=== PATIENT | female | born 1955 | race Caucasian/White ===

== ENCOUNTER 2022-07-01 21:53 | Emergency (ER) | payer MEDICARE, MEDICAID, SELFPAY ==
[2022-07-01 21:53] VITALS: BP 115/67; PULSE 80; RESP 20; TEMP 37; O2SAT 100
--- NOTE | 2022-07-01 22:23 | ED.WOUNDLAC ---
HPI - Wound/Laceration General Chief Complaint: Wound/Laceration Stated Complaint: wound vac beeping Time Seen by Provider: 07/01/22 22:17 History of Present Illness HPI narrative: 67-year-old female presents to the emergency room from home for evaluation of an alarm going off on her wound VAC to her right groin area. On 830 she had a right groin pseudoaneurysm repair by vascular surgery over the [facility], while plastics did a muscle flap. Patient has had no problems with the wound VAC until she was discharged home from [facility] 2 days ago. Related Data Allergies Allergy/AdvReac Type Severity Reaction Status Date / Time codeine Allergy Nausea and Verified 07/01/22 22:00 Vomiting Review of Systems Review of Systems: CONSTITUTIONAL: Denies fever, chills, or sweats. EYES: Denies visual changes, redness, or discharge. ENT: Denies rhinorrhea, congestion, sore throat, or otalgia. CARDIOVASCULAR: Denies chest pain, palpitations, or edema. RESPIRATORY: Denies cough or dyspnea. GASTROINTESTINAL: Denies abdominal pain, nausea, vomiting, or diarrhea. GENITOURINARY: Denies dysuria or hematuria. SKIN: Denies rash or itching. MUSCULOSKELETAL: Denies back pain, joint pain, or myalgia. NEUROLOGIC: Denies headache, numbness, dizziness, or weakness. PSYCHIATRIC: Denies anxiety or depression. PMFSH Past Medical History Medical History GERD (gastroesophageal reflux disease) PNA (pneumonia) Surgical History Surgical History H/O knee surgery H/O shoulder surgery Previous back surgery Social History Social History Smoking status: Unknown if ever smoked Alcohol intake: unknown Substance use: unknown Gender identity (if verbalized by the patient): Female Sexual Orientation (if Verbalized by the Patient): Straight or Heterosexual Spiritual care concerns: No Exam Narrative: GENERAL: Well-appearing, well-nourished, no physical limitations, and in no acute distress. HEAD: Normocephalic, atraumatic. EYES: Conjunctivae normal, PERRLA and EOMI. CHEST: Clear to auscultation. No respiratory distress. No wheezes rales or rhonchi. No tenderness. HEART: Regular rate and rhythm. No murmur heard. Normal peripheral pulses. EXTREMITIES: Normal range of motion. No edema. No clubbing or cyanosis SKIN: Covered wound to the right inguinal groin, wound VAC is in place NEURO: No focal deficits. Alert and oriented x3. MAEW. CN's II-XI intact bilaterally, normal gait PSYCH: Cooperative. Normal mood and affect. Course Course Emergency Course: 2244: Discussed case with MD Locke at [facility]. She recommends removing the wound vac and dressing, then applying a sterile dressing in its place. 2329: Wound VAC and wound VAC removed. Wound was cleaned with normal saline. Nonstick dressing was applied to the wound and covered. Patient tolerated procedure well Vital Signs Vital signs: Vital Signs Temperature 37.0 C 07/01/22 21:53 Pulse Rate 80 07/01/22 21:53 Respiratory Rate 20 07/01/22 21:53 Blood Pressure 115/67 07/01/22 21:53 Pulse Oximetry 100 07/01/22 21:53 Oxygen Delivery Nasal Cannula 07/01/22 21:53 Oxygen Flow Rate 2 07/01/22 21:53 Temperature 37.0 C 07/01/22 21:53 Pulse Rate 80 07/01/22 21:53 Respiratory Rate 20 07/01/22 21:53 Blood Pressure 115/67 07/01/22 21:53 Pulse Oximetry 100 07/01/22 21:53 Oxygen Delivery Nasal Cannula 07/01/22 21:53 Oxygen Flow Rate 2 07/01/22 21:53 Discharge Plan Discharge Clinical Impression: Encounter for wound care Patient Disposition: Home, Self-Care Condition: Stable Instructions: Antibiotic Form, Chronic Wounds (ED) Prescriptions: No Action acetaminophen [Mapap (acetaminophen)] 325 mg Tablet 650 mg PO Q6H PRN (Reason: Pain) Qty: 60 0RF atorvastatin 20 mg Table
--- NOTE | 2022-07-01 23:15 | PC.NURSE ---
MONSE per ERP to remove wound vac and place a dressing on.
--- NOTE | 2022-07-01 23:42 | PC.NURSE ---
Patients wound vac removed, wounds cleansed and dressed with dry dressings. Patient and her were educated on wound dressing changes and what to look out for. Patient given some extra dressing supplies to take home for dressing changes.
--- NOTE | 2022-07-02 00:01 | PC.NURSE ---
Patient normally wears 2L of o2 via NC. Patient did not bring her own O2 and her states I'm not waiting for an ambulance and I'm not going to go home and come back. Patient and her request to leave, be discharged with no oxygen, I can make it home quick and connect her to her oxygen then. Patient and her informed of risks of leaving without patient being on her O2. Patient and her continue to state I will be fine, I will get to my oxygen when I get home. Patient trialed off O2 for 10 min and her O2 ranged from 84%-92%. Patient still requesting to leave without her O2. Patient reminded of the risks of leaving without it, but still continues to state she wants to leave. ERP and club lounge attendant notified and aware of situation. Patient wheeled out of the ED via w/c upon request. Patient assisted into her car and her to take her home.
[2022-07-02 00:07] VITALS: PULSE 80; RESP 17; O2SAT 92
== END 2022-07-02 00:09 | disposition home or self-care (01) ==
PROVIDERS: Emergency Provider Nurse Practitioner Family; PCP Internal Medicine
DX: Z48.00 Encounter for change or removal of nonsurgical wound dressing (principal); K21.9 Gastro-esophageal reflux disease without esophagitis; Z79.01 Long term (current) use of anticoagulants; Z79.82 Long term (current) use of aspirin; Z79.891 Long term (current) use of opiate analgesic
CPT/HCPCS: 99282

== ENCOUNTER 2022-07-11 13:36 | Emergency (ER) | payer MEDICARE, MEDICAID, SELFPAY ==
[2022-07-11] VITALS (18 sets, daily range): BP systolic 93–155; BP diastolic 54–125; PULSE 73–80; RESP 16–20; TEMP 36.6; O2SAT 95–100
--- NOTE | ~2022-07-11 | CT_ITS ---
EXAMINATION: CT LE RT w con DATE: 07/11/2022 15:32 INDICATION: Bulla to the inner right thigh post recent subtle flap repair. TECHNIQUE: High resolution computed tomography (CT) of the right thigh was performed without intraven ous contrast. Additional sagittal and coronal reconstructions were performed. Automated exposure cont rol and iterative reconstruction technique were employed. The dose-length product was 261.75 mGy-cm. COMPARISON: None FINDINGS: Right total knee arthroplasty without patellar resurfacing which appears well seated in near-anatomic alignment. No periprosthetic lucency to suggest loosening or infection. Mild to moderate right hip o steoarthritis. No right hip or knee joint effusion. Bones are otherwise unremarkable. There is no bon e surgical wound seen along the anterior aspect of the proximal right thigh. There is peripheral enha ncement along a partially loculated fluid collection at the level of the superficial muscular fascia located deep to the surgical wound and measuring 6.4 cm craniocaudally and 7.5 x 2.2 cm in maximal tr ansaxial dimensions. There is a small defect in superficial aspect of the peripherally enhancing wall with extension of a 2.5 x 2.0 x 1.7 cm globular collection of fluid into the subdermal and fat appro ximately 3 cm medial and inferior to the caudal margin of the surgical wound. There is some surroundi ng skin thickening. Likely reactive mild right inguinal lymphadenopathy. The bladder and visualized p ortions of the bowels in the pelvis are unremarkable. The uterus is not identified and has likely bee n surgically resected. IMPRESSION: 1. Peripherally enhancing 6.4 x 7.5 x 2.2 cm loculated fluid collection at the level of the superfic ial muscular fascia, deep to a surgical wound at the anteromedial aspect of the proximal right thigh which could represent evolving hematoma/seroma or abscess in the appropriate clinical setting. There is superficial extension of a small lobular component of the fluid collection into the subdermal tiss ues which likely accounts for the described bulla. Reviewed, dictated and finalized at location A. IMPRESSION: 1. Peripherally enhancing 6.4 x 7.5 x 2.2 cm loculated fluid collection at the level of the superficial muscular fascia, deep to a surgical wound at the ante romedial aspect of the proximal right thigh which could represent evolving cristino booker/seroma or abscess in the appropriate clinical setting. There is superficia l extension of a small lobular component of the fluid collection into the subde rmal tissues which likely accounts for the described bulla.
--- NOTE | 2022-07-11 14:21 | ED.WOUNDLAC ---
HPI - Wound/Laceration General Chief Complaint: Wound/Laceration <Gordo Mullins APRN - Last Filed: 07/11/22 19:02> Stated Complaint: RT thigh wound- cardiac cath at [facility] 1.5 wks ago <Gordo Mullins APRN - Last Filed: 07/11/22 19:02> Time Seen by Provider: 07/11/22 14:09 <Gordo Mullins APRN - Last Filed: 07/11/22 19:02> History of Present Illness HPI narrative: 67-year-old female presents the emergency room for evaluation the large blister that is draining to her right inner thigh. Patient states 4 weeks ago had a cardiac cath at [facility] and was found to have a psuedoaneurysm of the right femoral artery. Vascular surgery repaired the femoral aneurysm, and plastics was involved to repair the sartorius muscle flap. Patient was seen here about 10 days ago because her wound vac alarm was going off. The wound vac was removed at that time. 8 days ago, she followed up with plastics to have the GILMAR drain removed. States she woke up this morning and was found to have a large blister to her right inner thigh that has been draining clear fluid. <Gordo Mullins APRN - Last Filed: 07/11/22 19:02> Related Data Allergies/Adverse Reactions: Allergies Allergy/AdvReac Type Severity Reaction Status Date / Time codeine Allergy Nausea and Verified 07/11/22 14:13 Vomiting <Gordo Mullins APRN - Last Filed: 07/11/22 19:02> Review of Systems Review of Systems: CONSTITUTIONAL: Denies fever, chills, or sweats. EYES: Denies visual changes, redness, or discharge. ENT: Denies rhinorrhea, congestion, sore throat, or otalgia. CARDIOVASCULAR: Denies chest pain, palpitations, or edema. RESPIRATORY: Denies cough or dyspnea. GASTROINTESTINAL: Denies abdominal pain, nausea, vomiting, or diarrhea. GENITOURINARY: Denies dysuria or hematuria. SKIN: Reports right medial thigh blister draining fluid MUSCULOSKELETAL: Denies back pain, joint pain, or myalgia. NEUROLOGIC: Denies headache, numbness, dizziness, or weakness. PSYCHIATRIC: Denies anxiety or depression. <Gordo Mullins APRN - Last Filed: 07/11/22 19:02> [facility] Past Medical History Medical History: Medical History GERD (gastroesophageal reflux disease) PNA (pneumonia) <Gordo Mullins APRN - Last Filed: 07/11/22 19:02> Surgical History Surgical History: Surgical History H/O knee surgery H/O shoulder surgery Previous back surgery <Gordo Mullins APRN - Last Filed: 07/11/22 19:02> Social History Social History: Social History Smoking status: Unknown if ever smoked Alcohol intake: unknown Substance use: unknown Gender identity (if verbalized by the patient): Female Sexual Orientation (if Verbalized by the Patient): Straight or Heterosexual Spiritual care concerns: No <Gordo Mullins APRN - Last Filed: 07/11/22 19:02> Exam Narrative: GENERAL: Ill-appearing, no physical limitations, and in no acute distress. HEAD: Normocephalic, atraumatic. EYES: Conjunctivae normal, PERRLA and EOMI. CHEST: Clear to auscultation. No respiratory distress. No wheezes rales or rhonchi. HEART: Regular rate and rhythm. No murmur heard. Normal peripheral pulses. ABDOMEN: Soft, nontender, nondistended, normal active bowel sounds. EXTREMITIES: Normal range of motion. No edema. No clubbing or cyanosis SKIN: Large bulla noted to the right medial thigh draining serosanguineous fluid. Large well-healing wound extending across the thigh with noted granulated tissue and no discharge. NEURO: No focal deficits. Alert and oriented x3. MAEW. CN's II-XI intact bilaterally, normal gait PSYCH: Cooperative. Normal mood and affect. <Gordo Mullins APRN - Last Filed: 07/11/22 19:02> Course Course Emergency Course: 1644: Discussed case with Dr. Lundberg, plastic surgeon at [facility]. He sta
[2022-07-11] MEDS: SODIUM CHLORIDE 0.9% IV 1,000 ML 150 ML IV CONT (14:31)
[2022-07-11 14:55] LABS: Basophils Absolute Auto 0.1 K/mm3 (0.0-0.1); Basophils Percent Auto 0.6 % (0.2-1.2); Eosinophils Absolute Auto 0.1 K/mm3 (0-0.3); Hematocrit 31.5 % (37.0-47.0); Hemoglobin 9.8 g/dL (12.0-15.0); Immature Granulocyte Absolute 0.22 K/mm3 (0.00-0.031); Immature Granulocyte Percent A 1.5 % (0-0.5); Lymphocytes Absolute Auto 1.57 K/mm3 (0.9-3.2); Lymphocytes Percent Auto 10.9 % (18.3-44.2); Mean Corpuscular HGB Conc 31.1 g/dl (32-36); Mean Corpuscular Hemoglobin 30.8 pg (26-34); Mean Corpuscular Volume 99.1 fl (80-100); Mean Platelet Volume 9.2 fl (7.4-10.4); Monocytes Absolute Auto 1.1 K/mm3 (0.1-0.6); Monocytes Percent Auto 7.5 % (2.6-8.5); Neutrophils Absolute Auto 11.3 K/mm3 (1.3-6.7); Neutrophils Percent Auto 78.5 % (45.5-73.1); Platelet Count Result 345 k/mm3 (150-375); Red Blood Count 3.18 M/mm3 (4.2-5.4); Red Cell Distribution Width 17.8 % (11.5-14.5); White Blood Count 14.4 K/mm3 (4.5-10.0)
[2022-07-11 15:12] LABS: Alanine Aminotransferase 32 U/L (6-35); Albumin Level 3.4 g/dL (3.5-5.1); Alkaline Phosphatase 88 U/L (38-126); Anion Gap 12 mmol/L (8-16); Aspartate Amino Transferase 38 U/L (14-36); Bilirubin,Total 0.3 mg/dL (0.2-1.3); Blood Urea Nitrogen 18 mg/dL (7-17); Calcium 9.1 mg/dL (8.4-10.2); Carbon Dioxide 30 mmol/L (22-30); Chloride 94 mmol/L (98-107); Estimated CRCL calculation 37 ml/min; Estimated Glomerular Filt Rate 56; Glucose 75 mg/dL (65-110); Potassium 4.2 mmol/L (3.4-5.0); Sodium 136 mmol/L (137-145)
[2022-07-11 15:13] LABS: Lactic Acid Reflex 0.6 mmol/L (0.7-2.0)
[2022-07-11] MEDS: ALPRAZolam (*CRX) 0.5 MG TABLET PO (18:57)
[2022-07-11] MEDS: HYDROmorphone HCL INJ (*CRX) 1 MG/ML SYR 0.5 MG IV PUSH ×2 (18:58→22:42)
--- NOTE | 2022-07-11 23:15 | PC.NURSE ---
Bedside report received from DEEPA Ling. Pt resting comfortably in bed. Dressing to right groin and right ant/lat thigh dry and intact at this time. Right pedal pulse strong. Pt told to call if needs anything.
[2022-07-12] VITALS (7 sets, daily range): BP systolic 126–132; BP diastolic 59–72; PULSE 96–98; RESP 18–19; TEMP 36.5; O2SAT 97–100
--- NOTE | 2022-07-12 01:51 | PC.NURSE ---
Dressing changed every time patient had to go to bathroom. This started at 18:00 and was done 3 times Applied wet to dry dressing at 01:30 to wound on panty line as well as 4x4's changed on left leg.
--- NOTE | 2022-07-12 02:50 | PC.NURSE ---
Per Marlene business relationship manager, pt's dressing to right groin needed to be changed after using restroom multiple times due to soilage and falling off.
--- NOTE | 2022-07-12 04:19 | PC.NURSE ---
Report to [facility]. Pt assisted to bathroom via w/c.
== END 2022-07-12 04:23 | disposition short-term general hospital (02) ==
PROVIDERS: Emergency Provider Nurse Practitioner Family; PCP Internal Medicine
DX: T81.718A Complication of other artery following a procedure, not elsewhere classified, initial encounter (principal); I72.4 Aneurysm of artery of lower extremity; K21.9 Gastro-esophageal reflux disease without esophagitis; Z87.01 Personal history of pneumonia (recurrent); Y84.0 Cardiac catheterization as the cause of abnormal reaction of the patient, or of later complication, without mention of misadventure at the time of the procedure
CPT/HCPCS: 36415; 73701; 80053; 83605; 85025; 87040; 96361; 96365; 96375; 96376; 99285; A9270; J0690; J1170; J7030; Q9967

== ENCOUNTER 2022-11-21 19:08 | Inpatient (IN) | payer MEDICARE, MEDICAID, SELFPAY ==
[2022-11-21] VITALS (30 sets, daily range): BP systolic 159–201; BP diastolic 93–137; PULSE 104–166; RESP 19–32; TEMP 38.8; O2SAT 95–100
--- NOTE | ~2022-11-21 | XR_ITS ---
EXAMINATION: XR chest 1V portable DATE: 11/21/2022 20:02 INDICATION: Dyspnea. Generalized weakness. TECHNIQUE: frontal view of the chest was obtained. COMPARISON: None FINDINGS: Nipple shadow projects of the left costophrenic angle. No focal airspace opacities, pulmonary edema, pleural effusion or pneumothorax. The cardiomediastinal silhouette is normal. Bilateral reverse total shoulder arthroplasties. Mild lumbar levocurvature with severe spondylosis. Peripheral IV at the rig ht antecubital fossa. IMPRESSION: 1. No acute cardiopulmonary disease. Reviewed, dictated and finalized at location A. TRIC METER TESTER
--- NOTE | ~2022-11-21 | CT_ITS ---
EXAMINATION: CT brain wo con DATE: 11/21/2022 20:58 INDICATION: Altered mental status TECHNIQUE: Computed tomography (CT) of the head was performed without intravenous contrast. Sagittal and coronal reconstructions were performed. The mA was adjusted according to patient size. Iterative reconstruction technique was employed. The dose-length product was 1210.67 mGy-cm. COMPARISON: None FINDINGS: No acute intracranial hemorrhage, acute infarction or abnormal extra axial fluid collection. There is mild scattered white matter hypoattenuation consistent with chronic small vessel ischemic disease. Ventricles are normal and symmetric. No mass/mass effect. The orbits, paranasal sinuses and mastoid a ir cells are normal. IMPRESSION: 1. No acute intracranial process. 2. Mild scattered white matter hypoattenuation consistent with chronic small vessel ischemic disease. Reviewed, dictated and finalized at location A. ETY SAW OPERATOR IMPRESSION: 1. No acute intracranial process. 2. Mild scattered white matter hypoattenuation consistent with chronic small ve ssel ischemic disease.
--- NOTE | ~2022-11-21 | CT_ITS ---
EXAMINATION: CTA chest PE protocol DATE: 11/21/2022 21:46 INDICATION: Dyspnea. Elevated d-dimer. TECHNIQUE: Computed tomography (CT) pulmonary angiogram of the chest was performed with 100 mL Omnipa que-350 intravenous contrast. Additional 3D reconstructions utilizing coronal maximum intensity proje ction (MIP) were performed. Automated exposure control and iterative reconstruction technique were em ployed. The dose-length product was 153.59 mGy-cm. COMPARISON: None FINDINGS: Excellent contrast opacification of the pulmonary arteries. There is mild streak artifact from dense contrast in the superior vena cava and right atrium. Moderate scattered respiratory motion artifact a t the bilateral lower lung zones where it mildly decreases sensitivity in some of the smaller subsegm ental pulmonary arteries. No pulmonary embolism. Mild emphysema. Mild atelectasis/scarring at the taz gula and left lower lobe. No pneumonia, pulmonary edema or pleural effusion. Heart size is normal. No pericardial effusion. Thoracic aorta is normal in caliber with no dissection. Enlargement of the leisa tral pulmonary arteries consistent with pulmonary arterial hypertension. No pathologically enlarged t horacic lymphadenopathy. Severe left renal atrophy. Mild bilateral hydronephrosis most prominent at t he bilateral extrarenal pelvises sees. Severe lower cervical and moderate thoracic spondylosis. Bilat eral reverse total shoulder arthroplasties. IMPRESSION: 1. No pulmonary embolism. 2. Emphysema with enlargement of the central pulmonary arteries suggesting secondary pulmonary arteri al hypertension. 2. Mild bilateral hydronephrosis with severe left renal atrophy. Reviewed, dictated and finalized at location A. N REDEVELOPMENT SPECIALIST IMPRESSION: 1. No pulmonary embolism. 2. Emphysema with enlargement of the central pulmonary arteries suggesting seco ndary pulmonary arterial hypertension. 2. Mild bilateral hydronephrosis with severe left renal atrophy.
--- NOTE | ~2022-11-21 | MR_ITS ---
EXAMINATION: MR brain/brain stem wo con DATE: 11/23/2022 14:53 INDICATION: Confusion. TECHNIQUE: Magnetic resonance imaging (MRI) of the brain and brainstem was performed without intraven ous contrast. COMPARISON: Head CT 11/21/2022 FINDINGS: There is no intracranial hemorrhage, acute infarction, or abnormal intracranial mass lesion . There are scattered areas of nonspecific increased T2-weighted signal intensity in the cerebral whi te matter and julissa. The ventricles are normal in size. The orbits are normal. The paranasal sinuses a re clear. There is a trace right mastoid effusion. IMPRESSION: 1. Mild nonspecific cerebral white matter disease and pontine disease, which likely represents chroni c small vessel ischemic disease. Reviewed, dictated and finalized at location A. [employer] IMPRESSION: 1. Mild nonspecific cerebral white matter disease and pontine disease, which tammy parry represents chronic small vessel ischemic disease.
[2022-11-21] MEDS: dilTIAZem HCl INJ 25 MG/5 ML VIAL 10 MG IV PUSH (19:16)
--- NOTE | 2022-11-21 19:16 | ECG_ITS ---
Measurements Intervals [place] Rate: 117 P: IN: 0 QRS: 93 QRSD: 117 T: 18 QT: 345 QTc: 483 Interpretive Statements ATRIAL FIBRILLATION WITH RAPID VENTRICULAR RESPONSE RIGHT BUNDLE BRANCH BLOCK ABNORMAL ECG NO PREVIOUS ECG AVAILABLE FOR COMPARISON Electronically Signed On 11-22-2022 15:05:18 FIRE PREVENTION INSPECTOR by Adán Jenkins M.D.
[2022-11-21 19:22] LABS: Glucose Point of Care 84 mg/dl (65-105)
--- NOTE | 2022-11-21 19:25 | ED.GENADULT ---
HPI - General Adult General Chief complaint: Weakness Stated complaint: AFIB/RVR; FEVER, GEN WKNS History of Present Illness HPI narrative: This is a 67-year-old female with history of COPD on home oxygen presenting to ED with generalized weakness, AFib with RVR and possible fever. The patient herself is a poor historian. She knows the year but she does not know why she is here. She does not understand her family called an ambulance to have her brought to the hospital. She is denying any physical complaints at this time outside of feeling generally unwell and an episode of diarrhea today. Per her she has been urinating on herself. No history of falls that he is aware of. He states that she has been losing weight. Per EMS they were called to the family's house because she has been not eating well, and just lying in bed. When they arrived the patient was 80% on room air. She is typically on 2 L nasal cannula. Her saturation quickly return to normal after they placed her on her normal oxygen. Her heart rate was found to be in the 180s with an AFib pattern. They gave her a fluid bolus which decreased her heart rate from 180 to approximately 130ish. She was then brought to the hospital. Related Data Allergies Allergy/AdvReac Type Severity Reaction Status Date / Time codeine Allergy Nausea and Verified 11/21/22 19:16 Vomiting PMFSH Past Medical History Medical History (Updated 11/21/22 @ 23:02 by Rick Bryant MD) COPD (chronic obstructive pulmonary disease) COPD (chronic obstructive pulmonary disease) GERD (gastroesophageal reflux disease) PNA (pneumonia) Surgical History Surgical History H/O knee surgery H/O shoulder surgery Previous back surgery Social History Social History Smoking status: Unknown if ever smoked Alcohol intake: unknown Substance use: unknown Gender identity (if verbalized by the patient): Female Sexual Orientation (if Verbalized by the Patient): Straight or Heterosexual Spiritual care concerns: No Exam Narrative: APPEARANCE: Patient appears far older than her stated age. She is emaciated. She is A&O times 1-2. Head: atraumatic. EYES: EOMI, NOSE: Atraumatic NECK: Trachea midline RESPIRATORY: Increased respiratory rate, decreased lung sounds in all liu, no noted wheezing or crackles. CARDIOVASCULAR: Tachycardic, irregularly irregular ABDOMINAL: Non-distended, nontender no guarding / MUSCULOSKELETAl: No obvious deformities NEURO: Alert. Moving 4/4 extremities SKIN:: Warm, dry. Normal color PSYCHIATRIC: Normal affect Course Vital Signs Vital signs: Vital Signs Pulse Rate 149 H 11/21/22 19:10 Respiratory Rate 20 11/21/22 19:10 Blood Pressure 159/137 H 11/21/22 19:10 Oxygen Delivery Room Air 11/21/22 19:10 Pulse Rate 131 H 11/21/22 20:50 Respiratory Rate 26 H 11/21/22 20:50 Blood Pressure 159/137 H 11/21/22 19:10 Oxygen Delivery Room Air 11/21/22 19:10 Medical Decision Making MDM Narrative Medical decision making narrative: -Presentation: 67-year-old female presenting with generalized weakness. She is a poor historian so history is primarily obtained from EMS. -DDX includes but is not limited to: COPD exacerbation, pneumonia, UTI, sepsis, dehydration, failure to thrive -Co-morbidities complicating care: patient appears chronically unwell, COPD on home oxygen, poor historian -Social determinants of health: patient lives at home with her family -External Chart Review: none -Hx from independent Sources: EMS. - Pankaj -Discussion of Management/Consultants: HospitalistKristel Ardon -Independent interpretation of studies: Independent EKG interpretation: Rhythm afib, Rate [117], [place] -[normal], [place] -[normal], QRS RBBB, QTC [normal], T waves -[negative for concerning inversions], ST Segmen
[2022-11-21] MEDS: ALBUTEROL SULFATE NEB 2.5 MG/3 ML INH 7.5 MG INHALATION (19:41)
[2022-11-21] MEDS: IPRATROPIUM BR 0.02% INH SOLN 0.5 MG/2.5 ML VIAL 1.5 MG INHALATION (19:41)
[2022-11-21 19:50] LABS: Basophils Percent Auto 0.3 % (0.2-1.2); Eosinophils Percent Auto 0.1 % (0-4.4); Hematocrit 42.4 % (37.0-47.0); Hemoglobin 13.9 g/dL (12.0-15.0); Immature Granulocyte Absolute 0.04 K/mm3 (0.00-0.031); Immature Granulocyte Percent A 0.3 % (0-0.5); Lymphocytes Percent Auto 7.6 % (18.3-44.2); Mean Corpuscular HGB Conc 32.8 g/dl (32-36); Mean Corpuscular Volume 88.3 fl (80-100); Mean Platelet Volume 10.7 fl (7.4-10.4); Monocytes Absolute Auto 0.5 K/mm3 (0.1-0.6); Monocytes Percent Auto 4.2 % (2.6-8.5); Neutrophils Absolute Auto 10.3 K/mm3 (1.3-6.7); Neutrophils Percent Auto 87.5 % (45.5-73.1); Platelet Count Result 261 k/mm3 (150-375); Red Cell Distribution Width 14.7 % (11.5-14.5); White Blood Count 11.8 K/mm3 (4.5-10.0)
[2022-11-21] MEDS: MAGNESIUM SULF 2 GM/WATER 50ML 2 GM/50 ML BAG IVPB (20:06)
[2022-11-21] MEDS: SODIUM CHLORIDE 0.9% IV 1,000 ML 999 ML IV CONT (20:06)
[2022-11-21 20:07] LABS: Device NASAL CANNULA; PCO2 VBG 40.4 mmHg (42.0-48.0); PO2 VBG 53.6 mmHg (35.0-45.0)
[2022-11-21] MEDS: methylPREDNISolone SOD SUCC 125 MG VIAL IV PUSH (20:08)
[2022-11-21 20:25] LABS: Influenza A QL RT-PCR Negative (Negative); Influenza B QL RT-PCR Negative (Negative); RSV RNA, RT-PCR Negative (Negative); SARS-CoV-2 RNA PCR Negative
[2022-11-21 20:37] LABS: INR 1.2; Prothrombin Time 15.1 Seconds (11.1-14.7)
[2022-11-21 20:38] LABS: Partial Thromboplastin Time 33.6 SECONDS (22.3-36.8)
[2022-11-21 20:42] LABS: Alanine Aminotransferase 30 U/L (6-35); Albumin Level 4.3 g/dL (3.5-5.1); Alkaline Phosphatase 80 U/L (38-126); Anion Gap 10 mmol/L (8-16); Aspartate Amino Transferase 41 U/L (14-36); Bilirubin,Total 0.8 mg/dL (0.2-1.3); Blood Urea Nitrogen 25 mg/dL (7-17); Carbon Dioxide 29 mmol/L (22-30); Chloride 95 mmol/L (98-107); Estimated Glomerular Filt Rate > 60; Glucose 91 mg/dL (65-110); Lipase 165 U/L (23-300); Magnesium 1.4 mg/dL (1.6-2.3); Potassium 3.4 mmol/L (3.4-5.0); Sodium 134 mmol/L (137-145)
[2022-11-21 20:48] LABS: D Dimer 0.74 ug/mL (<0.48)
[2022-11-21 20:51] LABS: NT Pro B Type Natriuretic Pept 1950 pg/mL (19.9-100)
[2022-11-21] MEDS: SODIUM CHLORIDE 0.9% IV 500 ML 999 ML IV CONT (21:08)
[2022-11-21 21:14] LABS: Thyroid Stimulating Hormone Reflex 0.074 uIU/mL (0.465-4.68)
[2022-11-21 21:17] LABS: Troponin I 0.052 ng/mL (0.000-0.034)
[2022-11-21 21:35] LABS: Appearance Urine Clear (Clear); Bilirubin Urine Negative (Negative); Blood Urine 2+ (Negative); Color Urine Yellow (Yellow); Glucose Urine UA Negative (Negative); Ketones Urine 2+ mg/dL (Negative); Leukocyte Esterase Ur Negative LEU/UL (Negative); Nitrate Urine Negative (Negative); Protein Urine 2+ mg/dL (Negative); Urobilinogen Urine 0.2 mg/dL (<2.0)
[2022-11-21 21:43] LABS: Mucus Urine Rare /lpf; Squamous Epithelial Cell Urine Rare /hpf (Few); WBC Urine 0-3 /hpf
[2022-11-21 21:45] LABS: Add Urine Microscopic? YES
[2022-11-21 21:57] LABS: Free T4 Free Thyroxine Reflex 1.71 ng/dL (0.78-2.19)
--- NOTE | 2022-11-21 22:50 | PM.IMHP ---
H&P: HPI History of Present Illness Date/Time: 11/21/22 22:50 Chief Complaint: Generalized weakness Narrative: This is a 67-year-old female with past medical history significant for atrial fibrillation, rate controlled, anticoagulated, COPD/emphysema, GERD. History has been obtained upon reviewing medical records and discussion with emergency room doctor patient is unable to give any history at the time of my visit she was getting agitated earlier on requiring a sitter. Preliminary workup was significant for patient was found to have a heart rate in the 180 by EMS after family called ambulance services, in emergency room patient had a fever a clear source was not found patient was started on cefepime and vancomycin and cultures have been sent tested negative for influenza type A influenza type B RSV and COVID-19. A CT of the chest was significant for: FINDINGS: Excellent contrast opacification of the pulmonary arteries. There is mild streak artifact from dense contrast in the superior vena cava and right atrium. Moderate scattered respiratory motion artifact at the bilateral lower lung zones where it mildly decreases sensitivity in some of the smaller subsegmental pulmonary arteries. No pulmonary embolism. Mild emphysema. Mild atelectasis/scarring at the lingula and left lower lobe. No pneumonia, pulmonary edema or pleural effusion. Heart size is normal. No pericardial effusion. Thoracic aorta is normal in caliber with no dissection. Enlargement of the central pulmonary arteries consistent with pulmonary arterial hypertension. No pathologically enlarged thoracic lymphadenopathy. Severe left renal atrophy. Mild bilateral hydronephrosis most prominent at the bilateral extrarenal pelvises sees. Severe lower cervical and moderate thoracic spondylosis. Bilateral reverse total shoulder arthroplasties. IMPRESSION: 1. No pulmonary embolism. 2. Emphysema with enlargement of the central pulmonary arteries suggesting secondary pulmonary arterial hypertension. 2. Mild bilateral hydronephrosis with severe left renal atrophy. Review of Systems Review of Systems: ROS unobtainable: Yes unobtainable due to mental status (Obtundation) [facility] Past Medical History Medical History (Updated 11/21/22 @ 23:02 by Rick Bryant MD) COPD (chronic obstructive pulmonary disease) COPD (chronic obstructive pulmonary disease) GERD (gastroesophageal reflux disease) PNA (pneumonia) Surgical History Surgical History H/O knee surgery H/O shoulder surgery Previous back surgery Social History Social History Smoking status: Unknown if ever smoked Alcohol intake: unknown Substance use: unknown Gender identity (if verbalized by the patient): Female Sexual Orientation (if Verbalized by the Patient): Straight or Heterosexual Spiritual care concerns: No Meds Home Medications and Allergies Home Medications Medication Instructions Recorded Confirmed Type acetaminophen 325 mg tablet (Mapap 650 mg PO Q6H PRN Pain #60 tabs 06/29/22 11/22/22 Rx (acetaminophen)) alprazolam 0.25 mg tablet 0.5 mg PO TID PRN Anxiety #30 tabs 06/29/22 11/22/22 Rx apixaban 5 mg tablet (Eliquis) 5 mg PO Q12HR #60 tabs 06/29/22 11/22/22 Rx aspirin 81 mg chewable tablet 81 mg PO DAILY@0800 #30 tabs 06/29/22 11/22/22 Rx (Children's Aspirin) atorvastatin 20 mg tablet 20 mg PO HS #30 tabs 06/29/22 11/22/22 Rx diltiazem HCl 120 mg capsule,24 240 mg PO QAM #30 caps 06/29/22 11/22/22 Rx hr,extended release famotidine 20 mg tablet 20 mg PO Q12HR #30 tabs 06/29/22 11/22/22 Rx oxycodone 5 mg tablet 5 mg PO Q3H PRN Pain Rated 7-10 06/29/22 11/22/22 Rx #30 tabs sertraline 100 mg tablet (Zoloft) 100 mg PO QAM #30 tabs 06/29/22 11/22/22 Rx Allergies Allergy/AdvReac Type Severity Reaction Status Date / Time codeine Allergy Nausea and Verified 11/21/22 19:16 Vomiti
[2022-11-22] VITALS (25 sets, daily range): BP systolic 152–206; BP diastolic 73–100; PULSE 83–117; RESP 16–20; TEMP 36.4–38; O2SAT 95–100; BMI 20.1; BMI 16.1
--- NOTE | 2022-11-22 00:14 | ADMGEN ---
This patient, Sahara Neal, was admitted to IMU Room 206-01. Patient/family oriented to hospital policies and general routines including ID bracelet, bed and alarms, visiting hours, pain management, procedures, bathroom and other care routines, personal items, smoking policy, room service/diet, and visiting hours. Information on how to activate the Rapid Response Team has been discussed. Patient/Family are encouraged to report perceived risks to care and to ask questions if they do not understand what they are told or what they should do.
[2022-11-22] MEDS: hydrALAZINE HCL 20 MG/ML VIAL 10 MG IV PUSH ×2 (02:20→08:15)
[2022-11-22] MEDS: ALBUTEROL SULFATE NEB 2.5 MG/3 ML INH INHALATION ×4 (04:22→20:55)
[2022-11-22] MEDS: IPRATROPIUM BR 0.02% INH SOLN 0.5 MG/2.5 ML VIAL INHALATION ×4 (04:22→20:54)
[2022-11-22 05:38] LABS: Total Triiodothyronine (T3) 0.85 NG/ML (0.97-1.69)
--- NOTE | 2022-11-22 08:06 | PM.IMPN ---
Progress Note: A&P Assessment and Plan (1) Atrial fibrillation: Code(s): I48.91 - Unspecified atrial fibrillation Status: Acute Assessment and Plan: Appreciate cardiology consultation, normal sinus now, continue home meds (2) COPD (chronic obstructive pulmonary disease): Code(s): J44.9 - Chronic obstructive pulmonary disease, unspecified Status: Acute Assessment and Plan: Stable, continue steroid (3) Respiratory failure: Code(s): J96.90 - Respiratory failure, unspecified, unspecified whether with hypoxia or hypercapnia Status: Acute Assessment and Plan: Resolved, on home O2 (4) Adult failure to thrive: Code(s): R62.7 - Adult failure to thrive Status: Acute Assessment and Plan: PT/OT (5) HTN (hypertension): Code(s): I10 - Essential (primary) hypertension Status: Acute Assessment and Plan: Resume home meds as needed (6) CAD (coronary artery disease): Code(s): I25.10 - Atherosclerotic heart disease of [place] coronary artery without angina pectoris Status: Acute Assessment and Plan: Chest pain-free Plan DVT prophylaxis with SCDs GI prophylaxis not indicated Code status full code Subjective Date/time seen: 11/22/22 08:06 Interval history: No overnight events noted. No chest pain No nausea, vomiting or diarrhea. No fevers or chills. Patient very confused, states she has difficulty taking deep breath. Denies any other complaints. Review of Systems Review of Systems: ROS unobtainable: Yes unobtainable due to mental status Exam Narrative: General: Unsure of baseline mentation, stable on 2 L nasal cannula HEENT: Atraumatic, normocephalic, mucous membranes moist CV: Regular rate and rhythm, S1, S2 Lungs: Clear to auscultation bilaterally, no rales or crackles noted, no wheezes, good air entry Abdomen: Soft, nontender, nondistended Extremities: Normal to inspection Skin: No rashes noted, no lesions or wounds seen Psych: Confused, unable to assessed Objective Data Vital Signs Vital Signs: Vital Signs - 24 hr 11/21/22 19:10 11/21/22 19:18 11/21/22 19:39 Temperature Pulse Rate 149 H 106 H 128 H Respiratory Rate 20 30 H Blood Pressure 159/137 H Pulse Oximetry Oxygen Delivery Room Air Oxygen Flow Rate 11/21/22 20:50 11/21/22 20:07 11/21/22 23:37 Temperature 101.9 F H Pulse Rate 131 H Respiratory Rate 26 H Blood Pressure Pulse Oximetry 98 Oxygen Delivery Nasal Cannula Oxygen Flow Rate 2 11/21/22 20:00 11/21/22 19:11 11/21/22 19:13 Temperature 101.9 F H Pulse Rate 166 H Respiratory Rate 23 H 32 H Blood Pressure 159/137 H Pulse Oximetry Oxygen Delivery Oxygen Flow Rate 11/21/22 19:15 11/21/22 19:27 11/21/22 19:30 Temperature Pulse Rate 127 H 112 H Respiratory Rate 27 H 21 H Blood Pressure 191/110 H 183/102 H Pulse Oximetry 100 Oxygen Delivery Oxygen Flow Rate 11/21/22 19:31 11/21/22 20:16 11/21/22 20:38 Temperature Pulse Rate 126 H 106 H 143 H Respiratory Rate 29 H 22 H 28 H Blood Pressure Pulse Oximetry 100 100 100 Oxygen Delivery Oxygen Flow Rate 11/21/22 21:00 11/21/22 21:08 11/21/22 21:15 Temperature Pulse Rate 107 H 104 H Respiratory Rate 27 H 28 H Blood Pressure 182/108 H 198/94 H Pulse Oximetry 95 96 100 Oxygen Delivery Oxygen Flow Rate 11/21/22 21:16 11/21/22 21:30 11/21/22 21:46 Temperature Pulse Rate 109 H 110 H 113 H Respiratory Rate 19 23 H 23 H Blood Pressure 193/93 H Pulse Oximetry 100 96 98 Oxygen Delivery Oxygen Flow Rate 11/21/22 21:47 11/21/22 22:00 11/21/22 22:01 Temperature Pulse Rate 109 H 106 H 106 H Respiratory Rate 29 H 31 H 26 H Blood Pressure 174/99 H 189/96 H Pulse Oximetry 100 100 100 Oxygen Delivery Oxygen Flow Rate 11/21/22 22:15 11/21/22 22:16 11/21/22 22:30 Temperature Pulse R
[2022-11-22] MEDS: APIXABAN 5 MG TABLET PO ×2 (08:19→20:32)
[2022-11-22] MEDS: ASPIRIN 81 MG CHEWABLE TABLET PO (08:19)
[2022-11-22] MEDS: SERTRALINE HCL 50 MG TABLET 100 MG PO (08:19)
[2022-11-22] MEDS: FAMOTIDINE 20 MG TABLET PO ×2 (08:19→20:32)
--- NOTE | 2022-11-22 13:03 | PM.CNCAR ---
Assessment and Plan Assessment and plan (1) Sepsis: Code(s): A41.9 - Sepsis, unspecified organism Status: Acute (2) Adult failure to thrive: Code(s): R62.7 - Adult failure to thrive Status: Acute (3) Hyperthyroidism: Code(s): E05.90 - Thyrotoxicosis, unspecified without thyrotoxic crisis or storm Status: Acute (4) COPD (chronic obstructive pulmonary disease): Code(s): J44.9 - Chronic obstructive pulmonary disease, unspecified Status: Acute (5) CAD (coronary artery disease): Code(s): I25.10 - Atherosclerotic heart disease of [place] coronary artery without angina pectoris Status: Acute (6) Atrial fibrillation: Code(s): I48.91 - Unspecified atrial fibrillation Status: Acute (7) COPD (chronic obstructive pulmonary disease): Code(s): J44.9 - Chronic obstructive pulmonary disease, unspecified Status: Acute Plan Patient is now back in sinus rhythm. Continue home Diltiazem. If patient goes back into atrial fibrillation, can consider increasing dose of Diltiazem if blood pressure allows or add Metoprolol. Troponins were mildly elevated. No chest pain. Not consistent with ACS. Likely due to AFIB with RVR. TSH is low, along with T4. Management as per Hospitalist. History of Present Illness History of Present Illness Consult date/time: 11/22/22 13:03 Requesting physician: Mariajose Ardon MD Consult reason: atrial fibrillation Reason For Visit: Sepsis of unknown origin Narrative: We are consulted for atrial fibrillation with RVR. This is a 67-year-old female with a known history of CAD, atrial fibrillation, COPD on home oxygen, who presented to the ER with generalized weakness. Patient is a poor historian and unable to offer details, states she feels unwell. No chest pain, palpitations, shortness of breath. Per ER note, told team she has been urinating on herself, had an episode of diarrhea, losing weight, not eating well. Patient was noted to be in AFIB with RVR. Given IVFs and IV Dilt with improvement. Patient is on Diltiazem PO at home for her atrial fibrillation, along with Eliquis. Review of Systems Review of Systems: 12-point ROS obtained. Negative, unless stated in HPI. [facility] Past Medical History Medical History COPD (chronic obstructive pulmonary disease) COPD (chronic obstructive pulmonary disease) GERD (gastroesophageal reflux disease) PNA (pneumonia) Surgical History Surgical History H/O knee surgery H/O shoulder surgery Previous back surgery Social History Social History Smoking status: Unknown if ever smoked Alcohol intake: unknown Substance use: unknown Gender identity (if verbalized by the patient): Female Sexual Orientation (if Verbalized by the Patient): Straight or Heterosexual Spiritual care concerns: No Meds Home Medications and Allergies Home Medications Medication Instructions Recorded Confirmed Type acetaminophen 325 mg tablet (Mapap 650 mg PO Q6H PRN Pain #60 tabs 06/29/22 11/22/22 Rx (acetaminophen)) alprazolam 0.25 mg tablet 0.5 mg PO TID PRN Anxiety #30 tabs 06/29/22 11/22/22 Rx apixaban 5 mg tablet (Eliquis) 5 mg PO Q12HR #60 tabs 06/29/22 11/22/22 Rx aspirin 81 mg chewable tablet 81 mg PO DAILY@0800 #30 tabs 06/29/22 11/22/22 Rx (Children's Aspirin) atorvastatin 20 mg tablet 20 mg PO HS #30 tabs 06/29/22 11/22/22 Rx diltiazem HCl 120 mg capsule,24 240 mg PO QAM #30 caps 06/29/22 11/22/22 Rx hr,extended release famotidine 20 mg tablet 20 mg PO Q12HR #30 tabs 06/29/22 11/22/22 Rx oxycodone 5 mg tablet 5 mg PO Q3H PRN Pain Rated 7-10 06/29/22 11/22/22 Rx #30 tabs sertraline 100 mg tablet (Zoloft) 100 mg PO QAM #30 tabs 06/29/22 11/22/22 Rx Allergies Allergy/AdvReac Type Severity Reaction Status Date /
[2022-11-22 18:46] LABS: Basophils Percent Auto 0.2 % (0.2-1.2); Hematocrit 41.2 % (37.0-47.0); Hemoglobin 13.5 g/dL (12.0-15.0); Immature Granulocyte Absolute 0.06 K/mm3 (0.00-0.031); Immature Granulocyte Percent A 0.5 % (0-0.5); Lymphocytes Absolute Auto 1.45 K/mm3 (0.9-3.2); Lymphocytes Percent Auto 11.1 % (18.3-44.2); Mean Corpuscular HGB Conc 32.8 g/dl (32-36); Mean Corpuscular Hemoglobin 29.4 pg (26-34); Mean Corpuscular Volume 89.8 fl (80-100); Mean Platelet Volume 10.7 fl (7.4-10.4); Monocytes Absolute Auto 1.8 K/mm3 (0.1-0.6); Monocytes Percent Auto 13.4 % (2.6-8.5); Neutrophils Absolute Auto 9.8 K/mm3 (1.3-6.7); Neutrophils Percent Auto 74.8 % (45.5-73.1); Platelet Count Result 269 k/mm3 (150-375); Red Blood Count 4.59 M/mm3 (4.2-5.4); White Blood Count 13.1 K/mm3 (4.5-10.0)
[2022-11-22 18:58] LABS: Ammonia < 9 umol/L (9-30)
[2022-11-22 18:59] LABS: Magnesium 2.2 mg/dL (1.6-2.3)
[2022-11-22 19:02] LABS: CRP 0.7 mg/dL (<1.0)
[2022-11-22 19:16] LABS: Lactic Acid Reflex 1.7 mmol/L (0.7-2.0)
[2022-11-22 19:42] LABS: Alanine Aminotransferase 32 U/L (6-35); Alkaline Phosphatase 65 U/L (38-126); Anion Gap 11 mmol/L (8-16); Aspartate Amino Transferase 44 U/L (14-36); Bilirubin,Total 0.7 mg/dL (0.2-1.3); Blood Urea Nitrogen 36 mg/dL (7-17); Calcium 9.2 mg/dL (8.4-10.2); Carbon Dioxide 28 mmol/L (22-30); Chloride 96 mmol/L (98-107); Estimated CRCL calculation 29 ml/min; Estimated Glomerular Filt Rate 50; Glucose 150 mg/dL (65-110); Potassium 3.3 mmol/L (3.4-5.0); Sodium 135 mmol/L (137-145)
[2022-11-22 20:13] LABS: Procalcitonin 0.3 ng/mL
[2022-11-22] MEDS: ALPRAZolam (*CRX) 0.5 MG TABLET PO (20:32)
[2022-11-22] MEDS: ATORVASTATIN 20 MG TABLET PO (20:32)
[2022-11-22] MEDS: oxyCODONE HCL (*CRX) 5 MG TAB IR PO (20:32)
[2022-11-23] VITALS (18 sets, daily range): BP systolic 129–151; BP diastolic 78–104; PULSE 74–97; RESP 16–22; TEMP 36.1–36.6; O2SAT 93–99
[2022-11-23] MEDS: ALBUTEROL SULFATE NEB 2.5 MG/3 ML INH INHALATION ×5 (00:35→20:10)
[2022-11-23] MEDS: IPRATROPIUM BR 0.02% INH SOLN 0.5 MG/2.5 ML VIAL INHALATION ×5 (00:35→20:10)
[2022-11-23 04:47] LABS: Basophils Percent Auto 0.3 % (0.2-1.2); Eosinophils Percent Auto 0.1 % (0-4.4); Hematocrit 37.5 % (37.0-47.0); Hemoglobin 12.2 g/dL (12.0-15.0); Immature Granulocyte Absolute 0.07 K/mm3 (0.00-0.031); Immature Granulocyte Percent A 0.5 % (0-0.5); Lymphocytes Absolute Auto 1.59 K/mm3 (0.9-3.2); Lymphocytes Percent Auto 11.9 % (18.3-44.2); Mean Corpuscular HGB Conc 32.5 g/dl (32-36); Mean Corpuscular Hemoglobin 29.7 pg (26-34); Mean Corpuscular Volume 91.2 fl (80-100); Mean Platelet Volume 10.6 fl (7.4-10.4); Monocytes Absolute Auto 1.3 K/mm3 (0.1-0.6); Monocytes Percent Auto 9.4 % (2.6-8.5); Neutrophils Absolute Auto 10.4 K/mm3 (1.3-6.7); Neutrophils Percent Auto 77.8 % (45.5-73.1); Platelet Count Result 217 k/mm3 (150-375); Red Blood Count 4.11 M/mm3 (4.2-5.4); Red Cell Distribution Width 14.8 % (11.5-14.5); White Blood Count 13.3 K/mm3 (4.5-10.0)
[2022-11-23 05:02] LABS: Alanine Aminotransferase 36 U/L (6-35); Albumin Level 3.9 g/dL (3.5-5.1); Alkaline Phosphatase 65 U/L (38-126); Anion Gap 6 mmol/L (8-16); Aspartate Amino Transferase 60 U/L (14-36); Bilirubin,Total 0.9 mg/dL (0.2-1.3); Blood Urea Nitrogen 36 mg/dL (7-17); Calcium 8.7 mg/dL (8.4-10.2); Carbon Dioxide 29 mmol/L (22-30); Chloride 98 mmol/L (98-107); Estimated CRCL calculation 35 ml/min; Estimated Glomerular Filt Rate > 60; Glucose 88 mg/dL (65-110); Sodium 133 mmol/L (137-145)
[2022-11-23] MEDS: POTASSIUM CHLORIDE INJ 40 MEQ in SODIUM CHLORIDE 0.9% IV 500 ML 125 MEQ IVPB (06:55)
--- NOTE | 2022-11-23 08:29 | PM.IMPN ---
Progress Note: A&P Assessment and Plan (1) Atrial fibrillation: Code(s): I48.91 - Unspecified atrial fibrillation Status: Acute Assessment and Plan: Appreciate cardiology consultation, normal sinus now, continue home meds (2) COPD (chronic obstructive pulmonary disease): Code(s): J44.9 - Chronic obstructive pulmonary disease, unspecified Status: Acute Assessment and Plan: Stable, stop steroids, not in exacerbation (3) Respiratory failure: Code(s): J96.90 - Respiratory failure, unspecified, unspecified whether with hypoxia or hypercapnia Status: Acute Assessment and Plan: Resolved, on home O2 (4) Adult failure to thrive: Code(s): R62.7 - Adult failure to thrive Status: Acute Assessment and Plan: PT/OT, improving (5) HTN (hypertension): Code(s): I10 - Essential (primary) hypertension Status: Acute Assessment and Plan: Resume home meds as needed (6) CAD (coronary artery disease): Code(s): I25.10 - Atherosclerotic heart disease of [place] coronary artery without angina pectoris Status: Acute Assessment and Plan: Chest pain-free (7) Altered mental state: Code(s): R41.82 - Altered mental status, unspecified Status: Acute Assessment and Plan: unsure of etiology, consult neuro, brain MRI, EEG Plan DVT prophylaxis with eliquis GI prophylaxis not indicated Code status full code Subjective Date/time seen: 11/23/22 08:29 Interval history: No overnight events noted. No chest pain No nausea, vomiting or diarrhea. No fevers or chills. She seems about the same as yesterday. She is having significant memory loss concerns. I called the and spoke with him and he states she seems about the same today as yesterday. She states her memory concerns were sudden onset and associated with urinating and random places a random times. He recently found urine in her dresser drawer that looks to be about a few days old. Review of Systems Review of Systems: 12 point review of systems was assessed and was negative except as noted in the HPI Exam Narrative: General: Confused, alert and oriented to self only HEENT: Atraumatic, normocephalic, mucous membranes moist CV: Regular rate and rhythm, S1, S2 Lungs: Clear to auscultation bilaterally, no rales or crackles noted, no wheezes, good air entry Abdomen: Soft, nontender, nondistended Extremities: Normal to inspection Skin: No rashes noted, no lesions or wounds seen Psych: Unable to assessed Objective Data Vital Signs Vital Signs: Vital Signs - 24 hr 11/22/22 08:55 11/22/22 09:00 11/22/22 09:06 Temperature Pulse Rate 100 100 97 Respiratory Rate 20 20 Blood Pressure Pulse Oximetry 96 Oxygen Delivery Nasal Cannula Oxygen Flow Rate 2 11/22/22 08:46 11/22/22 09:22 11/22/22 10:00 Temperature 98.8 F 98.8 F Pulse Rate 96 Respiratory Rate Blood Pressure 180/82 H Pulse Oximetry Oxygen Delivery Oxygen Flow Rate 11/22/22 12:00 11/22/22 12:00 11/22/22 14:35 Temperature 98.7 F Pulse Rate 98 88 Respiratory Rate 20 18 Blood Pressure 167/73 H Pulse Oximetry 97 97 Oxygen Delivery Nasal Cannula Oxygen Flow Rate 2 11/22/22 12:00 11/22/22 14:00 11/22/22 16:00 Temperature Pulse Rate 103 H 90 Respiratory Rate Blood Pressure Pulse Oximetry 97 Oxygen Delivery Nasal Cannula Oxygen Flow Rate 2 11/22/22 16:00 11/22/22 16:00 11/22/22 18:00 Temperature 97.5 F L Pulse Rate 92 93 94 Respiratory Rate 20 Blood Pressure 160/85 H Pulse Oximetry 99 Oxygen Delivery Oxygen Flow Rate 11/22/22 20:00 11/22/22 20:55 11/22/22 20:57 Temperature 97.7 F Pulse Rate 83 92 Respiratory Rate 16 18 Blood Pressure 155/84 H Pulse Oximetry 98 95 Oxygen Delivery Nasal Cannula Oxygen Flow Rate 2 11/22/22 21:08 11/22/22 20:00 11/22/22 20:00 [facility]
[2022-11-23] MEDS: APIXABAN 5 MG TABLET PO ×2 (10:08→20:27)
[2022-11-23] MEDS: SERTRALINE HCL 50 MG TABLET 100 MG PO (10:08)
[2022-11-23] MEDS: FAMOTIDINE 20 MG TABLET PO ×2 (10:08→20:27)
[2022-11-23] MEDS: ASPIRIN 81 MG CHEWABLE TABLET PO (10:08)
[2022-11-23] MEDS: oxyCODONE HCL (*CRX) 5 MG TAB IR PO (10:10)
[2022-11-23 11:47] LABS: Alveolar/Arterial O2 Gradient 59.3 mmHg; Base Excess ABG 4.5 mEq/l (+/-2.0); Fractional Inspired Oxygen 28 %; HCO3 ABG 28.5 mEq/l (22.0-26.0); Oxygen Content ABG 17.4 %vol (16.0-22.0); Oxygen Saturation ABG 97.5 % (95.0-100.0); Oxyhemoglobin 95.9 % THb (90.0-100.0); PCO2 ABG 40.1 mmHg (35.0-45.0); PO2 FiO2 Ratio Arterial Blood 3.32 %; Total Hemoglobin 12.8 g/dL (12.0-18.0); pH ABG 7.469 (7.350-7.450)
[2022-11-23 11:49] LABS: Modified Allen's Test Pass; Site Drawn LEFT RADIAL
--- NOTE | 2022-11-23 12:33 | WPDNEURCNPN ---
Assessment and Plan Assessment and plan (1) COPD (chronic obstructive pulmonary disease): Code(s): J44.9 - Chronic obstructive pulmonary disease, unspecified Status: Acute (2) CAD (coronary artery disease): Code(s): I25.10 - Atherosclerotic heart disease of [place] coronary artery without angina pectoris Status: Acute (3) Atrial fibrillation: Code(s): I48.91 - Unspecified atrial fibrillation Status: Acute Plan multifactorial generalized weakness will re-examine and also obtain the EEG Consult date: 11/23/22 HPI: Sahara Neal is a 67 year old female admitted to the hospital through the emergency room for the complaints of atrial fibrillation with rapid ventricular response, generalized weakness with fever. Patient does have ongoing history of COPD with home oxygen and was reportedly poor historian on initial encounter in the emergency room family call the ambulance and brought her to the hospital he gave history of an episode of diarrhea but reported she has been urinating on herself though there was no history of fall EMS were called to the home as patient was not eating well and just lying in bed patient was on 80% on room air typically she uses oxygen 2L per nasal cannula and oxygenation did return to normal she was in 180s heart rate with the possibility of atrial fibrillation. She is reportedly allergic to codeine in her past history as mentioned before consistent with the COPD, in addition to the history of no alcohol intake history of knee surgery shoulder surgery and back surgery initial vital signs were with pulse rate of 149 blood pressure 159/137 and patient was admitted with the diagnosis of COPD exacerbation pneumonia UTI sepsis also atrial fibrillation with rapid ventricular response in addition to hypo in a tree me a and some agitation while in the ER , CT of the chest with no pulmonary embolism CT of the head without bleed, hydrocephalus, major stroke, negative for COVID RSV influenza a and B Review of Systems Review of Systems: All systems reviewed & are unremarkable except as noted in HPI and below PMFSH Past Medical History Medical History COPD (chronic obstructive pulmonary disease) COPD (chronic obstructive pulmonary disease) GERD (gastroesophageal reflux disease) PNA (pneumonia) Surgical History Surgical History H/O knee surgery H/O shoulder surgery Previous back surgery Social History Social History Smoking status: Unknown if ever smoked Alcohol intake: unknown Substance use: unknown Gender identity (if verbalized by the patient): Female Sexual Orientation (if Verbalized by the Patient): Straight or Heterosexual Spiritual care concerns: No Meds Home Medications and Allergies Home Medications Medication Instructions Recorded Confirmed Type acetaminophen 325 mg tablet (Mapap 650 mg PO Q6H PRN Pain #60 tabs 06/29/22 11/22/22 Rx (acetaminophen)) alprazolam 0.25 mg tablet 0.5 mg PO TID PRN Anxiety #30 tabs 06/29/22 11/22/22 Rx apixaban 5 mg tablet (Eliquis) 5 mg PO Q12HR #60 tabs 06/29/22 11/22/22 Rx aspirin 81 mg chewable tablet 81 mg PO DAILY@0800 #30 tabs 06/29/22 11/22/22 Rx (Children's Aspirin) atorvastatin 20 mg tablet 20 mg PO HS #30 tabs 06/29/22 11/22/22 Rx diltiazem HCl 120 mg capsule,24 240 mg PO QAM #30 caps 06/29/22 11/22/22 Rx hr,extended release famotidine 20 mg tablet 20 mg PO Q12HR #30 tabs 06/29/22 11/22/22 Rx oxycodone 5 mg tablet 5 mg PO Q3H PRN Pain Rated 7-10 06/29/22 11/22/22 Rx #30 tabs sertraline 100 mg tablet (Zoloft) 100 mg PO QAM #30 tabs 06/29/22 11/22/22 Rx Allergies Allergy/AdvReac Type Severity Reaction Status Date / Time codeine Allergy Nausea and Verified 11/21/22 19:16 Vomiting Vital Signs Vital Signs - 24 hr 11/22/22 14:35
[2022-11-23] MEDS: LORazepam INJ (*CRX) 2 MG/ML VIAL 1 MG IV PUSH (14:12)
[2022-11-23 16:41] LABS: Anion Gap 7 mmol/L (8-16); Blood Urea Nitrogen 29 mg/dL (7-17); Calcium 8.6 mg/dL (8.4-10.2); Carbon Dioxide 25 mmol/L (22-30); Chloride 101 mmol/L (98-107); Estimated CRCL calculation 39 ml/min; Estimated Glomerular Filt Rate > 60; Glucose 101 mg/dL (65-110); Potassium 3.8 mmol/L (3.4-5.0); Sodium 133 mmol/L (137-145)
[2022-11-23] MEDS: ACETAMINOPHEN 325 MG TABLET 650 MG PO (17:17)
--- NOTE | 2022-11-23 18:36 | PC.NURSE ---
This patient, Sahara Neal, was transferred to [321-1 ] on 11/23/22 at 1836. Personal belongings sent with patient. Report given to [DEEPA Wren @ [phone] ]. Appropriate documentation sent with patient.
[2022-11-23] MEDS: ATORVASTATIN 20 MG TABLET PO (20:27)
[2022-11-23] MEDS: ALPRAZolam (*CRX) 0.5 MG TABLET PO (20:27)
[2022-11-24] VITALS (14 sets, daily range): BP systolic 142–158; BP diastolic 78–95; PULSE 67–105; RESP 14–22; TEMP 36.4–37.1; O2SAT 94–99
--- NOTE | 2022-11-24 00:20 | PCRCNOTE ---
pt not woken up for 0000 UPD per charge master coordinator request
[2022-11-24] MEDS: ALBUTEROL SULFATE NEB 2.5 MG/3 ML INH INHALATION ×5 (04:18→20:28)
[2022-11-24] MEDS: IPRATROPIUM BR 0.02% INH SOLN 0.5 MG/2.5 ML VIAL INHALATION ×5 (04:19→20:28)
[2022-11-24 06:30] LABS: Basophils Absolute Auto 0.1 K/mm3 (0.0-0.1); Basophils Percent Auto 0.8 % (0.2-1.2); Eosinophils Absolute Auto 0.1 K/mm3 (0-0.3); Eosinophils Percent Auto 0.8 % (0-4.4); Hemoglobin 11.7 g/dL (12.0-15.0); Immature Granulocyte Absolute 0.05 K/mm3 (0.00-0.031); Immature Granulocyte Percent A 0.5 % (0-0.5); Lymphocytes Absolute Auto 1.51 K/mm3 (0.9-3.2); Lymphocytes Percent Auto 14.8 % (18.3-44.2); Mean Corpuscular HGB Conc 31.6 g/dl (32-36); Mean Corpuscular Hemoglobin 29.4 pg (26-34); Mean Platelet Volume 10.7 fl (7.4-10.4); Monocytes Absolute Auto 0.8 K/mm3 (0.1-0.6); Monocytes Percent Auto 8.2 % (2.6-8.5); Neutrophils Absolute Auto 7.6 K/mm3 (1.3-6.7); Neutrophils Percent Auto 74.9 % (45.5-73.1); Platelet Count Result 205 k/mm3 (150-375); Red Blood Count 3.98 M/mm3 (4.2-5.4); Red Cell Distribution Width 14.7 % (11.5-14.5); White Blood Count 10.2 K/mm3 (4.5-10.0)
[2022-11-24 06:43] LABS: Alanine Aminotransferase 51 U/L (6-35); Albumin Level 3.8 g/dL (3.5-5.1); Alkaline Phosphatase 65 U/L (38-126); Anion Gap 3 mmol/L (8-16); Aspartate Amino Transferase 92 U/L (14-36); Bilirubin,Total 0.8 mg/dL (0.2-1.3); Blood Urea Nitrogen 22 mg/dL (7-17); Calcium 8.7 mg/dL (8.4-10.2); Carbon Dioxide 29 mmol/L (22-30); Chloride 101 mmol/L (98-107); Estimated CRCL calculation 39 ml/min; Estimated Glomerular Filt Rate > 60; Glucose 85 mg/dL (65-110); Potassium 3.3 mmol/L (3.4-5.0); Sodium 133 mmol/L (137-145)
[2022-11-24 07:00] LABS: Vancomycin Trough 10.8 ug/mL (10.0-20.0)
[2022-11-24] MEDS: ASPIRIN 81 MG CHEWABLE TABLET PO (08:23)
[2022-11-24] MEDS: SERTRALINE HCL 50 MG TABLET 100 MG PO (08:23)
[2022-11-24] MEDS: FAMOTIDINE 20 MG TABLET PO ×2 (08:24→20:27)
[2022-11-24] MEDS: oxyCODONE HCL (*CRX) 5 MG TAB IR PO ×3 (08:24→20:50)
[2022-11-24] MEDS: APIXABAN 5 MG TABLET PO ×2 (08:24→20:27)
[2022-11-24] MEDS: ALPRAZolam (*CRX) 0.5 MG TABLET PO ×3 (08:24→22:01)
--- NOTE | 2022-11-24 09:44 | PM.IMPN ---
Progress Note: A&P Assessment and Plan (1) Atrial fibrillation: Code(s): I48.91 - Unspecified atrial fibrillation Status: Acute Assessment and Plan: Appreciate cardiology consultation, normal sinus now, continue home meds (2) COPD (chronic obstructive pulmonary disease): Code(s): J44.9 - Chronic obstructive pulmonary disease, unspecified Status: Acute Assessment and Plan: Stable, stop steroids, not in exacerbation (3) Respiratory failure: Code(s): J96.90 - Respiratory failure, unspecified, unspecified whether with hypoxia or hypercapnia Status: Acute Assessment and Plan: Resolved, on home O2 (4) Adult failure to thrive: Code(s): R62.7 - Adult failure to thrive Status: Acute Assessment and Plan: PT/OT, improving (5) HTN (hypertension): Code(s): I10 - Essential (primary) hypertension Status: Acute Assessment and Plan: Resume home meds as needed (6) CAD (coronary artery disease): Code(s): I25.10 - Atherosclerotic heart disease of [place] coronary artery without angina pectoris Status: Acute Assessment and Plan: Chest pain-free (7) Altered mental state: Code(s): R41.82 - Altered mental status, unspecified Status: Acute Assessment and Plan: Appreciate neurology consultation, EEG and MRI essentially within normal limits and nonacute Suspect etiology is more psychological, will d/c zoloft and start prozac Plan DVT prophylaxis with eliquis GI prophylaxis not indicated Code status full code Subjective Date/time seen: 11/24/22 09:44 Interval history: No overnight events noted. No chest pain or shortness of breath. No nausea, vomiting or diarrhea. No fevers or chills. Mentation somewhat improved since yesterday. She states her came today and told her he wasn't having an affair and she suddenly felt much better. She states she has noted that she has been more paranoid lately. She is also admitted to severe depression with a history of suicidal ideation, not active. Review of Systems Review of Systems: 12 point review of systems was assessed and was negative except as noted in the HPI Exam Narrative: General: Improved, appears to be back to baseline mentation HEENT: Atraumatic, normocephalic, mucous membranes moist CV: Regular rate and rhythm, S1, S2 Lungs: Clear to auscultation bilaterally, no rales or crackles noted, no wheezes, good air entry Abdomen: Soft, nontender, nondistended Extremities: Normal to inspection Skin: No rashes noted, no lesions or wounds seen Psych: Depressed mood, labile a fact, concern for paranoia Objective Data Vital Signs Vital Signs: Vital Signs - 24 hr 11/23/22 12:00 11/23/22 12:00 11/23/22 10:00 Temperature 98 F Pulse Rate 76 82 Respiratory Rate 22 H Blood Pressure 147/96 H Pulse Oximetry 99 97 Oxygen Delivery Nasal Cannula Oxygen Flow Rate 2 Fraction of Inspired Oxygen 11/23/22 12:00 11/23/22 16:13 11/23/22 16:23 Temperature Pulse Rate 87 83 85 Respiratory Rate 20 18 Blood Pressure Pulse Oximetry Oxygen Delivery Oxygen Flow Rate Fraction of Inspired Oxygen 11/23/22 16:00 11/23/22 20:10 11/23/22 20:10 Temperature 98 F Pulse Rate 80 91 Respiratory Rate 16 18 Blood Pressure 146/90 H Pulse Oximetry 99 94 Oxygen Delivery Nasal Cannula Oxygen Flow Rate 2 Fraction of Inspired Oxygen 11/23/22 22:54 11/24/22 04:22 11/24/22 04:34 Temperature 97.7 F Pulse Rate 97 105 H 91 Respiratory Rate 18 18 18 Blood Pressure 151/90 H Pulse Oximetry 93 Oxygen Delivery Oxygen Flow Rate Fraction of Inspired Oxygen 11/24/22 06:47 11/24/22 08:11 11/24/22 08:12 Temperature 98.3 F Pulse Rate 92 90 90 Respiratory Rate 18 20 20 Blood Pressure 158/95 H Pulse Oximetry 99 96 Oxygen Delivery Nasal Cannula Oxygen Flow Rate 2 Fraction of Inspired Oxygen
--- NOTE | 2022-11-24 11:16 | PCOTNOTE ---
Addendum entered by Perry Temple, OTR/L, CHT 11/24/22 11:48: Spoke with Dr. Fletcher and obtained D/C orders. Original Note: Went to see patient for OT evaluation. Upon entering room patient was walking back from the bathroom where she was standing to put in her dentures. The patient sitter reports she just got herself completely dressed independently. The patient is standing and transferring independently. No skilled therapy need identified and discharge is recommended. Attempted to call ordering MD, Dr. Fletcher, however she did not answer.
[2022-11-24] MEDS: POTASSIUM CHLORIDE 20 MEQ TABLET 40 MEQ PO (11:20)
[2022-11-24 12:41] LABS: Hepatitis C Virus Antibody Negative (Negative)
--- NOTE | 2022-11-24 14:07 | P.NEURO_ITS ---
Neurology EEG Report General Information Date of Study: 11/23/22 TEST eeg DIAGNOSIS confusion CONDITION OF RECORDING awake EEG NUMBER [id number]=] CLINICAL HISTORY patient was brought in to the hospital for AFib and weakness. His having intermittent episodes of confusion. EEG DESCRIPTION Basic resting occipital frequency consists of low-voltage 8 to 10 hertz per 2nd alpha admixed with low-voltage 15 to 18 hertz per 2nd beta. During drowsi ness low-voltage beta activity seen diffusely admixed with waxing and waning posterior alpha rhythm. Bilateral symmetrical sleep activity seen during sleep in addition to multiple movement artifacts. On paroxysmal. Nonfocal. Nonlateralizing. IMPRESSION No significant abnormalities noted
[2022-11-24 19:04] LABS: HAV RESULT Negative (Negative); Hepatitis B Core IgM Result Negative (Negative); Hepatitis B Surface Antigen Negative (Negative)
[2022-11-24] MEDS: ATORVASTATIN 20 MG TABLET PO (20:27)
[2022-11-25] VITALS (8 sets, daily range): BP systolic 110; BP diastolic 70; PULSE 85–96; RESP 14–22; TEMP 36.3; O2SAT 97
[2022-11-25] MEDS: IPRATROPIUM BR 0.02% INH SOLN 0.5 MG/2.5 ML VIAL INHALATION ×3 (04:55→12:54)
[2022-11-25] MEDS: ALBUTEROL SULFATE NEB 2.5 MG/3 ML INH INHALATION ×3 (04:55→12:54)
[2022-11-25 06:50] LABS: Basophils Percent Auto 0.4 % (0.2-1.2); Eosinophils Absolute Auto 0.2 K/mm3 (0-0.3); Eosinophils Percent Auto 2.8 % (0-4.4); Hematocrit 33.6 % (37.0-47.0); Hemoglobin 10.5 g/dL (12.0-15.0); Immature Granulocyte Absolute 0.02 K/mm3 (0.00-0.031); Immature Granulocyte Percent A 0.3 % (0-0.5); Lymphocytes Absolute Auto 1.09 K/mm3 (0.9-3.2); Mean Corpuscular HGB Conc 31.3 g/dl (32-36); Mean Corpuscular Hemoglobin 29.7 pg (26-34); Mean Corpuscular Volume 95.2 fl (80-100); Mean Platelet Volume 10.7 fl (7.4-10.4); Monocytes Absolute Auto 0.9 K/mm3 (0.1-0.6); Neutrophils Absolute Auto 5.6 K/mm3 (1.3-6.7); Neutrophils Percent Auto 71.5 % (45.5-73.1); Platelet Count Result 176 k/mm3 (150-375); Red Blood Count 3.53 M/mm3 (4.2-5.4); Red Cell Distribution Width 14.7 % (11.5-14.5); White Blood Count 7.8 K/mm3 (4.5-10.0)
[2022-11-25 07:07] LABS: Alanine Aminotransferase 47 U/L (6-35); Albumin Level 3.4 g/dL (3.5-5.1); Alkaline Phosphatase 61 U/L (38-126); Anion Gap 1 mmol/L (8-16); Aspartate Amino Transferase 65 U/L (14-36); Bilirubin,Total 0.6 mg/dL (0.2-1.3); Blood Urea Nitrogen 16 mg/dL (7-17); Calcium 8.4 mg/dL (8.4-10.2); Carbon Dioxide 32 mmol/L (22-30); Chloride 100 mmol/L (98-107); Estimated CRCL calculation 36 ml/min; Estimated Glomerular Filt Rate > 60; Glucose 77 mg/dL (65-110); Potassium 4.1 mmol/L (3.4-5.0); Sodium 133 mmol/L (137-145)
[2022-11-25] MEDS: APIXABAN 5 MG TABLET PO (07:55)
[2022-11-25] MEDS: ASPIRIN 81 MG CHEWABLE TABLET PO (07:55)
[2022-11-25] MEDS: FAMOTIDINE 20 MG TABLET PO (07:55)
[2022-11-25] MEDS: FLUoxetine HCL 20 MG CAPSULE PO (07:57)
[2022-11-25] MEDS: oxyCODONE HCL (*CRX) 5 MG TAB IR PO ×2 (07:59→12:07)
--- NOTE | 2022-11-25 08:27 | PM.DS ---
DS: Admitting Diagnosis Discharge Date 11/25/22 Admitting Diagnosis Altered mental status DS: Discharge Diagnosis Discharge Diagnosis (1) Atrial fibrillation: Code(s): I48.91 - Unspecified atrial fibrillation Status: Acute Assessment and Plan: Appreciate cardiology consultation, normal sinus now, continue home meds (2) COPD (chronic obstructive pulmonary disease): Code(s): J44.9 - Chronic obstructive pulmonary disease, unspecified Status: Acute Assessment and Plan: Stable, stop steroids, not in exacerbation (3) Respiratory failure: Code(s): J96.90 - Respiratory failure, unspecified, unspecified whether with hypoxia or hypercapnia Status: Acute Assessment and Plan: Resolved, on home O2 (4) Adult failure to thrive: Code(s): R62.7 - Adult failure to thrive Status: Acute Assessment and Plan: PT/OT, improving (5) HTN (hypertension): Code(s): I10 - Essential (primary) hypertension Status: Acute Assessment and Plan: Resume home meds as needed (6) CAD (coronary artery disease): Code(s): I25.10 - Atherosclerotic heart disease of [place] coronary artery without angina pectoris Status: Acute Assessment and Plan: Chest pain-free (7) Altered mental state: Code(s): R41.82 - Altered mental status, unspecified Status: Acute Assessment and Plan: Appreciate neurology consultation, EEG and MRI essentially within normal limits and nonacute Suspect etiology is more psychological, will d/c zoloft and start prozac Plan DVT prophylaxis with eliquis GI prophylaxis not indicated Code status full code DS: Summary Hospital Course Hospital Course: 67-year-old female with past medical history significant for atrial fibrillation, COPD, GERD presenting with altered mental status and tachycardia. Patient was noted to have a low TSH with slightly abnormal T4, subclinical hyperthyroidism, no need for intervention. Cardiology was consulted, patient converted to normal sinus rhythm after starting on Cardizem. They recommended restarting her home diltiazem as well as her Eliquis. While here, was noted that patient was quite confused and has some short-term memory changes. Neurology was consulted. Workup was completely benign. Brain MRI was negative for any acute issues. EEG was within normal limits. Extensive lab work was within normal limits. Etiology was thought to be psychological. Would recommend outpatient neuropsych testing to confirm. Patient was switched to Prozac from Zoloft per her request she was on it previously with better results and she did not think the Zoloft is working anymore. She was discharged in stable condition with close outpatient follow-up. Time Spent with Patient Time attestation: Total time spent providing and/or coordinating discharge services: Exam Narrative: General: Improved, appears to be back to baseline mentation HEENT: Atraumatic, normocephalic, mucous membranes moist CV: Regular rate and rhythm, S1, S2 Lungs: Clear to auscultation bilaterally, no rales or crackles noted, no wheezes, good air entry Abdomen: Soft, nontender, nondistended Extremities: Normal to inspection Skin: No rashes noted, no lesions or wounds seen Psych: Depressed mood, labile a fact, concern for paranoia DS: Data Data Completed and Pending Labs on day of discharge: Labs from last 24 hours 11/25/22 11/25/22 11/24/22 06:09 06:09 11:27 WBC 7.8 RBC 3.53 L Hgb 10.5 L Hct 33.6 L MCV 95.2 MCH 29.7 MCHC 31.3 L RDW 14.7 H Plt Count 176 MPV 10.7 H Immature Gran % (Auto) 0.3 Neut % (Auto) 71.5 Lymph % (Auto) 14.0 L Granite % (Auto) 11.0 H Eos % (Auto) 2.8 Baso % (Auto) 0.4 Lymph # (Auto) 1.09 Granite # (Auto) 0.9 H Eos # (Auto) 0.2 Baso # (Auto) 0.0 Abs Immat Gran (auto) 0.02 Absolute Neuts (auto) 5.6 Absolute Nucleated RBC
[2022-11-27 16:44] LABS: Rapid Plasma Reagin Non-Reactive (NonReactive)
== END 2022-11-25 13:45 | disposition home or self-care (01) | DRG 309 ==
LOC: ANHED 23:02 → ANHIMU 23:39 → ANH3MEDSUR 11-23 18:37
PROVIDERS: Admitting Provider Internal Medicine; Emergency Provider Emergency Medicine; PCP Internal Medicine; Visit Provider Student in an Organized Health Care Education/Training Program
DX: I48.20 Chronic atrial fibrillation, unspecified (principal); J96.10 Chronic respiratory failure, unspecified whether with hypoxia or hypercapnia; Z68.1 Body mass index [BMI] 19.9 or less, adult; I25.10 Atherosclerotic heart disease of native coronary artery without angina pectoris; E05.90 Thyrotoxicosis, unspecified without thyrotoxic crisis or storm; J44.9 Chronic obstructive pulmonary disease, unspecified; R62.7 Adult failure to thrive; K21.9 Gastro-esophageal reflux disease without esophagitis; R63.6 Underweight; R41.82 Altered mental status, unspecified; Z20.822 Contact with and (suspected) exposure to COVID-19; Z99.81 Dependence on supplemental oxygen; Z79.01 Long term (current) use of anticoagulants
CPT/HCPCS: 36415; 36600; 51702; 70450; 70551; 71045; 71275; 80048; 80053; 80074; 80202; 81001; 82140; 82803; 82805; 82948; 83605; 83690; 83735; 83880; 84145; 84439; 84443; 84480; 84484; 85025; 85380; 85610; 85730; 86140; 86592; 87040; 87637; 93005; 94640; 94762; 95816; 96365; 96367; 96375; 99291; A9270; J0131; J0360; J0692; J2060; J2930; J3370; J3475; J3480; J7030; J7040; Q9967

== ENCOUNTER 2023-10-31 13:02 | Emergency (ER) | payer MEDICARE, MEDICAID, SELFPAY ==
[2023-10-31] VITALS (20 sets, daily range): BP systolic 106–126; BP diastolic 64–91; PULSE 79–96; RESP 19–31; TEMP 37.8; O2SAT 98–100
--- NOTE | ~2023-10-31 | XR_ITS ---
Portable chest x-ray Comparison: 11/21/2022 Clinical History: Shortness of breath Findings: Lungs are clear, without focal consolidation or pleural effusion. Possible COPD. Cardiome diastinal silhouette is stable. Bilateral shoulder arthroplasties are present. Impression: Clear lungs. Possible COPD. Reviewed, dictated and finalized at location . NT ONBOARDING ANALYST Impression: Clear lungs. Possible COPD.
--- NOTE | 2023-10-31 13:14 | ED.SOB ---
HPI - SOB/Dyspnea General Chief Complaint: Shortness of Breath/Dyspnea Stated Complaint: shortness of breath Time Seen by Provider: 10/31/23 13:13 Source: patient Mode of arrival: ambulatory Limitations: no limitations History of Present Illness HPI Narrative: 68-year-old female, smoker with a history of memory problems, gait instability, dyslipidemia, CAD, COPD on home oxygen, atrial fibrillation on Eliquis, anxiety, status post knee/back/ shoulder surgery tested positive for COVID last week. She presents to the ER with -- worsening shortness of breath -- cough which is productive of yellow sputum her has been retested for COVID and was noted to be negative. MD elicited complaint: shortness of breath and cough Pertinent past history: COPD and pneumonia Onset (ago): day(s) ( 2 days) Context: anxiety Timing: constant Severity: moderate Exacerbating factors: exertion Relieving factors: oxygen, rest and bronchodilators Known history of: COPD Associated symptoms: fever, cough and chest congestion Related Data Home oxygen amount: 2 liters Home Medications Medication Instructions Recorded Confirmed hydrocodone 7.5 mg-acetaminophen 1 tablet PO PRN PRN Pain (Scale 01/22/23 10/31/23 400 mg tablet Score 7-10) megestrol 400 mg/10 mL (40 mg/mL) 400 mg PO DAILY 01/22/23 10/31/23 oral suspension albuterol sulfate 2.5 mg/3 mL 2.5 mg inhalation QID PRN Wheezing 10/31/23 10/31/23 (0.083 %) solution for nebulization albuterol sulfate 90 mcg/actuation 2 puff inhalation PRN PRN Wheezing 10/31/23 10/31/23 aerosol inhaler donepezil 5 mg tablet 5 mg PO DAILY 10/31/23 10/31/23 furosemide 20 mg tablet 20 mg PO DAILY 10/31/23 10/31/23 Allergies Allergy/AdvReac Type Severity Reaction Status Date / Time codeine Allergy Nausea and Verified 10/31/23 13:24 Vomiting Review of Systems Review of Systems: All systems reviewed & are unremarkable except as noted in HPI and below Constitutional: Constitutional: Reports as per HPI, Reports no additional constitutional complaints and Reports fever(s) Eyes: Eyes: Reports as per HPI and Reports no additional eye complaints ENT: Reports system reviewed and no additional complaints, except as documented and Reports as per HPI Cardiovascular: Cardiovascular: Reports as per HPI and Reports no additional cardiovascular complaints Respiratory: Respiratory: Reports as per HPI, Reports no additional respiratory complaints, Reports chest congestion, Reports cough and Reports dyspnea Gastrointestinal: Gastrointestinal: Reports as per HPI and Reports no additional gastrointestinal complaints Genitourinary: Genitourinary: Reports no additional female genitourinary complaints Musculoskeletal: Musculoskeletal: Reports no additional musculoskeletal complaints and Reports as per HPI Integumentary/Breasts: Skin/Breast: Reports system reviewed and no additional complaints, except as docu and Reports as per HPI Neurologic: Reports system reviewed and no additional complaints, except as documented and Reports as per HPI Psychiatric: Psychiatric: Reports no additional psychiatric complaints, Reports as per HPI and Reports anxiety Endocrine: Endocrine: Reports no additional endocrine complaints and Reports as per HPI Hematologic/Lymphatic: Hematologic/Lymphatic: Reports no additional hematologic/lymphatic complaints and Reports as per HPI Allergic/Immunologic: Allergic/Immunologic: Reports no additional allergic/immunologic complaints and Reports as per HPI FOR[facility]LY [facility] Past Medical History Medical History Cardiac catheterization as the cause of abnormal reaction of the patient, or of later complication, without mention of misadventure at the time of the procedure COPD (chronic obstructive pulmonary disease) COPD (chronic obstructive pulmonary disease) GERD (gastroesophageal reflux disease) PNA (pneumonia) Surgical History Surgical History (Reviewed
--- NOTE | 2023-10-31 13:33 | ECG_ITS ---
Measurements Intervals [place] Rate: 75 P: [place]: 0 QRS: 92 QRSD: 78 T: 169 QT: 392 QTc: 439 Interpretive Statements ATRIAL FIBRILLATION RIGHT AXIS DEVIATION DELAYED PRECORDIAL R/S TRANSITION T WAVE ABNORMALITY IN ANTEROLATERAL LEADS- CONSIDER ISCHEMIA BASELINE ARTIFACT- I, II, III, AVR, V2-V4 ABNORMAL ECG COMPARED TO ECG 11/21/2022 19:23:09 HEART RATE HAS DECREASED T WAVE ABNORMALITY NOW PRESENT Electronically Signed On 10-31-2023 14:17:07 DREDGE PIPE OPERATOR by Tavo Jj D.O.
[2023-10-31] MEDS: IPRATROPIUM 0.5 MG/ALBUTEROL SULFATE 2.5 MG AMPUL.NEB 3 ML INHALATION (13:44)
[2023-10-31 14:14] LABS: Basophils Absolute Auto 0.03 K/mm3 (0.00-0.10); Basophils Percent Auto 0.4 % (0.0-1.0); Eosinophils Absolute Auto 0.05 K/mm3 (0.02-0.50); Eosinophils Percent Auto 0.6 % (1.0-6.0); Hematocrit 32.6 % (35.0-42.0); Hemoglobin 9.5 g/dL (11.7-13.8); Immature Granulocyte Absolute 0.04 K/mm3 (0.00-0.00); Immature Granulocyte Percent A 0.5 % (0.0-0.0); Lymphocytes Absolute Auto 1.11 K/mm3 (1.10-4.50); Mean Corpuscular HGB Conc 29.1 g/dL (32.0-36.0); Mean Corpuscular Hemoglobin 27.3 pg (27.0-31.0); Mean Corpuscular Volume 93.7 fL (78.0-102.0); Mean Platelet Volume 10.2 fl (9.2-11.8); Monocytes Absolute Auto 0.75 K/mm3 (0.10-0.90); Monocytes Percent Auto 9.5 % (2.0-11.0); Neutrophils Absolute Auto 5.9 K/mm3 (1.7-7.2); Platelet Count Result 468 K/mm3 (150-420); Red Blood Count 3.48 M/mm3 (4.20-5.40); Red Cell Distribution Width 14.4 % (11.6-14.4); White Blood Count 7.9 K/mm3 (4.8-10.8)
[2023-10-31 14:15] LABS: Base Excess ABG 9.2 mmol/L (0-2); HCO3 ABG 34.3 mmol/L (23-29); Oxygen Content ABG 14.9 %vol (16.0-22.0); Oxygen Saturation ABG 98.7 % (95-97); Oxyhemoglobin 98.1 % (94-100); PCO2 ABG 49.5 mmHg (35-45); PO2 ABG 143.4 mmHg (75-85); Total Hemoglobin 10.6 g/dL (12.0-18.0); pH ABG 7.46 (7.35-7.45)
[2023-10-31 14:16] LABS: Device NASAL CANNULA; Modified Allen's Test Pass; Site Drawn RIGHT RADIAL
[2023-10-31 14:30] LABS: SARS-CoV-2 RNA PCR Positive (Negative)
[2023-10-31 14:31] LABS: INR 1.2; Partial Thromboplastin Time 35.1 SEC (23.90-30.70)
[2023-10-31 14:32] LABS: Influenza A QL RT-PCR Negative (Negative); Influenza B QL RT-PCR Negative (Negative); RSV RNA, RT-PCR Negative (Negative)
[2023-10-31 14:41] LABS: Lactic Acid Reflex 1.4 mmol/L (0.4-2.0)
[2023-10-31 14:41] LABS: Alanine Aminotransferase 74 U/L (14-59); Albumin Level 2.9 g/dL (3.4-5.0); Alkaline Phosphatase 61 U/L (46-116); Anion Gap 5 mmol/L (8-16); Aspartate Amino Transferase 28 U/L (15-37); Bilirubin,Total 0.3 mg/dL (0.00-1.00); Blood Urea Nitrogen 16 mg/dL (7-18); Calcium 8.5 mg/dL (8.5-10.1); Carbon Dioxide 36 mmol/L (21-32); Chloride 98 mmol/L (98-108); Estimated Glomerular Filt Rate 44; Glucose 67 mg/dL (70-99); NT Pro B Type Natriuretic Pept 5446 pg/mL (0-125); Osmolality Calculated 287 mOsm/kg (285-295); Potassium 3.2 mmol/L (3.5-5.1); Sodium 139 mmol/L (136-145); Total Protein 6.1 g/dL (6.4-8.2)
[2023-10-31 14:42] LABS: Lipase 57 U/L (16-77); Troponin I 36.1 ng/L (0.00-60.4)
[2023-10-31 14:48] LABS: Appearance Urine Clear (Clear); Bilirubin Urine 1+ (Negative); Blood Urine Negative (Negative); Glucose Urine UA Negative (Negative); Ketones Urine Trace (Negative); Leukocyte Esterase Ur Negative LEU/UL (Negative); Nitrate Urine Negative (Negative); Protein Urine 1+ (Negative); Specific Grav Ur 1.015 (1.010-1.020); Urobilinogen Urine 0.2 mg/dL (0.2-1.0)
[2023-10-31 14:51] LABS: Add Urine Microscopic? YES; Bacteria Urine Trace /hpf; Color Urine Dark Yellow (Yellow); RBC Urine None seen /hpf (0-2); Squamous Epithelial Cell Urine Rare /hpf (Few); WBC Urine None seen /hpf (0-3)
--- NOTE | 2023-10-31 15:05 | PC.NURSE ---
SANDWICH TRAY AND JUICE PROVIDED. GLUCOSE WAS 67 ON BLOOD DRAW. PT IS A&OX4. NO DEFICITS OR DIAPHORESIS NOTED. AND STEPPED OUT AND WENT TO [place]. PT IS AWAITING ERP DECISION AT THIS TIME. NAD NOTED. VSS PER MONITOR. WILL CONTINUE TO MONITOR.
[2023-10-31] MEDS: POTASSIUM CHLORIDE 20 MEQ ER TABLET PO (15:35)
[2023-10-31] MEDS: AZITHROMYCIN 250 MG TABLET 500 MG PO (15:35)
[2023-10-31 15:41] LABS: Glucose Point of Care 85 mg/dl (65-105)
--- NOTE | 2023-11-06 12:29 | PC.NURSE ---
final blood cultures x2 reviewed. no growth after 5 days. no change in plan of care.
== END 2023-10-31 15:50 | disposition home or self-care (01) ==
PROVIDERS: Emergency Provider Internal Medicine Critical Care Medicine; PCP Internal Medicine
DX: U07.1 COVID-19 (principal); E16.2 Hypoglycemia, unspecified; D64.9 Anemia, unspecified; N28.9 Disorder of kidney and ureter, unspecified; E78.5 Hyperlipidemia, unspecified; I25.10 Atherosclerotic heart disease of native coronary artery without angina pectoris; J44.9 Chronic obstructive pulmonary disease, unspecified; I48.91 Unspecified atrial fibrillation; Z79.01 Long term (current) use of anticoagulants; F17.210 Nicotine dependence, cigarettes, uncomplicated; Z79.891 Long term (current) use of opiate analgesic; Z99.81 Dependence on supplemental oxygen
CPT/HCPCS: 36415; 36600; 71045; 80053; 81001; 82805; 82948; 83605; 83690; 83880; 84484; 85025; 85610; 85730; 87040; 87637; 93005; 94640; 99284; A9270

== ENCOUNTER 2023-11-11 06:37 | Inpatient (IN) | payer MEDICARE, MEDICAID, SELFPAY ==
[2023-11-11] VITALS (40 sets, daily range): BP systolic 142–167; BP diastolic 76–92; PULSE 63–133; RESP 18–36; TEMP 36.2–37.7; O2SAT 89–100; BMI 16.4
--- NOTE | ~2023-11-11 | CT_ITS ---
CT of the Abdomen and Pelvis: Indication: Abdominal pain Technique: 2.5 mm axial scans were obtained through the abdomen and pelvis following intravenous adm inistration of 90 cc of Omnipaque 350. Dose reduction technique was used on this scan by utilizing au tomated exposure control and iterative reconstruction technique. The dose-length product (DLP) was 17 3.25 mGy-cm. COMPARISON: 07/11/2022 Findings: Scans through the lung bases demonstrate small bilateral pleural effusions, with mild biba silar atelectatic change. Small hiatal hernia present. The liver, spleen, pancreas, adrenals and right kidney are within normal limits. Small calcified gall stone is present. Left kidney is markedly atrophic. There are atherosclerotic calcifications of the a ric. No lymphadenopathy. No bowel obstruction or bowel wall thickening. There is no evidence to suggest acute appendicitis. Images through the pelvis were performed. Urinary bladder unremarkable. No pelvic mass seen. No ascit es. Impression: Small bilateral pleural effusions with mild bibasilar atelectasis. Small hiatal hernia. Cholelithiasis. Markedly atrophic left kidney. Reviewed, dictated and finalized at [facility]. PHYSICIAN Impression: Small bilateral pleural effusions with mild bibasilar atelectasis. Small hiatal hernia. Cholelithiasis. Markedly atrophic left kidney.
--- NOTE | ~2023-11-11 | XR_ITS ---
XR chest 1V portable 11/11/2023 07:09 Indication: Shortness of breath. COPD. Procedure: AP portable chest Comparison: 10/31/2023 Findings: Borderline heart size. Extensive bilateral airspace disease. Small left pleural effusion. N o pneumothorax. No acute osseous abnormality. There are bilateral shoulder arthroplasties. Impression: 1: Extensive bilateral airspace disease, left greater than right. Differential diagnosis includes pne umonia and less likely asymmetric edema. 2: Small left pleural effusion. Reviewed, dictated and finalized at location A. LEY CAR OPERATOR Impression: 1: Extensive bilateral airspace disease, left greater than right. Differential diagnosis includes pneumonia and less likely asymmetric edema. 2: Small left pleural effusion.
--- NOTE | ~2023-11-11 | CT_ITS ---
EXAMINATION: CT brain wo con DATE: 11/11/2023 07:18 INDICATION: Head injury. TECHNIQUE: Computed tomography (CT) of the head was performed without intravenous contrast. The dose- length product was 605.33 mGy-cm. Automated exposure control and iterative reconstruction technique w ere employed. COMPARISON: CT dated 11/21/2022 FINDINGS: Study limited by motion and streak artifact. There is left frontal scalp hematoma. There ar e scattered mild periventricular and subcortical white matter changes, most likely related to small v essel ischemic disease (microangiopathy). There is intracranial atherosclerosis. No acute intracrania l hemorrhage, infarction, mass or mass effect. There is near complete opacification of the left maxil lisa sinus with air-fluid level and loculated gas within the fluid, consistent with sinusitis. Mastoi ds are pneumatized. IMPRESSION: 1. No acute intracranial abnormality. 2: Left maxillary sinusitis. Reviewed, dictated and finalized at location A. EWORK BUILDER
--- NOTE | ~2023-11-11 | US_ITS ---
EXAMINATION: US right upper quadrant DATE: 11/14/2023 18:45 INDICATION: Cholelithiasis TECHNIQUE: Multiple grayscale and Doppler ultrasound images of the abdomen were obtained. COMPARISON: CT dated 11/13/2023 FINDINGS: The pancreatic head and body are normal in appearance. The pancreatic tail is not visualized. Liver has normal echogenicity and contour, with a smooth surface. No liver lesion identified. No intrahepat ic biliary duct dilation suspected. Portal venous flow was seen in the hepatopetal, normal direction and has normal Doppler waveform. The visualized proximal inferior vena cava and aorta are normal. Sub centimeter mobile, echogenic and shadowing gallstone in the otherwise normal-appearing gallbladder. T he common bile duct measures 4 mm, which is normal. Sonographic Garcia sign was reported as negative by the tumbling and rolling supervisor. IMPRESSION: 1. Cholelithiasis. Reviewed, dictated and finalized at location A. ULAR KNIFE CUTTER MACHINE IMPRESSION: 1. Cholelithiasis.
--- NOTE | 2023-11-11 06:45 | ECG_ITS ---
Measurements Intervals [place] Rate: 81 P: [place]: 0 QRS: 92 QRSD: 81 T: 12 QT: 383 QTc: 445 Interpretive Statements ATRIAL FIBRILLATION RIGHT AXIS DEVIATION DELAYED PRECORDIAL R/S TRANSITION BORDERLINE T WAVE ABNORMALITY- DIFFUSE LEADS BASELINE ARTIFACT- I, II, III, AVR, AVL, AVF, V1-V6 ABNORMAL ECG COMPARED TO ECG 10/31/2023 13:54:19 NO SIGNIFICANT CHANGES Electronically Signed On 11-11-2023 8:16:20 ERADICATOR by Tavo Jj D.O.
[2023-11-11 07:08] LABS: Basophils Absolute Auto 0.1 K/mm3 (0.0-0.1); Basophils Percent Auto 0.5 % (0.2-1.2); Hematocrit 32.2 % (37.0-47.0); Hemoglobin 8.9 g/dL (12.0-15.0); Immature Granulocyte Absolute 0.05 K/mm3 (0.00-0.031); Immature Granulocyte Percent A 0.5 % (0-0.5); Lymphocytes Absolute Auto 0.49 K/mm3 (0.9-3.2); Lymphocytes Percent Auto 4.4 % (18.3-44.2); Mean Corpuscular HGB Conc 27.6 g/dl (32-36); Mean Corpuscular Hemoglobin 27.5 pg (26-34); Mean Corpuscular Volume 99.4 fl (80-100); Mean Platelet Volume 9.6 fl (7.4-10.4); Monocytes Absolute Auto 0.8 K/mm3 (0.1-0.6); Monocytes Percent Auto 7.1 % (2.6-8.5); Neutrophils Absolute Auto 9.7 K/mm3 (1.3-6.7); Neutrophils Percent Auto 87.5 % (45.5-73.1); Platelet Count Result 447 k/mm3 (150-375); Red Blood Count 3.24 M/mm3 (4.2-5.4); White Blood Count 11.1 K/mm3 (4.5-10.0)
[2023-11-11 07:20] LABS: Alanine Aminotransferase 35 U/L (6-35); Albumin Level 3.6 g/dL (3.5-5.1); Alkaline Phosphatase 70 U/L (38-126); Aspartate Amino Transferase 43 U/L (14-36); Bilirubin,Total 0.4 mg/dL (0.2-1.3); Blood Urea Nitrogen 20 mg/dL (7-17); Carbon Dioxide > 40 mmol/L (22-30); Chloride 96 mmol/L (98-107); Estimated CRCL calculation 49 ml/min; Estimated Glomerular Filt Rate > 60; Glucose 125 mg/dL (65-110); Potassium 4.2 mmol/L (3.4-5.0); Sodium 141 mmol/L (137-145)
--- NOTE | 2023-11-11 07:20 | ED.GENADULT ---
HPI - General Adult General Chief complaint: Weakness Stated complaint: Weakness, multiple falls, low O2 Time Seen by Provider: 11/11/23 06:55 History of Present Illness HPI narrative: 68-year-old female present to the emergency department for evaluation after being found on the floor without her oxygen. Patient does have COPD and was recently diagnosed with bronchitis. Patient presents the ED after being found her lying on the floor without her oxygen. Patient was found to be in the 30s to 40s on room air. Patient is normally on 2 L of oxygen by nasal cannula. Patient states she has body aches everywhere but denies any specific injury from a fall. Related Data Home Medications Medication Instructions Recorded Confirmed hydrocodone 7.5 mg-acetaminophen 1 tablet PO PRN PRN Pain (Scale 01/22/23 10/31/23 400 mg tablet Score 7-10) megestrol 400 mg/10 mL (40 mg/mL) 400 mg PO DAILY 01/22/23 10/31/23 oral suspension albuterol sulfate 2.5 mg/3 mL 2.5 mg inhalation QID PRN Wheezing 10/31/23 10/31/23 (0.083 %) solution for nebulization albuterol sulfate 90 mcg/actuation 2 puff inhalation PRN PRN Wheezing 10/31/23 10/31/23 aerosol inhaler donepezil 5 mg tablet 5 mg PO DAILY 10/31/23 10/31/23 furosemide 20 mg tablet 20 mg PO DAILY 10/31/23 10/31/23 Allergies Allergy/AdvReac Type Severity Reaction Status Date / Time codeine Allergy Nausea and Verified 10/31/23 13:24 Vomiting Review of Systems Review of Systems: All systems reviewed & are unremarkable except as noted in HPI and below PMFSH Past Medical History Medical History Cardiac catheterization as the cause of abnormal reaction of the patient, or of later complication, without mention of misadventure at the time of the procedure COPD (chronic obstructive pulmonary disease) COPD (chronic obstructive pulmonary disease) GERD (gastroesophageal reflux disease) PNA (pneumonia) Surgical History Surgical History H/O knee surgery H/O shoulder surgery Previous back surgery Social History Social History Years smoked: 50 Smoking status: Current every day smoker Tobacco type: cigarettes Alcohol intake: never Substance use: current Substance use type: marijuana Other substance usage details: Gummies Lack of Transportation: No Lack of Food: Never True Current Housing: I Have Housing Concerned About Future Housing: No Difficulty Paying Gas/Electric Bills: No Difficulty Paying for Meds: No Currently Unemployed: No Education: High School Diploma/GED Difficulty w/ Childcare or Family Care: No Gender identity (if verbalized by the patient): Female Sexual Orientation (if Verbalized by the Patient): Straight or Heterosexual Spiritual care concerns: No Exam Narrative: APPEARANCE: Ill-appearing HEAD: normocephalic, atraumatic. EYES: PERRLA/EOMI, conjunctivae clear. NOSE: Normal no drainage EARS:TMS clear with good light reflex. THROAT: Pharynx clear, no exudate. NECK: Supple. No adenopathy, no masses. RESPIRATORY: Airway patent, respirations nonlabored. Clear to auscultation bilaterally, no rales, rhonchi, wheezing. CARDIOVASCULAR: Regular rate and rhythm without murmurs rubs or gallops. ABDOMINAL: Soft, nontender, nondistended, normal bowel sounds MUSCULOSKELETAL: Moves all extremities. Strength/ROM intact, No edema, No calf tenderness. NEURO: Alert. Cranial nerves II through XII intact. Grossly intact SKIN: Warm, dry. Normal Color Course Course Emergency Course: 68-year-old female presented to the emergency department for evaluation increased hypoxia, patient was ordered a breathing treatment for increased wheezing rhonchi, chest x-ray was concerning for pneumonia and patient was started on antibiotics. Patient ABG showed hypercapnia with the PCU to the
[2023-11-11 07:35] LABS: Alveolar/Arterial O2 Gradient 125.5 mmHg; Base Excess ABG 10.3 mEq/l (+/-2.0); Carboxyhemoglobin 1.7 % THb (0-2.0); Fractional Inspired Oxygen 36 %; HCO3 ABG 37.1 mEq/l (22.0-26.0); Oxygen Content ABG 11.7 %vol (16.0-22.0); Oxygen Saturation ABG 88.4 % (95.0-100.0); PO2 ABG 57.3 mmHg (80.0-100.0); PO2 FiO2 Ratio Arterial Blood 1.59 %; Reduced Hemoglobin 10.9 %THb (0-5.0); Total Hemoglobin 9.5 g/dL (12.0-18.0); pH ABG 7.383 (7.350-7.450)
[2023-11-11 07:39] LABS: Device NASAL CANNULA; Modified Allen's Test Pass; Oxyhemoglobin 87.4 % THb (90.0-100.0); PCO2 ABG 63.7 mmHg (35.0-45.0); Site Drawn RIGHT RADIAL
[2023-11-11] MEDS: ALBUTEROL SULFATE NEB 2.5 MG/3 ML INH INHALATION ×2 (07:53→14:07)
[2023-11-11 08:10] LABS: Influenza A QL RT-PCR Negative (Negative); Influenza B QL RT-PCR Negative (Negative); RSV RNA, RT-PCR Negative (Negative); SARS-CoV-2 RNA PCR Negative (Negative)
[2023-11-11] MEDS: AZITHROMYCIN 500 MG/NS 250 ML 500 MG/250 ML BAG 250 MG IVPB (09:06)
[2023-11-11 09:20] LABS: Alveolar/Arterial O2 Gradient 207.8 mmHg; Base Excess ABG 10.6 mEq/l (+/-2.0); Carboxyhemoglobin 1.1 % THb (0-2.0); Fractional Inspired Oxygen 50 %; HCO3 ABG 37.5 mEq/l (22.0-26.0); Methemoglobin ABG 0.1 %THb (0-1.5); Oxygen Content ABG 12.6 %vol (16.0-22.0); Oxygen Saturation ABG 94.6 % (95.0-100.0); Oxyhemoglobin 92.9 % THb (90.0-100.0); PO2 ABG 76.1 mmHg (80.0-100.0); PO2 FiO2 Ratio Arterial Blood 1.52 %; Reduced Hemoglobin 5.9 %THb (0-5.0); Total Hemoglobin 9.6 g/dL (12.0-18.0); pH ABG 7.382 (7.350-7.450)
[2023-11-11 09:21] LABS: Device NON-INVASIVE VENT; Modified Allen's Test Pass; PCO2 ABG 64.5 mmHg (35.0-45.0); Site Drawn RIGHT RADIAL
[2023-11-11 09:22] LABS: Non-Invasive Expiratory Pressure 5 CMH2O; Non-Invasive Inspiratory Pressure 10 CMH2O; Non-Invasive Vent Rate 16 /MIN
[2023-11-11] MEDS: LORazepam INJ (*CRX) 2 MG/ML VIAL 0.5 MG IV PUSH (10:48)
--- NOTE | 2023-11-11 12:22 | PM.IMHP ---
H&P: HPI History of Present Illness Date/Time: 11/11/23 12:22 Chief Complaint: Dyspnea Narrative: This is a 68-year-old female patient brought to the ER via EMS with hypoxia in the 30s to 40s on room air at home when she was found down on the ground. She has a history of COPD which was recently treated through the ER and patient discharged home about 11 days ago. She normally wears 2 L of oxygen by nasal cannula but her oxygen was not on her when she was found. In the emergency department patient was placed on BiPAP because she has significant hypercapnia and hypoxia. Initially BiPAP did not make much difference so her settings were adjusted from 10/5 to 16/7 which improved her hypercapnia and stabilized her hypoxia on 35% FiO2. Patient awakens to voice answers yes and no occasionally but does not lend much history at this time. Chest x-ray shows extensive bilateral airspace disease left greater than right presumed pneumonia. She is a small left pleural effusion but does not appear to be fluid overloaded at this time. EKG shows atrial fibrillation, bedside telemetry monitoring showing atrial flutter varying from 2-1 to 3-1 by my interpretation. Review of Systems Review of Systems: ROS unobtainable: Yes unobtainable due to medical condition and unobtainable due to mental status PMFSH Past Medical History Medical History Cardiac catheterization as the cause of abnormal reaction of the patient, or of later complication, without mention of misadventure at the time of the procedure COPD (chronic obstructive pulmonary disease) COPD (chronic obstructive pulmonary disease) GERD (gastroesophageal reflux disease) PNA (pneumonia) Surgical History Surgical History H/O knee surgery H/O shoulder surgery Previous back surgery Social History Social History Years smoked: 50 Smoking status: Former smoker Tobacco type: cigarettes Alcohol intake: never Substance use: former Substance use type: marijuana Other substance usage details: Gummies Do You Feel Safe in your Home?: Yes Lack of Transportation: No Lack of Food: Never True Current Housing: I Have Housing Concerned About Future Housing: No Difficulty Paying Gas/Electric Bills: No Difficulty Paying for Meds: No Currently Unemployed: No Education: Don't Know Difficulty w/ Childcare or Family Care: No Gender identity (if verbalized by the patient): Female Sexual Orientation (if Verbalized by the Patient): Straight or Heterosexual Spiritual care concerns: No Meds Home Medications and Allergies Home Medications Medication Instructions Recorded Confirmed Type acetaminophen 325 mg tablet (Mapap 650 mg PO Q6H PRN Pain #60 tabs 06/29/22 11/11/23 Rx (acetaminophen)) alprazolam 0.25 mg tablet 0.5 mg PO TID PRN Anxiety #30 tabs 06/29/22 10/31/23 Rx apixaban 5 mg tablet (Eliquis) 5 mg PO Q12HR #60 tabs 06/29/22 11/11/23 Rx aspirin 81 mg chewable tablet 81 mg PO DAILY@0800 #30 tabs 06/29/22 11/11/23 Rx (Children's Aspirin) atorvastatin 20 mg tablet 20 mg PO HS #30 tabs 06/29/22 11/11/23 Rx diltiazem HCl 120 mg capsule,24 240 mg PO QAM #30 caps 06/29/22 11/11/23 Rx hr,extended release famotidine 20 mg tablet 20 mg PO Q12HR #30 tabs 06/29/22 11/11/23 Rx fluoxetine 20 mg tablet 20 mg PO DAILY 1 month #30 tabs 11/25/22 11/11/23 Rx hydrocodone 7.5 mg-acetaminophen 1 tablet PO Q6H PRN Pain (Scale 01/22/23 11/11/23 History 400 mg tablet Score 7-10) megestrol 400 mg/10 mL (40 mg/mL) 400 mg PO DAILY 01/22/23 11/11/23 History oral suspension albuterol sulfate 2.5 mg/3 mL 2.5 mg inhalation QID PRN Wheezing 10/31/23 11/11/23 History (0.083 %) solution for nebulization albuterol sulfate 90 mcg/actuation 2 puff inhalation PRN PRN Wheezing 10/31/23 11/11/23 History aerosol inhal
[2023-11-11 13:10] LABS: Creatine Kinase 33 U/L (30-135)
[2023-11-11 14:02] LABS: Procalcitonin 0.2 ng/mL
[2023-11-11 14:11] LABS: Alveolar/Arterial O2 Gradient 120.1 mmHg; Base Excess ABG 10.5 mEq/l (+/-2.0); Carboxyhemoglobin 0.9 % THb (0-2.0); Fractional Inspired Oxygen 35 %; HCO3 ABG 35.7 mEq/l (22.0-26.0); Methemoglobin ABG 0.3 %THb (0-1.5); Oxygen Saturation ABG 94.6 % (95.0-100.0); Oxyhemoglobin 92.9 % THb (90.0-100.0); PCO2 ABG 51.4 mmHg (35.0-45.0); PO2 ABG 69.7 mmHg (80.0-100.0); PO2 FiO2 Ratio Arterial Blood 1.99 %; Reduced Hemoglobin 5.9 %THb (0-5.0); Total Hemoglobin 9.9 g/dL (12.0-18.0)
[2023-11-11 14:13] LABS: Device NON-INVASIVE VENT; Modified Allen's Test Pass; Non-Invasive Inspiratory Pressure 16 CMH2O; Non-Invasive Vent Rate 20 /MIN; Site Drawn LEFT RADIAL
[2023-11-11 14:14] LABS: Non-Invasive Expiratory Pressure 7 CMH2O
[2023-11-11 14:37] LABS: MRSA (PCR) NOT DETECTED (NOT DETECTE)
[2023-11-11 18:08] LABS: Percent Iron Saturation 10 % (20-50)
--- NOTE | 2023-11-11 18:28 | ADMGEN ---
This patient, Sahara Neal, was admitted to IMU Room 211-01. Patient/family oriented to hospital policies and general routines including ID bracelet, bed and alarms, visiting hours, pain management, procedures, bathroom and other care routines, personal items, smoking policy, room service/diet, and visiting hours. Information on how to activate the Rapid Response Team has been discussed. Patient/Family are encouraged to report perceived risks to care and to ask questions if they do not understand what they are told or what they should do.
[2023-11-11] MEDS: IPRATROPIUM 0.5 MG/ALBUTEROL SULFATE 2.5 MG AMPUL.NEB 3 ML INHALATION (19:51)
[2023-11-11] MEDS: APIXABAN 5 MG TABLET PO (21:57)
[2023-11-11] MEDS: ATORVASTATIN 20 MG TABLET PO (21:57)
[2023-11-11] MEDS: FAMOTIDINE 20 MG TABLET PO (21:57)
[2023-11-12] VITALS (25 sets, daily range): BP systolic 127–156; BP diastolic 68–94; PULSE 83–138; RESP 16–27; TEMP 36.2–36.8; O2SAT 94–100; BMI 16.4
[2023-11-12] MEDS: ALPRAZolam (*CRX) 0.5 MG TABLET 1 MG PO ×3 (00:55→20:57)
[2023-11-12] MEDS: HYDROcodone/acetaminophen (*CRX) 7.5-325 MG TABLET 1 TAB PO ×3 (00:55→20:55)
[2023-11-12] MEDS: dilTIAZem HCL CD 120 MG CAP.24HR 240 MG PO (00:56)
[2023-11-12] MEDS: IPRATROPIUM 0.5 MG/ALBUTEROL SULFATE 2.5 MG AMPUL.NEB 3 ML INHALATION ×4 (02:26→21:27)
[2023-11-12 05:25] LABS: Hematocrit 25.5 % (37.0-47.0); Hemoglobin 7.3 g/dL (12.0-15.0); Immature Granulocyte Absolute 0.04 K/mm3 (0.00-0.031); Immature Granulocyte Percent A 0.7 % (0-0.5); Lymphocytes Absolute Auto 0.43 K/mm3 (0.9-3.2); Lymphocytes Percent Auto 7.4 % (18.3-44.2); Mean Corpuscular HGB Conc 28.6 g/dl (32-36); Mean Corpuscular Hemoglobin 27.4 pg (26-34); Mean Corpuscular Volume 95.9 fl (80-100); Mean Platelet Volume 10.1 fl (7.4-10.4); Monocytes Absolute Auto 0.4 K/mm3 (0.1-0.6); Monocytes Percent Auto 6.7 % (2.6-8.5); Neutrophils Percent Auto 85.2 % (45.5-73.1); Platelet Count Result 408 k/mm3 (150-375); Red Blood Count 2.66 M/mm3 (4.2-5.4); Red Cell Distribution Width 15.5 % (11.5-14.5); White Blood Count 5.8 K/mm3 (4.5-10.0)
[2023-11-12 05:41] LABS: Alanine Aminotransferase 27 U/L (6-35); Albumin Level 3.3 g/dL (3.5-5.1); Alkaline Phosphatase 61 U/L (38-126); Aspartate Amino Transferase 27 U/L (14-36); Bilirubin,Total 0.4 mg/dL (0.2-1.3); Blood Urea Nitrogen 23 mg/dL (7-17); Calcium 8.8 mg/dL (8.4-10.2); Carbon Dioxide > 40 mmol/L (22-30); Chloride 94 mmol/L (98-107); Estimated CRCL calculation 36 ml/min; Estimated Glomerular Filt Rate > 60; Glucose 97 mg/dL (65-110); Potassium 4.2 mmol/L (3.4-5.0); Sodium 134 mmol/L (137-145)
[2023-11-12 06:01] LABS: Platelet Estimate Increased (Adequate)
[2023-11-12 06:03] LABS: Anisocytosis 2+ (NORMAL); Hypochromasia 2+ (NORMAL); Ovalocytes 1+ (NORMAL); Platelet Clumps Present; Schistocytes None Seen (NORMAL)
[2023-11-12] MEDS: FAMOTIDINE 20 MG TABLET PO ×2 (09:29→20:56)
[2023-11-12] MEDS: ASPIRIN 81 MG CHEWABLE TABLET PO (09:29)
[2023-11-12] MEDS: APIXABAN 5 MG TABLET PO ×2 (09:29→20:56)
[2023-11-12] MEDS: FUROSEMIDE 20 MG TABLET PO (09:29)
[2023-11-12] MEDS: FLUoxetine HCL 20 MG CAPSULE PO (09:29)
[2023-11-12] MEDS: MEGESTROL ACETATE (*CHEMO) ORAL SUSP 40 MG/ML SYR 400 MG PO (09:30)
[2023-11-12] MEDS: AZITHROMYCIN 500 MG/NS 250 ML 500 MG/250 ML BAG 250 MG IVPB (09:30)
[2023-11-12 10:43] LABS: Iron 32 ug/dL (37-170)
[2023-11-12 11:56] LABS: Folic Acid > 20.0 ng/mL (2.76->20)
--- NOTE | 2023-11-12 13:01 | PM.IMPN ---
Progress Note: A&P Assessment and Plan (1) Pneumonia: Code(s): J18.9 - Pneumonia, unspecified organism Status: Acute Assessment and Plan: Continue abx Blood cultures and sputum cultures are pending MRSA negative Continue nebs Continue supplemental oxygen Telemetry Urine pending for Legionella and Strep Pneumo. (2) Hypercapnia: Code(s): R06.89 - Other abnormalities of breathing Status: Resolved (3) COPD (chronic obstructive pulmonary disease): Code(s): J44.9 - Chronic obstructive pulmonary disease, unspecified Status: Acute Assessment and Plan: See Plan for #1 Continue to monitor effectiveness of nebs. (4) Adult failure to thrive: Code(s): R62.7 - Adult failure to thrive Status: Acute Assessment and Plan: Care Coordination consulted due to family not being able to care for pt and wanting her to go to a [facility]. Continue megace for appetite stimulation. (5) Atrial fibrillation: Code(s): I48.91 - Unspecified atrial fibrillation Status: Acute Assessment and Plan: Currently rate controlled. Continue Diltiazem Continue Telemetry Continue Eliquis (6) HTN (hypertension): Code(s): I10 - Essential (primary) hypertension Status: Acute Assessment and Plan: Continue home meds and monitor (7) Chronic anemia: Code(s): D64.9 - Anemia, unspecified Status: Acute Assessment and Plan: Total Iron is low at 32 % Saturation is low at 10 Normal ferritin and TIBC. Hgb today is 7.6 Initiate oral Iron therapy for supplementation Continue to monitor labs for trends. No obvious s/s of acute blood loss anemia. Time Spent With Patient Time with patient: 25 - 35 minutes Subjective Date/time seen: 11/12/23 0730 Interval history: This 68 year old female pt is examined at the bedside today in interval assessment after being admitted to the hospital in Respiratory failure with a presumed PNA of L>R, and Acute hypoxic respiratory failure. She has been able to be weaned off of her BiPap and is currently maintaining her sats at 96% on 2L NC, however, she does at times remain tachypneic. She is receiving Rocephin and Azithromycin and tests for Legionella and Strep pneumo are currently pending. Labs are stable, and VS are currently stable, but her overall condition is still guarded. She denies any new complaints at this time. Review of Systems Review of Systems: All systems reviewed & are unremarkable except as noted in HPI and below Exam Narrative: APPEARANCE: Ill-appearing HEAD: normocephalic, atraumatic. EYES: PERRLA/EOMI, conjunctivae clear. NOSE: Normal no drainage THROAT: Pharynx clear, no exudate. NECK: Supple. No adenopathy, no masses. RESPIRATORY: Airway patent, respirations nonlabored. Clear to auscultation bilaterally, no rales, rhonchi, wheezing. BiPAP in place CARDIOVASCULAR: Regular rate and irregular rhythm, atrial flutter rate of 96 on bedside telemetry per my evaluation ABDOMINAL: Soft, nontender, nondistended, normal bowel sounds MUSCULOSKELETAL: Moves all extremities. Strength/ROM intact, No edema, No calf tenderness. NEURO: Awakens to voice moves all extremities well SKIN: Warm, dry. Normal Color Objective Data Vital Signs Vital Signs: Vital Signs - 24 hr 11/11/23 13:09 11/11/23 14:07 11/11/23 14:08 Temperature Pulse Rate 90 92 91 Respiratory Rate 29 H 32 H 27 H Blood Pressure 166/76 H Pulse Oximetry 100 100 Oxygen Delivery BiPAP Oxygen Flow Rate Fraction of Inspired Oxygen 11/11/23 15:58 11/11/23 17:06 11/11/23 17:20 Temperature Pulse Rate 98 108 H 95 Respiratory Rate 28 H 24 H 29 H Blood Pressure 166/76 H 153/92 H Pulse Oximetry 100 91 98 Oxygen Delivery BiPAP Oxygen Flow Rate Fraction of Inspired Oxygen 11/11/23 18:32 11/11/23 18:32 11/11/23 19:51 Temperature 100 F H Pulse Rate 108 H 63 Respirator
[2023-11-12] MEDS: ATORVASTATIN 20 MG TABLET PO (20:56)
[2023-11-13] VITALS (29 sets, daily range): BP systolic 124–154; BP diastolic 71–93; PULSE 86–114; RESP 14–24; TEMP 36.4–37; O2SAT 95–100
[2023-11-13] MEDS: IPRATROPIUM 0.5 MG/ALBUTEROL SULFATE 2.5 MG AMPUL.NEB 3 ML INHALATION ×4 (02:02→19:17)
[2023-11-13] MEDS: QUEtiapine FUMARATE 25 MG TABLET 50 MG PO (02:58)
[2023-11-13] MEDS: HYDROcodone/acetaminophen (*CRX) 7.5-325 MG TABLET 1 TAB PO ×2 (02:59→20:42)
[2023-11-13 05:20] LABS: Basophils Percent Auto 0.3 % (0.2-1.2); Eosinophils Percent Auto 0.3 % (0-4.4); Hematocrit 22.8 % (37.0-47.0); Immature Granulocyte Absolute 0.03 K/mm3 (0.00-0.031); Immature Granulocyte Percent A 0.3 % (0-0.5); Lymphocytes Absolute Auto 1.69 K/mm3 (0.9-3.2); Lymphocytes Percent Auto 16.8 % (18.3-44.2); Mean Corpuscular HGB Conc 29.4 g/dl (32-36); Mean Corpuscular Hemoglobin 27.8 pg (26-34); Mean Corpuscular Volume 94.6 fl (80-100); Mean Platelet Volume 9.9 fl (7.4-10.4); Monocytes Absolute Auto 0.9 K/mm3 (0.1-0.6); Monocytes Percent Auto 8.8 % (2.6-8.5); Neutrophils Absolute Auto 7.4 K/mm3 (1.3-6.7); Neutrophils Percent Auto 73.5 % (45.5-73.1); Platelet Count Result 364 k/mm3 (150-375); Red Blood Count 2.41 M/mm3 (4.2-5.4); Red Cell Distribution Width 15.3 % (11.5-14.5)
[2023-11-13 06:00] LABS: Hemoglobin 6.7 g/dL (12.0-15.0)
[2023-11-13 06:01] LABS: Anisocytosis 1+ (NORMAL); Hypochromasia 2+ (NORMAL); Ovalocytes 1+ (NORMAL); Platelet Estimate Adequate (Adequate); Schistocytes None Seen (NORMAL)
--- NOTE | 2023-11-13 06:08 | PC.NURSE ---
Critical Result and Follow-up at 06 Called MD per phone for Hemaglobin of 6.7. Explained my concerns over the darkened bruising overnight on her face from her fall. MD discussed patient's stability. MD did not want to transfuse or follow up on a head CT/eval at this time.
[2023-11-13] MEDS: dilTIAZem HCL CD 120 MG CAP.24HR 240 MG PO (08:14)
[2023-11-13] MEDS: FAMOTIDINE 20 MG TABLET PO ×2 (08:14→20:42)
[2023-11-13] MEDS: ASPIRIN 81 MG CHEWABLE TABLET PO (08:14)
[2023-11-13] MEDS: FLUoxetine HCL 20 MG CAPSULE PO (08:14)
[2023-11-13] MEDS: FUROSEMIDE 20 MG TABLET PO (08:14)
[2023-11-13] MEDS: POLYSACCHARIDE IRON COMPLEX 150 MG CAPSULE PO ×2 (08:15→16:47)
[2023-11-13] MEDS: MEGESTROL ACETATE (*CHEMO) ORAL SUSP 40 MG/ML SYR 400 MG PO (08:15)
[2023-11-13 08:16] LABS: Alanine Aminotransferase 24 U/L (6-35); Albumin Level 2.6 g/dL (3.5-5.1); Alkaline Phosphatase 52 U/L (38-126); Anion Gap 1 mmol/L (8-16); Aspartate Amino Transferase 27 U/L (14-36); Bilirubin,Total 0.3 mg/dL (0.2-1.3); Blood Urea Nitrogen 21 mg/dL (7-17); Calcium 8.5 mg/dL (8.4-10.2); Carbon Dioxide 39 mmol/L (22-30); Chloride 96 mmol/L (98-107); Estimated CRCL calculation 37 ml/min; Estimated Glomerular Filt Rate > 60; Glucose 77 mg/dL (65-110); Potassium 3.4 mmol/L (3.4-5.0); Sodium 136 mmol/L (137-145)
[2023-11-13] MEDS: AZITHROMYCIN 500 MG/NS 250 ML 500 MG/250 ML BAG 250 MG IVPB (08:18)
[2023-11-13] MEDS: ALPRAZolam (*CRX) 0.5 MG TABLET 1 MG PO ×3 (08:18→20:42)
[2023-11-13 10:35] LABS: Appearance Urine Clear (Clear); Bilirubin Urine Negative (Negative); Blood Urine Negative (Negative); Color Urine Yellow (Yellow); Glucose Urine UA Negative (Negative); Ketones Urine Negative (Negative); Leukocyte Esterase Ur Negative LEU/UL (Negative); Nitrate Urine Negative (Negative); Protein Urine Negative (Negative); Specific Grav Ur 1.009 (1.001-1.035); Urobilinogen Urine 0.2 mg/dL (<2.0)
[2023-11-13 10:36] LABS: Add Urine Microscopic? NO
--- NOTE | 2023-11-13 10:41 | P.CDI_ITS ---
CDI Query Clarification Request Documentation in the medical record indicates that this patient has a : BMI 16.4 The following is also documented in the medical record: Nutritional Diagnostic Statement Underweight as related to COPD as evidenced by BMI : 16.4 Based on your medical judgement, can you further clarify if known, in the progress notes the diagnosis associated with these findings such as: * Underweight * Cachexia * Emaciation * Malnutrition * Undernutrition * Anorexia * Other condition (please specify) * None of the above/ Not applicable <Tonia Blank RN - Last Filed: 11/13/23 10:46> Clarified Diagnosis Clarified Diagnosis: unknown for certain, likely undernutrition <Letty Deal APRN - Last Filed: 11/13/23 15:03>
--- NOTE | 2023-11-13 15:25 | PC.NURSE ---
Spoke with DANISH Saenz regarding change in PRBC order. Clarification received to only administer 1 unit of PRBC now and recheck H&H 2 hrs after infusion is completed.
[2023-11-13] MEDS: TUBING, BLOOD PLUM PUMP TUBING 1 EACH XX (15:49)
[2023-11-13] MEDS: SODIUM CHLORIDE 0.9% IV 250 ML 30 ML IV CONT (15:49)
--- NOTE | 2023-11-13 16:12 | P.PNIM_ITS ---
Progress Note: A&P Assessment and Plan (1) Pneumonia: Code(s): J18.9 - Pneumonia, unspecified organism Status: Acute Assessment and Plan: * Continue Rocephin and azithromycin * BC and sputum cultures pending * MRSA negative * Continue nebs * Continue supplemental oxygen - currently on 2L * Telemetry * Urine pending for Legionella and Strep Pneumo. (2) COPD (chronic obstructive pulmonary disease): Code(s): J44.9 - Chronic obstructive pulmonary disease, unspecified Status: Chronic Assessment and Plan: * see above (3) Adult failure to thrive: Code(s): R62.7 - Adult failure to thrive Status: Acute Assessment and Plan: * Care Coordination consulted due to family not being able to care for pt and wanting her to go to a assisted. * Continue megace for appetite stimulation. * abdominal CT showed Small bilateral pleural effusions with mild bibasilar atelectasis. Small hiatal hernia. Cholelithiasis. Markedly atrophic left kidney. * RUQ US ordered for am * lipase ordered for am (4) Atrial fibrillation: Code(s): I48.91 - Unspecified atrial fibrillation Status: Chronic Assessment and Plan: * Currently rate controlled. * Continue Diltiazem * Continue Telemetry * Continue Eliquis (5) HTN (hypertension): Code(s): I10 - Essential (primary) hypertension Status: Chronic Assessment and Plan: * Continue home meds and monitor (6) Chronic anemia: Code(s): D64.9 - Anemia, unspecified Status: Chronic Assessment and Plan: * Total Iron is low at 32 * % Saturation is low at 10 * Normal ferritin and TIBC. * Hgb today is 6.7, will transfuse 1 unit PRBC and recheck H&H * Increase iron PO dose * Continue to monitor labs for trends. * No obvious s/s of acute blood loss * will order occult stool Subjective Date/time seen: 11/13/23 16:12 Interval history: Patient appears chronically ill but denies acute distress. She reports feeling fatigued. She has been able to be weaned off of her BiPap and is currently maintaining her sats on 2L NC, which is not her baseline. She is receiving Rocephin and Azithromycin and tests for Legionella and Strep pneumo are currently pending. She is iron deficient anemic and H&H dropped to 6.7/22.8 this morning. Plan to transfuse 1 unit of PRBC and timed recheck this evening. Patient reporting diffuse abdominal pain, upper left quadrant and right lower quadrant worse. Denies rebound. US AB/P showed atrophic left kidney, small bilateral pleural effusions with mild bibasilar atelectasis. Small hiatal hernia. Cholelithiasis. Will f/u on results as appropriate. Sputum culture and BC still pending. Review of Systems Review of Systems: All systems reviewed & are unremarkable except as noted in HPI and below Exam Narrative: APPEARANCE: Ill-appearing, no acute distress. HEAD: normocephalic, atraumatic. EYES: PERRLA/EOMI. Moderate bruising over left orbit into buddhist. NECK: Supple. RESPIRATORY: Clear to auscultation bilaterally, no rales, rhonchi, wheezing. CARDIOVASCULAR: RR and irregular rhythm, atrial flutter rate of 96 on bedside telemetry per my evaluation. ABDOMINAL: Soft, mild tenderness over LUQ, RLQ, nondistended, normal bowel sounds MUSCULOSKELETAL: Moves all extremities. No edema, No calf tenderness. NEURO: Alert and oriented. SKIN: Warm, dry. Bruising and edema over left eye from fall. Objective Data Vital Signs Vital Signs:
--- NOTE | 2023-11-13 16:12 | PM.IMPN ---
Progress Note: A&P Assessment and Plan (1) Pneumonia: Code(s): J18.9 - Pneumonia, unspecified organism Status: Acute Assessment and Plan: Continue Rocephin and azithromycin BC and sputum cultures pending MRSA negative Continue nebs Continue supplemental oxygen - currently on 2L Telemetry Urine pending for Legionella and Strep Pneumo. (2) COPD (chronic obstructive pulmonary disease): Code(s): J44.9 - Chronic obstructive pulmonary disease, unspecified Status: Chronic Assessment and Plan: see above (3) Adult failure to thrive: Code(s): R62.7 - Adult failure to thrive Status: Acute Assessment and Plan: Care Coordination consulted due to family not being able to care for pt and wanting her to go to a group home. Continue megace for appetite stimulation. abdominal CT showed Small bilateral pleural effusions with mild bibasilar atelectasis. Small hiatal hernia. Cholelithiasis. Markedly atrophic left kidney. RUQ US ordered for am lipase ordered for am (4) Atrial fibrillation: Code(s): I48.91 - Unspecified atrial fibrillation Status: Chronic Assessment and Plan: Currently rate controlled. Continue Diltiazem Continue Telemetry Continue Eliquis (5) HTN (hypertension): Code(s): I10 - Essential (primary) hypertension Status: Chronic Assessment and Plan: Continue home meds and monitor (6) Chronic anemia: Code(s): D64.9 - Anemia, unspecified Status: Chronic Assessment and Plan: Total Iron is low at 32 % Saturation is low at 10 Normal ferritin and TIBC. Hgb today is 6.7, will transfuse 1 unit PRBC and recheck H&H Increase iron PO dose Continue to monitor labs for trends. No obvious s/s of acute blood loss will order occult stool Subjective Date/time seen: 11/13/23 16:12 Interval history: Patient appears chronically ill but denies acute distress. She reports feeling fatigued. She has been able to be weaned off of her BiPap and is currently maintaining her sats on 2L NC, which is not her baseline. She is receiving Rocephin and Azithromycin and tests for Legionella and Strep pneumo are currently pending. She is iron deficient anemic and H&H dropped to 6.7/22.8 this morning. Plan to transfuse 1 unit of PRBC and timed recheck this evening. Patient reporting diffuse abdominal pain, upper left quadrant and right lower quadrant worse. Denies rebound. US AB/P showed atrophic left kidney, small bilateral pleural effusions with mild bibasilar atelectasis. Small hiatal hernia. Cholelithiasis. Will f/u on results as appropriate. Sputum culture and BC still pending. Review of Systems Review of Systems: All systems reviewed & are unremarkable except as noted in HPI and below Exam Narrative: APPEARANCE: Ill-appearing, no acute distress. HEAD: normocephalic, atraumatic. EYES: PERRLA/EOMI. Moderate bruising over left orbit into scientology. NECK: Supple. RESPIRATORY: Clear to auscultation bilaterally, no rales, rhonchi, wheezing. CARDIOVASCULAR: RR and irregular rhythm, atrial flutter rate of 96 on bedside telemetry per my evaluation. ABDOMINAL: Soft, mild tenderness over LUQ, RLQ, nondistended, normal bowel sounds MUSCULOSKELETAL: Moves all extremities. No edema, No calf tenderness. NEURO: Alert and oriented. SKIN: Warm, dry. Bruising and edema over left eye from fall. Objective Data Vital Signs Vital Signs: Vital Signs - 24 hr 11/12/23 18:00 11/12/23 19:10 11/12/23 21:28 Temperature 98.0 F Pulse Rate 116 H 97 101 H Respiratory Rate 16 22 H Blood Pressure 132/79 Pulse Oximetry 94 Oxygen Delivery Oxygen Flow Rate 11/12/23 21:31 11/12/23 21:37 11/12/23 22:58 Temperature 97.8 F Pulse Rate 101 H 95 116 H Respiratory Rate 22 H 22 H Blood Pressure 127/68 Pulse Oximetry 97 94 Oxygen Delivery Nasal Cannula Oxygen Flow Rate 2 11/13/23 02:03 01
[2023-11-13] MEDS: polyethylene glycoL 3350 17 GM POWD.PACK PO (16:45)
[2023-11-13] MEDS: DOCUSATE SODIUM 100 MG CAPSULE PO (16:45)
[2023-11-13 19:38] LABS: Hematocrit 30.6 % (37.0-47.0); Hemoglobin 8.9 g/dL (12.0-15.0)
[2023-11-13] MEDS: ATORVASTATIN 20 MG TABLET PO (20:42)
[2023-11-14] VITALS (24 sets, daily range): BP systolic 118–146; BP diastolic 54–92; PULSE 84–110; RESP 16–20; TEMP 36.4–37.1; O2SAT 94–99
[2023-11-14] MEDS: IPRATROPIUM 0.5 MG/ALBUTEROL SULFATE 2.5 MG AMPUL.NEB 3 ML INHALATION ×4 (01:14→20:19)
[2023-11-14 04:59] LABS: Basophils Absolute Auto 0.1 K/mm3 (0.0-0.1); Basophils Percent Auto 0.6 % (0.2-1.2); Eosinophils Absolute Auto 0.2 K/mm3 (0-0.3); Eosinophils Percent Auto 2.4 % (0-4.4); Hematocrit 32.1 % (37.0-47.0); Hemoglobin 9.6 g/dL (12.0-15.0); Immature Granulocyte Absolute 0.02 K/mm3 (0.00-0.031); Immature Granulocyte Percent A 0.2 % (0-0.5); Lymphocytes Absolute Auto 1.97 K/mm3 (0.9-3.2); Lymphocytes Percent Auto 23.4 % (18.3-44.2); Mean Corpuscular HGB Conc 29.9 g/dl (32-36); Mean Corpuscular Hemoglobin 27.7 pg (26-34); Mean Corpuscular Volume 92.5 fl (80-100); Mean Platelet Volume 9.7 fl (7.4-10.4); Monocytes Absolute Auto 0.9 K/mm3 (0.1-0.6); Monocytes Percent Auto 10.7 % (2.6-8.5); Neutrophils Absolute Auto 5.3 K/mm3 (1.3-6.7); Neutrophils Percent Auto 62.7 % (45.5-73.1); Platelet Count Result 380 k/mm3 (150-375); Red Blood Count 3.47 M/mm3 (4.2-5.4); Red Cell Distribution Width 15.4 % (11.5-14.5); White Blood Count 8.4 K/mm3 (4.5-10.0)
[2023-11-14 05:46] LABS: Anisocytosis 1+ (NORMAL); Hypochromasia 1+ (NORMAL); Platelet Estimate Adequate (Adequate)
[2023-11-14 05:47] LABS: Ovalocytes 1+ (NORMAL); Schistocytes None Seen (NORMAL)
[2023-11-14 05:48] LABS: Alanine Aminotransferase 26 U/L (6-35); Albumin Level 2.9 g/dL (3.5-5.1); Alkaline Phosphatase 55 U/L (38-126); Anion Gap 4 mmol/L (8-16); Aspartate Amino Transferase 25 U/L (14-36); Bilirubin,Total 0.6 mg/dL (0.2-1.3); Blood Urea Nitrogen 15 mg/dL (7-17); Calcium 8.8 mg/dL (8.4-10.2); Carbon Dioxide 36 mmol/L (22-30); Chloride 95 mmol/L (98-107); Estimated CRCL calculation 37 ml/min; Estimated Glomerular Filt Rate > 60; Glucose 72 mg/dL (65-110); Lipase 59 U/L (23-300); Potassium 3.7 mmol/L (3.4-5.0); Sodium 135 mmol/L (137-145)
[2023-11-14] MEDS: dilTIAZem HCL CD 120 MG CAP.24HR 240 MG PO (08:15)
[2023-11-14] MEDS: POLYSACCHARIDE IRON COMPLEX 150 MG CAPSULE PO ×2 (08:16→16:52)
[2023-11-14] MEDS: FLUoxetine HCL 20 MG CAPSULE PO (08:16)
[2023-11-14] MEDS: ALPRAZolam (*CRX) 0.5 MG TABLET 1 MG PO ×4 (08:16→20:12)
[2023-11-14] MEDS: MEGESTROL ACETATE (*CHEMO) ORAL SUSP 40 MG/ML SYR 400 MG PO (08:16)
[2023-11-14] MEDS: FAMOTIDINE 20 MG TABLET PO ×2 (08:16→20:12)
[2023-11-14] MEDS: FUROSEMIDE 20 MG TABLET PO (08:16)
[2023-11-14] MEDS: ASPIRIN 81 MG CHEWABLE TABLET PO (08:16)
[2023-11-14] MEDS: AZITHROMYCIN 500 MG/NS 250 ML 500 MG/250 ML BAG 250 MG IVPB (08:17)
[2023-11-14] MEDS: HYDROcodone/acetaminophen (*CRX) 7.5-325 MG TABLET 1 TAB PO ×3 (08:24→23:17)
[2023-11-14] MEDS: DOCUSATE SODIUM 100 MG CAPSULE PO (13:13)
--- NOTE | 2023-11-14 15:15 | P.PNIM_ITS ---
Progress Note: A&P Assessment and Plan (1) Pneumonia: Code(s): J18.9 - Pneumonia, unspecified organism Status: Acute Assessment and Plan: * Transitioned to PO Augmentin and Zithromax * BC and sputum cultures pending * MRSA negative * Continue nebs * Continue supplemental oxygen - currently on 2L * Telemetry * Urine pending for Legionella and Strep Pneumo. (2) COPD (chronic obstructive pulmonary disease): Code(s): J44.9 - Chronic obstructive pulmonary disease, unspecified Status: Chronic Assessment and Plan: * see above (3) Adult failure to thrive: Code(s): R62.7 - Adult failure to thrive Status: Acute Assessment and Plan: * Care Coordination consulted due to family not being able to care for pt and wanting her to go to a long-term. * PT/OT ordered for d/c planning * Continue megace for appetite stimulation. * abdominal CT showed Small bilateral pleural effusions with mild bibasilar atelectasis. Small hiatal hernia. Cholelithiasis. Markedly atrophic left kidney. Discussed kidney with nephrology, no f/u needed at this time * RUQ US ordered * lipase WNL (4) Atrial fibrillation: Code(s): I48.91 - Unspecified atrial fibrillation Status: Chronic Assessment and Plan: * Currently rate controlled. * Continue Diltiazem * Continue Telemetry * Continue Eliquis (5) HTN (hypertension): Code(s): I10 - Essential (primary) hypertension Status: Chronic Assessment and Plan: * Continue home meds and monitor (6) Chronic anemia: Code(s): D64.9 - Anemia, unspecified Status: Chronic Assessment and Plan: * Total Iron is low at 32 * % Saturation is low at 10 * Normal ferritin and TIBC. * H&H 9.6/32.1 today post transfusion of 1 unit PRBC * Increase iron PO dose * Continue to monitor labs for trends. * No obvious s/s of acute blood loss * will order occult stool Subjective Date/time seen: 11/14/23 15:15 Interval history: Patient appears chronically ill but denies acute distress. She reports feeling fatigued and weak. She has been able to be weaned off of her BiPap and is currently maintaining her sats on 2L NC, which is not her baseline. She is receiving Rocephin and Azithromycin and tests for Legionella and Strep pneumo are currently pending. S/P 1 unit of PRBC and H&H rebounded well. Will continue to monitor. US AB/P showed atrophic left kidney, small bilateral pleural effusions with mild bibasilar atelectasis. Small hiatal hernia. Cholelithiasis. US RUQ ordered. Sputum culture and BC still pending. Review of Systems Review of Systems: All systems reviewed & are unremarkable except as noted in HPI and below Exam Narrative: APPEARANCE: Ill-appearing, no acute distress. HEAD: normocephalic, atraumatic. EYES: PERRLA/EOMI. Moderate bruising over left orbit into amish. NECK: Supple. RESPIRATORY: Clear to auscultation bilaterally, no rales, rhonchi, wheezing. CARDIOVASCULAR: RR and irregular rhythm, atrial flutter rate of 96 on bedside telemetry per my evaluation. ABDOMINAL: Soft, mild tenderness over LUQ, RLQ, nondistended, normal bowel sounds MUSCULOSKELETAL: Moves all extremities. No edema, No calf tenderness. NEURO: Alert and oriented. SKIN: Warm, dry. Bruising and edema over left eye from fall. Objective Data Vital Signs Vital Signs: Vital Signs - 24 hr 11/13/23 15:41 11/13/23 15:56 11/13/23
--- NOTE | 2023-11-14 15:15 | PM.IMPN ---
Progress Note: A&P Assessment and Plan (1) Pneumonia: Code(s): J18.9 - Pneumonia, unspecified organism Status: Acute Assessment and Plan: Transitioned to PO Augmentin and Zithromax BC and sputum cultures pending MRSA negative Continue nebs Continue supplemental oxygen - currently on 2L Telemetry Urine pending for Legionella and Strep Pneumo. (2) COPD (chronic obstructive pulmonary disease): Code(s): J44.9 - Chronic obstructive pulmonary disease, unspecified Status: Chronic Assessment and Plan: see above (3) Adult failure to thrive: Code(s): R62.7 - Adult failure to thrive Status: Acute Assessment and Plan: Care Coordination consulted due to family not being able to care for pt and wanting her to go to a detention. PT/OT ordered for d/c planning Continue megace for appetite stimulation. abdominal CT showed Small bilateral pleural effusions with mild bibasilar atelectasis. Small hiatal hernia. Cholelithiasis. Markedly atrophic left kidney. Discussed kidney with nephrology, no f/u needed at this time RUQ US ordered lipase WNL (4) Atrial fibrillation: Code(s): I48.91 - Unspecified atrial fibrillation Status: Chronic Assessment and Plan: Currently rate controlled. Continue Diltiazem Continue Telemetry Continue Eliquis (5) HTN (hypertension): Code(s): I10 - Essential (primary) hypertension Status: Chronic Assessment and Plan: Continue home meds and monitor (6) Chronic anemia: Code(s): D64.9 - Anemia, unspecified Status: Chronic Assessment and Plan: Total Iron is low at 32 % Saturation is low at 10 Normal ferritin and TIBC. H&H 9.6/32.1 today post transfusion of 1 unit PRBC Increase iron PO dose Continue to monitor labs for trends. No obvious s/s of acute blood loss will order occult stool Subjective Date/time seen: 11/14/23 15:15 Interval history: Patient appears chronically ill but denies acute distress. She reports feeling fatigued and weak. She has been able to be weaned off of her BiPap and is currently maintaining her sats on 2L NC, which is not her baseline. She is receiving Rocephin and Azithromycin and tests for Legionella and Strep pneumo are currently pending. S/P 1 unit of PRBC and H&H rebounded well. Will continue to monitor. US AB/P showed atrophic left kidney, small bilateral pleural effusions with mild bibasilar atelectasis. Small hiatal hernia. Cholelithiasis. US RUQ ordered. Sputum culture and BC still pending. Review of Systems Review of Systems: All systems reviewed & are unremarkable except as noted in HPI and below Exam Narrative: APPEARANCE: Ill-appearing, no acute distress. HEAD: normocephalic, atraumatic. EYES: PERRLA/EOMI. Moderate bruising over left orbit into sikhism. NECK: Supple. RESPIRATORY: Clear to auscultation bilaterally, no rales, rhonchi, wheezing. CARDIOVASCULAR: RR and irregular rhythm, atrial flutter rate of 96 on bedside telemetry per my evaluation. ABDOMINAL: Soft, mild tenderness over LUQ, RLQ, nondistended, normal bowel sounds MUSCULOSKELETAL: Moves all extremities. No edema, No calf tenderness. NEURO: Alert and oriented. SKIN: Warm, dry. Bruising and edema over left eye from fall. Objective Data Vital Signs Vital Signs: Vital Signs - 24 hr 11/13/23 15:41 11/13/23 15:56 11/13/23 16:00 Temperature 97.8 F 97.7 F 97.7 F Pulse Rate 90 92 100 Respiratory Rate 14 18 18 Blood Pressure 134/79 130/81 130/81 Pulse Oximetry 97 98 97 Oxygen Delivery Oxygen Flow Rate Fraction of Inspired Oxygen 11/13/23 16:56 11/13/23 16:00 11/13/23 16:00 Temperature 98.6 F Pulse Rate 94 98 Respiratory Rate 18 Blood Pressure 149/83 H Pulse Oximetry 100 100 Oxygen Delivery Nasal Cannula Oxygen Flow Rate 2 Fraction of Inspired Oxygen 11/13/23 17:29 11/13/23 18:00 11/13/23 19:18 [place]
[2023-11-14] MEDS: ATORVASTATIN 20 MG TABLET PO (20:12)
[2023-11-14 21:28] LABS: Pneumococcal Antigen Urine Not Detected (Not Detected)
[2023-11-15] VITALS (16 sets, daily range): BP systolic 118–141; BP diastolic 71–87; PULSE 79–108; RESP 16–22; TEMP 37.1–37.6; O2SAT 97–100
[2023-11-15] MEDS: IPRATROPIUM 0.5 MG/ALBUTEROL SULFATE 2.5 MG AMPUL.NEB 3 ML INHALATION ×3 (02:21→13:33)
[2023-11-15 05:37] LABS: Basophils Percent Auto 0.6 % (0.2-1.2); Eosinophils Absolute Auto 0.3 K/mm3 (0-0.3); Eosinophils Percent Auto 4.4 % (0-4.4); Hematocrit 31.5 % (37.0-47.0); Hemoglobin 9.2 g/dL (12.0-15.0); Immature Granulocyte Absolute 0.01 K/mm3 (0.00-0.031); Immature Granulocyte Percent A 0.1 % (0-0.5); Lymphocytes Absolute Auto 1.47 K/mm3 (0.9-3.2); Lymphocytes Percent Auto 21.1 % (18.3-44.2); Mean Corpuscular HGB Conc 29.2 g/dl (32-36); Mean Corpuscular Hemoglobin 27.3 pg (26-34); Mean Corpuscular Volume 93.5 fl (80-100); Mean Platelet Volume 9.7 fl (7.4-10.4); Monocytes Absolute Auto 0.8 K/mm3 (0.1-0.6); Monocytes Percent Auto 11.5 % (2.6-8.5); Neutrophils Absolute Auto 4.4 K/mm3 (1.3-6.7); Neutrophils Percent Auto 62.3 % (45.5-73.1); Platelet Count Result 342 k/mm3 (150-375); Red Blood Count 3.37 M/mm3 (4.2-5.4); Red Cell Distribution Width 15.1 % (11.5-14.5)
[2023-11-15 05:55] LABS: Alanine Aminotransferase 23 U/L (6-35); Albumin Level 2.7 g/dL (3.5-5.1); Alkaline Phosphatase 55 U/L (38-126); Anion Gap 3 mmol/L (8-16); Aspartate Amino Transferase 27 U/L (14-36); Bilirubin,Total 0.4 mg/dL (0.2-1.3); Blood Urea Nitrogen 15 mg/dL (7-17); Calcium 8.7 mg/dL (8.4-10.2); Carbon Dioxide 38 mmol/L (22-30); Chloride 97 mmol/L (98-107); Estimated CRCL calculation 42 ml/min; Estimated Glomerular Filt Rate > 60; Glucose 78 mg/dL (65-110); Potassium 3.9 mmol/L (3.4-5.0); Sodium 138 mmol/L (137-145)
[2023-11-15 05:59] LABS: Anisocytosis 1+ (NORMAL); Hypochromasia 2+ (NORMAL); Ovalocytes 1+ (NORMAL); Platelet Estimate Adequate (Adequate); Schistocytes None Seen (NORMAL)
[2023-11-15] MEDS: dilTIAZem HCL CD 120 MG CAP.24HR 240 MG PO (09:17)
[2023-11-15] MEDS: ASPIRIN 81 MG CHEWABLE TABLET PO (09:17)
[2023-11-15] MEDS: FAMOTIDINE 20 MG TABLET PO (09:18)
[2023-11-15] MEDS: AMOXICILLIN/CLAVULANATE K 875-125 MG TAB 1 TABLET PO (09:18)
[2023-11-15] MEDS: FUROSEMIDE 20 MG TABLET PO (09:19)
[2023-11-15] MEDS: POLYSACCHARIDE IRON COMPLEX 150 MG CAPSULE PO (09:19)
[2023-11-15] MEDS: FLUoxetine HCL 20 MG CAPSULE PO (09:20)
[2023-11-15] MEDS: MEGESTROL ACETATE (*CHEMO) ORAL SUSP 40 MG/ML SYR 400 MG PO (09:20)
[2023-11-15] MEDS: AZITHROMYCIN 250 MG TABLET 500 MG PO (09:26)
[2023-11-15] MEDS: ALPRAZolam (*CRX) 0.5 MG TABLET 1 MG PO ×2 (09:28→14:49)
[2023-11-15] MEDS: HYDROcodone/acetaminophen (*CRX) 7.5-325 MG TABLET 1 TAB PO ×2 (09:28→14:50)
--- NOTE | 2023-11-15 13:09 | PM.DS ---
DS: Admitting Diagnosis Discharge Date 11/15/23 Admitting Diagnosis dyspnea DS: Discharge Diagnosis Discharge Diagnosis (1) Pneumonia: Code(s): J18.9 - Pneumonia, unspecified organism Status: Acute Assessment and Plan: d/c on PO Augmentin; completed full course of Zithromax BC cultures pending, NGTD MRSA negative Continue supplemental oxygen - currently on 2L (2) COPD (chronic obstructive pulmonary disease): Code(s): J44.9 - Chronic obstructive pulmonary disease, unspecified Status: Chronic Assessment and Plan: see above (3) Adult failure to thrive: Code(s): R62.7 - Adult failure to thrive Status: Acute Assessment and Plan: PT/OT ordered for d/c planning - plan to d/c to SNF Continue megace for appetite stimulation. abdominal CT showed Small bilateral pleural effusions with mild bibasilar atelectasis. Small hiatal hernia. Cholelithiasis. Markedly atrophic left kidney. Discussed kidney with nephrology, no f/u needed at this time RUQ US ordered - gallstones noted, no sign of infection or duct blockage. lipase WNL (4) Atrial fibrillation: Code(s): I48.91 - Unspecified atrial fibrillation Status: Chronic Assessment and Plan: Currently rate controlled. Continue Diltiazem Continue Telemetry Continue Eliquis (5) HTN (hypertension): Code(s): I10 - Essential (primary) hypertension Status: Chronic Assessment and Plan: Continue home meds and monitor (6) Chronic anemia: Code(s): D64.9 - Anemia, unspecified Status: Chronic Assessment and Plan: Total Iron is low at 32 % Saturation is low at 10 Normal ferritin and TIBC. H&H stable Increase iron PO dose, continue at d/c No obvious s/s of acute blood loss DS: Summary Hospital Course Hospital Course: Patient is a 68 YO female patient with PMH of COPD admitted with hypoxia. She has a history of which was recently treated through the ER and patient discharged home about 11 days ago. She normally wears 2 L of oxygen by nasal cannula and has remained stable on this while inpatient. Chest x-ray showed extensive bilateral airspace disease left greater than right presumed pneumonia. She is a small left pleural effusion but did not appear to be fluid overloaded. She has been treated and transitioned to PO Augmentin for pneumonia. She is also failure to thrive, and will benefit from SNF for continued PT/OT. Imaging of abdomen showed gallstones, and atrophic left kidney. Discussed this finding with nephrology and no further work up needed at this time. Discussed low fat diet, but still increasing calories with patient as her lipase is normal and she is not clinically worsening. US did not show bile duct blockage or infection. Patient stable for d/c to SNF today. Status at Discharge Functional status at discharge: wheelchair bound Overall status at discharge: patient is not back to baseline Time Spent with Patient Time attestation: Total time spent providing and/or coordinating discharge services: Exam Narrative: APPEARANCE: Ill-appearing, no acute distress. HEAD: normocephalic, atraumatic. EYES: PERRLA/EOMI. Moderate bruising over left orbit into hoahaoism. NECK: Supple. RESPIRATORY: Clear to auscultation bilaterally, no rales, rhonchi, wheezing. CARDIOVASCULAR: RR and irregular rhythm, atrial flutter rate of 96 on bedside telemetry per my evaluation. ABDOMINAL: Soft, mild tenderness over LUQ, RLQ, nondistended, normal bowel sounds MUSCULOSKELETAL: Moves all extremities. No edema, No calf tenderness. NEURO: Alert and oriented. SKIN: Warm, dry. Bruising and edema over left eye from fall. DS: Data Data Completed and Pending Labs on day of discharge: Labs from last 24 hours 11/15/23 11/12/23 05:19 05:51 WBC 7.0 RBC 3.37 L Hgb 9.2 L Hct 31.5 L MCV 93.5 MCH 27.3 MCHC 29.2 L RDW 15.1 H Plt Count 342 MPV 9.
[2023-11-16 01:26] LABS: Legionella pneumophila Ag Ur Not Detected (Not Detected)
--- NOTE | 2023-11-19 11:57 | PC.NURSE ---
Blood cx are negative.
== END 2023-11-15 15:03 | DRG 193 ==
LOC: ANHED 09:28 → ANHIMU 10:15
PROVIDERS: Emergency Medicine; Nurse Practitioner; Admitting Provider Internal Medicine; Emergency Provider Emergency Medicine; PCP Internal Medicine; Visit Provider Nurse Practitioner Adult Health
DX: J18.9 Pneumonia, unspecified organism (principal); J96.01 Acute respiratory failure with hypoxia; E46 Unspecified protein-calorie malnutrition; I48.20 Chronic atrial fibrillation, unspecified; J44.0 Chronic obstructive pulmonary disease with (acute) lower respiratory infection; Z68.1 Body mass index [BMI] 19.9 or less, adult; J90 Pleural effusion, not elsewhere classified; K80.20 Calculus of gallbladder without cholecystitis without obstruction; Z20.822 Contact with and (suspected) exposure to COVID-19; R62.7 Adult failure to thrive; D50.9 Iron deficiency anemia, unspecified; K21.9 Gastro-esophageal reflux disease without esophagitis; I10 Essential (primary) hypertension; R29.6 Repeated falls; Z99.81 Dependence on supplemental oxygen; Z87.891 Personal history of nicotine dependence; Z79.82 Long term (current) use of aspirin
CPT/HCPCS: 36415; 36430; 36600; 70450; 71045; 74177; 76705; 80053; 81003; 82375; 82550; 82607; 82728; 82746; 82805; 83050; 83540; 83550; 83690; 83735; 84145; 85014; 85018; 85025; 86850; 86880; 86900; 86901; 86902; 86922; 87040; 87449; 87637; 87641; 87899; 93005; 94002; 94640; 96365; 96367; 96375; 97161; 97166; 99285; A9270; G0378; J0456; J0696; J2060; J7050; P9016; Q9967

== ENCOUNTER 2023-11-23 08:58 | Emergency (ER) | payer MEDICARE, MEDICAID, SELFPAY ==
[2023-11-23] VITALS (43 sets, daily range): BP systolic 98–170; BP diastolic 61–140; PULSE 78–131; RESP 8–34; TEMP 35.6–36.3; O2SAT 77–100
--- NOTE | ~2023-11-23 | XR_ITS ---
EXAMINATION: XR chest 1V portable DATE: 11/23/2023 09:40 INDICATION: Endotracheal tube placement. Respiratory failure and unresponsive. TECHNIQUE: frontal view of the chest was obtained. COMPARISON: Chest radiograph dated 11/11/2023 FINDINGS: Endotracheal tube tip is in the right mainstem bronchus approximately 3.5 cm below the the crys. Di ffuse increased interstitial pattern. There scattered groundglass opacities in both lungs most promin ent in the right upper lung zone. No pleural effusion or pneumothorax. The cardiomediastinal silhouet te is normal. Bilateral reverse total shoulder arthroplasties. IMPRESSION: 1. Endotracheal tube tip in the right mainstem bronchus. Recommend withdrawal by [address] the di stal tip approximately 2.5 cm above the crys. Dr. Mclean discussed these findings with Dr. Rivera at 9:46 AM. 2. Diffuse bilateral interstitial and mild airspace opacities most prominent in the right upper lung zone. This appears to be due at least in part to mild pulmonary edema although could not exclude supe rimposed pneumonia particularly in the right upper lung zone. Alternatively focally more severe pulmo nary edema in the right upper lung can be seen in the setting of mitral regurgitation. Reviewed, dictated and finalized at location A. TATION OPERATOR APPRENTICE IMPRESSION: 1. Endotracheal tube tip in the right mainstem bronchus. Recommend withdrawal b y [address] the distal tip approximately 2.5 cm above the crys. Dr. Shun pitt discussed these findings with Dr. Rivera at 9:46 AM. 2. Diffuse bilateral interstitial and mild airspace opacities most prominent in the right upper lung zone. This appears to be due at least in part to mild pul monary edema although could not exclude superimposed pneumonia particularly in the right upper lung zone. Alternatively focally more severe pulmonary edema in the right upper lung can be seen in the setting of mitral regurgitation.
--- NOTE | ~2023-11-23 | CT_ITS ---
EXAMINATION: CT brain wo con INDICATION: Altered mental status COMPARISON: 11/11/2023 TECHNIQUE: Standard unenhanced head CT. The dose-length product (DLP) was 681.00 mGy-cm. The mA was a djusted according to patient size. Iterative reconstruction technique was employed. FINDINGS: No acute intraparenchymal hemorrhage. No evidence of mass lesion. No evidence of acute infa rction. There is mild periventricular and subcortical hypodensity probably related to small vessel is chemic disease. There is mild prominence of the sulci and ventricles related to cerebral atrophy. Int racranial calcified cerebral atherosclerosis is noted. No extra-axial collections. No mass effect or midline shift. The orbits and soft tissues are unremarkable. There is mild mucosal thickening of the paranasal sinuses. IMPRESSION: 1. No acute intracranial abnormality. 2. Age related findings. Reviewed, dictated and finalized at location B. RAFT REFUELER
--- NOTE | 2023-11-23 09:05 | ECG_ITS ---
Measurements Intervals [place] Rate: 98 P: CA: 0 QRS: 104 QRSD: 89 T: 9 QT: 358 QTc: 458 Interpretive Statements ATRIAL FIBRILLATION RIGHT AXIS DEVIATION [QRS AXIS > 100] NONSPECIFIC T-WAVE ABNORMALITY ABNORMAL ECG COMPARED TO ECG 11/11/2023 06:52:30 NO SIGNIFICANT DIFFERENCE Electronically Signed On 11-23-2023 15:49:41 GRADER OPERATOR by Jake Liz M.D.
[2023-11-23] MEDS: ETOMIDATE 20 MG/10 ML AMPUL 10 MG IV PUSH (09:19)
[2023-11-23] MEDS: SUCCINYLCHOLINE CHLORIDE 20 MG/ML 10 ML VIAL 100 MG IV PUSH (09:19)
[2023-11-23 09:22] LABS: Base Excess ABG 9.3 mmol/L (0-2); Carboxyhemoglobin 1.1 % (0-1.5); HCO3 ABG 44.2 mmol/L (23-29); Methemoglobin ABG 0.2 % (0-1.5); Oxygen Content ABG 14.2 %vol (16.0-22.0); Oxygen Saturation ABG 84.4 % (95-97); Oxyhemoglobin 83.3 % (94-100); PO2 ABG 61.6 mmHg (75-85); Reduced Hemoglobin 15.4 % (0-1.5); Total Hemoglobin 12.1 g/dL (12.0-18.0); pH ABG 7.07 (7.35-7.45)
[2023-11-23 09:22] LABS: Basophils Percent Auto 0.5 % (0.0-1.0); Eosinophils Absolute Auto 0.01 K/mm3 (0.02-0.50); Eosinophils Percent Auto 0.1 % (1.0-6.0); Hematocrit 38.1 % (35.0-42.0); Hemoglobin 10.6 g/dL (11.7-13.8); Immature Granulocyte Absolute 0.14 K/mm3 (0.00-0.00); Immature Granulocyte Percent A 0.7 % (0.0-0.0); Immature Platelet Fraction Pct 2.6 % (1.0-7.0); Lymphocytes Absolute Auto 0.82 K/mm3 (1.10-4.50); Lymphocytes Percent Auto 4.3 % (18.0-42.0); Mean Corpuscular HGB Conc 27.8 g/dL (32.0-36.0); Mean Corpuscular Hemoglobin 27.8 pg (27.0-31.0); Mean Platelet Volume 9.6 fl (9.2-11.8); Monocytes Absolute Auto 2.42 K/mm3 (0.10-0.90); Monocytes Percent Auto 12.7 % (2.0-11.0); Neutrophils Absolute Auto 15.5 K/mm3 (1.7-7.2); Neutrophils Percent Auto 81.7 % (50.0-70.0); Platelet Count Result 540 K/mm3 (150-420); Red Blood Count 3.81 M/mm3 (4.20-5.40); Red Cell Distribution Width 15.3 % (11.6-14.4)
[2023-11-23 09:25] LABS: Device NON-REBREATHER MASK; Modified Allen's Test Pass; PCO2 ABG 155.2 mmHg (35-45); Site Drawn LEFT RADIAL
[2023-11-23 09:40] LABS: Alanine Aminotransferase 28 U/L (14-59); Albumin Level 2.9 g/dL (3.4-5.0); Alkaline Phosphatase 83 U/L (46-116); Anion Gap 1 mmol/L (8-16); Aspartate Amino Transferase 21 U/L (15-37); Bilirubin,Total 0.3 mg/dL (0.00-1.00); Blood Urea Nitrogen 21 mg/dL (7-18); Calcium 8.8 mg/dL (8.5-10.1); Carbon Dioxide 40 mmol/L (21-32); Chloride 103 mmol/L (98-108); Estimated CRCL calculation 41 ml/min; Estimated Glomerular Filt Rate > 60; Glucose 168 mg/dL (70-99); Osmolality Calculated 305 mOsm/kg (285-295); Potassium 4.7 mmol/L (3.5-5.1); Sodium 144 mmol/L (136-145); Total Protein 6.8 g/dL (6.4-8.2); Troponin I 36.2 ng/L (0.00-60.4)
--- NOTE | 2023-11-23 09:51 | ED.SOB ---
HPI - SOB/Dyspnea General Chief Complaint: Shortness of Breath/Dyspnea Stated Complaint: unresponsive and short of breath Source: EMS Mode of arrival: ambulatory Limitations: other History of Present Illness HPI Narrative: Patient is a 68-year-old female with significant past medical history that presents today with acute respiratory failure. Patient arrived by EMS her oxygen was dropping down into the 40s and then after being backed up to the 60s. When she arrived she was in the 60s well. She was put on a non-rebreather and her oxygen and was still the maximum of upper 70s. She was Not responsive. Apparently 1 week ago she had a fall and hit her head and when she hit her head this was because she had low oxygen of the same thing that hospice had was around in the 40s and she fell and hit her head. She was then put in a custodial for this is the reason why she is in the custodial. She was found today by the nursing staff unresponsive and with the oxygen is low as stated. Oxygen continued to not climb even on a rebreather and I then intubated the patient. The patient O2 went up to 99%. MD elicited complaint: shortness of breath Pertinent past history: COPD Onset (ago): minute(s) Context: recent illness Timing: constant Severity: severe Exacerbating factors: exertion and movement Relieving factors: oxygen, rest and bronchodilators Known history of: COPD Associated symptoms: cough, wheezing and palpitations Treatment prior to arrival: oxygen and bronchodilator Related Data Home oxygen amount: 4 liters Home Medications Medication Instructions Recorded Confirmed megestrol 400 mg/10 mL (40 mg/mL) 400 mg PO DAILY 01/22/23 11/23/23 oral suspension albuterol sulfate 2.5 mg/3 mL 2.5 mg inhalation QID PRN Wheezing 10/31/23 11/23/23 (0.083 %) solution for nebulization albuterol sulfate 90 mcg/actuation 2 puff inhalation PRN PRN Wheezing 10/31/23 11/23/23 aerosol inhaler donepezil 5 mg tablet 5 mg PO DAILY 10/31/23 11/23/23 furosemide 20 mg tablet 20 mg PO DAILY 10/31/23 11/23/23 alprazolam 1 mg tablet 1 mg PO QID PRN Anxiety 11/11/23 11/23/23 Allergies Allergy/AdvReac Type Severity Reaction Status Date / Time codeine AdvReac Nausea and Verified 11/25/23 10:17 Vomiting Review of Systems Review of Systems: All systems reviewed & are unremarkable except as noted in HPI and below Constitutional: Constitutional: Reports no additional constitutional complaints Eyes: Eyes: Reports no additional eye complaints ENT: Reports system reviewed and no additional complaints, except as documented Cardiovascular: Cardiovascular: Reports no additional cardiovascular complaints Respiratory: Respiratory: Reports chest congestion, Reports cough, Reports dyspnea and Reports wheezing Gastrointestinal: Gastrointestinal: Reports no additional gastrointestinal complaints Musculoskeletal: Musculoskeletal: Reports no additional musculoskeletal complaints Integumentary/Breasts: Skin/Breast: Reports system reviewed and no additional complaints, except as docu Neurologic: Reports system reviewed and no additional complaints, except as documented Psychiatric: Psychiatric: Reports no additional psychiatric complaints Endocrine: Endocrine: Reports no additional endocrine complaints Hematologic/Lymphatic: Hematologic/Lymphatic: Reports no additional hematologic/lymphatic complaints Allergic/Immunologic: Allergic/Immunologic: Reports no additional allergic/immunologic complaints [facility] Past Medical History Medical History (Updated 11/26/23 @ 15:29 by Glynn Rivera MD) Arthritis Chronic anticoagulation Chronic obstructive pulmonary disease Gastroesophageal reflux disease Paroxysmal atrial fibrillation Surgical History Surgical History History of back surgery History of cardiac catheterization History of knee surgery History of nasal septoplasty History of shannon
--- NOTE | 2023-11-23 09:52 | PC.NURSE ---
and son at bedside.
[2023-11-23] MEDS: MIDAZOLAM 100MG/NS 100ML(*CRX) 100 MG/100 ML BAG IV CONT (10:05)
[2023-11-23] MEDS: FUROSEMIDE INJ 40 MG/4 ML VIAL IV PUSH (10:05)
--- NOTE | 2023-11-23 10:47 | PC.NURSE ---
OG TUBE TO LOW SUCTION PER WALL
--- NOTE | 2023-11-23 11:18 | PC.NURSE ---
PT TO CT AND RETURNED TO ROOM WITH RN, FLOOR REFINISHER, RESP STAFF X 2.
--- NOTE | 2023-11-23 11:21 | PC.NURSE ---
FAMILY AT BEDSIDE
[2023-11-23 11:32] LABS: Influenza A QL RT-PCR Negative (Negative); Influenza B QL RT-PCR Negative (Negative); RSV RNA, RT-PCR Negative (Negative); SARS-CoV-2 RNA PCR Negative (Negative)
[2023-11-23 11:36] LABS: Appearance Urine Clear (Clear); Bilirubin Urine Negative (Negative); Blood Urine Trace-Intact (Negative); Color Urine Light Yellow (Yellow); Glucose Urine UA Negative (Negative); Ketones Urine Negative (Negative); Leukocyte Esterase Ur Negative (Negative); Nitrate Urine Negative (Negative); Protein Urine 3+ (Negative); Specific Grav Ur >= 1.030 (1.010-1.020); Urobilinogen Urine 0.2 mg/dL (0.2-1.0)
[2023-11-23 11:38] LABS: Add Urine Microscopic? YES; RBC Urine None seen /hpf (0-2); Squamous Epithelial Cell Urine Occasional /hpf (Few); WBC Urine 0-3 /hpf (0-3)
[2023-11-23 11:39] LABS: Bacteria Urine 3+ /hpf
[2023-11-23 11:48] LABS: CRP 2.4 mg/dL (0.0-0.9)
[2023-11-23 11:52] LABS: Partial Thromboplastin Time 31.1 SEC (23.90-30.70); Prothrombin Time 11.4 Seconds (9.50-12.10)
[2023-11-23 11:57] LABS: Lactic Acid Reflex 0.7 mmol/L (0.4-2.0)
[2023-11-23] MEDS: AZITHROMYCIN 500 MG/NS 250 ML 500 MG/250 ML BAG 250 MG IVPB (12:03)
--- NOTE | 2023-11-23 13:41 | PC.NURSE ---
ems and resp tech preparing pt for transfer to ems cot with ventilator
--- NOTE | 2023-11-23 13:59 | PC.NURSE ---
pt loaded to cot per ems and ready for transport to [facility]. don called and notified of pt departing and going to [facility] icu #3. voiced understanding.
--- NOTE | 2023-11-29 20:32 | PC.NURSE ---
FINAL BLOOD CULTURE RESULTS X2: NO GROWTH AFTER 5 DAYS. NO ACTION NEEDED.
== END 2023-11-23 14:02 | disposition short-term general hospital (02) ==
PROVIDERS: Emergency Provider Family Medicine; PCP Family Medicine
DX: J96.01 Acute respiratory failure with hypoxia (principal); Z79.899 Other long term (current) drug therapy; I48.0 Paroxysmal atrial fibrillation; Z87.891 Personal history of nicotine dependence; Z20.822 Contact with and (suspected) exposure to COVID-19
CPT/HCPCS: 31500; 36415; 36600; 70450; 71045; 80053; 81001; 82375; 82805; 83050; 83605; 84484; 85025; 85055; 85610; 85730; 86140; 87040; 87637; 93005; 96365; 96375; 99285; J0330; J0456; J0696; J1940; J2250

== ENCOUNTER 2023-11-23 15:05 | Inpatient (IN) | payer MEDICARE, MEDICAID, SELFPAY ==
[2023-11-23] VITALS (24 sets, daily range): BP systolic 145–170; BP diastolic 77–113; PULSE 92–139; RESP 20–22; TEMP 38.1–38.5; O2SAT 93–100; BMI 19.3
--- NOTE | 2023-11-23 | ECHO_ITS ---
Patient Info Name: Sahara Neal Age: 68 years : 1955 Gender: Female Ht: 60 in Wt: 99 lbs BSA: 1.38 m2 HR: 112 bpm Heart Rhythm: Atrial Fibrillation Technical Quality: Good Exam Date: 11/23/2023 3:42 PM Exam Location: Echo Lab Patient Status: Inpatient Admit Date: 11/23/2023 Staff Ordering Physician: Lazaro Soliman MD Integrity Analyst: Mo Li RDCS Attending Provider: Lawson Sandra MD Referring Physician: Janny LEE; Exam Type: CA echo doppler color flow Study Info Indications - pulmonary edema Complete two-dimensional, color flow and Doppler transthoracic echocardiogram is performed. Summary 1. Complete two-dimensional, color flow and Doppler transthoracic echocardiogram is performed. 2. Left ventricular chamber dimension is normal. 3. Left ventricular systolic function is normal, estimated at 55-60%. 4. There is mild concentric increased left ventricular wall thickness. 5. The left ventricular diastolic function is abnormal. 6. E/e' 15 is elevated. 7. Atrial fibrillation. 8. Left atrial chamber dimension is mildly enlarged. 9. There is mild aortic valve sclerosis. 10. There is trace mitral valve regurgitation. 11. There is trace tricuspid valve regurgitation. 12. No pulmonary hypertension, estimated pulmonary arterial systolic pressure is 19 mmHg. Left Ventricle E/e' 15 is elevated. Left ventricular chamber dimension is normal. Left ventricular systolic function is normal, estimated at 55-60%. There is mild concentric increased left ventricular wall thickness. The left ventricular diastolic function is abnormal. Atrial fibrillation. Right Ventricle Right ventricular chamber dimension is normal. Right ventricular systolic function is normal. Left Atria Left atrial chamber dimension is moderately enlarged. Right Atria Right atrial chamber dimension is normal. Aortic Valve The aortic valve is trileaflet. There is mild aortic valve sclerosis. There is no aortic valve stenosis. There is no aortic valve regurgitation. Pulmonic Valve There is no pulmonic regurgitation. Mitral Valve There is no mitral valve stenosis. There is trace mitral valve regurgitation. Tricuspid Valve There is trace tricuspid valve regurgitation. No pulmonary hypertension, estimated pulmonary arterial systolic pressure is 19 mmHg. Pericardium/Pleural There is no pericardial effusion. Inferior Vena Cava Normal inferior vena cava with >50% collapse upon inspiration consistent with normal right atrial pressure, 5 mmHg. Aorta The aortic root size at the sinus of Valsalva is normal. Left Ventricular Outflow Tract Name Value Normal LVOT 2D LVOT Diameter 2.3 cm LVOT Doppler LVOT Peak Gradient 2 mmHg LVOT Mean Gradient 1 mmHg LVOT VTI 10 cm LVOT VTI/AV VTI Ratio 0.7 LVOT Stroke Volume 42 ml LVOT CO 3.4 l/min LVOT CI 2.5 l/min/m2 Pulmonic Valve Name Value
--- NOTE | ~2023-11-23 | CT_ITS ---
EXAMINATION: CT abdomen pelvis wo con DATE: 11/24/2023 09:12 INDICATION: Abdominal pain TECHNIQUE: Computed tomography (CT) of the abdomen and pelvis was performed without intravenous contr ast. The dose-length product (DLP) was 204.13 mGy-cm. Automated exposure control and iterative recons truction technique were employed. COMPARISON: 11/13/2023 FINDINGS: There are small bilateral pleural effusions. The heart size is normal. A nasogastric tube e nds in the stomach. The liver, spleen, pancreas, and adrenal glands appear normal. There is a stone i n the nondistended gallbladder. There is marked atrophy of the left kidney. There is a 6 mm nonobstru cting stone of the right kidney. No pathologically enlarged abdominal or pelvic lymph nodes are ident ified. No free intraperitoneal gas or evidence of bowel obstruction. The bladder is decompressed by F oley catheter. There is a small volume of pelvic ascites. There is severe lumbar spondylosis. IMPRESSION: 1. No CT correlate for the patient's symptoms. 2. Small pleural effusions. 3. Cholelithiasis without evidence of cholecystitis. Reviewed, dictated and finalized at location F. BORER
--- NOTE | ~2023-11-23 | XR_ITS ---
Portable chest x-ray Comparison: 11/25/2023 Clinical History: Respiratory failure Findings: Endotracheal tube and NG tube are in satisfactory positions. Small bilateral pleural effus ions are present, with bibasilar airspace disease, left worse than right. There is mild haziness in t he right lung. Cardiomediastinal silhouette is stable. Bilateral shoulder arthroplasties are present . Impression: Small bilateral pleural effusions with probable left basilar atelectasis versus possibly pneumonia. Mild haziness right lung suggests asymmetric mild pulmonary edema. Support tubes, as above. Reviewed, dictated and finalized at location . CAL OPERATIONS SUPERVISOR Impression: Small bilateral pleural effusions with probable left basilar atelectasis versus possibly pneumonia. Mild haziness right lung suggests asymmetric mild pulmonary edema. Support tubes, as above.
--- NOTE | ~2023-11-23 | XR_ITS ---
EXAMINATION: XR chest 1V portable INDICATION: Fever TECHNIQUE: Portable AP chest at 1350 hours COMPARISON: 11/29/2023 FINDINGS: There are chronic opacities of the lung bases. There are small pleural effusions. There is no pneumothorax. The cardiomediastinal silhouette is stable. There are bilateral shoulder arthroplast ies. IMPRESSION: 1. Bibasilar airspace opacities, consistent with atelectasis versus pneumonia. Reviewed, dictated and finalized at location B. ICAL ROLL OPERATOR
--- NOTE | ~2023-11-23 | XR_ITS ---
Portable chest x-ray Comparison: 11/28/2023 Clinical History: Respiratory failure Findings: Small bilateral pleural effusions are present. There is extensive chronic appearing inters titial disease. Cardiomediastinal silhouette is stable. Bilateral shoulder arthroplasties are presen t. Impression: Probable chronic interstitial disease. Small bilateral pleural effusions. Reviewed, dictated and finalized at [facility]. BUYER Impression: Probable chronic interstitial disease. Small bilateral pleural effusions.
--- NOTE | ~2023-11-23 | XR_ITS ---
Portable chest x-ray Comparison: 11/24/2023 at 4:45 AM Clinical History: Tube placed Findings: Endotracheal tube and NG tube are in satisfactory positions. Questionable minimal pleural effusions. There is mild hazy bibasilar airspace disease. Cardiomediastinal silhouette is stable. Bi lateral shoulder arthroplasties are present. Impression: Support tubes in place, as above. Minimal pleural effusions and probable mild bibasilar pulmonary edema/atelectasis. Correlate clinical ly for pneumonia. Reviewed, dictated and finalized at [facility]. STANT BOYS TRACK COACH Impression: Support tubes in place, as above. Minimal pleural effusions and probable mild bibasilar pulmonary edema/atelectas is. Correlate clinically for pneumonia.
--- NOTE | ~2023-11-23 | XR_ITS ---
Portable chest x-ray Comparison: 11/26/2023 Clinical History: Respiratory failure Findings: Endotracheal tube and NG tube are in satisfactory distance. There is hazy and interstitial pulmonary disease, predominantly at the lung bases. Cardiomediastinal silhouette is stable. Bones a nd soft tissues are unremarkable. Impression: Hazy and interstitial pulmonary disease, predominantly lung bases. Correlate for pulmonary edema, chr onic interstitial disease, infection, and/or COPD change. Support tubes, as above. Reviewed, dictated and finalized at location . MAKER Impression: Hazy and interstitial pulmonary disease, predominantly lung bases. Correlate fo r pulmonary edema, chronic interstitial disease, infection, and/or COPD change. Support tubes, as above.
--- NOTE | ~2023-11-23 | XR_ITS ---
Portable chest x-ray Comparison: 11/27/2023 Clinical History: Respiratory failure Findings: Endotracheal tube and NG tube are in satisfactory positions. Questionable minimal bibasila r pulmonary edema. Cardiomediastinal silhouette is stable. Bilateral shoulder arthroplasties are pre sent. Impression: Possible minimal bibasilar pulmonary edema. Support tubes, as above. Reviewed, dictated and finalized at location . HOUSE MAN Impression: Possible minimal bibasilar pulmonary edema. Support tubes, as above.
--- NOTE | ~2023-11-23 | XR_ITS ---
EXAMINATION: XR chest 1V portable INDICATION: Pneumonia, respiratory failure TECHNIQUE: Portable AP chest at 0445 hours COMPARISON: 11/23/2023 FINDINGS: The endotracheal tube ends approximately 4.2 cm above the crys. The nasogastric tube is f ollowed as far as the stomach. Its tip is beyond the inferior margin of the radiograph. Diffuse inter stitial and airspace opacities persist throughout all lung zones with slight improvement in the right upper lung zone. No pleural effusion or pneumothorax. The cardiomediastinal silhouette is stable. Th ere are changes of bilateral total shoulder arthroplasty. IMPRESSION: 1. Diffuse lung disease with slight improvement in the right upper lung zone, consistent with pneumon ia/or pulmonary edema. Reviewed, dictated and finalized at location F. CLE I ASSEMBLER IMPRESSION: 1. Diffuse lung disease with slight improvement in the right upper lung zone, c onsistent with pneumonia/or pulmonary edema.
--- NOTE | ~2023-11-23 | XR_ITS ---
EXAMINATION: XR abdomen gastric tube insert DATE: 11/23/2023 15:10 INDICATION: Orogastric tube placement. TECHNIQUE: A supine view of the abdomen was obtained. COMPARISON: CT abdomen and pelvis 11/13/2023 FINDINGS: There are no dilated loops of bowel. The orogastric tube tip is in the stomach. IMPRESSION: 1. Orogastric tube tip in the stomach. 2. Normal bowel gas pattern. Reviewed, dictated and finalized at location E. DRY OPERATOR FINISHING
--- NOTE | ~2023-11-23 | XR_ITS ---
EXAMINATION: XR chest ET placement DATE: 11/23/2023 15:10 INDICATION: Intubation. TECHNIQUE: A single frontal view of the chest was obtained. COMPARISON: Chest single view at 9:16 AM, chest single view 10/31/2023, CT abdomen and pelvis , chest CT 11/21/2022 FINDINGS: There is a diffuse interstitial pattern in the lungs. There are airspace opacities in all l jv zones bilaterally with an upper lobe predominance. No pleural effusion or pneumothorax. The heart size is normal. The endotracheal tube tip is 2.1 cm above the crys. The nasogastric tube tip is in the stomach. There are bilateral shoulder arthroplasties. IMPRESSION: 1. Stable diffuse lung disease, consistent with pulmonary edema versus pneumonia. Reviewed, dictated and finalized at location E. CUTTER OPERATOR IMPRESSION: 1. Stable diffuse lung disease, consistent with pulmonary edema versus pneumoni a.
--- NOTE | ~2023-11-23 | XR_ITS ---
EXAMINATION: XR chest 1V portable DATE: 11/25/2023 05:46 INDICATION: Respiratory failure. Pneumonia. TECHNIQUE: A single frontal view of the chest was obtained. COMPARISON: Chest single view 11/24/2023, CT abdomen and pelvis 11/24/2023 FINDINGS: There are interstitial and airspace opacities in all lung zones bilaterally. There are smal l pleural effusions. No pneumothorax. The heart size is normal. The endotracheal tube tip is 13 mm ab ove the crys. The nasogastric tube tip is in the stomach. There are bilateral shoulder arthroplasti es. IMPRESSION: 1. Worsened diffuse lung disease, consistent with pulmonary edema versus pneumonia. 2. Small pleural effusions with worsening on the left. Reviewed, dictated and finalized at location A. IAMENTARY LIBRARIAN IMPRESSION: 1. Worsened diffuse lung disease, consistent with pulmonary edema versus pneumo valery. 2. Small pleural effusions with worsening on the left.
--- NOTE | 2023-11-23 14:40 | ADMGEN ---
This patient, Sahara Neal, was admitted to Intensive Care Unit-3. Patient/family oriented to hospital policies and general routines including ID bracelet, bed and alarms, visiting hours, pain management, procedures, bathroom and other care routines, personal items, smoking policy, room service/diet, and visiting hours. Information on how to activate the Rapid Response Team has been discussed. Patient/Family are encouraged to report perceived risks to care and to ask questions if they do not understand what they are told or what they should do.
[2023-11-23] MEDS: PROPOFOL IV EMULSION 100 ML 1.35 MG IV CONT (15:00)
--- NOTE | 2023-11-23 15:13 | WPDCNINT ---
Assessment and Plan Assessment and plan (1) Respiratory failure: Qualifiers: Chronicity: acute on chronic Respiratory failure complication: hypoxia and hypercapnia Qualified Code(s): J96.21 - Acute and chronic respiratory failure with hypoxia; J96.22 - Acute and chronic respiratory failure with hypercapnia Code(s): J96.90 - Respiratory failure, unspecified, unspecified whether with hypoxia or hypercapnia Status: Acute Assessment and Plan: acute on chronic hypoxic and hypercapnic respiratory failure 11/23: patient presented [place] [facility] from the intermediate with hypoxia with O2 sats in the 40s, was placed on non-rebreather where sats came up to 70%, she was intubated at the outside hospital ER by the ER physician on 11/23/2023. - Initial ABGs at the outside hospital were 7.07/155/61/44/84% sats on 100% non-rebreather - post intubation patient not get any ABGs - I repeated the chest x-ray upon arrival to [facility] ICU, ETT was in the right mainstem bronchus, ETT was withdrawn 2 cm, a chest x-ray showed ET tube in appropriate position, stable diffuse lung disease consistent with pulmonary edema versus pneumonia - patient currently on CMV mode of ventilation, peep of 5 and 70% FiO2 - likely related to pneumonia, COPD exacerbation, noncompliance with wearing oxygen at intermediate - will obtain ABGs after making changes to the ventilator - started patient on cefepime and vancomycin as she was recently in the hospital with pneumonia and was treated with Rocephin and azithromycin - add bronchodilators - add pulmicort - propofol for sedation, maintain RASS of 0 to -2, daily spontaneous awakening trials and spontaneous breathing trials (2) Pneumonia: Code(s): J18.9 - Pneumonia, unspecified organism Status: Acute Assessment and Plan: blood cultures were obtained at the outside hospital - obtain sputum cultures - continue antibiotics as above (3) COPD (chronic obstructive pulmonary disease): Code(s): J44.9 - Chronic obstructive pulmonary disease, unspecified Status: Acute Assessment and Plan: patient with hypercapnic respiratory failure along with hypoxic respiratory failure. Could be related to COPD exacerbation and noncompliance with wearing of oxygen at the intermediate - continue mechanical ventilation, no wheezing noted, will hold Solu-Medrol for now (4) Atrial fibrillation: Qualifiers: Atrial fibrillation type: unspecified Qualified Code(s): I48.91 - Unspecified atrial fibrillation Code(s): I48.91 - Unspecified atrial fibrillation Status: Chronic Assessment and Plan: patient has a recent history of atrial fibrillation - will continue home Eliquis Plan DVT prophylaxis: Eliquis Stress ulcer prophylaxis: Protonix Nutrition: will start tube feeds in a.m. Code Status: full code Critical Care Time Spent: 47 minutes Due to a high probability of clinically significant, life threatening deterioration, the patient required my highest level of preparedness to intervene emergently and I personally spent this critical care time directly and personally managing the patient. This critical care time included obtaining a history; examining the patient; pulse oximetry; ordering and review of studies; arranging urgent treatment with development of a management plan; evaluation of patient's response to treatment; frequent reassessment; and discussions with other providers. It was exclusive of separately billable procedures and treating other patients and teaching time. Please see Assessment and Plan section and the rest of the note for further information on patient assessment and treatment This dictation may have been done utilizing a voice recognition system. Attempts have been made to correct errors. However, there may be uncorrected grammatical, spelling, and recognitions errors present. Asphalt Dauber
[2023-11-23 16:11] LABS: Alveolar/Arterial O2 Gradient 250.6 mmHg; Base Excess ABG 9.7 mEq/l (+/-2.0); Carboxyhemoglobin 0.4 % THb (0-2.0); Fractional Inspired Oxygen 60 %; HCO3 ABG 37.3 mEq/l (22.0-26.0); Methemoglobin ABG 0.3 %THb (0-1.5); Oxygen Content ABG 14.6 %vol (16.0-22.0); Oxygen Saturation ABG 97.1 % (95.0-100.0); Oxyhemoglobin 96.8 % THb (90.0-100.0); PO2 ABG 101.1 mmHg (80.0-100.0); PO2 FiO2 Ratio Arterial Blood 1.68 %; Reduced Hemoglobin 2.5 %THb (0-5.0); Total Hemoglobin 10.6 g/dL (12.0-18.0)
[2023-11-23 16:13] LABS: Arterial Blood Gas PEEP 5 cmH2O; Arterial Blood Gas Tidal Volume 320 ml; Arterial Blood Gas Vent Mode CMV; Arterial Blood Gas Ventilator rate 20 /MIN; Device VENTILATOR; Modified Allen's Test Pass; PCO2 ABG 69.2 mmHg (35.0-45.0); Site Drawn RIGHT RADIAL
[2023-11-23] MEDS: IPRATROPIUM BR 0.02% INH SOLN 0.5 MG/2.5 ML VIAL INHALATION ×2 (16:18→20:40)
[2023-11-23] MEDS: LEVALBUTEROL NEB 1.25 MG/3 ML 0.63 MG INHALATION ×2 (16:18→20:40)
[2023-11-23] MEDS: VANCOMYCIN 1,250 MG/NS 250 ML 1,250 MG/250 ML BAG 166.67 MG IVPB (16:22)
[2023-11-23] MEDS: LACTATED RINGERS 1,000 ML 75 ML IV CONT (16:24)
--- NOTE | 2023-11-23 16:29 | PM.IMHP ---
H&P: HPI History of Present Illness Date/Time: 11/23/23 17:00 Chief Complaint: Acute on chronic respiratory failure. Narrative: This is a 68-year-old female with chronic obstructive pulmonary disease, paroxysmal atrial fibrillation on anticoagulation, coronary artery disease, hypertension, and anxiety who is being directly admitted to the ICU, sedated and on mechanical ventilation, from the emergency department at [facility] with acute on chronic respiratory failure after presenting to their facility obtunded and hypoxic. The following is obtained from her EMR as she cannot provide history given her current clinical condition. She was recently admitted to the hospital at the end of October with pneumonia after presenting following a fall and she was discharged to an assisted living facility. It is my understanding that she has been doing okay and this morning she seemed to be in her usual state of health however approximately 1 hour after she was last seen normal, she was found minimally responsive and hypoxic. She arrived to the outside ED with an SpO2 in the 60s; she was intubated not long thereafter as her oxygenation did not rebounded she remained obtunded. Initial ABG showed a pH of 7.07, pCO2 155.2, and an HC03 of 44.2. Her chest x-ray showed stable diffuse lung disease consistent with pulmonary edema versus pneumonia. She tested negative for influenza, RSV, and COVID. She was started on antibiotics and has been transferred to the ICU for further management. At the time my evaluation she is sedated but wakes to stimuli. She attempts to follow simple commands. Review of Systems Review of Systems: Unable to obtain given clinical condition. [facility] Past Medical History Medical History (Updated 11/23/23 @ 22:32 by Dasia Lundy PA-C) Arthritis Chronic anticoagulation Chronic obstructive pulmonary disease Gastroesophageal reflux disease Paroxysmal atrial fibrillation Surgical History Surgical History History of back surgery History of cardiac catheterization History of knee surgery History of nasal septoplasty History of shoulder surgery Family History Family History Other Unknown family medical history Social History Social History (Updated 11/23/23 @ 22:28 by Dasia Lundy PA-C) Social History: Surrogate medical decision maker: Pankaj Neal, spouse. Code status: Full code. Years smoked: 50 Smoking status: Former smoker Tobacco type: cigarettes Alcohol intake: never Substance use: never Substance use type: marijuana Other substance usage details: Gummies Do You Feel Safe in your Home?: Yes Lack of Transportation: No Lack of Food: Never True Current Housing: I Have Housing Concerned About Future Housing: No Difficulty Paying Gas/Electric Bills: No Difficulty Paying for Meds: No Currently Unemployed: No Education: Don't Know Difficulty w/ Childcare or Family Care: No Spiritual care concerns: No Meds Home Medications and Allergies Home Medications Medication Instructions Recorded Confirmed Type acetaminophen 325 mg tablet (Mapap 650 mg PO Q6H PRN Pain #60 tabs 06/29/22 11/23/23 Rx (acetaminophen)) apixaban 5 mg tablet (Eliquis) 5 mg PO Q12HR #60 tabs 06/29/22 11/23/23 Rx aspirin 81 mg chewable tablet 81 mg PO DAILY@0800 #30 tabs 06/29/22 11/23/23 Rx (Children's Aspirin) atorvastatin 20 mg tablet 20 mg PO HS #30 tabs 06/29/22 11/23/23 Rx diltiazem HCl 120 mg capsule,24 240 mg PO QAM #30 caps 06/29/22 11/23/23 Rx hr,extended release famotidine 20 mg tablet 20 mg PO Q12HR #30 tabs 06/29/22 11/23/23 Rx fluoxetine 20 mg tablet 20 mg PO DAILY 1 month #30 tabs 11/25/22 11/23/23 Rx megestrol 400 mg/10 mL (40 mg/mL) 400 mg PO DAILY 01/22/23 11/23/23 History oral suspension albuterol sulfate 2.5 mg/3 mL 2.5 mg inhalatio
[2023-11-23 17:10] LABS: Triglycerides 62 mg/dL (<150)
[2023-11-23 17:12] LABS: Appearance Urine Clear (Clear); Bilirubin Urine Negative (Negative); Blood Urine 3+ (Negative); Color Urine Yellow (Yellow); Glucose Urine UA Negative (Negative); Ketones Urine Negative (Negative); Leukocyte Esterase Ur Negative LEU/UL (Negative); Nitrate Urine Negative (Negative); Protein Urine 1+ mg/dL (Negative); Specific Grav Ur 1.011 (1.001-1.035); Urobilinogen Urine 0.2 mg/dL (<2.0)
[2023-11-23] MEDS: CEFEPIME 2 GM/NS 50 ML 2 GM/50 ML BAG IVPB (17:24)
[2023-11-23 17:29] LABS: RBC Urine >100 /hpf (0-2)
[2023-11-23 17:31] LABS: WBC Urine 0-3 /hpf (0-3)
[2023-11-23 17:32] LABS: Bacteria Urine None seen /hpf
[2023-11-23 17:33] LABS: Add Urine Microscopic? YES; Squamous Epithelial Cell Urine Moderate /hpf (Few)
[2023-11-23 17:37] LABS: Glucose Point of Care 78 mg/dl (65-105)
[2023-11-23 18:12] LABS: MRSA (PCR) NOT DETECTED (NOT DETECTE)
[2023-11-23] MEDS: ACETAMINOPHEN 325 MG TABLET 650 MG PO (18:25)
[2023-11-23] MEDS: METOPROLOL TARTRATE INJ 5 MG/5 ML VIAL IV PUSH (20:16)
[2023-11-23] MEDS: APIXABAN 5 MG TABLET PO (20:17)
[2023-11-23] MEDS: MINERAL OIL/WHITE PETROLATUM OINTMENT 1 APPLIC EACH EYE (20:17)
[2023-11-23] MEDS: BUDESONIDE RESPULE NEB 0.5 MG/2 ML AMP INHALATION (20:40)
[2023-11-23 23:32] LABS: Amphetamine Screen Urine Negative (Negative); Barbiturate Screen Urine Negative (Negative); Benzodiazepines Screen Urine Positive (Negative); Cannabinoid Screen Urine Negative (Negative); Cocaine Screen Urine Negative (Negative); Methadone Screen Urine Negative (Negative); Opiate Screen Urine Positive (Negative); Phencyclidine Screen Urine Negative (Negative)
[2023-11-24] VITALS (38 sets, daily range): BP systolic 129–175; BP diastolic 79–123; PULSE 71–131; RESP 18–31; TEMP 37.4–38.1; O2SAT 94–99
[2023-11-24 00:31] LABS: Glucose Point of Care 84 mg/dl (65-105)
[2023-11-24] MEDS: PROPOFOL IV EMULSION 100 ML 10.8 MG IV CONT ×3 (01:30→17:45)
[2023-11-24] MEDS: LEVALBUTEROL NEB 1.25 MG/3 ML 0.63 MG INHALATION ×4 (02:32→21:01)
[2023-11-24] MEDS: IPRATROPIUM BR 0.02% INH SOLN 0.5 MG/2.5 ML VIAL INHALATION ×4 (02:33→21:01)
[2023-11-24 03:57] LABS: Basophils Absolute Auto 0.1 K/mm3 (0.0-0.1); Basophils Percent Auto 0.7 % (0.2-1.2); Eosinophils Percent Auto 0.3 % (0-4.4); Hematocrit 31.7 % (37.0-47.0); Hemoglobin 9.1 g/dL (12.0-15.0); Immature Granulocyte Absolute 0.05 K/mm3 (0.00-0.031); Immature Granulocyte Percent A 0.4 % (0-0.5); Lymphocytes Absolute Auto 0.98 K/mm3 (0.9-3.2); Mean Corpuscular HGB Conc 28.7 g/dl (32-36); Mean Corpuscular Hemoglobin 27.8 pg (26-34); Mean Corpuscular Volume 96.9 fl (80-100); Mean Platelet Volume 9.7 fl (7.4-10.4); Monocytes Absolute Auto 0.9 K/mm3 (0.1-0.6); Monocytes Percent Auto 6.2 % (2.6-8.5); Neutrophils Absolute Auto 11.9 K/mm3 (1.3-6.7); Neutrophils Percent Auto 85.4 % (45.5-73.1); Platelet Count Result 363 k/mm3 (150-375); Red Blood Count 3.27 M/mm3 (4.2-5.4); Red Cell Distribution Width 15.9 % (11.5-14.5)
[2023-11-24 04:19] LABS: Alanine Aminotransferase 20 U/L (6-35); Albumin Level 3.2 g/dL (3.5-5.1); Alkaline Phosphatase 63 U/L (38-126); Aspartate Amino Transferase 28 U/L (14-36); Bilirubin,Total 0.7 mg/dL (0.2-1.3); Blood Urea Nitrogen 24 mg/dL (7-17); Calcium 9.1 mg/dL (8.4-10.2); Carbon Dioxide > 40 mmol/L (22-30); Chloride 99 mmol/L (98-107); Estimated CRCL calculation 43 ml/min; Estimated Glomerular Filt Rate > 60; Glucose 83 mg/dL (65-110); Lactic Acid Reflex 1.6 mmol/L (0.7-2.0); Magnesium 1.9 mg/dL (1.6-2.3); Phosphorus 3.2 mg/dL (2.5-4.5); Potassium 3.7 mmol/L (3.4-5.0); Sodium 140 mmol/L (137-145)
[2023-11-24 04:48] LABS: Thyroid Stimulating Hormone 0.225 uIU/mL (0.465-4.680)
[2023-11-24 04:57] LABS: INR 1.5
[2023-11-24 04:58] LABS: Partial Thromboplastin Time 47.7 SECONDS (22.3-36.8)
[2023-11-24 05:07] LABS: Alveolar/Arterial O2 Gradient 179.7 mmHg; Base Excess ABG 9.2 mEq/l (+/-2.0); Fractional Inspired Oxygen 45 %; Methemoglobin ABG 0.1 %THb (0-1.5); Oxygen Content ABG 13.6 %vol (16.0-22.0); Oxygen Saturation ABG 96.9 % (95.0-100.0); PCO2 ABG 48.4 mmHg (35.0-45.0); PO2 ABG 86.1 mmHg (80.0-100.0); PO2 FiO2 Ratio Arterial Blood 1.91 %; Reduced Hemoglobin 3.9 %THb (0-5.0); pH ABG 7.465 (7.350-7.450)
[2023-11-24 05:08] LABS: Device VENTILATOR; Modified Allen's Test Pass; Site Drawn RIGHT RADIAL
[2023-11-24 05:09] LABS: Arterial Blood Gas PEEP 5 cmH2O; Arterial Blood Gas Tidal Volume 320 ml; Arterial Blood Gas Vent Mode CMV; Arterial Blood Gas Ventilator rate 20 /MIN
[2023-11-24] MEDS: LACTATED RINGERS 1,000 ML 75 ML IV CONT ×2 (06:17→21:18)
[2023-11-24] MEDS: CEFEPIME 2 GM/NS 50 ML 2 GM/50 ML BAG IVPB ×2 (06:18→18:56)
[2023-11-24] MEDS: BUDESONIDE RESPULE NEB 0.5 MG/2 ML AMP INHALATION ×2 (07:44→21:00)
[2023-11-24] MEDS: ASPIRIN 81 MG CHEWABLE TABLET PO (08:09)
[2023-11-24] MEDS: APIXABAN 5 MG TABLET PO ×2 (08:09→21:10)
[2023-11-24] MEDS: PANTOPRAZOLE SODIUM IV 40 MG VIAL IV PUSH (08:09)
[2023-11-24] MEDS: METOPROLOL TARTRATE 50 MG TAB PO ×2 (08:09→21:10)
[2023-11-24] MEDS: MINERAL OIL/WHITE PETROLATUM OINTMENT 1 APPLIC EACH EYE ×2 (08:15→21:10)
--- NOTE | 2023-11-24 10:50 | WPDINTPN ---
Progress Note: A&P Assessment and Plan (1) Respiratory failure: Qualifiers: Chronicity: acute on chronic Respiratory failure complication: hypoxia and hypercapnia Qualified Code(s): J96.21 - Acute and chronic respiratory failure with hypoxia; J96.22 - Acute and chronic respiratory failure with hypercapnia Code(s): J96.90 - Respiratory failure, unspecified, unspecified whether with hypoxia or hypercapnia Status: Acute Assessment and Plan: acute on chronic hypoxic and hypercapnic respiratory failure 11/23: patient presented the [facility] in [facility] from the senior living with hypoxia with O2 sats in the 40s, was placed on non-rebreather where sats came up to 70%, she was intubated at the outside hospital ER by the ER physician on 11/23/2023. Initial ABGs on admission at the outside hospital were 7.07/155/61/44/84% sats on 100% non-rebreather - chest x-ray this morning: Diffuse lung disease with slight improvement in the right upper lung zone, consistent with pneumonia/or pulmonary edema. - patient currently on CMV mode of ventilation, peep of 5 and 45% FiO2 continue to wean FiO2, to maintain O2 sats > 92% - likely related to pneumonia, COPD exacerbation, noncompliance with wearing oxygen at senior living - chest x-ray and ABGs reviewed, ventilator adjusted, decrease rate to 18 - 11/23: continue cefepime and vancomycin - continue bronchodilators - continue pulmicort - propofol for sedation, maintain RASS of 0 to -2, daily spontaneous awakening trials and spontaneous breathing trials (2) Pneumonia: Code(s): J18.9 - Pneumonia, unspecified organism Status: Acute Assessment and Plan: 11/23: blood cultures were obtained at the outside hospital : Pending - 11/23 sputum cultures:pending - continue antibiotics as above (3) COPD (chronic obstructive pulmonary disease): Code(s): J44.9 - Chronic obstructive pulmonary disease, unspecified Status: Acute Assessment and Plan: patient with hypercapnic respiratory failure along with hypoxic respiratory failure. Could be related to COPD exacerbation and noncompliance with wearing of oxygen at the senior living - continue mechanical ventilation, no wheezing noted, will hold Solu-Medrol for now - pCO2 much improved on mechanical ventilation (4) Atrial fibrillation: Qualifiers: Atrial fibrillation type: unspecified Qualified Code(s): I48.91 - Unspecified atrial fibrillation Code(s): I48.91 - Unspecified atrial fibrillation Status: Chronic Assessment and Plan: patient has a recent history of atrial fibrillation - will continue home Eliquis (5) Abdominal pain: Code(s): R10.9 - Unspecified abdominal pain Status: Acute Assessment and Plan: patient had moderate and abdominal pain palpation on exam - 11/24 CT scan of the abdomen and pelvis: 1. No CT correlate for the patient's symptoms. 2. Small pleural effusions. 3. Cholelithiasis without evidence of cholecystitis. - according to the patient has been having intermittent chronic abdominal pain around the umbilicus - will start tube feeds Plan DVT prophylaxis: Eliquis Stress ulcer prophylaxis: Protonix Nutrition: will start tube feeds Code Status: full code Critical Care Time Spent: 33 minutes Discussed with and son during rounds, updated them with patient's condition and plan of care. I explained to reason the patient was admitted, the aware that patient is on bronchodilators, mechanical ventilation and antibiotics. I answered all questions Due to a high probability of clinically significant, life threatening deterioration, the patient required my highest level of preparedness to intervene emergently and I personally spent this critical care time directly and personally managing the patient. This critical care time included obtaining a history; examining the patient; puls
[2023-11-24 11:38] LABS: Glucose Point of Care 75 mg/dl (65-105)
[2023-11-24 12:56] LABS: Glucose Point of Care 78 mg/dl (65-105)
[2023-11-24] MEDS: dilTIAZem HCL 60 MG TABLET PO ×3 (13:25→23:57)
[2023-11-24] MEDS: hydrALAZINE HCL 20 MG/ML VIAL 10 MG IV PUSH (14:06)
[2023-11-24] MEDS: ACETAMINOPHEN 325 MG TABLET 650 MG PO (14:09)
--- NOTE | 2023-11-24 17:34 | PM.IMPN ---
Progress Note: A&P Assessment and Plan (1) Abdominal pain: Code(s): R10.9 - Unspecified abdominal pain Status: Acute (2) Acute and chronic respiratory failure: Code(s): J96.20 - Acute and chronic respiratory failure, unspecified whether with hypoxia or hypercapnia Status: Acute (3) Chronic anticoagulation: Code(s): Z79.01 - terminal carman (current) use of anticoagulants Status: Acute (4) Paroxysmal atrial fibrillation: Code(s): I48.0 - Paroxysmal atrial fibrillation Status: Acute (5) Chronic obstructive pulmonary disease: Code(s): J44.9 - Chronic obstructive pulmonary disease, unspecified Status: Acute (6) Pneumonia: Code(s): J18.9 - Pneumonia, unspecified organism Status: Acute Plan Patient appears comfortable and calm. Continue vent settings per managed care liaison. Repeat ABG and chest x-ray in the morning. Continue antibiotics and schedule nebs and Pulmicort for COPD/pneumonia. Follow-up sputum cultures. Pending Legionella and pneumococcal antigen. Continue to monitor abdominal pain although she denies any at the moment. CT scan abdomen pelvis unrevealing. Continue home dose Eliquis for DVT prophylaxis. Continue tube feeds. Subjective Date/time seen: 11/24/23 17:34 Interval history: Patient denies illicit complaints. When asked if she has pain in abdomen she denies. She is able to respond to commands. Review of Systems Review of Systems: All systems reviewed & are unremarkable except as noted in HPI and below (Subjective) ROS unobtainable: Yes unobtainable due to endotracheal tube Exam Const: General: comfortable and no acute distress Other: Responds to commands Eyes: Pupils: Equal, round and reactive pupils present Resp: Other: Mechanical breath sounds Cardio: Rate: tachycardic Rhythm: abnormal rhythm GI: GI Palp: Yes Soft to palpation and No Tenderness to palpation present (GI) Auscultation: normal bowel sounds Objective Data Vital Signs Vital Signs: Vital Signs - 24 hr 11/23/23 18:00 11/23/23 18:25 11/23/23 17:45 Temperature 100.6 F H Pulse Rate 115 H 113 H Respiratory Rate 20 Blood Pressure Pulse Oximetry Oxygen Delivery Fraction of Inspired Oxygen 11/23/23 19:25 11/23/23 20:16 11/23/23 20:25 Temperature 101.3 F H Pulse Rate 129 H 139 H Respiratory Rate 22 H Blood Pressure Pulse Oximetry Oxygen Delivery Fraction of Inspired Oxygen 11/23/23 20:30 11/23/23 20:35 11/23/23 20:41 Temperature Pulse Rate 105 H 112 H 117 H Respiratory Rate 22 H 22 H 20 Blood Pressure Pulse Oximetry Oxygen Delivery Fraction of Inspired Oxygen 11/23/23 20:42 11/23/23 20:00 11/23/23 20:00 Temperature 101.3 F H Pulse Rate 105 H 134 H 134 H Respiratory Rate 20 Blood Pressure 170/113 H Pulse Oximetry 96 96 Oxygen Delivery Mechanical Ventilation Fraction of Inspired Oxygen 45 11/23/23 20:00 11/23/23 20:00 11/23/23 21:30 Temperature Pulse Rate Respiratory Rate Blood Pressure 147/77 H Pulse Oximetry 96 Oxygen Delivery Mechanical Ventilation Fraction of Inspired Oxygen 45 45 11/23/23 21:00 11/23/23 22:00 11/23/23 22:00 Temperature 100.6 F H Pulse Rate 99 118 H 118 H Respiratory Rate 20 20 Blood Pressure 145/90 H Pulse Oximetry 93 Oxygen Delivery Fraction of Inspired Oxygen 11/23/23 22:00 11/23/23 23:27 11/24/23 00:25 Temperature Pulse Rate 118 H 117 H 112 H Respiratory Rate 20 20 Blood Pressure Pulse Oximetry 97 Oxygen Delivery Mechanical Ventilation Fraction of Inspired Oxygen 45 11/24/23 00:00 11/24/23 00:00 11/24/23 00:00 Temperature Pulse Rate 117 H Respiratory Rate Blood Pressure Pulse Oximetry 97 Oxygen Delivery Mechanical Ventilation Fraction of Inspired Oxygen 45 45 11/24/23 00:00 11/24/23 01:30 11/24/23 02:00 Temperature 100.3 F H Pulse
[2023-11-24] MEDS: VANCOMYCIN 1,000 MG/NS 250 ML 1,000 MG/250 ML BAG 250 MG IVPB (17:58)
[2023-11-24 18:19] LABS: Glucose Point of Care 88 mg/dl (65-105)
[2023-11-24] MEDS: FENTANYL 2,500MCG/NS250ML(*CRX 2,500 MCG/250 ML BAG IV CONT (21:09)
[2023-11-24] MEDS: ATORVASTATIN 20 MG TABLET PO (21:09)
[2023-11-24] MEDS: PROPOFOL IV EMULSION 100 ML 13.5 MG IV CONT (23:57)
[2023-11-25] VITALS (42 sets, daily range): BP systolic 85–130; BP diastolic 56–81; PULSE 64–102; RESP 18–22; TEMP 36.4–37.8; O2SAT 92–99
[2023-11-25 00:04] LABS: Glucose Point of Care 78 mg/dl (65-105)
[2023-11-25] MEDS: LEVALBUTEROL NEB 1.25 MG/3 ML 0.63 MG INHALATION ×4 (02:41→20:28)
[2023-11-25] MEDS: IPRATROPIUM BR 0.02% INH SOLN 0.5 MG/2.5 ML VIAL INHALATION ×4 (02:41→20:29)
[2023-11-25 04:31] LABS: Basophils Absolute Auto 0.1 K/mm3 (0.0-0.1); Basophils Percent Auto 1.2 % (0.2-1.2); Eosinophils Absolute Auto 0.2 K/mm3 (0-0.3); Eosinophils Percent Auto 1.6 % (0-4.4); Hematocrit 29.3 % (37.0-47.0); Hemoglobin 8.6 g/dL (12.0-15.0); Immature Granulocyte Absolute 0.04 K/mm3 (0.00-0.031); Immature Granulocyte Percent A 0.4 % (0-0.5); Lymphocytes Absolute Auto 1.22 K/mm3 (0.9-3.2); Lymphocytes Percent Auto 11.8 % (18.3-44.2); Mean Corpuscular HGB Conc 29.4 g/dl (32-36); Mean Corpuscular Hemoglobin 28.1 pg (26-34); Mean Corpuscular Volume 95.8 fl (80-100); Mean Platelet Volume 10.2 fl (7.4-10.4); Monocytes Absolute Auto 0.9 K/mm3 (0.1-0.6); Monocytes Percent Auto 8.4 % (2.6-8.5); Neutrophils Absolute Auto 7.9 K/mm3 (1.3-6.7); Neutrophils Percent Auto 76.6 % (45.5-73.1); Platelet Count Result 350 k/mm3 (150-375); Red Blood Count 3.06 M/mm3 (4.2-5.4); Red Cell Distribution Width 16.4 % (11.5-14.5); White Blood Count 10.4 K/mm3 (4.5-10.0)
[2023-11-25 04:45] LABS: Lactic Acid Reflex 1.2 mmol/L (0.7-2.0)
[2023-11-25 04:49] LABS: Alanine Aminotransferase 16 U/L (6-35); Albumin Level 2.9 g/dL (3.5-5.1); Alkaline Phosphatase 51 U/L (38-126); Anion Gap 3 mmol/L (8-16); Aspartate Amino Transferase 23 U/L (14-36); Bilirubin,Total 0.5 mg/dL (0.2-1.3); Blood Urea Nitrogen 18 mg/dL (7-17); Calcium 8.8 mg/dL (8.4-10.2); Carbon Dioxide 37 mmol/L (22-30); Chloride 99 mmol/L (98-107); Estimated CRCL calculation 49 ml/min; Estimated Glomerular Filt Rate > 60; Glucose 86 mg/dL (65-110); Magnesium 1.9 mg/dL (1.6-2.3); Phosphorus 3.7 mg/dL (2.5-4.5); Potassium 3.2 mmol/L (3.4-5.0); Sodium 139 mmol/L (137-145)
[2023-11-25 04:54] LABS: Platelet Estimate Adequate (Adequate)
[2023-11-25 04:55] LABS: Anisocytosis 1+ (NORMAL); Hypochromasia 1+ (NORMAL)
[2023-11-25 04:56] LABS: Ovalocytes 1+ (NORMAL); Schistocytes None Seen (NORMAL)
[2023-11-25 05:22] LABS: Alveolar/Arterial O2 Gradient 175.6 mmHg; Base Excess ABG 9.2 mEq/l (+/-2.0); Carboxyhemoglobin 0.3 % THb (0-2.0); Fractional Inspired Oxygen 45 %; Methemoglobin ABG 0.5 %THb (0-1.5); Oxygen Content ABG 11.7 %vol (16.0-22.0); Oxygen Saturation ABG 93.6 % (95.0-100.0); Oxyhemoglobin 91.7 % THb (90.0-100.0); PO2 ABG 72.3 mmHg (80.0-100.0); PO2 FiO2 Ratio Arterial Blood 1.61 %; Reduced Hemoglobin 7.5 %THb (0-5.0); pH ABG 7.367 (7.350-7.450)
[2023-11-25 05:34] LABS: Device VENTILATOR; Modified Allen's Test Pass; PCO2 ABG 64.1 mmHg (35.0-45.0); Site Drawn LEFT RADIAL
[2023-11-25 05:35] LABS: Arterial Blood Gas PEEP 5 cmH2O; Arterial Blood Gas Tidal Volume 320 ml; Arterial Blood Gas Vent Mode CMV; Arterial Blood Gas Ventilator rate 18 /MIN
[2023-11-25] MEDS: CEFEPIME 2 GM/NS 50 ML 2 GM/50 ML BAG IVPB ×2 (05:35→17:28)
[2023-11-25 05:42] LABS: Glucose Point of Care 81 mg/dl (65-105)
[2023-11-25] MEDS: MINERAL OIL/WHITE PETROLATUM OINTMENT 1 APPLIC EACH EYE ×2 (08:02→20:30)
[2023-11-25] MEDS: PANTOPRAZOLE SODIUM IV 40 MG VIAL IV PUSH (08:08)
[2023-11-25] MEDS: APIXABAN 5 MG TABLET PO ×2 (08:08→20:30)
[2023-11-25] MEDS: ASPIRIN 81 MG CHEWABLE TABLET PO (08:09)
[2023-11-25] MEDS: POTASSIUM CHLORIDE 20 MEQ PACKET (FOR LIQUID) 40 MEQ FEED TUBE (08:09)
[2023-11-25] MEDS: BUDESONIDE RESPULE NEB 0.5 MG/2 ML AMP INHALATION ×2 (08:29→20:29)
[2023-11-25] MEDS: MIDAZOLAM 100MG/NS 100ML(*CRX) 100 MG/100 ML BAG IV CONT (08:38)
--- NOTE | 2023-11-25 09:20 | WPDINTPN ---
Progress Note: A&P Assessment and Plan (1) Respiratory failure: Qualifiers: Chronicity: acute on chronic Respiratory failure complication: hypoxia and hypercapnia Qualified Code(s): J96.21 - Acute and chronic respiratory failure with hypoxia; J96.22 - Acute and chronic respiratory failure with hypercapnia Code(s): J96.90 - Respiratory failure, unspecified, unspecified whether with hypoxia or hypercapnia Status: Acute Assessment and Plan: acute on chronic hypoxic and hypercapnic respiratory failure 11/23: patient presented the [facility] with O2 sats in the 40s, was placed on non-rebreather where sats came up to 70%, she was intubated at the outside hospital ER by the ER physician on 11/23/2023. Initial ABGs on admission at the outside hospital were 7.07/155/61/44/84% sats on 100% non-rebreather - chest x-ray this mornin. Worsened diffuse lung disease, consistent with pulmonary edema versus pneumonia.2. Small pleural effusions with worsening on the left. - patient currently on CMV mode of ventilation, peep of 5 and 45% FiO2 continue to wean FiO2, to maintain O2 sats > 92% - likely related to pneumonia, COPD exacerbation, [facility]compliance [facility] - chest x-ray and ABGs reviewed, will withdraw ETT 2 cm - 11/23: continue cefepime and vancomycin - continue bronchodilators - continue pulmicort - will diurese today, discontinue IV fluids - propofol and fentanyl for sedation, maintain RASS of 0 to -2, daily spontaneous awakening trials and spontaneous breathing trials, - patient has been hypotensive after fentanyl was started, will switch to Versed and discontinue fentanyl (2) Pneumonia: Code(s): J18.9 - Pneumonia, unspecified organism Status: Acute Assessment and Plan: 11/23: blood cultures were obtained at the outside hospital : no growth x2 so far - 11/23 sputum cultures: growing yeast - continue antibiotics as above (3) COPD (chronic obstructive pulmonary disease): Code(s): J44.9 - Chronic obstructive pulmonary disease, unspecified Status: Acute Assessment and Plan: patient with hypercapnic respiratory failure along with hypoxic respiratory failure. Could be related to COPD exacerbation and noncompliance with [facility] - continue mechanical ventilation, no wheezing noted, will hold Solu-Medrol for now - pCO2 much improved on mechanical ventilation (4) Atrial fibrillation: Qualifiers: Atrial fibrillation type: unspecified Qualified Code(s): I48.91 - Unspecified atrial fibrillation Code(s): I48.91 - Unspecified atrial fibrillation Status: Chronic Assessment and Plan: patient has a recent history of atrial fibrillation, -currently in AFib, rate controlled - will continue home Eliquis (5) Abdominal pain: Code(s): R10.9 - Unspecified abdominal pain Status: Acute Assessment and Plan: patient had moderate and abdominal pain palpation on exam - 11/24 CT scan of the abdomen and pelvis: 1. No CT correlate for the patient's symptoms. 2. Small pleural effusions. 3. Cholelithiasis without evidence of cholecystitis. - according to the patient has been having intermittent chronic abdominal pain around the umbilicus - tolerating tube feeds - no abdominal tenderness to palpation this morning Plan DVT prophylaxis: Eliquis Stress ulcer prophylaxis: Protonix Nutrition: increase tube feeds to goal Code Status: full code Critical Care Time Spent: 32 minutes Discussed with and son during rounds, updated them with patient's condition and plan of care. I explained to reason the patient was admitted, the aware that patient is on bronchodilators, mechanical ventilation and antibiotics. I answered all questions Due to a high probability of clinically significant, l
[2023-11-25] MEDS: PROPOFOL IV EMULSION 100 ML 10.8 MG IV CONT ×2 (09:24→17:26)
[2023-11-25 13:28] LABS: Glucose Point of Care 91 mg/dl (65-105)
[2023-11-25 14:53] LABS: Triglycerides 75 mg/dL (<150)
--- NOTE | 2023-11-25 16:05 | PM.IMPN ---
Progress Note: A&P Assessment and Plan (1) Acute and chronic respiratory failure: Code(s): J96.20 - Acute and chronic respiratory failure, unspecified whether with hypoxia or hypercapnia Status: Acute (2) Paroxysmal atrial fibrillation: Code(s): I48.0 - Paroxysmal atrial fibrillation Status: Acute Plan This is a 68-year-old female with a past medical history COPD on 4 L oxygen via nasal cannula at assisted however reportedly noncompliant, atrial fibrillation on Eliquis, essential hypertension, chronic anemia, GERD, recent pneumonia. She presented again on 11/23/2023 with hypoxia from the assisted. Subsequently intubated. 11/25/2023 patient remains intubated. Vent management per credit union teller. Leukocytosis is resolving. Currently on cefepime and vancomycin along with scheduled nebs and Pulmicort. Due to possible pulmonary edema on imaging she has been changed from fluid resuscitation to diuresis. Hopefully this will allow her room for extubation. Fentanyl has been switched to Versed due to hypotension. Albumin is mild low at 2.9 so replacing that is a consideration. FEN: Saline lock IV. Tube feeds. GI prophylaxis: Protonix 40 mg IV q.a.m. DVT prophylaxis: Continue home dose Eliquis Lines: Peripheral IV, PTT Code Status: Full code Dispo: Stable. Subjective Date/time seen: 11/25/23 16:05 Interval history: No acute overnight events. ETT pulled back today. She does not elicit complaints. Review of Systems Review of Systems: ROS unobtainable: Yes unobtainable due to endotracheal tube Exam Const: General: comfortable and no acute distress Eyes: Pupils: Equal, round and reactive pupils present Resp: Other: Mechanical breath sounds no adventitious sounds identified Cardio: Rhythm: abnormal rhythm GI: GI Palp: Yes Soft to palpation and No Tenderness to palpation present (GI) Extrem: General: no edema Objective Data Vital Signs Vital Signs: Vital Signs - 24 hr 11/24/23 17:10 11/24/23 17:27 11/24/23 18:00 Temperature 100 F H Pulse Rate 115 H 108 H Respiratory Rate 18 Blood Pressure 157/103 H Pulse Oximetry 96 Oxygen Delivery Mechanical Ventilation Fraction of Inspired Oxygen 45 45 11/24/23 18:00 11/24/23 21:06 11/24/23 21:07 Temperature Pulse Rate 118 H 98 98 Respiratory Rate 31 H Blood Pressure Pulse Oximetry 96 Oxygen Delivery Mechanical Ventilation Fraction of Inspired Oxygen 45 11/24/23 21:09 11/24/23 21:10 11/24/23 21:26 Temperature Pulse Rate 100 95 96 Respiratory Rate 20 18 Blood Pressure Pulse Oximetry Oxygen Delivery Fraction of Inspired Oxygen 11/24/23 20:00 11/24/23 20:00 11/24/23 20:00 Temperature Pulse Rate 88 88 Respiratory Rate 23 H Blood Pressure Pulse Oximetry 96 Oxygen Delivery Mechanical Ventilation Fraction of Inspired Oxygen 45 11/24/23 21:41 11/24/23 20:00 11/24/23 20:00 Temperature 100.2 F H Pulse Rate 90 88 Respiratory Rate 18 23 H Blood Pressure 138/79 Pulse Oximetry 96 Oxygen Delivery Fraction of Inspired Oxygen 45 11/24/23 22:00 11/24/23 22:00 11/24/23 23:57 Temperature 100.4 F H Pulse Rate 93 93 81 Respiratory Rate 18 18 Blood Pressure 138/83 Pulse Oximetry 96 Oxygen Delivery Fraction of Inspired Oxygen 11/25/23 00:00 11/25/23 00:00 11/25/23 00:00 Temperature 99.9 F H Pulse Rate 81 81 Respiratory Rate 18 Blood Pressure 120/67 Pulse Oximetry 96 96 Oxygen Delivery Mechanical Ventilation Fraction of Inspired Oxygen 45 11/25/23 00:00 11/25/23 01:04 11/25/23 02:08 Temperature Pulse Rate 76 64 Respiratory Rate 18 18 Blood Pressure Pulse Oximetry Oxygen Delivery Fraction of Inspired Oxygen 45 11/25/23 02:10 11/25/23 02:43 11/24/23 23:40 Temperature Pulse Rate 67 67 71 Respiratory Rate 18 18 Blood Pressure Pulse Oximetry 95 Oxygen Delivery M
[2023-11-25] MEDS: dilTIAZem HCL 60 MG TABLET PO (17:28)
[2023-11-25] MEDS: VANCOMYCIN 1,000 MG/NS 250 ML 1,000 MG/250 ML BAG 250 MG IVPB (17:28)
[2023-11-25 17:51] LABS: Glucose Point of Care 89 mg/dl (65-105)
[2023-11-25] MEDS: ATORVASTATIN 20 MG TABLET PO (20:31)
[2023-11-26] VITALS (41 sets, daily range): BP systolic 112–154; BP diastolic 67–99; PULSE 75–142; RESP 18–31; TEMP 37.7–38; O2SAT 92–100
[2023-11-26] MEDS: dilTIAZem HCL 60 MG TABLET PO ×5 (00:33→23:30)
[2023-11-26 01:22] LABS: Glucose Point of Care 86 mg/dl (65-105)
[2023-11-26] MEDS: LEVALBUTEROL NEB 1.25 MG/3 ML 0.63 MG INHALATION ×4 (02:10→20:27)
[2023-11-26] MEDS: IPRATROPIUM BR 0.02% INH SOLN 0.5 MG/2.5 ML VIAL INHALATION ×4 (02:10→20:26)
[2023-11-26] MEDS: PROPOFOL IV EMULSION 100 ML 9.45 MG IV CONT ×2 (04:18→13:25)
[2023-11-26] MEDS: VANCOMYCIN 1,000 MG/NS 250 ML 1,000 MG/250 ML BAG 250 MG IVPB ×2 (04:18→19:53)
[2023-11-26 04:44] LABS: Alveolar/Arterial O2 Gradient 148.2 mmHg; Base Excess ABG 9.7 mEq/l (+/-2.0); Carboxyhemoglobin 0.3 % THb (0-2.0); Fractional Inspired Oxygen 40 %; HCO3 ABG 34.2 mEq/l (22.0-26.0); Methemoglobin ABG 0.3 %THb (0-1.5); Oxygen Saturation ABG 96.8 % (95.0-100.0); Oxyhemoglobin 95.2 % THb (90.0-100.0); PCO2 ABG 46.7 mmHg (35.0-45.0); PO2 ABG 83.3 mmHg (80.0-100.0); PO2 FiO2 Ratio Arterial Blood 2.08 %; Reduced Hemoglobin 4.2 %THb (0-5.0); Total Hemoglobin 8.9 g/dL (12.0-18.0); pH ABG 7.483 (7.350-7.450)
[2023-11-26 04:45] LABS: Device VENTILATOR; Modified Allen's Test Pass; Site Drawn RIGHT RADIAL
[2023-11-26 04:46] LABS: Basophils Absolute Auto 0.1 K/mm3 (0.0-0.1); Basophils Percent Auto 0.5 % (0.2-1.2); Eosinophils Absolute Auto 0.3 K/mm3 (0-0.3); Eosinophils Percent Auto 2.7 % (0-4.4); Hematocrit 28.1 % (37.0-47.0); Hemoglobin 8.2 g/dL (12.0-15.0); Immature Granulocyte Absolute 0.03 K/mm3 (0.00-0.031); Immature Granulocyte Percent A 0.3 % (0-0.5); Lymphocytes Percent Auto 13.6 % (18.3-44.2); Mean Corpuscular HGB Conc 29.2 g/dl (32-36); Mean Corpuscular Hemoglobin 28.1 pg (26-34); Mean Corpuscular Volume 96.2 fl (80-100); Mean Platelet Volume 10.5 fl (7.4-10.4); Monocytes Absolute Auto 1.1 K/mm3 (0.1-0.6); Monocytes Percent Auto 11.3 % (2.6-8.5); Neutrophils Absolute Auto 6.9 K/mm3 (1.3-6.7); Neutrophils Percent Auto 71.6 % (45.5-73.1); Platelet Count Result 331 k/mm3 (150-375); Red Blood Count 2.92 M/mm3 (4.2-5.4); Red Cell Distribution Width 16.7 % (11.5-14.5); White Blood Count 9.6 K/mm3 (4.5-10.0)
[2023-11-26 04:46] LABS: Arterial Blood Gas PEEP 5 cmH2O; Arterial Blood Gas Tidal Volume 320 ml; Arterial Blood Gas Vent Mode CMV; Arterial Blood Gas Ventilator rate 18 /MIN
[2023-11-26 05:03] LABS: Alanine Aminotransferase 15 U/L (6-35); Albumin Level 2.9 g/dL (3.5-5.1); Alkaline Phosphatase 54 U/L (38-126); Anion Gap 1 mmol/L (8-16); Aspartate Amino Transferase 21 U/L (14-36); Bilirubin,Total 0.5 mg/dL (0.2-1.3); Blood Urea Nitrogen 19 mg/dL (7-17); CRP 5.3 mg/dL (<1.0); Calcium 8.9 mg/dL (8.4-10.2); Carbon Dioxide 35 mmol/L (22-30); Chloride 101 mmol/L (98-107); Estimated CRCL calculation 49 ml/min; Estimated Glomerular Filt Rate > 60; Glucose 96 mg/dL (65-110); Phosphorus 3.5 mg/dL (2.5-4.5); Potassium 3.5 mmol/L (3.4-5.0); Sodium 137 mmol/L (137-145)
[2023-11-26] MEDS: CEFEPIME 2 GM/NS 50 ML 2 GM/50 ML BAG IVPB ×2 (05:10→18:02)
[2023-11-26 05:13] LABS: Platelet Estimate Adequate (Adequate)
[2023-11-26 05:14] LABS: Anisocytosis 1+ (NORMAL); Hypochromasia 1+ (NORMAL); Ovalocytes 1+ (NORMAL); Platelet Clumps Present; Schistocytes None Seen (NORMAL)
[2023-11-26 07:53] LABS: Iron 24 ug/dL (37-170)
[2023-11-26 08:02] LABS: Percent Iron Saturation 8 % (20-50)
[2023-11-26] MEDS: BUDESONIDE RESPULE NEB 0.5 MG/2 ML AMP INHALATION ×2 (08:14→20:26)
[2023-11-26] MEDS: PANTOPRAZOLE SODIUM IV 40 MG VIAL IV PUSH (08:21)
[2023-11-26] MEDS: MINERAL OIL/WHITE PETROLATUM OINTMENT 1 APPLIC EACH EYE ×2 (08:21→19:53)
[2023-11-26] MEDS: APIXABAN 5 MG TABLET PO ×2 (08:21→19:53)
[2023-11-26] MEDS: FUROSEMIDE INJ 40 MG/4 ML VIAL IV PUSH (08:21)
[2023-11-26] MEDS: ASPIRIN 81 MG CHEWABLE TABLET PO (08:21)
[2023-11-26 08:59] LABS: Folic Acid 10.6 ng/mL (2.76->20)
--- NOTE | 2023-11-26 09:12 | WPDINTPN ---
Progress Note: A&P Assessment and Plan (1) Respiratory failure: Qualifiers: Chronicity: acute on chronic Respiratory failure complication: hypoxia and hypercapnia Qualified Code(s): J96.21 - Acute and chronic respiratory failure with hypoxia; J96.22 - Acute and chronic respiratory failure with hypercapnia Code(s): J96.90 - Respiratory failure, unspecified, unspecified whether with hypoxia or hypercapnia Status: Acute Assessment and Plan: acute on chronic hypoxic and hypercapnic respiratory failure 11/23: patient presented the [facility] the [facility] with hypoxia with O2 sats in the 40s, was placed on non-rebreather where sats came up to 70%, she was intubated at the outside hospital ER by the ER physician on 11/23/2023. Initial ABGs on admission at the outside hospital were 7.07/155/61/44/84% sats on 100% non-rebreather - chest x-ray this morning: Small bilateral pleural effusions with probable left basilar atelectasis versus possibly pneumonia. Mild haziness right lung suggests asymmetric mild pulmonary edema. - patient currently on CMV mode of ventilation, peep of 5 and 40% FiO2 continue to wean FiO2, to maintain O2 sats > 92% - likely related to pneumonia, COPD exacerbation, noncompliance with wearing oxygen at [facility] - chest x-ray and ABGs reviewed, - 11/23: continue cefepime and vancomycin - continue bronchodilators - continue pulmicort - will diurese again today - propofol and versus for sedation, maintain RASS of 0 to -1, daily spontaneous awakening trials and spontaneous breathing trials, - patient has been hypotensive after starting fentanyl so I discontinued fentanyl in started Versed, blood pressure is much improved (2) Pneumonia: Code(s): J18.9 - Pneumonia, unspecified organism Status: Acute Assessment and Plan: 11/23: blood cultures were obtained at the outside hospital : no growth x2 so far - 11/23 sputum cultures: growing yeast - continue antibiotics as above (3) COPD (chronic obstructive pulmonary disease): Code(s): J44.9 - Chronic obstructive pulmonary disease, unspecified Status: Acute Assessment and Plan: patient with hypercapnic respiratory failure along with hypoxic respiratory failure. Could be related to COPD exacerbation and noncompliance with wearing of oxygen at the [facility] - continue mechanical ventilation, no wheezing noted, will hold Solu-Medrol for now - pCO2 much improved on mechanical ventilation (4) Atrial fibrillation: Qualifiers: Atrial fibrillation type: unspecified Qualified Code(s): I48.91 - Unspecified atrial fibrillation Code(s): I48.91 - Unspecified atrial fibrillation Status: Chronic Assessment and Plan: patient has a recent history of atrial fibrillation, -currently in AFib, rate controlled - will continue home Eliquis and Cardizem (5) Abdominal pain: Code(s): R10.9 - Unspecified abdominal pain Status: Acute Assessment and Plan: patient had moderate and abdominal pain palpation on exam - 11/24 CT scan of the abdomen and pelvis: 1. No CT correlate for the patient's symptoms. 2. Small pleural effusions. 3. Cholelithiasis without evidence of cholecystitis. - according to the patient has been having intermittent chronic abdominal pain around the umbilicus - tolerating tube feeds - no abdominal tenderness to palpation this morning (6) Chronic anemia: Code(s): D64.9 - Anemia, unspecified Status: Chronic Assessment and Plan: Patient dropped hemoglobin, could be related to hemodilution, iatrogenic from blood draws, history of chronic anemia -patient is on Eliquis -have ordered stool for Hemoccult -check iron panel, folic acid and vitamin B12 Plan DVT prophylaxis: Eliquis Stress ulcer prophylaxis: Protonix Nutrition: Tolerating tube feeds Code Status: full code Cri
--- NOTE | 2023-11-26 11:09 | PCFNICU ---
ICU Rounding Note: Pt current nutrition is Vital 1.2 @ 40 ml/h goal rate. Nutrition recommendation: Continue current tube feeding orders and nutrition care plan. Agree with orders: Vital 1.2 @ 40 ml/h with water flushes 30 ml q 4 h Last recorded weight is 48 kg. Bowel Motility: No bowel movement yet Labs Reviewed: Hgb 8.2, Hct 28.1, Alb 2.9, BUN 19 Meds Noted: Eliquis, Cefepime, protonix, propofol @9.45 ml/h, versed Skin: Maceration Additional Notes: Propofol @ 9.45 ml/h for 249 kcal. Tolerating current tube feeding orders: Vital 1.2 @ 40 ml/h provides 1056 kcal (100% EER @ 70% of 30 kcal.kg); 66 g protein (92% estimated needs @ 1.6 g/kg); 713 ml free water. Flush 30 ml q 4 h. Agree with current orders. Following daily in ICU rounds. Monitor tube feeding tolerance, labs, medications, stool patterns, plan of care Following in ICU rounds, reassess Tuesdays and Fridays.
[2023-11-26 12:03] LABS: Glucose Point of Care 94 mg/dl (65-105)
--- NOTE | 2023-11-26 16:45 | PM.IMPN ---
Progress Note: A&P Assessment and Plan (1) Acute and chronic respiratory failure: Code(s): J96.20 - Acute and chronic respiratory failure, unspecified whether with hypoxia or hypercapnia Status: Acute (2) Paroxysmal atrial fibrillation: Code(s): I48.0 - Paroxysmal atrial fibrillation Status: Acute (3) Anemia: Code(s): D64.9 - Anemia, unspecified Status: Acute Plan This is a 68-year-old female with a past medical history COPD on 4 L oxygen via nasal cannula at [facility] however reportedly noncompliant, atrial fibrillation on Eliquis, essential hypertension, chronic anemia, GERD, recent pneumonia. She presented again on 11/23/2023 with hypoxia from the [facility]. Subsequently intubated. 11/25/2023 patient remains intubated. Vent management per coupon and bond collection clerk. Leukocytosis is resolving. Currently on cefepime and vancomycin along with scheduled nebs and Pulmicort. Due to possible pulmonary edema on imaging she has been changed from fluid resuscitation to diuresis. Hopefully this will allow her room for extubation. Fentanyl has been switched to Versed due to hypotension. Albumin is mild low at 2.9 so replacing that is a consideration. 11/26/2023 patient remains intubated. Breathing trials and weaning protocol per coupon and bond collection clerk team. She has approximately 2 L urine output after a 1 time dose of Lasix. Lungs now sound clear. She still has low-grade fevers -agree with continuing broad-spectrum antibiotics. Hemoglobin slowly trending down. Stool occult pending. Iron panel checked will also add a ferritin level to help delineate iron deficiency versus anemia of chronic disease. If need be could perform blood draws with pediatric tubes. She is on Eliquis FEN: Saline lock IV. Tube feeds. GI prophylaxis: Protonix 40 mg IV q.a.m. DVT prophylaxis: Continue home dose Eliquis Lines: Peripheral IV, PTT Code Status: Full code Dispo: Stable. Subjective Date/time seen: 11/26/23 16:45 Interval history: Intubated and sedated. Review of Systems Review of Systems: ROS unobtainable: Yes unobtainable due to endotracheal tube and unobtainable due to mental status Exam Const: General: comfortable and no acute distress Other: Cam positive Eyes: Pupils: Equal, round and reactive pupils present Neck: Neck: supple Resp: Effort & Inspection: normal respiratory effort Auscultation: no wheezes Other: Mechanical breath sounds Cardio: Rate: regular rate Rhythm: regular rhythm GI: GI Palp: Yes Soft to palpation and No Tenderness to palpation present (GI) Extrem: General: no edema Objective Data Vital Signs Vital Signs: Vital Signs - 24 hr 11/25/23 17:42 11/25/23 17:33 11/25/23 18:00 Temperature 99.6 F Pulse Rate 98 94 90 Respiratory Rate 22 H Blood Pressure 119/56 L Pulse Oximetry 98 97 Oxygen Delivery Mechanical Ventilation Fraction of Inspired Oxygen 40 11/25/23 20:21 11/25/23 20:27 11/25/23 20:32 Temperature Pulse Rate 80 90 101 H Respiratory Rate 21 H 21 H 22 H Blood Pressure Pulse Oximetry Oxygen Delivery Fraction of Inspired Oxygen 11/25/23 20:38 11/25/23 20:00 11/25/23 20:57 Temperature 99.9 F H Pulse Rate 98 76 102 H Respiratory Rate 21 H 21 H Blood Pressure 125/65 Pulse Oximetry 99 95 Oxygen Delivery Mechanical Ventilation Fraction of Inspired Oxygen 40 11/25/23 20:00 11/25/23 20:00 11/25/23 20:00 Temperature Pulse Rate 77 Respiratory Rate Blood Pressure Pulse Oximetry Oxygen Delivery Mechanical Ventilation Fraction of Inspired Oxygen 40 40 11/25/23 22:00 11/25/23 23:40 11/25/23 22:31 Temperature 100.1 F H Pulse Rate 96 98 87 Respiratory Rate 19 Blood Pressure 122/81 Pulse Oximetry 99 96 Oxygen Delivery Mechanical Ventilation Fraction of Inspired Oxygen 40 11/26/23 00:00 11/26/23 00:00 11/26/23 00:01 Temperature 100.0 F H Pulse Rate 97
[2023-11-26 17:24] LABS: Vancomycin Trough 17.6 ug/mL (10.0-20.0)
[2023-11-26 18:27] LABS: Glucose Point of Care 87 mg/dl (65-105)
[2023-11-26] MEDS: ATORVASTATIN 20 MG TABLET PO (19:53)
[2023-11-26] MEDS: MIDAZOLAM 100MG/NS 100ML(*CRX) 100 MG/100 ML BAG IV CONT (20:53)
[2023-11-26 23:27] LABS: Glucose Point of Care 90 mg/dl (65-105)
[2023-11-26] MEDS: PROPOFOL IV EMULSION 100 ML 10.8 MG IV CONT (23:30)
[2023-11-26] MEDS: METOPROLOL TARTRATE INJ 5 MG/5 ML VIAL IV PUSH (23:40)
--- NOTE | 2023-11-26 23:48 | PC.NURSE ---
Patient continues make attempts to pull her ET tube out and is high risk for self extubation. Restraints checked and sedation titrated appropriately.
[2023-11-27] VITALS (50 sets, daily range): BP systolic 109–142; BP diastolic 68–97; PULSE 87–141; RESP 12–30; TEMP 37.8–38.1; O2SAT 94–100
[2023-11-27 00:03] LABS: Pneumococcal Antigen Urine Not Detected (Not Detected)
[2023-11-27] MEDS: LEVALBUTEROL NEB 1.25 MG/3 ML 0.63 MG INHALATION ×4 (02:02→20:22)
[2023-11-27] MEDS: IPRATROPIUM BR 0.02% INH SOLN 0.5 MG/2.5 ML VIAL INHALATION ×4 (02:02→20:22)
[2023-11-27 05:10] LABS: Basophils Absolute Auto 0.1 K/mm3 (0.0-0.1); Basophils Percent Auto 0.6 % (0.2-1.2); Eosinophils Absolute Auto 0.3 K/mm3 (0-0.3); Eosinophils Percent Auto 2.8 % (0-4.4); Hematocrit 27.6 % (37.0-47.0); Hemoglobin 8.4 g/dL (12.0-15.0); Immature Granulocyte Absolute 0.05 K/mm3 (0.00-0.031); Immature Granulocyte Percent A 0.4 % (0-0.5); Lymphocytes Absolute Auto 0.93 K/mm3 (0.9-3.2); Mean Corpuscular HGB Conc 30.4 g/dl (32-36); Mean Corpuscular Hemoglobin 28.8 pg (26-34); Mean Corpuscular Volume 94.5 fl (80-100); Mean Platelet Volume 10.8 fl (7.4-10.4); Monocytes Absolute Auto 1.1 K/mm3 (0.1-0.6); Monocytes Percent Auto 9.6 % (2.6-8.5); Neutrophils Absolute Auto 9.1 K/mm3 (1.3-6.7); Neutrophils Percent Auto 78.6 % (45.5-73.1); Platelet Count Result 334 k/mm3 (150-375); Red Blood Count 2.92 M/mm3 (4.2-5.4); Red Cell Distribution Width 16.6 % (11.5-14.5); White Blood Count 11.6 K/mm3 (4.5-10.0)
[2023-11-27] MEDS: CEFEPIME 2 GM/NS 50 ML 2 GM/50 ML BAG IVPB ×2 (05:15→17:23)
[2023-11-27] MEDS: dilTIAZem HCL 60 MG TABLET PO (05:16)
[2023-11-27 05:19] LABS: Alveolar/Arterial O2 Gradient 92.9 mmHg; Base Excess ABG 10.3 mEq/l (+/-2.0); Carboxyhemoglobin 0.3 % THb (0-2.0); Device VENTILATOR; Fractional Inspired Oxygen 30 %; HCO3 ABG 34.5 mEq/l (22.0-26.0); Methemoglobin ABG 0.4 %THb (0-1.5); Oxygen Content ABG 12.1 %vol (16.0-22.0); Oxygen Saturation ABG 94.9 % (95.0-100.0); Oxyhemoglobin 91.9 % THb (90.0-100.0); PCO2 ABG 45.1 mmHg (35.0-45.0); PO2 FiO2 Ratio Arterial Blood 2.27 %; Reduced Hemoglobin 7.4 %THb (0-5.0); Site Drawn RIGHT BRACHIAL; Total Hemoglobin 9.3 g/dL (12.0-18.0); pH ABG 7.502 (7.350-7.450)
[2023-11-27 05:20] LABS: Arterial Blood Gas PEEP 5 cmH2O; Arterial Blood Gas Tidal Volume 320 ml; Arterial Blood Gas Vent Mode CMV; Arterial Blood Gas Ventilator rate 18 /MIN
[2023-11-27 05:20] LABS: Alanine Aminotransferase 13 U/L (6-35); Albumin Level 3.1 g/dL (3.5-5.1); Alkaline Phosphatase 58 U/L (38-126); Anion Gap 2 mmol/L (8-16); Aspartate Amino Transferase 21 U/L (14-36); Bilirubin,Total 0.5 mg/dL (0.2-1.3); Blood Urea Nitrogen 21 mg/dL (7-17); Calcium 9.1 mg/dL (8.4-10.2); Carbon Dioxide 38 mmol/L (22-30); Chloride 98 mmol/L (98-107); Estimated CRCL calculation 49 ml/min; Estimated Glomerular Filt Rate > 60; Glucose 85 mg/dL (65-110); Magnesium 1.9 mg/dL (1.6-2.3); Phosphorus 3.8 mg/dL (2.5-4.5); Potassium 3.4 mmol/L (3.4-5.0); Sodium 138 mmol/L (137-145)
[2023-11-27] MEDS: APIXABAN 5 MG TABLET PO ×2 (08:43→20:36)
[2023-11-27] MEDS: ASPIRIN 81 MG CHEWABLE TABLET PO (08:43)
[2023-11-27] MEDS: DOXYCYCLINE HYCLATE 100 MG TABLET FEED TUBE ×2 (08:43→20:36)
[2023-11-27] MEDS: PANTOPRAZOLE SODIUM IV 40 MG VIAL IV PUSH (08:44)
[2023-11-27] MEDS: MINERAL OIL/WHITE PETROLATUM OINTMENT 1 APPLIC EACH EYE (08:44)
[2023-11-27] MEDS: BUDESONIDE RESPULE NEB 0.5 MG/2 ML AMP INHALATION ×2 (09:14→20:22)
--- NOTE | 2023-11-27 10:39 | WPDINTPN ---
Progress Note: A&P Assessment and Plan (1) Respiratory failure: Qualifiers: Chronicity: acute on chronic Respiratory failure complication: hypoxia and hypercapnia Qualified Code(s): J96.21 - Acute and chronic respiratory failure with hypoxia; J96.22 - Acute and chronic respiratory failure with hypercapnia Code(s): J96.90 - Respiratory failure, unspecified, unspecified whether with hypoxia or hypercapnia Status: Acute Assessment and Plan: acute on chronic hypoxic and hypercapnic respiratory failure 11/23: patient presented the [facility] from the group home with hypoxia with O2 sats in the 40s, was placed on non-rebreather where sats came up to 70%, she was intubated at the outside hospital ER by the ER physician on 11/23/2023. Initial ABGs on admission at the outside hospital were 7.07/155/61/44/84% sats on 100% non-rebreather Chest x-ray and ABG reviewed Patient currently on CMV mode of ventilation, peep of 5 and 30% FiO2 continue to wean FiO2, to maintain O2 sats > 92% - likely related to pneumonia, COPD exacerbation, noncompliance with wearing oxygen at group home Attempted PSV trial but patient quickly failed due to tachypnea and high RSBI Continue cefepime. Add doxycycline for atypical coverage. Discontinue vancomycin Continue bronchodilators and pulmicort Will transition Versed to Precedex infusion. Continue propofol (2) Pneumonia: Code(s): J18.9 - Pneumonia, unspecified organism Status: Acute Assessment and Plan: 11/23: blood cultures were obtained at the outside hospital : no growth x2 so far - 11/23 sputum cultures: growing yeast. Likely colonization - continue antibiotics as above (3) COPD (chronic obstructive pulmonary disease): Code(s): J44.9 - Chronic obstructive pulmonary disease, unspecified Status: Acute Assessment and Plan: patient with hypercapnic respiratory failure along with hypoxic respiratory failure. Could be related to COPD exacerbation and noncompliance with wearing of oxygen at the group home - continue mechanical ventilation, no wheezing noted, hence patient was not started on steroids - pCO2 much improved on mechanical ventilation (4) Atrial fibrillation: Qualifiers: Atrial fibrillation type: unspecified Qualified Code(s): I48.91 - Unspecified atrial fibrillation Code(s): I48.91 - Unspecified atrial fibrillation Status: Chronic Assessment and Plan: patient has a recent history of atrial fibrillation, -currently in AFib, rate controlled - will continue home Eliquis and continue Cardizem as needed (5) Abdominal pain: Code(s): R10.9 - Unspecified abdominal pain Status: Acute Assessment and Plan: patient had moderate and abdominal pain palpation on exam - 11/24 CT scan of the abdomen and pelvis: 1. No CT correlate for the patient's symptoms. 2. Small pleural effusions. 3. Cholelithiasis without evidence of cholecystitis. - according to the patient has been having intermittent chronic abdominal pain around the umbilicus - tolerating tube feeds - no abdominal tenderness to palpation this morning (6) Chronic anemia: Code(s): D64.9 - Anemia, unspecified Status: Chronic Assessment and Plan: Patient dropped hemoglobin, could be related to hemodilution, iatrogenic from blood draws, history of chronic anemia -patient is on Eliquis -have ordered stool for Hemoccult -check iron panel, folic acid and vitamin B12 Plan DVT prophylaxis: Eliquis Stress ulcer prophylaxis: Protonix Nutrition: Tolerating tube feeds Code Status: full code Critical Care Time Spent: 30 minutes Discussed with and son during rounds, updated them with patient's condition and plan of care. I answered all questions Due to a high probability of clinically significant, life threatening deterioration, the patient required my highest
[2023-11-27] MEDS: dexmedeTOMIDine 400 MCG/100 ML 400 MCG/100 ML BAG IV CONT (10:50)
--- NOTE | 2023-11-27 11:02 | PCNFU ---
Nutrition Follow-Up Complete: Inadequate energy intake related to acute respiratory failure, mechanical ventilation as evidenced by need for full tube feeding. goal: Tolerate tube feeds at goal rate Patient is meeting current gaol at this time. Pt current nutrition is Vital AF 1.2 at 40 ml/hr. Last recorded weight is 45.8 kg, stable Bowel Motility:No BM reported-Miralax added per Sr Technical Sales Consultant today. Labs Reviewed:BUN 21, Alb 3.1 Meds Noted:Propofol 40 iser=022 kcals,Protonix, Precedex, Cefepime Skin: WNL Additional Notes: Patient remains on mechanical vent and tube feedings of Vital AF 1.2 at 40 ml/hr and tolerating per nursing. Total Nutrition including Propofol: 1341 kcals/66 gms protein/714 ml water. Tube feeding meeting 100% of kcal needs at 30 kcal/kg and 92% protein needs at 1.6-1.8 kcal/kg. Flush 30 ml q 4 hours. Agree with diet orders at this time. Monitor tube feeding tolerance, labs, medications, stool patterns, plan of care Following in ICU rounds, reassess Tuesdays and Fridays
[2023-11-27 12:09] LABS: Glucose Point of Care 106 mg/dl (65-105)
[2023-11-27 13:54] LABS: Mycoplasma IgM Antibody Titer 155 U/mL (<770)
[2023-11-27] MEDS: PROPOFOL IV EMULSION 100 ML 8.1 MG IV CONT (16:05)
--- NOTE | 2023-11-27 17:07 | PM.IMPN ---
Progress Note: A&P Assessment and Plan (1) Acute and chronic respiratory failure: Code(s): J96.20 - Acute and chronic respiratory failure, unspecified whether with hypoxia or hypercapnia Status: Acute (2) Paroxysmal atrial fibrillation: Code(s): I48.0 - Paroxysmal atrial fibrillation Status: Acute (3) Anemia: Code(s): D64.9 - Anemia, unspecified Status: Acute (4) Pneumonia: Code(s): J18.9 - Pneumonia, unspecified organism Status: Acute (5) Chronic obstructive pulmonary disease: Code(s): J44.9 - Chronic obstructive pulmonary disease, unspecified Status: Acute (6) Abdominal pain: Code(s): R10.9 - Unspecified abdominal pain Status: Acute (7) HTN (hypertension): Code(s): I10 - Essential (primary) hypertension Status: Chronic (8) Gastroesophageal reflux disease: Code(s): K21.9 - Gastro-esophageal reflux disease without esophagitis Status: Acute Plan This is a 68-year-old female with a past medical history COPD on 4 L oxygen via nasal cannula at assisted however reportedly noncompliant, atrial fibrillation on Eliquis, essential hypertension, chronic anemia, GERD, recent pneumonia. She presented again on 11/23/2023 with hypoxia from the assisted. Subsequently intubated. 11/25/2023 patient remains intubated. Vent management per postmaster relief. Leukocytosis is resolving. Currently on cefepime and vancomycin along with scheduled nebs and Pulmicort. Due to possible pulmonary edema on imaging she has been changed from fluid resuscitation to diuresis. Hopefully this will allow her room for extubation. Fentanyl has been switched to Versed due to hypotension. Albumin is mild low at 2.9 so replacing that is a consideration. 11/26/2023 patient remains intubated. Breathing trials and weaning protocol per postmaster relief team. She has approximately 2 L urine output after a 1 time dose of Lasix. Lungs now sound clear. She still has low-grade fevers -agree with continuing broad-spectrum antibiotics. Hemoglobin slowly trending down. Stool occult pending. Iron panel checked will also add a ferritin level to help delineate iron deficiency versus anemia of chronic disease. If need be could perform blood draws with pediatric tubes. She is on Eliquis On 11/27/2023 the patient failed spontaneous breathing trial due to tachypnea/high RSBI score. She also has AFib with RVR due to her agitation and a RASS of +3. Nurse to increased sedation per postmaster relief orders. Vent settings per postmaster relief. Concurrently on cefepime and doxycycline. Vancomycin discontinued. Bronchodilators and Pulmicort are continued. No steroids at the moment. Diuretics given on 11/25 and and she had good diuresis and her lungs no longer have crackles. Follow-up cultures. Continue to monitor anemia. Stool occult pending. FEN: Saline lock IV. Tube feeds. GI prophylaxis: Protonix 40 mg IV q.a.m. DVT prophylaxis: Continue home dose Eliquis Lines: Peripheral IV, ETT, urinary Craig catheter. Code Status: Full code Dispo: Stable. Subjective Date/time seen: 11/27/23 17:07 Interval history: Patient failed spontaneous breathing trial this morning because of tachypnea. While entering the room the patient became agitated trying to sit up in bed against the vent. Review of Systems Review of Systems: ROS unobtainable: Yes unobtainable due to endotracheal tube Exam Const: Other: Agitated on vent. Cam positive Eyes: Pupils: Equal, round and reactive pupils present Resp: Other: Mechanical and coarse breath sounds. Cardio: Rate: tachycardic Rhythm: abnormal rhythm GI: GI Palp: Yes Soft to palpation and No Tenderness to palpation present (GI) Extrem: General: no edema Objective Data Vital Signs Vital Signs: Vital Signs - 24 hr 11/26/23 18:00 11/26/23 18:00 11/26/23 20:04 Temperature 100.4 F H Pulse Rate 106 H 106 H 109 H
[2023-11-27 17:31] LABS: Glucose Point of Care 118 mg/dl (65-105)
[2023-11-27 19:47] LABS: Triglycerides 59 mg/dL (<150)
[2023-11-27] MEDS: ATORVASTATIN 20 MG TABLET PO (20:36)
[2023-11-27] MEDS: dexmedeTOMIDine 400 MCG/100 ML 400 MCG/100 ML BAG 8.02 MCG IV CONT (20:53)
[2023-11-27] MEDS: METOPROLOL TARTRATE INJ 5 MG/5 ML VIAL IV PUSH (22:36)
[2023-11-27] MEDS: PROPOFOL IV EMULSION 100 ML 12.15 MG IV CONT (22:36)
[2023-11-27 23:55] LABS: Glucose Point of Care 109 mg/dl (65-105)
[2023-11-28] VITALS (27 sets, daily range): BP systolic 119–148; BP diastolic 78–93; PULSE 88–130; RESP 14–29; TEMP 37.2–38.1; O2SAT 91–98
--- NOTE | 2023-11-28 00:28 | PC.NURSE ---
0021: RN to patients' room for vent alarm. Patient found sitting straight up and reaching towards her ET tube. Patients' tube was in place but was disconnected. Restraints checked and sedation titrated appropriately. Care continues.
[2023-11-28] MEDS: LEVALBUTEROL NEB 1.25 MG/3 ML 0.63 MG INHALATION ×2 (01:25→08:36)
[2023-11-28] MEDS: IPRATROPIUM BR 0.02% INH SOLN 0.5 MG/2.5 ML VIAL INHALATION ×2 (01:25→08:36)
[2023-11-28 02:24] LABS: Legionella pneumophila Ag Ur Not Detected (Not Detected)
[2023-11-28] MEDS: METOPROLOL TARTRATE INJ 5 MG/5 ML VIAL IV PUSH (03:36)
[2023-11-28 04:05] LABS: Basophils Absolute Auto 0.1 K/mm3 (0.0-0.1); Basophils Percent Auto 0.7 % (0.2-1.2); Eosinophils Absolute Auto 0.4 K/mm3 (0-0.3); Eosinophils Percent Auto 3.8 % (0-4.4); Hematocrit 28.2 % (37.0-47.0); Hemoglobin 8.8 g/dL (12.0-15.0); Immature Granulocyte Absolute 0.03 K/mm3 (0.00-0.031); Immature Granulocyte Percent A 0.3 % (0-0.5); Lymphocytes Absolute Auto 0.92 K/mm3 (0.9-3.2); Lymphocytes Percent Auto 9.4 % (18.3-44.2); Mean Corpuscular HGB Conc 31.2 g/dl (32-36); Mean Corpuscular Hemoglobin 29.3 pg (26-34); Mean Platelet Volume 11.4 fl (7.4-10.4); Monocytes Absolute Auto 1.1 K/mm3 (0.1-0.6); Neutrophils Absolute Auto 7.3 K/mm3 (1.3-6.7); Neutrophils Percent Auto 74.8 % (45.5-73.1); Platelet Count Result 324 k/mm3 (150-375); Red Cell Distribution Width 16.6 % (11.5-14.5); White Blood Count 9.8 K/mm3 (4.5-10.0)
[2023-11-28 04:26] LABS: Alanine Aminotransferase 13 U/L (6-35); Alkaline Phosphatase 55 U/L (38-126); Anion Gap 1 mmol/L (8-16); Aspartate Amino Transferase 29 U/L (14-36); Bilirubin,Total 0.5 mg/dL (0.2-1.3); Blood Urea Nitrogen 23 mg/dL (7-17); Calcium 9.1 mg/dL (8.4-10.2); Carbon Dioxide 33 mmol/L (22-30); Chloride 101 mmol/L (98-107); Estimated CRCL calculation 56 ml/min; Estimated Glomerular Filt Rate > 60; Glucose 101 mg/dL (65-110); Magnesium 1.9 mg/dL (1.6-2.3); Phosphorus 3.7 mg/dL (2.5-4.5); Potassium 3.8 mmol/L (3.4-5.0); Sodium 135 mmol/L (137-145)
[2023-11-28 04:32] LABS: Alveolar/Arterial O2 Gradient 75.9 mmHg; Base Excess ABG 7.7 mEq/l (+/-2.0); Carboxyhemoglobin 0.3 % THb (0-2.0); Fractional Inspired Oxygen 30 %; HCO3 ABG 31.9 mEq/l (22.0-26.0); Methemoglobin ABG 0.2 %THb (0-1.5); Oxygen Content ABG 12.4 %vol (16.0-22.0); Oxygen Saturation ABG 97.2 % (95.0-100.0); Oxyhemoglobin 94.9 % THb (90.0-100.0); PCO2 ABG 43.3 mmHg (35.0-45.0); PO2 ABG 87.1 mmHg (80.0-100.0); Reduced Hemoglobin 4.6 %THb (0-5.0); Total Hemoglobin 9.2 g/dL (12.0-18.0); pH ABG 7.485 (7.350-7.450)
[2023-11-28 04:33] LABS: Arterial Blood Gas Vent Mode CMV; Arterial Blood Gas Ventilator rate 18 /MIN; Device VENTILATOR; Modified Allen's Test Pass; Site Drawn RIGHT RADIAL
[2023-11-28 04:34] LABS: Arterial Blood Gas PEEP 5 cmH2O; Arterial Blood Gas Tidal Volume 300 ml
[2023-11-28] MEDS: PROPOFOL IV EMULSION 100 ML 13.5 MG IV CONT (05:24)
[2023-11-28] MEDS: CEFEPIME 2 GM/NS 50 ML 2 GM/50 ML BAG IVPB ×2 (05:25→17:58)
--- NOTE | 2023-11-28 08:15 | PCRCNOTE ---
pt placed on 5/5 SBT at 0745
[2023-11-28 08:28] LABS: Alveolar/Arterial O2 Gradient 75.4 mmHg; Base Excess ABG 3.5 mEq/l (+/-2.0); Carboxyhemoglobin 0.3 % THb (0-2.0); Fractional Inspired Oxygen 30 %; HCO3 ABG 27.6 mEq/l (22.0-26.0); Methemoglobin ABG 0.2 %THb (0-1.5); Oxygen Saturation ABG 97.4 % (95.0-100.0); Oxyhemoglobin 95.5 % THb (90.0-100.0); PCO2 ABG 39.9 mmHg (35.0-45.0); PO2 ABG 91.6 mmHg (80.0-100.0); PO2 FiO2 Ratio Arterial Blood 3.05 %; Total Hemoglobin 9.6 g/dL (12.0-18.0); pH ABG 7.458 (7.350-7.450)
[2023-11-28 08:30] LABS: Modified Allen's Test Pass; Site Drawn RIGHT RADIAL
[2023-11-28 08:31] LABS: Arterial Blood Gas PEEP 5 cmH2O; Arterial Blood Gas Vent Mode SPONTANEOUS; Device VENTILATOR
[2023-11-28 08:32] LABS: Arterial Blood Gas Pressure Support 5 cmH2O
[2023-11-28] MEDS: BUDESONIDE RESPULE NEB 0.5 MG/2 ML AMP INHALATION ×2 (08:36→20:19)
[2023-11-28] MEDS: DOXYCYCLINE HYCLATE 100 MG TABLET FEED TUBE ×2 (08:47→20:40)
[2023-11-28] MEDS: PANTOPRAZOLE SODIUM IV 40 MG VIAL IV PUSH ×2 (08:47→08:48)
[2023-11-28] MEDS: APIXABAN 5 MG TABLET PO ×2 (08:47→20:39)
[2023-11-28] MEDS: ASPIRIN 81 MG CHEWABLE TABLET PO (08:47)
[2023-11-28] MEDS: polyethylene glycoL 3350 17 GM POWD.PACK PO (08:48)
[2023-11-28] MEDS: MINERAL OIL/WHITE PETROLATUM OINTMENT 1 APPLIC EACH EYE (08:48)
--- NOTE | 2023-11-28 08:56 | PCRCNOTE ---
pt extubated at 08:50
--- NOTE | 2023-11-28 08:57 | WPDINTPN ---
Progress Note: A&P Assessment and Plan (1) Respiratory failure: Qualifiers: Chronicity: acute on chronic Respiratory failure complication: hypoxia and hypercapnia Qualified Code(s): J96.21 - Acute and chronic respiratory failure with hypoxia; J96.22 - Acute and chronic respiratory failure with hypercapnia Code(s): J96.90 - Respiratory failure, unspecified, unspecified whether with hypoxia or hypercapnia Status: Acute Assessment and Plan: acute on chronic hypoxic and hypercapnic respiratory failure likely related to pneumonia, COPD exacerbation, noncompliance with wearing oxygen at custodial 11/23: patient presented the [facility] in [facility] from the custodial with hypoxia with O2 sats in the 40s, was placed on non-rebreather where sats came up to 70%, she was intubated at the outside hospital ER by the ER physician on 11/23/2023. Initial ABGs on admission at the outside hospital were 7.07/155/61/44/84% sats on 100% non-rebreather Chest x-ray and ABG reviewed Patient currently on CMV mode of ventilation 5/5 PSV SBT done for more than 30 minutes. RSBI, ABGI and Vitals acceptable. Pt awake and following commands. Will extubate and monitor. NPO for now. Bipap PRN Continue cefepime and doxycycline for atypical coverage. Discontinue vancomycin Continue bronchodilators and pulmicort (2) Pneumonia: Code(s): J18.9 - Pneumonia, unspecified organism Status: Acute Assessment and Plan: 11/23: blood cultures were obtained at the outside hospital : no growth x2 so far - 11/23 sputum cultures: growing yeast. Likely colonization Urine Legionella urine pneumococcal antigen are negative mycoplasma IgM is negative PCR for influenza COVID and RSV were negative - continue antibiotics as above (3) COPD (chronic obstructive pulmonary disease): Code(s): J44.9 - Chronic obstructive pulmonary disease, unspecified Status: Acute Assessment and Plan: patient with hypercapnic respiratory failure along with hypoxic respiratory failure. Could be related to COPD exacerbation and noncompliance with wearing of oxygen at the custodial - continue mechanical ventilation, no wheezing noted, hence patient was not started on steroids - pCO2 much improved on mechanical ventilation (4) Atrial fibrillation: Qualifiers: Atrial fibrillation type: unspecified Qualified Code(s): I48.91 - Unspecified atrial fibrillation Code(s): I48.91 - Unspecified atrial fibrillation Status: Chronic Assessment and Plan: patient has a recent history of atrial fibrillation, -currently in AFib, rate controlled - will continue home Eliquis and continue Cardizem as needed (5) Abdominal pain: Code(s): R10.9 - Unspecified abdominal pain Status: Acute Assessment and Plan: patient had moderate and abdominal pain palpation on exam - 11/24 CT scan of the abdomen and pelvis: 1. No CT correlate for the patient's symptoms. 2. Small pleural effusions. 3. Cholelithiasis without evidence of cholecystitis. - according to the patient has been having intermittent chronic abdominal pain around the umbilicus - tolerating tube feeds - no abdominal tenderness to palpation this morning (6) Chronic anemia: Code(s): D64.9 - Anemia, unspecified Status: Chronic Assessment and Plan: Patient dropped hemoglobin, could be related to hemodilution, iatrogenic from blood draws, history of chronic anemia -patient is on Eliquis -have ordered stool for Hemoccult Plan DVT prophylaxis: Eliquis Stress ulcer prophylaxis: Protonix Nutrition: Tolerating tube feeds Code Status: full code Critical Care Time Spent: 30 minutes Discussed with and son during rounds, updated them with patient's condition and plan of care. I answered all questions Due to a high probability of clinically significant, life threatening deterioration, the p
--- NOTE | 2023-11-28 11:02 | PCFNICU ---
ICU Rounding Note: Pt current nutrition is NPO, clear liquid diet for lunch. Last recorded weight is 45.8 kg, up from 45 kg on admit. Bowel Motility: +BM reported 11/28 Labs Reviewed:BUN 23, Cr 0.6,Na 135, Alb 3.0 Meds Noted: Cefepime. Skin: WNL Additional Notes: Patient has been extubated. Tube feedings stopped and clear liquid diet ordered for lunch. Recommend advancing as tolerated to a regular diet. Following daily in ICU rounds. Monitor tube feeding tolerance, labs, medications, stool patterns, plan of care every 3 days.
[2023-11-28] MEDS: dilTIAZem HCL 60 MG TABLET PO ×3 (11:53→23:54)
[2023-11-28 11:54] LABS: Glucose Point of Care 80 mg/dl (65-105)
--- NOTE | 2023-11-28 13:30 | PM.IMPN ---
Progress Note: A&P Assessment and Plan (1) Respiratory failure: Qualifiers: Chronicity: acute on chronic Respiratory failure complication: hypoxia and hypercapnia Qualified Code(s): J96.21 - Acute and chronic respiratory failure with hypoxia; J96.22 - Acute and chronic respiratory failure with hypercapnia Code(s): J96.90 - Respiratory failure, unspecified, unspecified whether with hypoxia or hypercapnia Status: Acute Assessment and Plan: Patient presents with SOB and hypoxia from the [place]. She presented to [facility] from the [facility] with hypoxia with O2 sats in the 40s. She was placed on non-rebreather where sats came up to 70%, she was intubated at the outside hospital ER by the ER physician on 11/23/2023. ABG 7.07/155/61/ 84% sats on 100% non-rebreather Ord likely related to pneumonia, COPD exacerbation, and/or noncompliance with wearing oxygen at longterm Improved. PCO2 at 43mmHg Continue cefepime and doxycycline for atypical coverage. Discontinued vancomycin Continue bronchodilators and pulmicort Wean MV as toelrated. (2) Pneumonia: Code(s): J18.9 - Pneumonia, unspecified organism Status: Acute Assessment and Plan: CXR showig diffuse bilateral interstitial and mild airspace disease with pulmonary edema and/or PNA BCx 11/23: NGTD Sputum Cx 11/26 and 11/27 growing yeast felt to be colonization Urine Legionella, urine pneumococcal antigen and mycoplasma IgM is negative PCR for influenza COVID and RSV were negative Contine IV abx (3) COPD (chronic obstructive pulmonary disease): Code(s): J44.9 - Chronic obstructive pulmonary disease, unspecified Status: Acute Assessment and Plan: Patient with hypercapnic and hypoxic respiratory failure. Could be related to COPD exacerbation and noncompliance with wearing of oxygen at [facility] Improving. No wheezing. Wean mechanical ventilation (4) Atrial fibrillation: Qualifiers: Atrial fibrillation type: unspecified Qualified Code(s): I48.91 - Unspecified atrial fibrillation Code(s): I48.91 - Unspecified atrial fibrillation Status: Chronic Assessment and Plan: Patient has a recent history of atrial fibrillation. HR controlled with diltaizem. Lopressor on hold She remians on Eliquis (5) Abdominal pain: Code(s): R10.9 - Unspecified abdominal pain Status: Acute Assessment and Plan: Patient had moderate and abdominal pain 11/24 CT scan of the abdomen and pelvis: 1. No CT correlate for the patient's symptoms. 2. Small pleural effusions. 3. Cholelithiasis without evidence of cholecystitis. According to the , patient has been having intermittent chronic abdominal pain around the umbilicus Tolerating tube feeds Resolving. (6) Chronic anemia: Code(s): D64.9 - Anemia, unspecified Status: Chronic Assessment and Plan: Patient's Hgb10.6 on admission but dropped to 8-9 range since. She has a hx of chronic anemia Could be related to hemodilution, iatrogenic from blood draws -patient is on Eliquis Stool for Hemoccult ordered Plan DVT prophylaxis: Eliquis Stress ulcer prophylaxis: Protonix Nutrition: Tolerating tube feeds Code Status: full code Subjective Date/time seen: 11/28/23 13:30 Interval history: 68yo female with COPD, pAFib on AC, CAD, HTN and anxiety here for shortness of breath. Assuming care. Chart reviewed. She is intubated but awake and alert. SHe denies chest pain or abd pain. Off propofol now. Peep 5 and 30% Fio2. In 2 point restraint. Review of Systems Review of Systems: ROS unobtainable: Yes unobtainable due to endotracheal tube Exam Narrative: Tm 100.6 100.6 124/84 115 24 92% MV Gen - intuabted, awake HEENT - left omaira-orbbital ecchymosis. OGT and ETT secured Chest - lungs clear anteriorly and in the flank. CV - irregularly irregular and tachycardic. Tele showing AFib with controled rate Abd - Soft,
[2023-11-28] MEDS: LORazepam (*CRX) 0.5 MG TABLET PO ×2 (14:09→20:39)
--- NOTE | 2023-11-28 17:45 | PC.NURSE ---
pt had approximately a 30 beat run of Svt, rate 200, notified Dr. Davis and stat lab orders recieved
[2023-11-28 19:04] LABS: Glucose Point of Care 101 mg/dl (65-105)
[2023-11-28 20:28] LABS: Glucose Point of Care 85 mg/dl (65-105)
[2023-11-28] MEDS: ATORVASTATIN 20 MG TABLET PO (20:39)
[2023-11-28] MEDS: ACETAMINOPHEN 325 MG TABLET 650 MG PO (20:39)
[2023-11-29] VITALS (20 sets, daily range): BP systolic 120–163; BP diastolic 80–94; PULSE 80–110; RESP 16–26; TEMP 37.1–38.2; O2SAT 90–100
[2023-11-29 04:08] LABS: Basophils Absolute Auto 0.1 K/mm3 (0.0-0.1); Basophils Percent Auto 0.9 % (0.2-1.2); Eosinophils Absolute Auto 0.3 K/mm3 (0-0.3); Eosinophils Percent Auto 2.9 % (0-4.4); Hematocrit 28.3 % (37.0-47.0); Hemoglobin 8.6 g/dL (12.0-15.0); Immature Granulocyte Absolute 0.04 K/mm3 (0.00-0.031); Immature Granulocyte Percent A 0.4 % (0-0.5); Lymphocytes Absolute Auto 1.08 K/mm3 (0.9-3.2); Lymphocytes Percent Auto 10.8 % (18.3-44.2); Mean Corpuscular HGB Conc 30.4 g/dl (32-36); Mean Corpuscular Hemoglobin 28.7 pg (26-34); Mean Corpuscular Volume 94.3 fl (80-100); Mean Platelet Volume 10.7 fl (7.4-10.4); Monocytes Absolute Auto 1.1 K/mm3 (0.1-0.6); Monocytes Percent Auto 10.5 % (2.6-8.5); Neutrophils Absolute Auto 7.4 K/mm3 (1.3-6.7); Neutrophils Percent Auto 74.5 % (45.5-73.1); Platelet Count Result 339 k/mm3 (150-375); Red Cell Distribution Width 16.5 % (11.5-14.5)
[2023-11-29 04:18] LABS: Alanine Aminotransferase 18 U/L (6-35); Albumin Level 3.4 g/dL (3.5-5.1); Alkaline Phosphatase 60 U/L (38-126); Anion Gap 4 mmol/L (8-16); Aspartate Amino Transferase 25 U/L (14-36); Bilirubin,Total 0.6 mg/dL (0.2-1.3); Blood Urea Nitrogen 22 mg/dL (7-17); Calcium 9.3 mg/dL (8.4-10.2); Carbon Dioxide 32 mmol/L (22-30); Chloride 103 mmol/L (98-107); Estimated CRCL calculation 49 ml/min; Estimated Glomerular Filt Rate > 60; Glucose 81 mg/dL (65-110); Magnesium 2.1 mg/dL (1.6-2.3); Potassium 3.7 mmol/L (3.4-5.0); Sodium 139 mmol/L (137-145)
[2023-11-29 05:31] LABS: Alveolar/Arterial O2 Gradient 96.6 mmHg; Base Excess ABG 2.2 mEq/l (+/-2.0); Carboxyhemoglobin 0.3 % THb (0-2.0); Fractional Inspired Oxygen 32 %; HCO3 ABG 26.4 mEq/l (22.0-26.0); Methemoglobin ABG 0.3 %THb (0-1.5); Oxygen Content ABG 12.9 %vol (16.0-22.0); Oxygen Saturation ABG 96.8 % (95.0-100.0); Oxyhemoglobin 94.3 % THb (90.0-100.0); PCO2 ABG 39.7 mmHg (35.0-45.0); PO2 ABG 85.1 mmHg (80.0-100.0); PO2 FiO2 Ratio Arterial Blood 2.66 %; Reduced Hemoglobin 5.1 %THb (0-5.0); Total Hemoglobin 9.6 g/dL (12.0-18.0); pH ABG 7.441 (7.350-7.450)
[2023-11-29 05:33] LABS: Device NASAL CANNULA; Modified Allen's Test Pass; Site Drawn LEFT RADIAL
[2023-11-29] MEDS: dilTIAZem HCL 60 MG TABLET PO ×3 (05:48→18:13)
[2023-11-29] MEDS: CEFEPIME 2 GM/NS 50 ML 2 GM/50 ML BAG IVPB ×2 (05:48→18:12)
[2023-11-29] MEDS: LORazepam (*CRX) 0.5 MG TABLET PO (05:54)
[2023-11-29] MEDS: BUDESONIDE RESPULE NEB 0.5 MG/2 ML AMP INHALATION ×2 (07:56→21:14)
[2023-11-29 08:01] LABS: Glucose Point of Care 87 mg/dl (65-105)
[2023-11-29] MEDS: APIXABAN 5 MG TABLET PO ×2 (08:15→20:09)
[2023-11-29] MEDS: DOXYCYCLINE HYCLATE 100 MG TABLET FEED TUBE ×2 (08:15→20:10)
[2023-11-29] MEDS: PANTOPRAZOLE SODIUM IV 40 MG VIAL IV PUSH (08:15)
[2023-11-29] MEDS: METOPROLOL TARTRATE 25 MG TABLET PO ×2 (08:15→20:10)
[2023-11-29] MEDS: FUROSEMIDE INJ 40 MG/4 ML VIAL 20 MG IV PUSH (08:15)
[2023-11-29] MEDS: ASPIRIN 81 MG CHEWABLE TABLET PO (08:16)
[2023-11-29] MEDS: ALPRAZolam (*CRX) 0.5 MG TABLET PO (08:16)
--- NOTE | 2023-11-29 08:39 | WPDINTPN ---
Progress Note: A&P Assessment and Plan (1) Respiratory failure: Qualifiers: Chronicity: acute on chronic Respiratory failure complication: hypoxia and hypercapnia Qualified Code(s): J96.21 - Acute and chronic respiratory failure with hypoxia; J96.22 - Acute and chronic respiratory failure with hypercapnia Code(s): J96.90 - Respiratory failure, unspecified, unspecified whether with hypoxia or hypercapnia Status: Acute Assessment and Plan: acute on chronic hypoxic and hypercapnic respiratory failure likely related to pneumonia, COPD exacerbation, noncompliance with wearing oxygen at care home 11/23: patient presented the [facility] in [facility] from the care home with hypoxia with O2 sats in the 40s, was placed on non-rebreather where sats came up to 70%, she was intubated at the outside hospital ER by the ER physician on 11/23/2023. Initial ABGs on admission at the outside hospital were 7.07/155/61/44/84% sats on 100% non-rebreather Chest x-ray and ABG reviewed 11/28 patient extubated after a successful weaning trial 11/29 continue maintain a nasal cannula. Bipap PRN is ordered but patient has not required Continue cefepime and doxycycline for course. Discontinue vancomycin Continue bronchodilators and pulmicort (2) Pneumonia: Code(s): J18.9 - Pneumonia, unspecified organism Status: Acute Assessment and Plan: 11/23: blood cultures were obtained at the outside hospital : no growth x2 so far - 11/23 sputum cultures: growing yeast. Likely colonization Urine Legionella urine pneumococcal antigen are negative mycoplasma IgM is negative PCR for influenza COVID and RSV were negative - continue antibiotics as above (3) COPD (chronic obstructive pulmonary disease): Code(s): J44.9 - Chronic obstructive pulmonary disease, unspecified Status: Acute Assessment and Plan: See above (4) Atrial fibrillation: Qualifiers: Atrial fibrillation type: unspecified Qualified Code(s): I48.91 - Unspecified atrial fibrillation Code(s): I48.91 - Unspecified atrial fibrillation Status: Chronic Assessment and Plan: patient has a recent history of atrial fibrillation, -currently in AFib, rate controlled - will continue home Eliquis and continue Cardizem -resume metoprolol (5) Abdominal pain: Code(s): R10.9 - Unspecified abdominal pain Status: Acute Assessment and Plan: patient had moderate and abdominal pain palpation on exam - 11/24 CT scan of the abdomen and pelvis: 1. No CT correlate for the patient's symptoms. 2. Small pleural effusions. 3. Cholelithiasis without evidence of cholecystitis. Tolerating p.o. diet (6) Chronic anemia: Code(s): D64.9 - Anemia, unspecified Status: Chronic Assessment and Plan: Patient dropped hemoglobin, could be related to hemodilution, iatrogenic from blood draws, history of chronic anemia -patient is on Eliquis Plan DVT prophylaxis: Eliquis Stress ulcer prophylaxis: Protonix Nutrition: Tolerating oral diet Code Status: full code Incentive spirometry, PT OT consult Up in chair Transfer out of ICU today Subjective Date/time seen: 11/29/23 Overnight events reviewed. Low-grade fever On nasal cannula Tolerating p.o. diet She states that she feels sore in her chest and in her throat. She also complains of dyspnea on exertion and dry cough. Denies any other complaints. At loose bowel movements yesterday. All other systems were reviewed and were negative AFib with controlled ventricular rate on the monitor Other vitals acceptable Interval history: 68yo female with COPD, pAFib on AC, CAD, HTN and anxiety here for shortness of breath. Review of Systems Review of Systems: All systems reviewed & are unremarkable except as noted in HPI and below (HPI) Exam Narrative: General: Frail female, i alert awake and in no acute distress
--- NOTE | 2023-11-29 10:55 | PCFNICU ---
ICU Rounding Note: Pt current nutrition is DBCC with Glucerna shakes BID. Last recorded weight is 47.3 kg, up from 45 kg on admit. Bowel Motility: +BM reported 11/28 Labs Reviewed:BUN 22,Alb 3.4 Meds Noted: Cefepime, Lopressor. Skin: WNL Additional Notes: Patient is tolerating DBCC diet. Intake 25-50% of meals. Glucerna shakes have been ordered BID for additional 220 kcals and 10 gms protein. Agree with diet orders. Following daily in ICU rounds. Monitor tube feeding tolerance, labs, medications, stool patterns, plan of care every 5 days.
[2023-11-29 11:35] LABS: Glucose Point of Care 88 mg/dl (65-105)
--- NOTE | 2023-11-29 15:11 | PM.IMPN ---
Progress Note: A&P Assessment and Plan (1) Respiratory failure: Qualifiers: Chronicity: acute on chronic Respiratory failure complication: hypoxia and hypercapnia Qualified Code(s): J96.21 - Acute and chronic respiratory failure with hypoxia; J96.22 - Acute and chronic respiratory failure with hypercapnia Code(s): J96.90 - Respiratory failure, unspecified, unspecified whether with hypoxia or hypercapnia Status: Acute Assessment and Plan: Patient presents with SOB and hypoxia from the [place]. She presented to [place] from the [place] with hypoxia with O2 sats in the 40s. She was placed on non-rebreather where sats came up to 70%, she was intubated at the outside hospital ER by the ER physician on 11/23/2023. ABG 7.07/155/61/ 84% sats on 100% non-rebreather [place] likely related to pneumonia, COPD exacerbation, and/or noncompliance with wearing oxygen at senior living Improved. PCO2 at 43mmHg Continue cefepime and doxycycline for atypical coverage. Discontinued vancomycin Continue bronchodilators and pulmicort Extubated 11/28. Wean O2 to baseline O2 at 2L. (2) Pneumonia: Code(s): J18.9 - Pneumonia, unspecified organism Status: Acute Assessment and Plan: CXR showig diffuse bilateral interstitial and mild airspace disease with pulmonary edema and/or PNA BCx 11/23: NGTD Sputum Cx 11/26 and 11/27 growing yeast felt to be colonization Urine Legionella, urine pneumococcal antigen and mycoplasma IgM is negative PCR for influenza COVID and RSV were negative Still having low grade fevers. WBC near normal. Continue IV abx (3) COPD (chronic obstructive pulmonary disease): Code(s): J44.9 - Chronic obstructive pulmonary disease, unspecified Status: Acute Assessment and Plan: Patient with hypercapnic and hypoxic respiratory failure. Could be related to COPD exacerbation and noncompliance with wearing of oxygen at [place] Improving. No wheezing. As above (4) Atrial fibrillation: Qualifiers: Atrial fibrillation type: unspecified Qualified Code(s): I48.91 - Unspecified atrial fibrillation Code(s): I48.91 - Unspecified atrial fibrillation Status: Chronic Assessment and Plan: Patient has a recent history of atrial fibrillation. Currently on diltaizem. Lopressor added with improvement in rate control She remains on Eliquis (5) Abdominal pain: Code(s): R10.9 - Unspecified abdominal pain Status: Acute Assessment and Plan: Patient had moderate abdominal pain 11/24 CT scan of the abdomen and pelvis: 1. No CT correlate for the patient's symptoms. 2. Small pleural effusions. 3. Cholelithiasis without evidence of cholecystitis. According to the , patient has been having intermittent chronic abdominal pain around the umbilicus Tolerated tube feeds and now on diabetic diet Follow (6) Chronic anemia: Code(s): D64.9 - Anemia, unspecified Status: Chronic Assessment and Plan: Patient's Hgb10.6 on admission but dropped to 8-9 range since. She has a hx of chronic anemia Could be related to hemodilution, iatrogenic from blood draws -patient is on Eliquis Stool for Hemoccult ordered Plan Disp: PT/OT. SNF placement DVT prophylaxis: Eliquis Stress ulcer prophylaxis: Protonix Nutrition: Tolerating tube feeds Code Status: full code Subjective Date/time seen: 11/29/23 15:11 Interval history: 68yo female with COPD, pAFib on AC, CAD, HTN and anxiety here for shortness of breath. Extubated yesterday. Feels well. Cough productive of clear sputum. No out of bed yet. Tolerating some oral intake without n/v. Has chest pain associated with the cough at times. Wears 2L at home. Exam Narrative: Tm 100.7 99.8 154/82 95 20 96% 4L Gen - NARD HEENT - left omaira-orbital ecchymosis Chest - coarse BS bilaterally. CV - irregularly irregular. Tele showing AFib and Aflutter with controlled rate Abd - Soft
--- NOTE | 2023-11-29 15:20 | PC.NURSE ---
This patient, Sahara Neal, was admitted to [facility] Surg Room 328-01 at 1520. Patient/family oriented to hospital policies and general routines including ID bracelet, bed and alarms, visiting hours, pain management, procedures, bathroom and other care routines, personal items, smoking policy, room service/diet, and visiting hours. Information on how to activate the Rapid Response Team has been discussed. Patient/Family are encouraged to report perceived risks to care and to ask questions if they do not understand what they are told or what they should do.
--- NOTE | 2023-11-29 15:27 | PC.NURSE ---
This patient, Sahara Neal, was transferred to [facility] on 11/29/23 at 1515. Personal belongings sent with patient. Report given to Fadumo. Appropriate documentation sent with patient.
[2023-11-29 16:43] LABS: Glucose Point of Care 78 mg/dl (65-105)
[2023-11-29 17:08] LABS: Glucose Point of Care 103 mg/dl (65-105)
[2023-11-29] MEDS: ATORVASTATIN 20 MG TABLET PO (20:09)
[2023-11-29 20:54] LABS: Glucose Point of Care 84 mg/dl (65-105)
[2023-11-30] VITALS (19 sets, daily range): BP systolic 150–192; BP diastolic 86–112; PULSE 77–124; RESP 18–37; TEMP 36.6–37.3; O2SAT 91–100
[2023-11-30] MEDS: dilTIAZem HCL 60 MG TABLET PO ×4 (00:42→18:59)
--- NOTE | 2023-11-30 01:55 | ECG_ITS ---
Measurements Intervals [place] Rate: 116 P: [place]: 0 QRS: 98 QRSD: 84 T: 267 QT: 341 QTc: 474 Interpretive Statements ATRIAL FLUTTER/TACHYCARDIA WITH RAPID VENTRICULAR RESPONSE WITH ABERRANT CONDUCTION OR VENTRICULAR PREMATURE COMPLEXES BORDERLINE RIGHT AXIS DEVIATION [QRS AXIS > 90] ST DEVIATION AND MODERATE T-WAVE ABNORMALITY, CONSIDER ANTEROLATERAL ISCHEMIA [-0.1+ mV T WAVE IN V3-V6] ABNORMAL ECG COMPARED TO ECG 11/23/2023 09:04:00 ATRIAL FLUTTER NOW PRESENT ABERRANT CONDUCTION OF SUPRAVENTRICULAR BEAT(S) NOW PRESENT Electronically Signed On 11-30-2023 15:07:45 SEASONAL DRIVER by Gordo Lujan M.D.
[2023-11-30] MEDS: METOPROLOL TARTRATE INJ 5 MG/5 ML VIAL IV PUSH (02:28)
[2023-11-30] MEDS: CEFEPIME 2 GM/NS 50 ML 2 GM/50 ML BAG IVPB (05:51)
[2023-11-30] MEDS: BUDESONIDE RESPULE NEB 0.5 MG/2 ML AMP INHALATION ×2 (07:20→20:41)
[2023-11-30 07:25] LABS: Hematocrit 33.2 % (37.0-47.0); Hemoglobin 9.6 g/dL (12.0-15.0); Mean Corpuscular HGB Conc 28.9 g/dl (32-36); Mean Corpuscular Hemoglobin 28.6 pg (26-34); Mean Corpuscular Volume 98.8 fl (80-100); Mean Platelet Volume 10.4 fl (7.4-10.4); Platelet Count Result 427 k/mm3 (150-375); Red Blood Count 3.36 M/mm3 (4.2-5.4); White Blood Count 10.5 K/mm3 (4.5-10.0)
[2023-11-30 07:36] LABS: Alanine Aminotransferase 59 U/L (6-35); Albumin Level 3.9 g/dL (3.5-5.1); Alkaline Phosphatase 72 U/L (38-126); Anion Gap 7 mmol/L (8-16); Aspartate Amino Transferase 61 U/L (14-36); Bilirubin,Total 0.8 mg/dL (0.2-1.3); Blood Urea Nitrogen 27 mg/dL (7-17); Calcium 9.9 mg/dL (8.4-10.2); Carbon Dioxide 31 mmol/L (22-30); Chloride 103 mmol/L (98-107); Estimated CRCL calculation 49 ml/min; Estimated Glomerular Filt Rate > 60; Glucose 88 mg/dL (65-110); Potassium 3.9 mmol/L (3.4-5.0); Sodium 141 mmol/L (137-145)
[2023-11-30 07:47] LABS: Glucose Point of Care 74 mg/dl (65-105)
[2023-11-30] MEDS: ASPIRIN 81 MG CHEWABLE TABLET PO (08:49)
[2023-11-30] MEDS: APIXABAN 5 MG TABLET PO ×2 (08:50→20:30)
[2023-11-30] MEDS: METOPROLOL TARTRATE 25 MG TABLET PO (08:50)
[2023-11-30] MEDS: DOXYCYCLINE HYCLATE 100 MG TABLET FEED TUBE ×2 (08:50→20:30)
[2023-11-30 11:42] LABS: Glucose Point of Care 86 mg/dl (65-105)
--- NOTE | 2023-11-30 15:38 | PM.IMPN ---
Progress Note: A&P Assessment and Plan (1) Respiratory failure: Qualifiers: Chronicity: acute on chronic Respiratory failure complication: hypoxia and hypercapnia Qualified Code(s): J96.21 - Acute and chronic respiratory failure with hypoxia; J96.22 - Acute and chronic respiratory failure with hypercapnia Code(s): J96.90 - Respiratory failure, unspecified, unspecified whether with hypoxia or hypercapnia Status: Acute Assessment and Plan: Patient presents with SOB and hypoxia from the [place]. She presented to [place] from the [place] with hypoxia with O2 sats in the 40s. She was placed on non-rebreather where sats came up to 70%, she was intubated at the outside hospital ER by the ER physician on 11/23/2023. ABG 7.07/155/61/ 84% sats on 100% non-rebreather [place] likely related to pneumonia, COPD exacerbation, and/or noncompliance with wearing oxygen at [facility] Improved. PCO2 at 43mmHg. Extubated 11/28. Continue cefepime and doxycycline for atypical coverage through tomorrow. Discontinued vancomycin Continue bronchodilators and pulmicort Wean O2 to baseline O2 at 2L. (2) Pneumonia: Code(s): J18.9 - Pneumonia, unspecified organism Status: Acute Assessment and Plan: CXR showig diffuse bilateral interstitial and mild airspace disease with pulmonary edema and/or PNA BCx 11/23: Negative Sputum Cx 11/26 and 11/27 growing yeast felt to be colonization Urine Legionella, urine pneumococcal antigen and mycoplasma IgM is negative PCR for influenza COVID and RSV were negative Fevers resolving. WBC near normal. Continue IV abx through tomorrow. (3) COPD (chronic obstructive pulmonary disease): Code(s): J44.9 - Chronic obstructive pulmonary disease, unspecified Status: Acute Assessment and Plan: Patient with hypercapnic and hypoxic respiratory failure. Could be related to COPD exacerbation and noncompliance with wearing of oxygen at [place] Improving. No wheezing. As above (4) Atrial fibrillation: Qualifiers: Atrial fibrillation type: unspecified Qualified Code(s): I48.91 - Unspecified atrial fibrillation Code(s): I48.91 - Unspecified atrial fibrillation Status: Chronic Assessment and Plan: Patient has a history of atrial fibrillation. Currently on diltaizem. Lopressor added with improvement in rate control She remains on Eliquis Will advance Lopressor (5) Abdominal pain: Code(s): R10.9 - Unspecified abdominal pain Status: Acute Assessment and Plan: Patient had moderate abdominal pain 11/24 CT scan of the abdomen and pelvis: 1. No CT correlate for the patient's symptoms. 2. Small pleural effusions. 3. Cholelithiasis without evidence of cholecystitis. According to the , patient has been having intermittent chronic abdominal pain around the umbilicus Tolerated tube feeds and now on diabetic diet (not diabetic so will change to heart healthy) Follow (6) Chronic anemia: Code(s): D64.9 - Anemia, unspecified Status: Chronic Assessment and Plan: Patient's Hgb10.6 on admission but dropped to 8-9 range since. She has a hx of chronic anemia Could be related to hemodilution, iatrogenic from blood draws Patient is on Eliquis Stool for Hemoccult ordered Plan Disp: PT/OT. SNF placement DVT prophylaxis: Eliquis Stress ulcer prophylaxis: Protonix Nutrition: diabetic diet but not diabetic so change to heart healthy; stop accuchecks Code Status: full code Subjective Date/time seen: 11/30/23 15:38 Interval history: 68yo female with COPD, pAFib on AC, CAD, HTN and anxiety here for shortness of breath. Slept well. Did wear the bipap last night for a few hours. Has a dry cough. No CP. eating okay. Tachycardic last night requiring metoprolol IV once. Exam Narrative: AF 98.5 152/93 87 18 92% 3L Gen - NARD lying semi-recumbent in bed HEENT - left omaira-orbital ecchymosis Chest
[2023-11-30 17:06] LABS: Glucose Point of Care 99 mg/dl (65-105)
[2023-11-30] MEDS: ATORVASTATIN 20 MG TABLET PO (20:30)
[2023-11-30] MEDS: METOPROLOL TARTRATE 50 MG TAB PO (20:31)
[2023-11-30] MEDS: ALPRAZolam (*CRX) 0.5 MG TABLET PO (20:36)
[2023-11-30] MEDS: LEVALBUTEROL NEB 1.25 MG/3 ML 0.63 MG INHALATION (20:40)
[2023-11-30 21:00] LABS: Glucose Point of Care 133 mg/dl (65-105)
[2023-12-01] VITALS (18 sets, daily range): BP systolic 120–154; BP diastolic 69–73; PULSE 76–94; RESP 18–20; TEMP 36.9–37.3; O2SAT 94–100
[2023-12-01] MEDS: dilTIAZem HCL 60 MG TABLET PO (05:56)
[2023-12-01] MEDS: LEVALBUTEROL NEB 1.25 MG/3 ML 0.63 MG INHALATION ×2 (06:19→18:30)
[2023-12-01 06:33] LABS: Hematocrit 30.1 % (37.0-47.0); Hemoglobin 8.8 g/dL (12.0-15.0); Mean Corpuscular HGB Conc 29.2 g/dl (32-36); Mean Corpuscular Hemoglobin 28.5 pg (26-34); Mean Corpuscular Volume 97.4 fl (80-100); Mean Platelet Volume 10.4 fl (7.4-10.4); Platelet Count Result 425 k/mm3 (150-375); Red Blood Count 3.09 M/mm3 (4.2-5.4); Red Cell Distribution Width 15.6 % (11.5-14.5); White Blood Count 10.4 K/mm3 (4.5-10.0)
[2023-12-01 06:43] LABS: Alanine Aminotransferase 42 U/L (6-35); Albumin Level 3.4 g/dL (3.5-5.1); Alkaline Phosphatase 63 U/L (38-126); Anion Gap 6 mmol/L (8-16); Aspartate Amino Transferase 34 U/L (14-36); Bilirubin,Total 0.5 mg/dL (0.2-1.3); Blood Urea Nitrogen 30 mg/dL (7-17); Calcium 9.5 mg/dL (8.4-10.2); Carbon Dioxide 31 mmol/L (22-30); Chloride 101 mmol/L (98-107); Estimated CRCL calculation 42 ml/min; Estimated Glomerular Filt Rate > 60; Glucose 114 mg/dL (65-110); Magnesium 1.9 mg/dL (1.6-2.3); Potassium 3.4 mmol/L (3.4-5.0); Sodium 138 mmol/L (137-145)
[2023-12-01 07:35] LABS: Glucose Point of Care 84 mg/dl (65-105)
[2023-12-01] MEDS: IPRATROPIUM BR 0.02% INH SOLN 0.5 MG/2.5 ML VIAL INHALATION ×2 (08:24→21:00)
[2023-12-01] MEDS: BUDESONIDE RESPULE NEB 0.5 MG/2 ML AMP INHALATION ×2 (08:24→21:00)
[2023-12-01] MEDS: ASPIRIN 81 MG CHEWABLE TABLET PO (09:01)
[2023-12-01] MEDS: dilTIAZem HCL CD 240 MG CAP.24HR PO (09:01)
[2023-12-01] MEDS: PANTOPRAZOLE SODIUM IV 40 MG VIAL IV PUSH (09:01)
[2023-12-01] MEDS: APIXABAN 5 MG TABLET PO ×2 (09:01→20:16)
[2023-12-01] MEDS: DOXYCYCLINE HYCLATE 100 MG TABLET FEED TUBE ×2 (09:02→20:17)
[2023-12-01] MEDS: METOPROLOL TARTRATE 50 MG TAB PO ×2 (09:02→20:17)
[2023-12-01] MEDS: ALPRAZolam (*CRX) 0.5 MG TABLET PO ×3 (09:06→20:17)
[2023-12-01] MEDS: ACETAMINOPHEN 325 MG TABLET 650 MG PO ×3 (09:06→20:17)
[2023-12-01] MEDS: POTASSIUM CHLORIDE 20 MEQ ER TABLET 40 MEQ PO (09:13)
[2023-12-01 11:30] LABS: Glucose Point of Care 83 mg/dl (65-105)
--- NOTE | 2023-12-01 14:11 | PM.IMPN ---
Progress Note: A&P Assessment and Plan (1) Respiratory failure: Qualifiers: Chronicity: acute on chronic Respiratory failure complication: hypoxia and hypercapnia Qualified Code(s): J96.21 - Acute and chronic respiratory failure with hypoxia; J96.22 - Acute and chronic respiratory failure with hypercapnia Code(s): J96.90 - Respiratory failure, unspecified, unspecified whether with hypoxia or hypercapnia Status: Acute Assessment and Plan: Patient presents with SOB and hypoxia from the [place]. She presented to [place] the [place] with hypoxia with O2 sats in the 40s. She was placed on non-rebreather where sats came up to 70%, she was intubated at the outside hospital ER by the ER physician on 11/23/2023. ABG 7.07/155/61/ 84% sats on 100% non-rebreather [place] likely related to pneumonia, COPD exacerbation, and/or noncompliance with wearing oxygen at [facility] Improved. PCO2 at 43mmHg. Extubated 11/28. Continue cefepime and doxycycline for atypical coverage through tomorrow. Discontinued vancomycin Continue pulmicort. Bronchodilators available prn Wean O2 to baseline O2 at 2L. (2) Pneumonia: Code(s): J18.9 - Pneumonia, unspecified organism Status: Acute Assessment and Plan: CXR showig diffuse bilateral interstitial and mild airspace disease with pulmonary edema and/or PNA BCx 11/23: Negative Sputum Cx 11/26 and 11/27 growing yeast felt to be colonization Urine Legionella, urine pneumococcal antigen and mycoplasma IgM is negative PCR for influenza COVID and RSV were negative Fevers resolving. WBC near normal. Continue IV abx through today (3) COPD (chronic obstructive pulmonary disease): Code(s): J44.9 - Chronic obstructive pulmonary disease, unspecified Status: Acute Assessment and Plan: Patient with hypercapnic and hypoxic respiratory failure. Could be related to COPD exacerbation and noncompliance with wearing of oxygen at [place] Improving. No wheezing. As above (4) Atrial fibrillation: Qualifiers: Atrial fibrillation type: unspecified Qualified Code(s): I48.91 - Unspecified atrial fibrillation Code(s): I48.91 - Unspecified atrial fibrillation Status: Chronic Assessment and Plan: Patient has a history of atrial fibrillation. Currently on diltaizem. Lopressor added with improvement in rate control She remains on Eliquis Continue Lopressor and Diltiazem (5) Abdominal pain: Code(s): R10.9 - Unspecified abdominal pain Status: Acute Assessment and Plan: Patient had moderate abdominal pain 11/24 CT scan of the abdomen and pelvis: 1. No CT correlate for the patient's symptoms. 2. Small pleural effusions. 3. Cholelithiasis without evidence of cholecystitis. According to the , patient has been having intermittent chronic abdominal pain around the umbilicus Tolerating oral intake Follow (6) Chronic anemia: Code(s): D64.9 - Anemia, unspecified Status: Chronic Assessment and Plan: Patient's Hgb10.6 on admission but dropped to 8-9 range since. She has a hx of chronic anemia Could be related to hemodilution, iatrogenic from blood draws Patient is on Eliquis Stool for Hemoccult ordered Plan Disp: PT/OT. SNF placement DVT prophylaxis: Eliquis Stress ulcer prophylaxis: Protonix Nutrition: heart healthy Code Status: full code Subjective Date/time seen: 12/01/23 14:11 Interval history: 68yo female with COPD, pAFib on AC, CAD, HTN and anxiety here for shortness of breath. Feels anxious. Complains of back being sore. No Cp or SOB. No n/v. Eating okay. Exam Narrative: AF 99.2 154/73 76 20 94% 3L Gen - NARD sitting up in chair HEENT - resolving left omaira-orbital ecchymosis Chest - bibasilar inspiratory crackles, distant BS CV - irregularly irregular. Tele showing AFib and Aflutter with controlled rate Abd - Soft, NT/ND Ext - No pedal edema Neuro - alert
[2023-12-01] MEDS: FAMOTIDINE 20 MG TABLET PO (20:16)
[2023-12-01] MEDS: ATORVASTATIN 20 MG TABLET PO (20:17)
[2023-12-02] VITALS (13 sets, daily range): BP systolic 118–133; BP diastolic 77–85; PULSE 63–90; RESP 16–20; TEMP 36.4; O2SAT 89–98
[2023-12-02] MEDS: ACETAMINOPHEN 325 MG TABLET 650 MG PO (03:42)
[2023-12-02] MEDS: ALPRAZolam (*CRX) 0.5 MG TABLET PO ×3 (03:42→20:51)
[2023-12-02 06:19] LABS: Hematocrit 27.7 % (37.0-47.0); Hemoglobin 8.1 g/dL (12.0-15.0); Mean Corpuscular HGB Conc 29.2 g/dl (32-36); Mean Corpuscular Hemoglobin 28.2 pg (26-34); Mean Corpuscular Volume 96.5 fl (80-100); Mean Platelet Volume 10.5 fl (7.4-10.4); Platelet Count Result 424 k/mm3 (150-375); Red Blood Count 2.87 M/mm3 (4.2-5.4); Red Cell Distribution Width 15.8 % (11.5-14.5); White Blood Count 9.3 K/mm3 (4.5-10.0)
[2023-12-02 06:33] LABS: Alanine Aminotransferase 45 U/L (6-35); Albumin Level 3.3 g/dL (3.5-5.1); Alkaline Phosphatase 59 U/L (38-126); Anion Gap 3 mmol/L (8-16); Aspartate Amino Transferase 37 U/L (14-36); Bilirubin,Total 0.4 mg/dL (0.2-1.3); Blood Urea Nitrogen 25 mg/dL (7-17); Calcium 9.2 mg/dL (8.4-10.2); Carbon Dioxide 30 mmol/L (22-30); Chloride 104 mmol/L (98-107); Estimated CRCL calculation 49 ml/min; Estimated Glomerular Filt Rate > 60; Glucose 102 mg/dL (65-110); Magnesium 1.8 mg/dL (1.6-2.3); Potassium 3.7 mmol/L (3.4-5.0); Sodium 137 mmol/L (137-145)
[2023-12-02] MEDS: BUDESONIDE RESPULE NEB 0.5 MG/2 ML AMP INHALATION (08:10)
[2023-12-02] MEDS: FAMOTIDINE 20 MG TABLET PO (09:46)
[2023-12-02] MEDS: ASPIRIN 81 MG CHEWABLE TABLET PO (09:47)
[2023-12-02] MEDS: MEGESTROL ACETATE (*CHEMO) ORAL SUSP 40 MG/ML SYR 400 MG PO (09:47)
[2023-12-02] MEDS: APIXABAN 5 MG TABLET PO ×2 (09:47→20:51)
[2023-12-02] MEDS: FLUoxetine HCL 20 MG CAPSULE PO (09:47)
[2023-12-02] MEDS: METOPROLOL TARTRATE 50 MG TAB PO ×2 (09:47→20:51)
[2023-12-02] MEDS: DONEPEZIL HCL 5 MG TABLET PO (09:47)
[2023-12-02] MEDS: dilTIAZem HCL CD 240 MG CAP.24HR PO (09:52)
[2023-12-02] MEDS: POLYSACCHARIDE IRON COMPLEX 150 MG CAPSULE PO ×2 (09:58→16:32)
--- NOTE | 2023-12-02 12:15 | PM.IMPN ---
Progress Note: A&P Assessment and Plan (1) Respiratory failure: Qualifiers: Chronicity: acute on chronic Respiratory failure complication: hypoxia and hypercapnia Qualified Code(s): J96.21 - Acute and chronic respiratory failure with hypoxia; J96.22 - Acute and chronic respiratory failure with hypercapnia Code(s): J96.90 - Respiratory failure, unspecified, unspecified whether with hypoxia or hypercapnia Status: Acute Assessment and Plan: Patient presents with SOB and hypoxia from the [place]. She presented [place] with hypoxia with O2 sats in the 40s. She was placed on non-rebreather where sats came up to 70%, she was intubated at the outside hospital ER by the ER physician on 11/23/2023. ABG 7.07/155/61/ 84% sats on 100% non-rebreather [place] likely related to pneumonia, COPD exacerbation, and/or noncompliance with wearing oxygen at intermediate Improved. PCO2 at 43mmHg. Extubated 11/28. Completed a course of abx On pulmicort. Bronchodilators available prn. Change to Advair Wean O2 to baseline O2 at 2L. (89% on 1L so will inform staff to keep on at least 2L) Concern for narcotics given that she is already on benzodiazepines. (2) Pneumonia: Code(s): J18.9 - Pneumonia, unspecified organism Status: Acute Assessment and Plan: CXR showig diffuse bilateral interstitial and mild airspace disease with pulmonary edema and/or PNA BCx 11/23: Negative Sputum Cx 11/26 and 11/27 growing yeast felt to be colonization Urine Legionella, urine pneumococcal antigen and mycoplasma IgM is negative PCR for influenza COVID and RSV were negative Fevers resolving. WBC near normal. Completed abx (3) COPD (chronic obstructive pulmonary disease): Code(s): J44.9 - Chronic obstructive pulmonary disease, unspecified Status: Acute Assessment and Plan: Patient with hypercapnic and hypoxic respiratory failure. Could be related to COPD exacerbation and noncompliance with wearing of oxygen Improving. No wheezing. As above (4) Atrial fibrillation: Qualifiers: Atrial fibrillation type: unspecified Qualified Code(s): I48.91 - Unspecified atrial fibrillation Code(s): I48.91 - Unspecified atrial fibrillation Status: Chronic Assessment and Plan: Patient has a history of atrial fibrillation. Currently on diltaizem. Lopressor added with improvement in rate control She remains on Eliquis Continue Lopressor and Diltiazem Okay to stop tele (5) Abdominal pain: Code(s): R10.9 - Unspecified abdominal pain Status: Acute Assessment and Plan: Patient had moderate abdominal pain 11/24 CT scan of the abdomen and pelvis: 1. No CT correlate for the patient's symptoms. 2. Small pleural effusions. 3. Cholelithiasis without evidence of cholecystitis. According to the , patient has been having intermittent chronic abdominal pain around the umbilicus Tolerating oral intake. Mild abd pain today. Changed to her home pepcid dose yesterday. Will change back to PPI Follow off narcotics (6) Chronic anemia: Code(s): D64.9 - Anemia, unspecified Status: Chronic Assessment and Plan: Patient's Hgb 10.6 on admission but dropped to 8-9 range since. She has a hx of chronic anemia Could be related to hemodilution, iatrogenic from blood draws Patient is on Eliquis hgb 8.1 now Plan Disp: PT/OT. SNF placement DVT prophylaxis: Eliquis Stress ulcer prophylaxis: Protonix Nutrition: heart healthy Code Status: full code Subjective Date/time seen: 12/02/23 12:15 Interval history: 68yo female with COPD, pAFib on AC, CAD, HTN and anxiety here for shortness of breath. Having stomach pain today. Eating okay. No CP or SOB. Requesting discharge. She is requesting her narcotics be resumed Exam Narrative: AF 97.6 133/77 84 20 89% 1L Gen - NARD HEENT - resolving left omaira-orbital ecchymosis Chest - distant BS
[2023-12-02] MEDS: PROMETHAZINE HCL 25 MG TABLET PO (12:29)
[2023-12-02] MEDS: PANTOPRAZOLE 40 MG TABLET PO (12:34)
[2023-12-02] MEDS: LEVALBUTEROL NEB 1.25 MG/3 ML 0.63 MG INHALATION (14:42)
[2023-12-02] MEDS: IPRATROPIUM BR 0.02% INH SOLN 0.5 MG/2.5 ML VIAL INHALATION (14:42)
[2023-12-02] MEDS: FLUTICASONE/SALMETEROL 115-21 MCG INHALER 1 PUFF 2 PUFF INHALATION (20:23)
[2023-12-02] MEDS: ATORVASTATIN 20 MG TABLET PO (20:51)
[2023-12-03] VITALS (7 sets, daily range): BP systolic 105–150; BP diastolic 70–86; PULSE 68–84; RESP 20–26; TEMP 36.7–37.8; O2SAT 98–99
[2023-12-03] MEDS: IPRATROPIUM BR 0.02% INH SOLN 0.5 MG/2.5 ML VIAL INHALATION (03:30)
[2023-12-03] MEDS: LEVALBUTEROL NEB 1.25 MG/3 ML 0.63 MG INHALATION (03:30)
[2023-12-03] MEDS: MEGESTROL ACETATE (*CHEMO) ORAL SUSP 40 MG/ML SYR 400 MG PO (08:42)
[2023-12-03] MEDS: FLUoxetine HCL 20 MG CAPSULE PO (08:43)
[2023-12-03] MEDS: APIXABAN 5 MG TABLET PO (08:43)
[2023-12-03] MEDS: ALPRAZolam (*CRX) 0.5 MG TABLET PO ×2 (08:43→15:23)
[2023-12-03] MEDS: DONEPEZIL HCL 5 MG TABLET PO (08:43)
[2023-12-03] MEDS: METOPROLOL TARTRATE 50 MG TAB PO (08:43)
[2023-12-03] MEDS: ASPIRIN 81 MG CHEWABLE TABLET PO (08:43)
[2023-12-03] MEDS: dilTIAZem HCL CD 240 MG CAP.24HR PO (08:43)
[2023-12-03] MEDS: PROMETHAZINE HCL 25 MG TABLET PO (08:43)
[2023-12-03] MEDS: PANTOPRAZOLE 40 MG TABLET PO (08:43)
[2023-12-03] MEDS: POLYSACCHARIDE IRON COMPLEX 150 MG CAPSULE PO (08:44)
[2023-12-03] MEDS: FLUTICASONE/SALMETEROL 115-21 MCG INHALER 1 PUFF 2 PUFF INHALATION (08:53)
--- NOTE | 2023-12-03 14:45 | PM.DS ---
DS: Admitting Diagnosis Discharge Date 12/03/23 Admitting Diagnosis Shortness of breath DS: Discharge Diagnosis Discharge Diagnosis (1) Respiratory failure: Qualifiers: Chronicity: acute on chronic Respiratory failure complication: hypoxia and hypercapnia Qualified Code(s): J96.21 - Acute and chronic respiratory failure with hypoxia; J96.22 - Acute and chronic respiratory failure with hypercapnia Code(s): J96.90 - Respiratory failure, unspecified, unspecified whether with hypoxia or hypercapnia Status: Acute (2) Pneumonia: Code(s): J18.9 - Pneumonia, unspecified organism Status: Acute (3) COPD (chronic obstructive pulmonary disease): Code(s): J44.9 - Chronic obstructive pulmonary disease, unspecified Status: Acute (4) Atrial fibrillation: Qualifiers: Atrial fibrillation type: unspecified Qualified Code(s): I48.91 - Unspecified atrial fibrillation Code(s): I48.91 - Unspecified atrial fibrillation Status: Chronic (5) Abdominal pain: Code(s): R10.9 - Unspecified abdominal pain Status: Acute (6) Chronic anemia: Code(s): D64.9 - Anemia, unspecified Status: Chronic DS: Summary Hospital Course Reason for hospitalization: 68yo female with COPD, pAFib on AC, CAD, HTN and anxiety here for shortness of breath. Please see H&P for details Hospital Course: Patient presents with SOB and hypoxia from the [place]. She presented to [place] ED with hypoxia with O2 sats in the 40s. She was placed on non-rebreather where sats came up to 70%. She was intubated at the outside hospital on 11/23/23. ABG 7.07/155/61/ 84% sats on 100% non-rebreather. [place] likely related to pneumonia, COPD exacerbation, and/or noncompliance with wearing oxygen at [facility]. CXR showing diffuse bilateral interstitial and mild airspace disease with pulmonary edema and/or PNA. BCx 11/23 were negative. Sputum Cx 11/26 and 11/27 growing yeast felt to be colonization. Urine Legionella, urine pneumococcal antigen and mycoplasma IgM is negative. UA was not consistent with UTI. PCR for influenza COVID and RSV were negative. She had clinical improvement and was able to be extubated 11/28. She completed a course of abx. Weaned O2 to baseline O2 at 2L. Concern for narcotics given that she is already on benzodiazepines. Patient has a history of atrial fibrillation. Currently on diltiazem and Lopressor added with improvement in rate control. She remained on Eliquis. Patient with moderate abdominal pain. CT abdomen and pelvis 11/[address] correlate for the patient's symptoms. 2. Small pleural effusions. 3. Cholelithiasis without evidence of cholecystitis. According to the , patient has been having intermittent chronic abdominal pain around the umbilicus. She was tolerating oral intake. We continued her on Protonix. Patient's Hgb 10.6 on admission but dropped to 8-9 range since. She has a hx of chronic anemia. Could be related to hemodilution, iatrogenic from blood draws. She worked with therapy. She did have low grade temperature the night prior to admission but no recurrence. CXR showing bibasilar airspace disease but improved overall from my review. Probably related either to environment and/or atelectasis. She overall did well and was able to be discharged to a rehab facility on 12/03. Status at Discharge Cognitive/behavioral status at discharge: stable Time Spent with Patient Time attestation: Total time spent providing and/or coordinating discharge services: 38 minutes Time spent: Greater than 30 minutes Exam Narrative: 98.0 105/70 68 26 98% 2L Gen - NARD HEENT - resolving left omaira-orbital ecchymosis Chest - distant BS CV - irregularly irregular Abd - Soft, ND, +BS Ext - No pedal edema Neuro - alert and appropriate Skin - Warm and dry DS: Data Data Completed and Pending Labs on day of discharge: Labs from last 24 hours 12/03/23 13:
[2023-12-03 14:49] LABS: SARS-CoV-2 RNA PCR Negative (Negative)
[2023-12-03] MEDS: ACETAMINOPHEN 325 MG TABLET 650 MG PO (15:23)
== END 2023-12-03 15:40 | DRG 207 ==
LOC: ANHICU 11-27 06:29 → ANH3MEDSUR 12-03 14:57 → ANHICU 12-04 08:51
PROVIDERS: General Practice; Internal Medicine; Physician Assistant; Admitting Provider Internal Medicine; PCP Family Medicine; Visit Provider Internal Medicine
DX: J96.21 Acute and chronic respiratory failure with hypoxia (principal); J18.9 Pneumonia, unspecified organism; J81.0 Acute pulmonary edema; J44.0 Chronic obstructive pulmonary disease with (acute) lower respiratory infection; J96.22 Acute and chronic respiratory failure with hypercapnia; I10 Essential (primary) hypertension; I48.0 Paroxysmal atrial fibrillation; I25.10 Atherosclerotic heart disease of native coronary artery without angina pectoris; K21.9 Gastro-esophageal reflux disease without esophagitis; D64.9 Anemia, unspecified; I95.2 Hypotension due to drugs; T40.415A Adverse effect of fentanyl or fentanyl analogs, initial encounter; R10.9 Unspecified abdominal pain; Z11.52 Encounter for screening for COVID-19; Z79.82 Long term (current) use of aspirin; Z79.01 Long term (current) use of anticoagulants; Z99.81 Dependence on supplemental oxygen; Z91.199 Patient's noncompliance with other medical treatment and regimen due to unspecified reason
CPT/HCPCS: 36415; 36600; 71045; 74176; 80053; 80202; 80307; 81001; 82375; 82607; 82728; 82746; 82805; 82948; 83050; 83540; 83550; 83605; 83735; 84100; 84443; 84478; 85025; 85027; 85610; 85730; 86140; 86738; 87070; 87205; 87449; 87635; 87641; 87899; 93005; 93306; 94002; 94003; 94640; 97110; 97161; 97166; 97530; 97535; A9270; C9113; J0360; J0692; J1940; J2250; J2704; J3010; J3370; J7120

== ENCOUNTER 2023-12-08 07:33 | Emergency (ER) | payer MEDICARE, MEDICAID, SELFPAY ==
[2023-12-08] VITALS (58 sets, daily range): BP systolic 92–130; BP diastolic 50–86; PULSE 64–81; RESP 15–30; TEMP 36.7–36.9; O2SAT 85–100
--- NOTE | ~2023-12-08 | XR_ITS ---
XR chest 1V portable 12/08/2023 07:51 Indication: Shortness of breath Procedure: AP portable chest Comparison: Comparison to multiple prior studies sequentially, with oldest reviewed study dated 11/27. Findings: There is mild interstitial edema. Small pleural effusions. There are bilateral shoulder art hroplasties. Stable cardiomegaly. Impression: 1: Mild interstitial edema with small pleural effusions. Reviewed, dictated and finalized at location A. E ATTENDANT Impression: 1: Mild interstitial edema with small pleural effusions.
--- NOTE | 2023-12-08 07:43 | ED.URI ---
HPI - URI/Sore Throat General Chief Complaint: Shortness of Breath/Dyspnea Stated Complaint: respiratory distress Time Seen by Provider: 12/08/23 07:38 Source: patient Mode of arrival: ambulatory Limitations: no limitations History of Present Illness HPI Narrative: Patient is a 68 year old female with a significant PMH that presents today with a COPD exacerbation. She was found SOB at her facility and less repsonsive. She has coarse breathing and is satting at 96 on 2L O2 [place] which is her home setting. She has also had a wet cough lately. Denies any sick contacts but does live at a correction. MD elicited complaint: cough Pertinent past history: COPD Onset (ago): hour(s) Severity: mild Description of mucous: watery Able to tolerate fluids by mouth: No Exacerbating factors: exertion, speaking and deep breaths Associated symptoms: rhinorrhea, nasal congestion, cough and shortness of breath Related Data Home Medications Medication Instructions Recorded Confirmed megestrol 400 mg/10 mL (40 mg/mL) 400 mg PO DAILY 01/22/23 11/23/23 oral suspension albuterol sulfate 2.5 mg/3 mL 2.5 mg inhalation QID PRN Wheezing 10/31/23 11/23/23 (0.083 %) solution for nebulization albuterol sulfate 90 mcg/actuation 2 puff inhalation PRN PRN Wheezing 10/31/23 11/23/23 aerosol inhaler donepezil 5 mg tablet 5 mg PO DAILY 10/31/23 11/23/23 furosemide 20 mg tablet 20 mg PO DAILY 10/31/23 11/23/23 Allergies Allergy/AdvReac Type Severity Reaction Status Date / Time codeine AdvReac Nausea and Verified 11/25/23 10:17 Vomiting Review of Systems Review of Systems: All systems reviewed & are unremarkable except as noted in HPI and below ROS unobtainable: Yes unobtainable due to endotracheal tube Constitutional: Constitutional: Reports as per HPI Eyes: Eyes: Reports as per HPI ENT: Reports system reviewed and no additional complaints, except as documented Cardiovascular: Cardiovascular: Reports no additional cardiovascular complaints Respiratory: Respiratory: Reports as per HPI Gastrointestinal: Gastrointestinal: Reports no additional gastrointestinal complaints Genitourinary: Genitourinary: Reports no additional female genitourinary complaints Musculoskeletal: Musculoskeletal: Reports no additional musculoskeletal complaints Neurologic: Reports system reviewed and no additional complaints, except as documented Psychiatric: Psychiatric: Reports no additional psychiatric complaints Endocrine: Endocrine: Reports no additional endocrine complaints Hematologic/Lymphatic: Hematologic/Lymphatic: Reports no additional hematologic/lymphatic complaints Allergic/Immunologic: Allergic/Immunologic: Reports no additional allergic/immunologic complaints [facility] Past Medical History Medical History Anxiety Arthritis Chronic anticoagulation Chronic obstructive pulmonary disease Gastroesophageal reflux disease Paroxysmal atrial fibrillation Surgical History Surgical History History of back surgery History of cardiac catheterization History of knee surgery History of nasal septoplasty History of shoulder surgery Family History Family History Other Unknown family medical history Social History Social History Social History: Surrogate medical decision maker: Pankaj Neal, spouse. Code status: Full code. Years smoked: 50 Smoking status: Former smoker Tobacco type: cigarettes Alcohol intake: never Substance use: never Substance use type: marijuana Other substance usage details: Gummies Do You Feel Safe in your Home?: Yes Lack of Transportation: No Lack of Food: Never True Current Housing: I Have Housing Concerned About Future Housing: No Difficulty Paying Gas/Electric Bills: No Difficu
[2023-12-08 07:51] LABS: Basophils Absolute Auto 0.06 K/mm3 (0.00-0.10); Basophils Percent Auto 0.5 % (0.0-1.0); Eosinophils Absolute Auto 0.21 K/mm3 (0.02-0.50); Eosinophils Percent Auto 1.7 % (1.0-6.0); Hematocrit 31.8 % (35.0-42.0); Immature Granulocyte Absolute 0.15 K/mm3 (0.00-0.00); Immature Granulocyte Percent A 1.2 % (0.0-0.0); Lymphocytes Absolute Auto 1.28 K/mm3 (1.10-4.50); Lymphocytes Percent Auto 10.5 % (18.0-42.0); Mean Corpuscular HGB Conc 28.3 g/dL (32.0-36.0); Mean Corpuscular Hemoglobin 28.4 pg (27.0-31.0); Mean Corpuscular Volume 100.3 fL (78.0-102.0); Mean Platelet Volume 9.4 fl (9.2-11.8); Monocytes Absolute Auto 0.88 K/mm3 (0.10-0.90); Monocytes Percent Auto 7.2 % (2.0-11.0); Neutrophils Absolute Auto 9.7 K/mm3 (1.7-7.2); Neutrophils Percent Auto 78.9 % (50.0-70.0); Platelet Count Result 445 K/mm3 (150-420); Red Blood Count 3.17 M/mm3 (4.20-5.40); Red Cell Distribution Width 15.9 % (11.6-14.4); White Blood Count 12.2 K/mm3 (4.8-10.8)
[2023-12-08] MEDS: FUROSEMIDE INJ 20 MG/2 ML VIAL IV PUSH (07:59)
[2023-12-08] MEDS: IPRATROPIUM 0.5 MG/ALBUTEROL SULFATE 2.5 MG AMPUL.NEB 3 ML INHALATION (08:01)
[2023-12-08 08:03] LABS: HCO3 VBG 33.4 mEq/l (24.0-30.0); PO2 VBG 37.3 mmHg (35.0-45.0)
[2023-12-08 08:08] LABS: Alanine Aminotransferase 41 U/L (14-59); Albumin Level 2.8 g/dL (3.4-5.0); Alkaline Phosphatase 61 U/L (46-116); Anion Gap 1 mmol/L (8-16); Aspartate Amino Transferase 21 U/L (15-37); Bilirubin,Total 0.2 mg/dL (0.00-1.00); Blood Urea Nitrogen 27 mg/dL (7-18); Calcium 9.2 mg/dL (8.5-10.1); Carbon Dioxide 36 mmol/L (21-32); Chloride 104 mmol/L (98-108); Estimated CRCL calculation 28 ml/min; Estimated Glomerular Filt Rate 48; Glucose 116 mg/dL (70-99); Osmolality Calculated 298 mOsm/kg (285-295); Sodium 141 mmol/L (136-145); Total Protein 6.2 g/dL (6.4-8.2)
[2023-12-08 08:08] LABS: Device NASAL CANNULA; PCO2 VBG 88.1 mmHg (42.0-48.0)
[2023-12-08] MEDS: AZITHROMYCIN 500 MG/NS 250 ML 500 MG/250 ML BAG 250 MG IVPB (08:15)
[2023-12-08] MEDS: cefTRIAXone 2 GM/NS 100 ML 2 GM/100 ML BAG IVPB (08:16)
[2023-12-08 09:40] LABS: Appearance Urine Clear (Clear); Bilirubin Urine Negative (Negative); Blood Urine Negative (Negative); Color Urine Light Yellow (Yellow); Glucose Urine UA Negative (Negative); Ketones Urine Negative (Negative); Leukocyte Esterase Ur Negative LEU/UL (Negative); Nitrate Urine Negative (Negative); Protein Urine Trace (Negative); Urobilinogen Urine 0.2 mg/dL (0.2-1.0)
[2023-12-08 09:41] LABS: Add Urine Microscopic? NO
[2023-12-08 10:02] LABS: HCO3 VBG 32.4 mEq/l (24.0-30.0); PO2 VBG 40.7 mmHg (35.0-45.0); pH VBG 7.25 (7.33-7.43)
[2023-12-08 10:04] LABS: PCO2 VBG 75.7 mmHg (42.0-48.0)
[2023-12-08 10:05] LABS: Device SIMPLE MASK
--- NOTE | 2023-12-08 10:23 | PC.NURSE ---
1020 SPOKE WITH ORLIN, , REQUESTED PT TO BE TRANSFERRED TO [facility] IF AVAILABLE.
--- NOTE | 2023-12-08 10:44 | PC.NURSE ---
PT UP TO COMMODE. COMPLAINT BUTTOCKS HURTING BUT DECLINED TO LAY ON SIDE TO RELIEVE PRESSURE TO BUTTOCKS. CALL [facility] IN REACH
[2023-12-08 11:56] LABS: Base Excess ABG 2.8 mmol/L (0-2); HCO3 ABG 30.9 mmol/L (23-29); Oxygen Content ABG 13.6 %vol (16.0-22.0); Oxygen Saturation ABG 96.3 % (95-97); Oxyhemoglobin 95.7 % (94-100); PCO2 ABG 69.1 mmHg (35-45); PO2 ABG 92.6 mmHg (75-85); pH ABG 7.27 (7.35-7.45)
[2023-12-08 11:58] LABS: Device SIMPLE MASK; Modified Allen's Test Pass; Site Drawn LEFT RADIAL
--- NOTE | 2023-12-08 14:02 | PC.NURSE ---
PT REQUESTED MEAL , MEAL TRAY PROVIDED. CONTINUES WITH FAMILY IN ROOM VISITING. AWAITING PLACEMENT FROM JUAN JOSE
--- NOTE | 2023-12-08 15:05 | PC.NURSE ---
CALL TO ORLIN, , NOTIFIED OF TRANSFER TO [facility] AND ROOM ASSIGNED.
--- NOTE | 2023-12-14 14:23 | PC.NURSE ---
blood culture reviewed no growth noted
== END 2023-12-08 15:30 | disposition short-term general hospital (02) ==
PROVIDERS: Emergency Provider Family Medicine; PCP Family Medicine
DX: J18.9 Pneumonia, unspecified organism (principal); J44.9 Chronic obstructive pulmonary disease, unspecified; I48.0 Paroxysmal atrial fibrillation; Z99.81 Dependence on supplemental oxygen; Z87.891 Personal history of nicotine dependence
CPT/HCPCS: 36415; 36600; 71045; 80053; 81003; 82803; 82805; 85025; 87040; 94640; 96365; 96367; 96375; 99285; J0456; J0696; J1940

== ENCOUNTER 2023-12-08 16:13 | Observation (INO) | payer MEDICARE, MEDICAID, SELFPAY ==
[2023-12-08] VITALS (12 sets, daily range): BP systolic 134–156; BP diastolic 61–80; PULSE 79–106; RESP 18–28; TEMP 36.4–36.9; O2SAT 91–98; BMI 16.4
--- NOTE | 2023-12-08 16:23 | PM.IMHP ---
H&P: HPI History of Present Illness Date/Time: 12/08/23 16:50 Chief Complaint: Shortness of breath. Narrative: This is a 68-year-old female with chronic obstructive pulmonary disease, paroxysmal atrial fibrillation on anticoagulation, coronary artery disease, hypertension, and anxiety who is being directly admitted to the IMU from the emergency department at [facility] with acute on chronic respiratory failure after presenting to their facility in respiratory distress. The patient is known to myself and the hospitalist service from several recent admissions. She was most recently hospitalized from November 23 through the with acute on chronic respiratory failure requiring intubation, felt to be related to pneumonia, COPD exacerbation, and/or noncompliance with oxygen at her rehab facility. Today she was found less responsive and more short of breath than usual by staff at her nursing facility and she was sent in for evaluation. On arrival to the outside ED she complained of a wet cough which has been productive of clear phlegm, runny nose, and sinus congestion in addition to shortness of breath. Her SpO2 was 96% on her usual 2 L nasal cannula. VBG showed a pH of 7.20, pCO2 88.1, PO2 37.3, HC03 33.4. Chest x-ray showed mild interstitial edema with small pleural effusions. She was given a nebulizer treatment with some improvement in her pCO2 and transfer was initiated to [place]. ABG on arrival to [place] showed a pH of 7.318, pCO2 66.2, HC03 33.2. She was placed on BiPAP and repeat ABG showed improvement. I spoke with the patient about the importance of being compliant with her PAP therapy, even if it is only for half the night that is better than nothing. We discussed that while she is in the hospital I have ordered BiPAP to be worn with naps and at nighttime. At this time she has no current complaints and denies fever, chest pain, pleuritic pain, palpitations, nausea, vomiting, diarrhea, and dysuria. Review of Systems Review of Systems: Twelve systems were reviewed and are negative except for as per HPI. [facility] Past Medical History Medical History Anxiety Arthritis Chronic anticoagulation Chronic obstructive pulmonary disease Gastroesophageal reflux disease Paroxysmal atrial fibrillation Surgical History Surgical History History of back surgery History of cardiac catheterization History of knee surgery History of nasal septoplasty History of shoulder surgery Family History Family History Grandparent Cancer Father Diabetes mellitus Heart disease Social History Social History Social History: Surrogate medical decision maker: Pankaj Neal, spouse. Code status: Full code. Smoking packs per day: 1.5 Smoking cigarettes per day: 30.0 Years smoked: 55 Smoking pack-years: 82.50 Smoking status: Former smoker Tobacco type: cigarettes Alcohol intake: never Substance use: never Substance use type: marijuana Other substance usage details: Gummies Do You Feel Safe in your Home?: Yes Lack of Transportation: No Lack of Food: Never True Current Housing: I Have Housing Concerned About Future Housing: No Difficulty Paying Gas/Electric Bills: No Difficulty Paying for Meds: No Currently Unemployed: No Education: Don't Know Difficulty w/ Childcare or Family Care: No Spiritual care concerns: No Meds Home Medications and Allergies Home Medications Medication Instructions Recorded Confirmed Type acetaminophen 325 mg tablet (Mapap 650 mg PO Q6H PRN Pain #60 tabs 06/29/22 12/08/23 Rx (acetaminophen)) apixaban 5 mg tablet (Eliquis) 5 mg PO Q12HR #60 tabs 06/29/22 12/08/23 Rx aspirin 81 mg chewable tablet 81 mg PO DAILY@0800 #30 tabs 09
[2023-12-08 16:34] LABS: Alveolar/Arterial O2 Gradient 59.9 mmHg; Base Excess ABG 5.8 mEq/l (+/-2.0); Carboxyhemoglobin 0.3 % THb (0-2.0); Fractional Inspired Oxygen 28 %; HCO3 ABG 33.2 mEq/l (22.0-26.0); Methemoglobin ABG 0.5 %THb (0-1.5); Oxygen Saturation ABG 88.8 % (95.0-100.0); Oxyhemoglobin 89.2 % THb (90.0-100.0); PO2 ABG 61.6 mmHg (80.0-100.0); Total Hemoglobin 9.5 g/dL (12.0-18.0); pH ABG 7.318 (7.350-7.450)
[2023-12-08 16:36] LABS: PCO2 ABG 66.2 mmHg (35.0-45.0); Site Drawn RIGHT BRACHIAL
[2023-12-08 16:37] LABS: Device NASAL CANNULA
[2023-12-08] MEDS: ALPRAZolam (*CRX) 0.5 MG TABLET PO ×2 (17:10→22:33)
--- NOTE | 2023-12-08 17:30 | ADMGEN ---
This patient, Sahara Neal, was admitted to IMU Room 210-01 on 12/08/23 at 1600. Patient/family oriented to hospital policies and general routines including ID bracelet, bed and alarms, visiting hours, pain management, procedures, bathroom and other care routines, personal items, smoking policy, room service/diet, and visiting hours. Information on how to activate the Rapid Response Team has been discussed. Patient/Family are encouraged to report perceived risks to care and to ask questions if they do not understand what they are told or what they should do.
[2023-12-08] MEDS: FLUTICASONE/SALMETEROL 115-21 MCG INHALER 1 PUFF 2 PUFF INHALATION (19:19)
[2023-12-08] MEDS: IPRATROPIUM 0.5 MG/ALBUTEROL SULFATE 2.5 MG AMPUL.NEB 3 ML INHALATION (19:21)
[2023-12-08 19:35] LABS: PCO2 ABG 61.1 mmHg (35.0-45.0); pH ABG 7.375 (7.350-7.450)
[2023-12-08 19:36] LABS: Alveolar/Arterial O2 Gradient 61.4 mmHg; Base Excess ABG 8.4 mEq/l (+/-2.0); HCO3 ABG 34.9 mEq/l (22.0-26.0); Oxygen Saturation ABG 92.1 % (95.0-100.0); PO2 ABG 66.1 mmHg (80.0-100.0); Total Hemoglobin 9.2 g/dL (12.0-18.0)
[2023-12-08 19:37] LABS: Carboxyhemoglobin 0.3 % THb (0-2.0); Device BIPAP; Fractional Inspired Oxygen 28 %; Methemoglobin ABG 0.3 %THb (0-1.5); Modified Allen's Test Pass; Oxyhemoglobin 92.3 % THb (90.0-100.0); PO2 FiO2 Ratio Arterial Blood 2.36 %; Reduced Hemoglobin 7.1 %THb (0-5.0); Site Drawn RIGHT RADIAL
[2023-12-08 19:39] LABS: Expiratory Pressure 6 cmH2O; Inspiratory Pressure 12 cmH2O
[2023-12-08] MEDS: ATORVASTATIN 20 MG TABLET PO (20:16)
[2023-12-08] MEDS: METOPROLOL TARTRATE 50 MG TAB PO (20:16)
[2023-12-08] MEDS: APIXABAN 5 MG TABLET PO (20:16)
[2023-12-08] MEDS: DONEPEZIL HCL 5 MG TABLET PO (20:17)
[2023-12-08] MEDS: guaiFENesin 12 HR 600 MG TABCR PO (22:05)
[2023-12-08] MEDS: HYDROcodone/acetaminophen (*CRX) 7.5-325 MG TABLET 1 TAB PO (22:33)
[2023-12-09] VITALS (26 sets, daily range): BP systolic 116–197; BP diastolic 71–123; PULSE 67–106; RESP 16–38; TEMP 36.3–36.7; O2SAT 93–100
[2023-12-09] MEDS: IPRATROPIUM 0.5 MG/ALBUTEROL SULFATE 2.5 MG AMPUL.NEB 3 ML INHALATION ×4 (01:09→20:11)
[2023-12-09] MEDS: FLUTICASONE/SALMETEROL 115-21 MCG INHALER 1 PUFF 2 PUFF INHALATION ×2 (07:56→20:14)
[2023-12-09] MEDS: DORNASE ALFA INH SOLN 1 MG/ML 2.5 ML AMP 2.5 MG INHALATION ×2 (07:56→20:18)
[2023-12-09] MEDS: PANTOPRAZOLE 40 MG TABLET PO (08:29)
[2023-12-09] MEDS: FUROSEMIDE 20 MG TABLET PO (08:29)
[2023-12-09] MEDS: POLYSACCHARIDE IRON COMPLEX 150 MG CAPSULE PO ×2 (08:29→17:25)
[2023-12-09] MEDS: APIXABAN 5 MG TABLET PO ×2 (08:29→21:59)
[2023-12-09] MEDS: METOPROLOL TARTRATE 50 MG TAB PO ×2 (08:29→22:00)
[2023-12-09] MEDS: ASPIRIN 81 MG CHEWABLE TABLET PO (08:29)
[2023-12-09] MEDS: FLUoxetine HCL 20 MG CAPSULE PO (08:30)
[2023-12-09] MEDS: dilTIAZem HCL CD 240 MG CAP.24HR PO (08:30)
[2023-12-09] MEDS: ALPRAZolam (*CRX) 0.5 MG TABLET PO ×3 (08:32→22:00)
[2023-12-09] MEDS: HYDROcodone/acetaminophen (*CRX) 7.5-325 MG TABLET 1 TAB PO ×3 (08:32→22:00)
[2023-12-09] MEDS: guaiFENesin 12 HR 600 MG TABCR PO ×2 (09:30→21:59)
[2023-12-09] MEDS: methylPREDNISolone SOD SUCC 125 MG VIAL 60 MG IV PUSH ×2 (11:55→17:25)
--- NOTE | 2023-12-09 11:57 | PC.NURSE ---
This patient, Sahara Neal, was transferred to [[id number] ] on 12/09/23 at 1157. Personal belongings sent with patient. Report given to [DEEPA Rodriguez @ 1150]. Appropriate documentation sent with patient.
--- NOTE | 2023-12-09 19:12 | PM.IMPN ---
Progress Note: A&P Assessment and Plan (1) Anxiety: Code(s): F41.9 - Anxiety disorder, unspecified Status: Acute (2) Anemia: Code(s): D64.9 - Anemia, unspecified Status: Acute (3) Chronic anticoagulation: Code(s): Z79.01 - USP (current) use of anticoagulants Status: Acute (4) Paroxysmal atrial fibrillation: Code(s): I48.0 - Paroxysmal atrial fibrillation Status: Acute (5) Chronic obstructive pulmonary disease: Code(s): J44.9 - Chronic obstructive pulmonary disease, unspecified Status: Acute (6) Gastroesophageal reflux disease: Code(s): K21.9 - Gastro-esophageal reflux disease without esophagitis Status: Acute (7) Acute exacerbation of chronic obstructive pulmonary disease (COPD): Plan Place patient under observation status Oxygen via nasal cannula ordered to keep O2 sats more than 92% Solu-Medrol 125 mg IV x 1 dose given in the ER Patient required BiPAP on admission, now down to oxygen via nasal cannula at 2 liters/minute Solu-Medrol 60 Mg IV q12 hrs started on the floor to be tapered as per clinical response Patient has completed her course of antibiotic for pneumonia at her recent discharge last week DuoNeb breathing treatments ordered as needed Ambulate on the floor with assistance PT/OT/care coordination consults ordered DC planning back to group home facility in a.m. if she remains stable ? Patient seen and examined at bedside during my morning rounds ? Collaborated with patient's nurse at the bedside in detail and addressed all concerns ? Labs, electrolytes, radiology, investigations and test results reviewed ? Consult/Nursing/Ancilliary notes on the chart reviewed and appreciated ? Spoke with patient/family at the bedside and answered all the questions that they had Repeat labs in a.m. Electrolyte replacement as per protocol. Patient will be monitored very closely on the floor. Further recommendations as per the hospital course. Time Spent With Patient Time with patient: 15 - 25 minutes Subjective Date/time seen: 12/09/23 19:12 Interval history: Patient seen and evaluated at bedside. Not requiring BiPAP at this time. Down to oxygen via nasal cannula. Feels weak and tired Review of Systems Review of Systems: 14 systems were reviewed with pertinent positives and negatives per HPI. Except as documented in the HPI/progress notes, all other systems were reviewed and are negative. All systems reviewed & are unremarkable except as noted in HPI and below Exam Narrative: PHYSICAL EXAMINATION: Vital signs: Please see the chart General physical exam: Patient lying in bed, pleasant and cooperative with exam, feels weak and tired Head/eyes: Atraumatic, EOMI, PERRLA ENT: Moist mucous membranes, nasal passages clear Neck: Supple, full range of motion, trachea midline CVS: S1 + S2, regular rate and rhythm, no murmurs Respiratory: Bilaterally decreased air entry in both lung liu, mild B/L crackles, symmetric chest expansion Abdomen: Soft, non-tender, bowel sounds +ve, no organomegaly Extremities: No clubbing, no cyanosis, no edema, no calf tenderness Musculoskeletal: Moves all, decreased range of motion, no muscle spasms Skin: Warm, dry, no jaundice, no cyanosis Neurological: Awake, alert, oriented x 3, cranial nerves II-XII intact, no focal neurological deficits Psychiatric: Normal mood, non suicidal Objective Data Vital Signs Vital Signs: Vital Signs - 24 hr 12/08/23 19:42 12/08/23 19:42 12/08/23 19:55 Temperature Pulse Rate 99 99 86 Respiratory Rate 26 H 26 H 24 H Blood Pressure Pulse Oximetry 98 Oxygen Delivery BiPAP Oxygen Flow Rate Fraction of Inspired Oxygen 12/08/23 20:10 12/08/23 20:16 12/08/23 20:00 Temperature 36.4 C Pulse Rate 106 H 86 Respiratory Rate 28 H Blood Pressure 156/80 H Pulse Oximetry 92 92 Oxygen Delivery Nasal Cannula Oxygen Flow Rate 2 Fraction of In
[2023-12-09] MEDS: MELATONIN 5 MG TABLET PO (21:58)
[2023-12-09] MEDS: DONEPEZIL HCL 5 MG TABLET PO (21:59)
[2023-12-09] MEDS: ATORVASTATIN 20 MG TABLET PO (22:00)
[2023-12-09] MEDS: SODIUM CHLORIDE 0.9% IV 1,000 ML 75 ML IV CONT (22:07)
[2023-12-10] VITALS (12 sets, daily range): BP systolic 124–149; BP diastolic 70–92; PULSE 78–100; RESP 20–21; TEMP 36.4–37.1; O2SAT 95–100; BMI 19.3
[2023-12-10] MEDS: IPRATROPIUM 0.5 MG/ALBUTEROL SULFATE 2.5 MG AMPUL.NEB 3 ML INHALATION ×3 (02:13→14:06)
[2023-12-10] MEDS: ACETAMINOPHEN 325 MG TABLET 650 MG PO (02:32)
[2023-12-10] MEDS: FLUTICASONE/SALMETEROL 115-21 MCG INHALER 1 PUFF 2 PUFF INHALATION (07:49)
[2023-12-10 08:55] LABS: Hematocrit 30.2 % (37.0-47.0); Hemoglobin 8.9 g/dL (12.0-15.0); Immature Granulocyte Absolute 0.03 K/mm3 (0.00-0.031); Immature Granulocyte Percent A 0.4 % (0-0.5); Lymphocytes Absolute Auto 0.51 K/mm3 (0.9-3.2); Lymphocytes Percent Auto 6.6 % (18.3-44.2); Mean Corpuscular HGB Conc 29.5 g/dl (32-36); Mean Corpuscular Hemoglobin 27.6 pg (26-34); Mean Corpuscular Volume 93.8 fl (80-100); Mean Platelet Volume 9.6 fl (7.4-10.4); Monocytes Absolute Auto 0.3 K/mm3 (0.1-0.6); Monocytes Percent Auto 3.2 % (2.6-8.5); Neutrophils Percent Auto 89.8 % (45.5-73.1); Platelet Count Result 463 k/mm3 (150-375); Red Blood Count 3.22 M/mm3 (4.2-5.4); Red Cell Distribution Width 16.6 % (11.5-14.5); White Blood Count 7.8 K/mm3 (4.5-10.0)
[2023-12-10 09:08] LABS: Anion Gap 6 mmol/L (8-16); Blood Urea Nitrogen 22 mg/dL (7-17); Calcium 9.2 mg/dL (8.4-10.2); Carbon Dioxide 33 mmol/L (22-30); Chloride 96 mmol/L (98-107); Estimated CRCL calculation 45 ml/min; Estimated Glomerular Filt Rate > 60; Glucose 120 mg/dL (65-110); Sodium 135 mmol/L (137-145)
[2023-12-10] MEDS: HYDROcodone/acetaminophen (*CRX) 7.5-325 MG TABLET 1 TAB PO ×2 (09:09→14:55)
[2023-12-10] MEDS: POLYSACCHARIDE IRON COMPLEX 150 MG CAPSULE PO (09:10)
[2023-12-10] MEDS: PANTOPRAZOLE 40 MG TABLET PO (09:10)
[2023-12-10] MEDS: FUROSEMIDE 20 MG TABLET PO (09:10)
[2023-12-10] MEDS: ASPIRIN 81 MG CHEWABLE TABLET PO (09:10)
[2023-12-10] MEDS: APIXABAN 5 MG TABLET PO (09:10)
[2023-12-10] MEDS: FLUoxetine HCL 20 MG CAPSULE PO (09:11)
[2023-12-10] MEDS: METOPROLOL TARTRATE 50 MG TAB PO (09:11)
[2023-12-10] MEDS: guaiFENesin 12 HR 600 MG TABCR PO (09:11)
[2023-12-10] MEDS: methylPREDNISolone SOD SUCC 125 MG VIAL 60 MG IV PUSH (09:11)
[2023-12-10] MEDS: dilTIAZem HCL CD 240 MG CAP.24HR PO (09:11)
[2023-12-10] MEDS: ALPRAZolam (*CRX) 0.5 MG TABLET PO ×2 (09:11→13:55)
[2023-12-10] MEDS: MEGESTROL ACETATE (*CHEMO) ORAL SUSP 40 MG/ML SYR 400 MG PO (09:13)
[2023-12-10 09:32] LABS: Hypochromasia 2+ (NORMAL); Ovalocytes 2+ (NORMAL); Platelet Estimate Increased (Adequate); Schistocytes None Seen (NORMAL); Target Cells 2+ (NORMAL)
--- NOTE | 2023-12-10 14:15 | PM.DS ---
DS: Admitting Diagnosis Discharge Date 12/10/2023: Admitting Diagnosis Assessment and plan (1) Acute and chronic respiratory failure: ?Code(s): J96.20 - Acute and chronic respiratory failure, unspecified whether with hypoxia or hypercapnia ?Status:?Acute (2) Chronic obstructive pulmonary disease: ?Code(s): J44.9 - Chronic obstructive pulmonary disease, unspecified ?Status:?Acute (3) Paroxysmal atrial fibrillation: ?Code(s): I48.0 - Paroxysmal atrial fibrillation ?Status:?Acute (4) Chronic anticoagulation: ?Code(s): Z79.01 - lobsterman (current) use of anticoagulants ?Status:?Acute (5) Chronic anemia: ?Code(s): D64.9 - Anemia, unspecified ?Status:?Chronic DS: Discharge Diagnosis Discharge Diagnosis (1) Anxiety: Code(s): F41.9 - Anxiety disorder, unspecified Status: Acute (2) Anemia: Code(s): D64.9 - Anemia, unspecified Status: Acute (3) Acute and chronic respiratory failure: Code(s): J96.20 - Acute and chronic respiratory failure, unspecified whether with hypoxia or hypercapnia Status: Acute (4) Chronic anticoagulation: Code(s): Z79.01 - care home (current) use of anticoagulants Status: Acute (5) Paroxysmal atrial fibrillation: Code(s): I48.0 - Paroxysmal atrial fibrillation Status: Acute (6) Chronic obstructive pulmonary disease: Code(s): J44.9 - Chronic obstructive pulmonary disease, unspecified Status: Acute (7) Gastroesophageal reflux disease: Code(s): K21.9 - Gastro-esophageal reflux disease without esophagitis Status: Acute (8) Chronic anemia: Code(s): D64.9 - Anemia, unspecified Status: Chronic (9) Memory dysfunction: Code(s): R41.3 - Other amnesia Status: Acute (10) CAD (coronary artery disease): Code(s): I25.10 - Atherosclerotic heart disease of [place] coronary artery without angina pectoris Status: Acute DS: Summary Hospital Course Reason for hospitalization: Patient transferred from [facility] ER with worsening shortness of breaths requiring BiPAP Hospital Course: H&P: HPI History of Present Illness Date/Time: 12/08/23? 16:50 Chief Complaint: Shortness of breath. Narrative: This is a 68-year-old female with chronic obstructive pulmonary disease, paroxysmal atrial fibrillation on anticoagulation, coronary artery disease, hypertension, and anxiety who is being directly admitted to the IMU from the emergency department at [facility] with acute on chronic respiratory failure after presenting to their facility in respiratory distress. The patient is known to myself and the hospitalist service from several recent admissions. She was most recently hospitalized from November 23 through the with acute on chronic respiratory failure requiring intubation, felt to be related to pneumonia, COPD exacerbation, and/or noncompliance with oxygen at her rehab facility. Today she was found less responsive and more short of breath than usual by staff at her nursing facility and she was sent in for evaluation. On arrival to the outside ED she complained of a wet cough which has been productive of clear phlegm, runny nose, and sinus congestion in addition to shortness of breath. Her SpO2 was 96% on her usual 2 L nasal cannula. VBG showed a pH of 7.20, pCO2 88.1, PO2 37.3, HC03 33.4. Chest x-ray showed mild interstitial edema with small pleural effusions. She was given a nebulizer treatment with some improvement in her pCO2 and transfer was initiated to [place]. ABG on arrival to [place] showed a pH of 7.318, pCO2 66.2, HC03 33.2. She was placed on BiPAP and repeat ABG showed improvement. I spoke with the patient about the importance of being compliant with her PAP therapy, even if it is only for half the night that is better than nothing. We discussed that while she is in the hospital I have ordered BiPAP to be worn with naps and
== END 2023-12-10 15:05 | disposition home or self-care (01) ==
LOC: ANHIMU 12-09 08:08 → ANH3MEDSUR 12-10 14:28 → ANHIMU 12-12 10:28
PROVIDERS: Physician Assistant; Admitting Provider Internal Medicine; PCP Family Medicine; Visit Provider Family Medicine
DX: J96.20 Acute and chronic respiratory failure, unspecified whether with hypoxia or hypercapnia (principal); J44.1 Chronic obstructive pulmonary disease with (acute) exacerbation; I25.10 Atherosclerotic heart disease of native coronary artery without angina pectoris; I48.0 Paroxysmal atrial fibrillation; D64.9 Anemia, unspecified; I10 Essential (primary) hypertension; F41.9 Anxiety disorder, unspecified; R41.3 Other amnesia; K21.9 Gastro-esophageal reflux disease without esophagitis; F12.90 Cannabis use, unspecified, uncomplicated; Z79.01 Long term (current) use of anticoagulants; Z87.891 Personal history of nicotine dependence; Z79.82 Long term (current) use of aspirin; Z79.51 Long term (current) use of inhaled steroids
CPT/HCPCS: 36415; 36600; 80048; 82375; 82805; 83050; 85025; 94002; 94003; 94640; 96374; 96376; 97161; 97165; 97530; 97535; A9270; G0378; G0379; J2930; J7030

== ENCOUNTER 2023-12-14 10:07 | Emergency (ER) | payer MEDICARE, MEDICAID, SELFPAY ==
--- NOTE | ~2023-12-14 | XR_ITS ---
EXAMINATION: XR ankle RT min 3V DATE: 12/14/2023 10:33 INDICATION: Medial right ankle pain post fall TECHNIQUE: Anteroposterior, mortise, and lateral views of the right ankle were obtained. COMPARISON: None. FINDINGS: Diffuse osteopenia. Bone alignment is normal. No fracture. Minimal to mild polyarticular osteoarthrit is with mild nonuniform joint space narrowing at the right ankle and a few of the joints in the mid a nd hindfoot. No ankle joint effusion. Mild soft tissue swelling about the lateral malleolus. IMPRESSION: 1. Minimal to mild polyarticular osteoarthritis at the right ankle and hindfoot. No acute osseous abn ormality. Reviewed, dictated and finalized at location B. F SCIENTIST IMPRESSION: 1. Minimal to mild polyarticular osteoarthritis at the right ankle and hindfoot . No acute osseous abnormality.
--- NOTE | ~2023-12-14 | XR_ITS ---
EXAMINATION: XR knee RT min 4V DATE: 12/14/2023 10:33 INDICATION: Medial right knee pain post fall TECHNIQUE: Anteroposterior, 2 oblique and crosstable lateral views of the right knee were obtained COMPARISON: None. FINDINGS: Right total knee arthroplasty without patellar resurfacing appears well seated in near-anatomic align ment. No fracture. No periprosthetic lucency to suggest loosening or infection. No right knee joint e ffusion. Soft tissues are unremarkable. IMPRESSION: 1. Right total knee arthroplasty. No joint effusion or acute osseous abnormality. Reviewed, dictated and finalized at location B. N RESOURCE INTERN IMPRESSION: 1. Right total knee arthroplasty. No joint effusion or acute osseous abnormalit y.
[2023-12-14 10:07] VITALS: BP 165/97; PULSE 106; RESP 24; TEMP 37.1; O2SAT 99
--- NOTE | 2023-12-14 10:15 | ED.FALL ---
HPI - Fall General Chief Complaint: Fall Stated Complaint: Rt leg pain Source: patient and family Mode of arrival: ambulatory Limitations: no limitations History of Present Illness HPI Narrative: patient is a 68-year-old female on chronic oxygen and COPD with a fall and injury 2 nights ago to her right knee and right ankle. No head or neck injuries. MD complaint: fall Onset (ago): day(s) (2) Fall from: standing Fall witnessed: yes, by family Place fall occurred: home Loss of consciousness: none Prolonged down time: no Symptoms prior to fall: none Context: tripped/slipped Location of injury: other ( Right knee and right ankle) Location of injury - extremities: Right: knee and ankle Severity: moderate Severity scale (1-10): 5 Quality: sharp Associated symptoms (after fall): denies Related Data Home Medications Medication Instructions Recorded Confirmed megestrol 400 mg/10 mL (40 mg/mL) 400 mg PO DAILY 01/22/23 12/08/23 oral suspension albuterol sulfate 2.5 mg/3 mL 2.5 mg inhalation QID PRN Wheezing 10/31/23 12/08/23 (0.083 %) solution for nebulization albuterol sulfate 90 mcg/actuation 2 puff inhalation PRN PRN Wheezing 10/31/23 12/08/23 aerosol inhaler donepezil 5 mg tablet 5 mg PO DAILY 10/31/23 12/08/23 furosemide 20 mg tablet 20 mg PO DAILY 10/31/23 12/08/23 hydrocodone 7.5 mg-acetaminophen 1 tablet PO Q6H PRN Pain 12/08/23 12/08/23 325 mg tablet Allergies Allergy/AdvReac Type Severity Reaction Status Date / Time codeine AdvReac Nausea and Verified 11/25/23 10:17 Vomiting Review of Systems Review of Systems: All systems reviewed & are unremarkable except as noted in HPI and below Constitutional: Constitutional: Reports no additional constitutional complaints Eyes: Eyes: Reports no additional eye complaints ENT: Reports system reviewed and no additional complaints, except as documented Cardiovascular: Cardiovascular: Reports no additional cardiovascular complaints Respiratory: Respiratory: Reports no additional respiratory complaints Gastrointestinal: Gastrointestinal: Reports no additional gastrointestinal complaints Genitourinary: Genitourinary: Reports no additional female genitourinary complaints Musculoskeletal: Musculoskeletal: Reports no additional musculoskeletal complaints Integumentary/Breasts: Skin/Breast: Reports system reviewed and no additional complaints, except as docu Neurologic: Reports system reviewed and no additional complaints, except as documented Psychiatric: Psychiatric: Reports no additional psychiatric complaints Endocrine: Endocrine: Reports no additional endocrine complaints Hematologic/Lymphatic: Hematologic/Lymphatic: Reports no additional hematologic/lymphatic complaints Allergic/Immunologic: Allergic/Immunologic: Reports no additional allergic/immunologic complaints PMFSH Past Medical History Medical History Anxiety Arthritis Chronic anticoagulation Chronic obstructive pulmonary disease Gastroesophageal reflux disease Paroxysmal atrial fibrillation Surgical History Surgical History History of back surgery History of cardiac catheterization History of knee surgery History of nasal septoplasty History of shoulder surgery Family History Family History Grandparent Cancer Father Diabetes mellitus Heart disease Social History Social History Social History: Surrogate medical decision maker: Pankaj Neal, spouse. Code status: Full code. Smoking packs per day: 1.5 Smoking cigarettes per day: 30.0 Years smoked: 55 Smoking pack-years: 82.50 Smoking status: Former smoker Tobacco type: cigarettes Alcohol intake: never Substance use: never Substance use type: marijuana Other substance usage details:
[2023-12-14 11:02] VITALS: BP 164/99; PULSE 78; RESP 20; O2SAT 94
== END 2023-12-14 11:02 | disposition home or self-care (01) ==
LOC: CHSED 10:59
PROVIDERS: Emergency Provider Emergency Medicine; PCP Family Medicine
DX: S80.01XA Contusion of right knee, initial encounter (principal); S90.01XA Contusion of right ankle, initial encounter; I48.0 Paroxysmal atrial fibrillation; J44.9 Chronic obstructive pulmonary disease, unspecified; Z87.891 Personal history of nicotine dependence; W01.0XXA Fall on same level from slipping, tripping and stumbling without subsequent striking against object, initial encounter; Y92.009 Unspecified place in unspecified non-institutional (private) residence as the place of occurrence of the external cause
CPT/HCPCS: 73564; 73610; 99284

== ENCOUNTER 2023-12-22 16:30 | Emergency (ER) | payer MEDICARE, MEDICAID, SELFPAY ==
--- NOTE | ~2023-12-22 | XR_ITS ---
EXAMINATION: XR chest 1V portable DATE: 12/22/2023 16:50 INDICATION: Dyspnea. Chest pain. TECHNIQUE: A single frontal view of the chest was obtained. COMPARISON: Chest view 12/08/2023, CT abdomen and pelvis 11/24/2023 FINDINGS: There is a diffuse interstitial pattern, consistent with mild pulmonary edema. There is a s mall right pleural effusion. No pneumothorax. The heart size is normal. There are bilateral shoulder arthroplasties. IMPRESSION: 1. Mild pulmonary edema. 2. Small right pleural effusion. Reviewed, dictated and finalized at location E. ACT CENTER ANALYST
[2023-12-22 16:30] VITALS: BP 114/73; PULSE 61; RESP 18; TEMP 37.2; O2SAT 100; O2SAT 95
[2023-12-22] MEDS: methylPREDNISolone ACETATE 40 MG/ML VIAL 80 MG IM (16:48)
[2023-12-22] MEDS: IPRATROPIUM 0.5 MG/ALBUTEROL SULFATE 2.5 MG AMPUL.NEB 3 ML INHALATION (16:49)
[2023-12-22 16:50] VITALS: PULSE 62; RESP 18; O2SAT 94
[2023-12-22 16:54] VITALS: BP 121/67; PULSE 66; RESP 18; O2SAT 95
--- NOTE | 2023-12-22 16:56 | ED.SOB ---
HPI - SOB/Dyspnea General Chief Complaint: Shortness of Breath/Dyspnea Stated Complaint: low O2 Time Seen by Provider: 12/22/23 16:38 Source: patient and EMS Mode of arrival: EMS Limitations: no limitations History of Present Illness HPI Narrative: this is 68-year-old female presents from nursing after she was recently discharged from [facility] with COPD exacerbation. Patient was snf for rehab and history of COPD and had an episode were patient desatted patient is currently on 2L of oxygen at the snf, snf staff gave patient a nebulizer treatment and increased her oxygen to3L. Upon arrival via EMS and in the patient is doing well no shortness of breath O2 sats 100% no cough congestion no shortness of breath currently no chest pain no abdominal pain no nausea or vomiting. MD elicited complaint: shortness of breath Pertinent past history: COPD Onset (ago): hour(s) Timing: improved Severity: mild Exacerbating factors: exertion Relieving factors: oxygen and bronchodilators Known history of: COPD Related Data Home Medications Medication Instructions Recorded Confirmed megestrol 400 mg/10 mL (40 mg/mL) 400 mg PO DAILY 01/22/23 12/08/23 oral suspension albuterol sulfate 2.5 mg/3 mL 2.5 mg inhalation QID PRN Wheezing 10/31/23 12/08/23 (0.083 %) solution for nebulization albuterol sulfate 90 mcg/actuation 2 puff inhalation PRN PRN Wheezing 10/31/23 12/08/23 aerosol inhaler donepezil 5 mg tablet 5 mg PO DAILY 10/31/23 12/08/23 furosemide 20 mg tablet 20 mg PO DAILY 10/31/23 12/08/23 hydrocodone 7.5 mg-acetaminophen 1 tablet PO Q6H PRN Pain 12/08/23 12/08/23 325 mg tablet Allergies Allergy/AdvReac Type Severity Reaction Status Date / Time codeine AdvReac Nausea and Verified 11/25/23 10:17 Vomiting Review of Systems Review of Systems: All systems reviewed & are unremarkable except as noted in HPI and below PMFSH Past Medical History Medical History Anxiety Arthritis Chronic anticoagulation Chronic obstructive pulmonary disease Gastroesophageal reflux disease Paroxysmal atrial fibrillation Surgical History Surgical History History of back surgery History of cardiac catheterization History of knee surgery History of nasal septoplasty History of shoulder surgery Family History Family History Grandparent Cancer Father Diabetes mellitus Heart disease Social History Social History Social History: Surrogate medical decision maker: Pankaj Neal, spouse. Code status: Full code. Smoking packs per day: 1.5 Smoking cigarettes per day: 30.0 Years smoked: 55 Smoking pack-years: 82.50 Smoking status: Former smoker Tobacco type: cigarettes Alcohol intake: never Substance use: never Substance use type: marijuana Other substance usage details: Gummies Do You Feel Safe in your Home?: Yes Lack of Transportation: No Lack of Food: Never True Current Housing: I Have Housing Concerned About Future Housing: No Difficulty Paying Gas/Electric Bills: No Difficulty Paying for Meds: No Currently Unemployed: No Education: Don't Know Difficulty w/ Childcare or Family Care: No Spiritual care concerns: No Exam Const: General: no acute distress Nutritional Appearance: thin Orientation/consciousness: patient oriented x3 Limitations: no limitations HENMT: Head: normal to inspection Neck: Neck: normal visual inspection, no lymphadenopathy and no meningeal signs Chest: Chest palpation & inspection: normal inspection of the chest Resp: Effort & Inspection: normal respiratory effort Auscultation: diminished lung sounds ( Currently at her baseline) Cardio: Rate: regular rate Rhythm: regular rhythm GI: GI Palp:
[2023-12-22 17:02] VITALS: PULSE 101; RESP 22; O2SAT 98
[2023-12-22] MEDS: AZITHROMYCIN 250 MG TABLET 500 MG PO (17:05)
== END 2023-12-22 18:25 ==
LOC: CHSED 17:13
PROVIDERS: Emergency Provider Emergency Medicine; PCP Family Medicine
DX: J44.9 Chronic obstructive pulmonary disease, unspecified (principal); I48.0 Paroxysmal atrial fibrillation; Z87.891 Personal history of nicotine dependence
CPT/HCPCS: 71045; 94640; 96372; 99283; A9270; J1030

== ENCOUNTER 2024-01-06 20:56 | Emergency (ER) | payer MEDICARE, MEDICAID, SELFPAY ==
[2024-01-06] VITALS (14 sets, daily range): BP systolic 125–137; BP diastolic 66–88; PULSE 85–100; RESP 24–32; TEMP 36.9; O2SAT 92–100
--- NOTE | ~2024-01-06 | XR_ITS ---
EXAMINATION: XR chest 1V portable Exam Date/Time: 01/06/2024 21:00 CDT HISTORY: SHORTNESS OF BREATH Comparison: 12/22/2023. RESULT: Lines, tubes, and devices: Bilateral shoulder arthroplasties. Lungs and pleura: Mild diffuse reticular opacities. Subsegmental right basilar opacity with right co stophrenic angle blunting. Cardiomediastinal silhouette: Stable. Other: No acute osseous or upper abdominal finding. IMPRESSION: Mild interstitial edema. Subsegmental right lower lung atelectasis/consolidation. Small right pleural effusion versus chronic blunting. Reviewed, dictated and finalized at location K. IMPRESSION: Mild interstitial edema. Subsegmental right lower lung atelectasis/consolidatio n. Small right pleural effusion versus chronic blunting.
--- NOTE | 2024-01-06 20:58 | ECG_ITS ---
Measurements Intervals [place] Rate: 91 P: ME: 0 QRS: 83 QRSD: 81 T: -60 QT: 368 QTc: 454 Interpretive Statements ATRIAL FIBRILLATION BORDERLINE ST-T WAVE ABNORMALITY- DIFFUSE LEADS BASELINE WANDER- I, II, AVR, AVL, AVF, V1, V4-V6 ABNORMAL ECG COMPARED TO ECG 11/30/2023 02:09:27 ATRIAL FIBRILLATION NOW PRESENT Electronically Signed On 01-07-2024 6:35:36 CDT by Tavo Jj D.O.
--- NOTE | 2024-01-06 21:00 | ED.SOB ---
HPI - SOB/Dyspnea General Chief Complaint: Shortness of Breath/Dyspnea Stated Complaint: SOB, lethargic Time Seen by Provider: 01/06/24 20:57 Source: patient and EMS Mode of arrival: EMS Limitations: no limitations History of Present Illness HPI Narrative: Patient is 68-year-old female with shortness of breath and chronic COPD. She also has chronic AFib and is on Eliquis. She has chronic anemia. She was just in the hospital for respiratory failure. She was in [facility]. She is lethargic today and short of breath as well as hypotensive and tachycardic today. MD elicited complaint: shortness of breath Pertinent past history: COPD and congestive heart failure Onset (ago): day(s) (1) Context: recent illness Timing: constant Severity: severe Exacerbating factors: nothing Relieving factors: nothing Known history of: COPD, congestive heart failure and recurrent pneumonia Treatment prior to arrival: oxygen, bronchodilator and diuretics Related Data Home oxygen amount: 2 liters Home Medications Medication Instructions Recorded Confirmed megestrol 400 mg/10 mL (40 mg/mL) 400 mg PO DAILY 01/22/23 01/06/24 oral suspension albuterol sulfate 2.5 mg/3 mL 2.5 mg inhalation QID PRN Wheezing 10/31/23 01/06/24 (0.083 %) solution for nebulization albuterol sulfate 90 mcg/actuation 2 puff inhalation PRN PRN Wheezing 10/31/23 01/06/24 aerosol inhaler donepezil 5 mg tablet 5 mg PO DAILY 10/31/23 01/06/24 furosemide 20 mg tablet 20 mg PO DAILY 10/31/23 01/06/24 hydrocodone 7.5 mg-acetaminophen 1 tablet PO Q6H PRN Pain 12/08/23 01/06/24 325 mg tablet Allergies Allergy/AdvReac Type Severity Reaction Status Date / Time codeine AdvReac Nausea and Verified 11/25/23 10:17 Vomiting Review of Systems Review of Systems: All systems reviewed & are unremarkable except as noted in HPI and below Constitutional: Constitutional: Reports no additional constitutional complaints Eyes: Eyes: Reports no additional eye complaints ENT: Reports system reviewed and no additional complaints, except as documented Cardiovascular: Cardiovascular: Reports no additional cardiovascular complaints Respiratory: Respiratory: Reports no additional respiratory complaints Gastrointestinal: Gastrointestinal: Reports no additional gastrointestinal complaints Genitourinary: Genitourinary: Reports no additional female genitourinary complaints Musculoskeletal: Musculoskeletal: Reports no additional musculoskeletal complaints Integumentary/Breasts: Skin/Breast: Reports system reviewed and no additional complaints, except as docu Neurologic: Reports system reviewed and no additional complaints, except as documented Psychiatric: Psychiatric: Reports no additional psychiatric complaints Endocrine: Endocrine: Reports no additional endocrine complaints Hematologic/Lymphatic: Hematologic/Lymphatic: Reports no additional hematologic/lymphatic complaints Allergic/Immunologic: Allergic/Immunologic: Reports no additional allergic/immunologic complaints PMFSH Past Medical History Medical History Anxiety Arthritis Chronic anticoagulation Chronic obstructive pulmonary disease Gastroesophageal reflux disease Paroxysmal atrial fibrillation Surgical History Surgical History History of back surgery History of cardiac catheterization History of knee surgery History of nasal septoplasty History of shoulder surgery Family History Family History Grandparent Cancer Father Diabetes mellitus Heart disease Social History Social History Social History: Surrogate medical decision maker: Pankaj Neal, spouse. Code status: Full code. Smoking packs per day: 1.5 Smoking cigarettes per day: 30.0 Years smoked: 55 Smoking pac
[2024-01-06] MEDS: methylPREDNISolone SOD SUCC 125 MG VIAL IV PUSH (21:50)
[2024-01-06 22:01] LABS: Basophils Absolute Auto 0.01 K/mm3 (0.00-0.10); Basophils Percent Auto 0.1 % (0.0-1.0); Eosinophils Absolute Auto 0.02 K/mm3 (0.02-0.50); Eosinophils Percent Auto 0.1 % (1.0-6.0); Immature Granulocyte Absolute 0.16 K/mm3 (0.00-0.00); Immature Platelet Fraction Pct 2.3 % (1.0-7.0); Lymphocytes Absolute Auto 0.63 K/mm3 (1.10-4.50); Lymphocytes Percent Auto 3.9 % (18.0-42.0); Mean Corpuscular Hemoglobin 26.1 pg (27.0-31.0); Mean Corpuscular Volume 100.5 fL (78.0-102.0); Mean Platelet Volume 9.8 fl (9.2-11.8); Monocytes Absolute Auto 1.23 K/mm3 (0.10-0.90); Monocytes Percent Auto 7.5 % (2.0-11.0); Neutrophils Absolute Auto 14.29 K/mm3 (1.70-7.20); Neutrophils Percent Auto 87.4 % (50.0-70.0); Nucleated Red Blood Cells Absolute Auto 0.16 K/mm3 (0.00-0.00); Platelet Count Result 552 K/mm3 (150-420); Red Blood Count 1.99 M/mm3 (4.20-5.40); Red Cell Distribution Width 16.9 % (11.6-14.4); White Blood Count 16.3 K/mm3 (4.8-10.8)
[2024-01-06] MEDS: SODIUM CHLORIDE 0.9% IV 1,000 ML 999 ML IV CONT (22:01)
[2024-01-06] MEDS: PIPERACILLN/TAZ 3.375GM/NS50ML 3.375 GM/50 ML BAG IVPB (22:02)
[2024-01-06] MEDS: IPRATROPIUM 0.5 MG/ALBUTEROL SULFATE 2.5 MG AMPUL.NEB 3 ML INHALATION (22:03)
[2024-01-06 22:07] LABS: Hemoglobin 5.2 g/dL (11.7-13.8)
[2024-01-06 22:12] LABS: INR 1.2; Partial Thromboplastin Time 23.2 Sec (23.9-30.70)
[2024-01-06 22:18] LABS: Lactic Acid Reflex 1.4 mmol/L (0.4-2.0)
--- NOTE | 2024-01-06 22:22 | PC.NURSE ---
Pt gave verbal consent for blood transfusion but unable to sign due to weakness and inability to hold a pen. She is A&O x3 at present and will answer questions appropriately. VSS c O2 via NC inplace at 3L and SPo2 at 92%. Nail beds cyanotic and pale.
[2024-01-06 22:23] LABS: Alanine Aminotransferase 120 U/L (14-59); Albumin Level 2.8 g/dL (3.4-5.0); Alkaline Phosphatase 118 U/L (46-116); Aspartate Amino Transferase 41 U/L (15-37); Bilirubin,Total 0.4 mg/dL (0.00-1.00); Blood Urea Nitrogen 26 mg/dL (7-18); Calcium 8.6 mg/dL (8.5-10.1); Chloride 100 mmol/L (98-108); Estimated CRCL calculation 45 ml/min; Estimated Glomerular Filt Rate > 60; Glucose 78 mg/dL (70-99); Magnesium 1.9 mg/dL (1.8-2.4); NT Pro B Type Natriuretic Pept 10639 pg/mL (0-125); Osmolality Calculated 307 mOsm/kg (285-295); Potassium 4.4 mmol/L (3.5-5.1); Sodium 147 mmol/L (136-145); Total Protein 5.6 g/dL (6.4-8.2)
[2024-01-06 22:29] LABS: Carbon Dioxide > 45 mmol/L (21-32)
[2024-01-06 22:35] LABS: Influenza A QL RT-PCR Negative (Negative); Influenza B QL RT-PCR Negative (Negative); RSV RNA, RT-PCR Negative (Negative); SARS-CoV-2 RNA PCR Negative (Negative)
--- NOTE | 2024-01-06 22:55 | PC.NURSE ---
Call back from lab, unable to transfuse due to pt having antibodies and antigens. ERP Dr Garcia informed, will transfer to [place].
[2024-01-06 23:01] LABS: Bilirubin Urine Negative (Negative); Blood Urine 2+ (Negative); Color Urine Light Yellow (Yellow); Glucose Urine UA Negative (Negative); Ketones Urine Trace (Negative); Leukocyte Esterase Ur Trace LEU/UL (Negative); Nitrate Urine Negative (Negative); Protein Urine 1+ (Negative); Specific Grav Ur 1.025 (1.010-1.020); Urobilinogen Urine 0.2 mg/dL (0.2-1.0)
[2024-01-06 23:15] LABS: Add Urine Microscopic? YES; Amorphous Sediment Urine Few; Appearance Urine Sl Cloudy (Clear); Bacteria Urine 2+ /hpf; Squamous Epithelial Cell Urine Few /hpf (Few); WBC Clumps Urine Present /hpf; WBC Urine 16-20 /hpf (0-3)
[2024-01-06 23:16] LABS: Mucus Urine Few /lpf
[2024-01-06 23:38] LABS: HCO3 VBG 47.2 mEq/l (24.0-30.0); pH VBG 7.37 (7.33-7.43)
--- NOTE | 2024-01-06 23:39 | PC.NURSE ---
Call back from Rosaura at [facility] and RN to call report. Pt to go to Rm [id number].
--- NOTE | 2024-01-06 23:39 | PC.NURSE ---
Pt wanting something to eat, given couple bites of peaches and small amt of water. VSS, call placed to Kai to give report.
[2024-01-06 23:41] LABS: Device NASAL CANNULA; PCO2 VBG 83.6 mmHg (42.0-48.0)
[2024-01-06 23:43] LABS: Occult Blood Positive (Negative)
[2024-01-07 00:27] VITALS: BP 128/68; PULSE 85; RESP 24; TEMP 36.9; O2SAT 100
--- NOTE | 2024-01-09 12:40 | PC.NURSE ---
FINAL URINE CULTURE RESULTS: MIXED GENITAL SENTHIL ISOLATED. NO ACTION NEEDED PER DR FORREST.
--- NOTE | 2024-01-13 12:41 | PC.NURSE ---
FINAL BLOOD CULTURE REPORT: No growth after 5 days, no further action or treatment needed
--- NOTE | 2024-01-14 13:15 | PC.NURSE ---
FINAL BLOOD CULTURE RESULTS X2: NO GROWTH AFTER 5 DAYS. NO ACTION NEEDED.
== END 2024-01-07 00:27 | disposition short-term general hospital (02) ==
PROVIDERS: Emergency Provider Emergency Medicine; PCP Family Medicine
DX: J44.1 Chronic obstructive pulmonary disease with (acute) exacerbation (principal); J18.9 Pneumonia, unspecified organism; A41.9 Sepsis, unspecified organism; I50.9 Heart failure, unspecified; I48.20 Chronic atrial fibrillation, unspecified; Z79.01 Long term (current) use of anticoagulants; D64.9 Anemia, unspecified; Z87.891 Personal history of nicotine dependence; Z20.822 Contact with and (suspected) exposure to COVID-19
CPT/HCPCS: 36415; 71045; 80053; 81001; 82272; 82803; 83605; 83735; 83880; 84484; 85025; 85055; 85610; 85730; 87040; 87086; 87088; 87637; 93005; 94640; 96361; 96365; 96375; 99285; J2543; J2930; J7030

== ENCOUNTER 2024-01-07 01:37 | Inpatient (IN) | payer MEDICARE, MEDICAID, SELFPAY ==
[2024-01-07] VITALS (21 sets, daily range): BP systolic 121–1458; BP diastolic 57–91; PULSE 56–119; RESP 16–20; TEMP 36.1–37.6; O2SAT 94–100; BMI 19.2
--- NOTE | ~2024-01-07 | CT_ITS ---
EXAMINATION: CTA brain carotid DATE: 01/12/2024 12:06 INDICATION: Cerebral vascular accident. TECHNIQUE: Computed tomographic angiography (CTA) of the head was performed with 100 mL Omnipaque-350 intravenous contrast. CTA of the neck was performed with intravenous contrast. Automated exposure co ntrol and iterative reconstruction technique were employed. The dose-length product was 861.11 mGy-cm . Maximum intensity projection and volume rendered 3D-reconstructions were created by the [employer] t on a separate workstation. COMPARISON: Head CT 01/12/2024, brain MRI 01/12/2024 FINDINGS: HEAD CTA: There is a large infarct involving left frontal, parietal, temporal, and axial bold lobes, left insula, and the left basal ganglia in the expected distribution of left middle cerebral artery. There is no intracranial hemorrhage or abnormal mass lesion. The orbits are normal. The mastoid air c ells are normal. There is mild mucosal thickening in sphenoid sinus. The vertebral arteries are codom inant. There is no significant stenosis of basilar artery or the posterior cerebral arteries. There i s no significant stenosis of the intracranial internal carotid arteries or anterior cerebral arteries . There is thrombus in proximal left middle cerebral artery with moderate stenosis. Posterior communi cating arteries are not identified. There is no aneurysm. NECK CTA: There are small pleural effusions. There is smooth septal thickening in the lungs, consiste nt mild pulmonary edema. There are no pathologically enlarged lymph nodes. There are nodules in the t hyroid measuring up to 9 mm, likely not clinically significant. There is associated stenosis of the v ertebral arteries. There is plaque in the proximal internal carotid arteries. There is 0% stenosis of the proximal right internal carotid artery relative to normal distal artery lumen diameter (NASCET c riteria). There is 39% stenosis of the proximal left internal carotid artery relative to normal dista l artery lumen diameter. There is severe cervical spondylosis. IMPRESSION: 1. Large acute infarct in the expected distribution of left middle cerebral artery. 2. Acute embolus in proximal left middle cerebral artery. 3. 0% stenosis of the proximal right internal carotid artery relative to normal distal artery lumen d iameter (NASCET criteria). 4. 39% stenosis of the proximal left internal carotid artery relative to normal distal artery lumen d iameter. 5. Mild pulmonary edema and small pleural effusions. Reviewed, dictated and finalized at location A. IMPRESSION: 1. Large acute infarct in the expected distribution of left middle cerebral art aj. 2. Acute embolus in proximal left middle cerebral artery. 3. 0% stenosis of the proximal right internal carotid artery relative to normal distal artery lumen diameter (NASCET criteria). 4. 39% stenosis of the proximal left internal carotid artery relative to normal distal artery lumen diameter. 5. Mild pulmonary edema and small pleural effusions.
--- NOTE | ~2024-01-07 | CT_ITS ---
EXAMINATION: CT brain wo con DATE: 01/11/2024 13:14 INDICATION: Rapid response. Altered mental status. TECHNIQUE: Computed tomography (CT) of the head was performed without intravenous contrast. The dose- length product was 605.33 mGy-cm. Automated exposure control and iterative reconstruction technique w ere employed. COMPARISON: CT dated 11/23/2023 FINDINGS: Mild generalized atrophy. Study limited by motion artifact. No acute infarction, hemorrhage , mass or mass effect. No ventriculomegaly or midline shift. Basilar cisterns are patent. Paranasal s inuses and mastoids are pneumatized. No depressed skull fractures. There are scattered mild periventr icular and subcortical white matter changes, most likely related to small vessel ischemic disease (mi croangiopathy). IMPRESSION: 1. No acute intracranial abnormality. Reviewed, dictated and finalized at location B.
--- NOTE | ~2024-01-07 | XR_ITS ---
XR chest 1V 01/11/2024 13:15 Indication: Dyspnea Procedure: AP portable chest Comparison: Comparison to multiple prior studies sequentially, with oldest reviewed study dated 12/03. Findings: Cardiomegaly. Small right pleural effusion. Bibasilar airspace disease, right greater than left. There are bilateral shoulder arthroplasties. No edema or pneumothorax. No acute osseous abnorma lity. Impression: 1: Bibasilar airspace disease, right greater than left. Differential diagnosis includes edema, pneumo valery and/or atelectasis. 2: Small right pleural effusion. Reviewed, dictated and finalized at location B. Impression: 1: Bibasilar airspace disease, right greater than left. Differential diagnosis includes edema, pneumonia and/or atelectasis. 2: Small right pleural effusion.
--- NOTE | ~2024-01-07 | MR_ITS ---
EXAMINATION: MR brain/brain stem wo/w con DATE: 01/12/2024 12:47 INDICATION: Cerebrovascular accident. TECHNIQUE: Magnetic resonance imaging (MRI) of the brain and brainstem was performed without and with 9 mL MultiHance intravenous contrast. COMPARISON: Brain MRI 11/23/2022, head CT 01/12/2024 FINDINGS: There is acute infarct involving the left frontal, parietal, temporal, and occipital lobes, left insula, left basal ganglia, and left internal capsule in the expected distribution of left midd le cerebral artery. There is soft tissue swelling in this distribution. There is cortical decreased s usceptibility-weighted signal intensity in this distribution, consistent with calcifications and/or m icrohemorrhage. There is mass effect on left lateral ventricle. There are scattered areas of nonspeci fic increased T2-weighted signal intensity in the cerebral white matter and julissa. There is no abnorma l mass lesion. The orbits are normal. There is mild mucosal thickening in the paranasal sinuses. Ther e is a trace right mastoid effusion. IMPRESSION: 1. Large acute infarct with cortical calcifications and/or microhemorrhage in the expected distributi on of left middle cerebral artery. 2. Mild nonspecific cerebral white matter disease and pontine disease, which likely represents chroni c small vessel ischemic disease. Reviewed, dictated and finalized at location A. IMPRESSION: 1. Large acute infarct with cortical calcifications and/or microhemorrhage in t he expected distribution of left middle cerebral artery. 2. Mild nonspecific cerebral white matter disease and pontine disease, which tammy parry represents chronic small vessel ischemic disease.
--- NOTE | ~2024-01-07 | CT_ITS ---
EXAMINATION: CT brain wo con DATE: 01/12/2024 10:12 INDICATION: Facial droop, generalized weakness TECHNIQUE: Computed tomography (CT) of the head was performed without intravenous contrast. The mA wa s adjusted according to patient size. Iterative reconstruction technique was employed. Exam dose: 60 5.33 mGy-cm total exam DLP. COMPARISON: 01/11/2024 CT brain FINDINGS: Bilateral vertebral artery and carotid siphon internal carotid artery calcifications. There is diminished attenuation of a large continuous area of territorial in the left middle cerebral artery territory including left parietal and temporal lobes, consistent with recent left middle cere bral artery territory infarct. There is effacement of the cortical sulci in the involved area consist ent with mild localized mass effect. There is mild impression upon the left lateral ventricle. No mid line shift or mass effect. No intracranial hemorrhage is noted. No intracranial mass lesion is evident. No subdural or epidural hematoma. There is an opacified right ethmoid air cell and localized soft tissue swelling at the posterior aspe ct of the right sphenoid sinus. The included paranasal sinuses and the mastoid air cells otherwise ar e normally developed and aerated. No fracture or bone destruction of the cranial vault IMPRESSION: Large recent left middle cerebral artery territory cerebrovascular infarct Reviewed, dictated and finalized at Location A. Reviewed, dictated and finalized at location A.
--- NOTE | 2024-01-07 01:11 | ADMGEN ---
This patient, Sahara Neal, was admitted to Medical Room 248-01. Patient/family oriented to hospital policies and general routines including ID bracelet, bed and alarms, visiting hours, pain management, procedures, bathroom and other care routines, personal items, smoking policy, room service/diet, and visiting hours. Information on how to activate the Rapid Response Team has been discussed. Patient/Family are encouraged to report perceived risks to care and to ask questions if they do not understand what they are told or what they should do.
--- NOTE | 2024-01-07 01:32 | PM.IMHP ---
H&P: HPI History of Present Illness Date/Time: 01/07/24 01:32 Chief Complaint: shortness of breath Narrative: this is a 68-year-old female with past medical history significant for chronic anemia, chronic hypoxic respiratory failure, patient uses 2 L of oxygen by nasal cannula, atrial fibrillation, rate controlled anticoagulated, chronic obstructive pulmonary disease, GERD. patient was taken to [facility] emergency room from [facility] due to shortness of breath. Preliminary workup was significant for a hemoglobin of 5.2 a brain natriuretic peptide was above 10,000 an ABG showed a pH of 7.4 pCO2 of 83 PO2 of 46 urinalysis was significant for numerous WBCs present. EXAMINATION:? XR chest 1V portable Exam Date/Time:? 01/06/2024 21:00 CDT HISTORY: SHORTNESS OF BREATH ? Comparison:? 12/22/2023. RESULT: Lines, tubes, and devices:? Bilateral shoulder arthroplasties. Lungs and pleura:? Mild diffuse reticular opacities. Subsegmental right basilar opacity with right costophrenic angle blunting. Cardiomediastinal silhouette:? Stable. Other:? No acute osseous or upper abdominal finding. ? IMPRESSION: Mild interstitial edema. Subsegmental right lower lung atelectasis/consolidation. Small right pleural effusion versus chronic blunting. Review of Systems Review of Systems: ROS unobtainable: Yes unobtainable due to medical condition ( debilitated, short of breath) PMFSH Past Medical History Medical History Anxiety Arthritis Chronic anticoagulation Chronic obstructive pulmonary disease Gastroesophageal reflux disease Paroxysmal atrial fibrillation Surgical History Surgical History History of back surgery History of cardiac catheterization History of knee surgery History of nasal septoplasty History of shoulder surgery Family History Family History Grandparent Cancer Father Diabetes mellitus Heart disease Social History Social History Social History: Surrogate medical decision maker: Pankaj Neal, spouse. Code status: Full code. Smoking packs per day: 1.5 Smoking cigarettes per day: 30.0 Years smoked: 55 Smoking pack-years: 82.50 Smoking status: Former smoker Tobacco type: cigarettes Alcohol intake: never Substance use: never Substance use type: marijuana Other substance usage details: Gummies Do You Feel Safe in your Home?: Yes Lack of Transportation: No Lack of Food: Never True Current Housing: I Have Housing Concerned About Future Housing: YES Difficulty Paying Gas/Electric Bills: No Difficulty Paying for Meds: No Currently Unemployed: No Education: Grade School Difficulty w/ Childcare or Family Care: No Spiritual care concerns: No Meds Home Medications and Allergies Home Medications Medication Instructions Recorded Confirmed Type apixaban 5 mg tablet (Eliquis) 5 mg PO Q12HR #60 tabs 06/29/22 01/07/24 Rx aspirin 81 mg chewable tablet 81 mg PO DAILY@0800 #30 tabs 06/29/22 01/07/24 Rx (Children's Aspirin) atorvastatin 20 mg tablet 20 mg PO HS #30 tabs 06/29/22 01/07/24 Rx fluoxetine 20 mg tablet 20 mg PO DAILY 1 month #30 tabs 11/25/22 01/07/24 Rx megestrol 400 mg/10 mL (40 mg/mL) 400 mg PO DAILY 01/22/23 01/07/24 History oral suspension albuterol sulfate 2.5 mg/3 mL 2.5 mg inhalation BID Wheezing 10/31/23 01/07/24 History (0.083 %) solution for nebulization albuterol sulfate 90 mcg/actuation 2 puff inhalation PRN PRN Wheezing 10/31/23 01/07/24 History aerosol inhaler donepezil 5 mg tablet 5 mg PO DAILY 10/31/23 01/07/24 History furosemide 20 mg tablet 20 mg PO DAILY 10/31/23 01/07/24 History polysaccharide iron complex 150 mg 150 mg PO BIDWM #60 caps 11/15/23 01/07/24 Rx iron capsule alprazolam 1 mg tablet 0.5 mg PO Q
[2024-01-07] MEDS: DEXTROSE 5%/0.45% SOD CHL 1,000 ML 65 ML IV CONT (03:17)
--- NOTE | 2024-01-07 07:00 | P.PNIM_ITS ---
Progress Note: A&P Assessment and Plan (1) Acute on chronic anemia: Code(s): D64.9 - Anemia, unspecified Status: Acute Assessment and Plan: Hemoglobin 5.2g/dl at outside hospital. She has a history of multiple antibodies. * Order for 2 units pRBC overnight * Repeating CBC this morning. Trend H/H * Holding Eliquis * NPO for possible scope * occult blood positive * history of iron deficiency * Blood pressures are stable at this time. SBP 120's * GI consulted and recommendations are appreciated (2) Pneumonia: Qualifiers: Laterality: right Lung location: lower lobe of lung Pneumonia type: due to unspecified organism Qualified Code(s): J18.9 - Pneumonia, unspecified organism Code(s): J18.9 - Pneumonia, unspecified organism Status: Acute Assessment and Plan: Imaging concerning for mild interstitial edema and subsegmental right lower lung atelectasis versus consolidation. As well as small right pleural effusion. * Leukocytosis on admission was 16.3 with elevated neutrophils * She is on 3 L nasal cannula. Chronically on oxygen and per her reports 2 L at baseline * MRSA was positive. Placed on contact isolation. Started on Mupirocin ointment for 5 days * Antibiotics with cefepime and vancomycin * Blood cultures pending * Schedule DuoNebs * Guaifenesin 1200 mg b.i.d. * Incentive spirometry and pep therapy ordered * Pulmonology consulted and rec's appreciated (3) Acute exacerbation of chronic obstructive pulmonary disease: Code(s): J44.1 - Chronic obstructive pulmonary disease with (acute) exacerbation Status: Acute Assessment and Plan: Increased SOB, increased cough * chronically on 2 L NC. Currently on 3 L NC. * could be 2/2 profound anemia * chest XR shows mild interstitial edema, subsegmental right lower lung atelectasis vs consolidation and small right pleural effusion * started on duo nebs and Pulmicort * on Cefepime 2 gram for possible superimposed pneumonia (4) Acute exacerbation of CHF (congestive heart failure): Qualifiers: Heart failure type: unspecified Qualified Code(s): I50.9 - Heart failure, unspecified Code(s): I50.9 - Heart failure, unspecified Status: Acute Assessment and Plan: BNP 10,639 on admission, ECHO below, +3 BLE edema * On home agents Metoprolol tartrate 50 mg PO BID, diltiazem 240 mg PO daily, lasix 20 mg daily * Cardiology was consulted * Will give IV lasix 40 mg after first transfusion of blood ECHO from 11/2023 ? 1. Complete two-dimensional, color flow and Doppler transthoracic echocardiogram is performed. ? 2. Left ventricular chamber dimension is normal. ? 3. Left ventricular systolic function is normal, estimated at 55-60%. ? 4. There is mild concentric increased left ventricular wall thickness. ? 5. The left ventricular diastolic function is abnormal. ? 6. E/e' 15 is elevated. ? 7. Atrial fibrillation. ? 8. Left atrial chamber dimension is mildly enlarged. ? 9. There is mild aortic valve sclerosis. ? 10. There is trace mitral valve regurgitation. ? 11. There is trace tricuspid valve regurgitation. ? 12. No pulmonary hypertension, estimated pulmonary arterial systolic pressure is 19 mmHg. (5) Paroxysmal atrial fibrillation: Code(s): I48.0 - Paroxysmal atrial fibrillation Status: Acute Assessment and Plan: Rate controlled with metoprolol and amiodarone and Eliquis at home * Currently holding Eliquis given possible GI bleed * Will resume home rate control agents (6) Acute UTI: Code(s): N39.0 - Uri
--- NOTE | 2024-01-07 07:00 | PM.IMPN ---
Progress Note: A&P Assessment and Plan (1) Acute on chronic anemia: Code(s): D64.9 - Anemia, unspecified Status: Acute Assessment and Plan: Hemoglobin 5.2g/dl at outside hospital. She has a history of multiple antibodies. Order for 2 units pRBC overnight Repeating CBC this morning. Trend H/H Holding Eliquis NPO for possible scope occult blood positive history of iron deficiency Blood pressures are stable at this time. SBP 120's GI consulted and recommendations are appreciated (2) Pneumonia: Qualifiers: Laterality: right Lung location: lower lobe of lung Pneumonia type: due to unspecified organism Qualified Code(s): J18.9 - Pneumonia, unspecified organism Code(s): J18.9 - Pneumonia, unspecified organism Status: Acute Assessment and Plan: Imaging concerning for mild interstitial edema and subsegmental right lower lung atelectasis versus consolidation. As well as small right pleural effusion. Leukocytosis on admission was 16.3 with elevated neutrophils She is on 3 L nasal cannula. Chronically on oxygen and per her reports 2 L at baseline MRSA was positive. Placed on contact isolation. Started on Mupirocin ointment for 5 days Antibiotics with cefepime and vancomycin Blood cultures pending Schedule DuoNebs Guaifenesin 1200 mg b.i.d. Incentive spirometry and pep therapy ordered Pulmonology consulted and rec's appreciated (3) Acute exacerbation of chronic obstructive pulmonary disease: Code(s): J44.1 - Chronic obstructive pulmonary disease with (acute) exacerbation Status: Acute Assessment and Plan: Increased SOB, increased cough chronically on 2 L NC. Currently on 3 L NC. could be 2/2 profound anemia chest XR shows mild interstitial edema, subsegmental right lower lung atelectasis vs consolidation and small right pleural effusion started on duo nebs and Pulmicort on Cefepime 2 gram for possible superimposed pneumonia (4) Acute exacerbation of CHF (congestive heart failure): Qualifiers: Heart failure type: unspecified Qualified Code(s): I50.9 - Heart failure, unspecified Code(s): I50.9 - Heart failure, unspecified Status: Acute Assessment and Plan: BNP 10,639 on admission, ECHO below, +3 BLE edema On home agents Metoprolol tartrate 50 mg PO BID, diltiazem 240 mg PO daily, lasix 20 mg daily Cardiology was consulted Will give IV lasix 40 mg after first transfusion of blood ECHO from 11/2023 ? 1. Complete two-dimensional, color flow and Doppler transthoracic echocardiogram is performed. ? 2. Left ventricular chamber dimension is normal. ? 3. Left ventricular systolic function is normal, estimated at 55-60%. ? 4. There is mild concentric increased left ventricular wall thickness. ? 5. The left ventricular diastolic function is abnormal. ? 6. E/e' 15 is elevated. ? 7. Atrial fibrillation. ? 8. Left atrial chamber dimension is mildly enlarged. ? 9. There is mild aortic valve sclerosis. ? 10. There is trace mitral valve regurgitation. ? 11. There is trace tricuspid valve regurgitation. ? 12. No pulmonary hypertension, estimated pulmonary arterial systolic pressure is 19 mmHg. (5) Paroxysmal atrial fibrillation: Code(s): I48.0 - Paroxysmal atrial fibrillation Status: Acute Assessment and Plan: Rate controlled with metoprolol and amiodarone and Eliquis at home Currently holding Eliquis given possible GI bleed Will resume home rate control agents (6) Acute UTI: Code(s): N39.0 - Urinary tract infection, site not specified Status: Acute Assessment and Plan: U/A with high WBC with clumps present, +2 bacteria, and trace leukocyte esterase +dysuria started on cefepime for PNA which will also cover for UTI leukocytosis 16.3 on admission afebrile urine culture pending (7) Gastroesophageal reflux disease: Code(s): K21.9 - Gastro-esophage
[2024-01-07 07:30] LABS: Mean Corpuscular Hemoglobin 25.8 pg (26-34); Mean Platelet Volume 9.4 fl (7.4-10.4); Platelet Count Result 485 k/mm3 (150-375); Red Blood Count 1.94 M/mm3 (4.2-5.4); Red Cell Distribution Width 16.9 % (11.5-14.5); White Blood Count 11.3 K/mm3 (4.5-10.0)
[2024-01-07 07:49] LABS: Alanine Aminotransferase 86 U/L (6-35); Alkaline Phosphatase 100 U/L (38-126); Aspartate Amino Transferase 45 U/L (14-36); Bilirubin,Total 0.6 mg/dL (0.2-1.3); Blood Urea Nitrogen 23 mg/dL (7-17); Calcium 8.4 mg/dL (8.4-10.2); Carbon Dioxide > 40 mmol/L (22-30); Chloride 90 mmol/L (98-107); Estimated CRCL calculation 47 ml/min; Estimated Glomerular Filt Rate > 60; Glucose 134 mg/dL (65-110); Potassium 4.2 mmol/L (3.4-5.0); Sodium 137 mmol/L (137-145)
[2024-01-07 08:08] LABS: Hematocrit 19.2 % (37.0-47.0)
[2024-01-07 08:17] LABS: Procalcitonin 0.1 ng/mL
[2024-01-07] MEDS: CEFEPIME 2 GM/NS 50 ML 2 GM/50 ML BAG IVPB ×2 (08:31→20:26)
[2024-01-07] MEDS: SODIUM CHLORIDE 0.9% IV 250 ML 30 ML IV CONT (10:33)
[2024-01-07] MEDS: ALPRAZolam (*CRX) 0.5 MG TABLET PO ×2 (10:57→20:27)
--- NOTE | 2024-01-07 11:43 | PM.CNCAR ---
Assessment and Plan Assessment and plan (1) Atrial fibrillation: Qualifiers: Atrial fibrillation type: unspecified Qualified Code(s): I48.91 - Unspecified atrial fibrillation Code(s): I48.91 - Unspecified atrial fibrillation Status: Chronic Plan This is a 68-year-old woman with relatively severe chronic lung disease who appears to be quite cachectic. She has chronic atrial fibrillation that is normally managed with rate control and anticoagulation as described above. She enters the hospital with worsening shortness of breath a. Her baseline labs demonstrate anemia with a hemoglobin of about 9-10 g. She is much worse than that now and not surprisingly is much more symptomatic. Obviously her systemic anticoagulation needs to be and has been stopped. She is currently receiving a unit of packed red blood cells she will probably need more than 1 unit of packed cells to resuscitate her red cell volume. Not surprisingly she is quite tachycardic at this time and for some reason none of her rate control medications have been ordered. I am going to resume her diltiazem at this time and observe her heart rate. Will either increase the dosage of that or add back the metoprolol as we go along. At this time I do not believe we are seeing the clinical syndrome of congestive heart failure given the lack of evidence of this. Presumably she was given this diagnosis because of the elevated nitric peptide level. Jake Liz MD [facility] History of Present Illness History of Present Illness Consult date/time: 01/07/24 11:43 Reason For Visit: Acute on chronic anemia Narrative: This is a 68-year-old woman I am seeing at the request of the hospitalist the stated reason for consultation is congestive heart failure. According to the record and evaluation today she does not have any compelling evidence of this. She does have a history of chronic atrial fibrillation as well as a history of severe chronic COPD and has been in the hospital here repeatedly with difficulty with shortness of breath and oxygenation. She lives up in the [facility] with her and was brought to the emergency room up there yesterday with shortness of breath and was evaluated in the ED. She was found to be profoundly anemic with a hemoglobin of 5 g and was transferred here for further evaluation and management. She is not reporting orthopnea PND or accumulating edema. She did have a recent echocardiogram done last month with shot demonstrates normal left ventricular systolic function no significant valvulopathy. Her electrocardiograms done recently all demonstrate either atrial fib or some demonstrated atrial flutter there have been no recent electrocardiograms demonstrate sinus rhythm. Her AFib has been managed by her PCP up in the [facility] with rate control and anticoagulation. Her usual rate control regimen consists of diltiazem 240 mg daily as well as metoprolol 50 mg twice daily. She does takes apixaban from 5 mg twice daily. Given her anemia obviously her apixaban has been discontinued she has not had either her diltiazem or metoprolol ordered on physical exam she is in rapid atrial fib at this time. She has conversational dyspnea with pursed lip breathing otherwise has no other active complaints. Review of Systems Constitutional: Constitutional: Reports lethargy Eyes: Eyes: Reports no additional eye complaints ENT: Reports system reviewed and no additional complaints, except as documented Cardiovascular: Cardiovascular: Reports palpitations Respiratory: Respiratory: Reports dyspnea Gastrointestinal: Gastrointestinal: Reports no additional gastrointestinal complaints Musculoskeletal: Musculoskeletal: Reports no additional musculoskeletal complaints Integumentary/Breasts: Skin/Breast: Reports system reviewed and no additional complaints, except as docu Neurologic: Comments: Alert and oriented x3 Endocrine: Endocrine: R
[2024-01-07 11:57] LABS: MRSA (PCR) DETECTED (NOT DETECTE)
[2024-01-07] MEDS: VANCOMYCIN 1,250 MG/NS 250 ML 1,250 MG/250 ML BAG 166.67 MG IVPB (12:24)
[2024-01-07] MEDS: MUPIROCIN 2% OINT 22 GM TUBE 1 APPLIC EACH NARE ×2 (12:25→20:27)
[2024-01-07] MEDS: guaiFENesin 12 HR 600 MG TABCR 1200 MG PO ×2 (12:25→20:26)
[2024-01-07] MEDS: dilTIAZem HCL CD 240 MG CAP.24HR PO (12:25)
[2024-01-07] MEDS: FUROSEMIDE INJ 40 MG/4 ML VIAL IV PUSH (12:54)
[2024-01-07] MEDS: IPRATROPIUM 0.5 MG/ALBUTEROL SULFATE 2.5 MG AMPUL.NEB 3 ML INHALATION ×2 (14:26→21:12)
--- NOTE | 2024-01-07 15:32 | WPDGICN ---
Assessment and Plan Assessment and plan (1) Acute on chronic anemia: Code(s): D64.9 - Anemia, unspecified Status: Acute Assessment and Plan: no overt gib but noted worsening anemia with positive occult blood in stool unfortunately she is tachypneic and has chronic respiratory failure, ideally this will need to be optimized because she can get any procedure- at this point of time she is in poor shape to undergo anesthesia, no scopes unless obvious gib and need to do it in urgent basis. recommend hold anticoagulation, protonix and monitor for obvious signs of bleeding she had CT scan last month, no acute abnormal findings GI tract other than cholelithiasis (2) Acute exacerbation of chronic obstructive pulmonary disease: Code(s): J44.1 - Chronic obstructive pulmonary disease with (acute) exacerbation Status: Acute Assessment and Plan: treated (3) Acute exacerbation of CHF (congestive heart failure): Qualifiers: Heart failure type: unspecified Qualified Code(s): I50.9 - Heart failure, unspecified Code(s): I50.9 - Heart failure, unspecified Status: Acute Assessment and Plan: by cardiology (4) Pneumonia: Qualifiers: Laterality: right Lung location: lower lobe of lung Pneumonia type: due to unspecified organism Qualified Code(s): J18.9 - Pneumonia, unspecified organism Code(s): J18.9 - Pneumonia, unspecified organism Status: Acute Assessment and Plan: on abx (5) Guaiac positive stools: Code(s): R19.5 - Other fecal abnormalities Status: Acute Assessment and Plan: she is high risk to undergo colonoscopy with anesthesia at this point (6) Acute and chronic respiratory failure: Code(s): J96.20 - Acute and chronic respiratory failure, unspecified whether with hypoxia or hypercapnia Status: Acute (7) Chronic anticoagulation: Code(s): Z79.01 - alf (current) use of anticoagulants Status: Acute GI Consult Note Consult date/time: 01/07/24 15:32 Reason for consult: acute on chronic anemia, FOBT + HPI: Sahara Neal is a 68 year old female with past medical history of COPD on 4 L oxygen via nasal cannula at the intermediate,? atrial fibrillation on Eliquis,? essential hypertension, chronic anemia, GERD, pneumonia, recent admission?to hospital for pneumonia and earlier this year also for worsening respiratory failure that required intubation and brief ICU stay. This time she was taken to ER at [place] because was lethargic, generalized weakness and blood work was significant for a hemoglobin of 5.2 a brain natriuretic peptide was above 10,000 an ABG showed a pH of 7.4 pCO2 of 83 PO2 of 46 urinalysis was significant for numerous WBCs present. CXT with atelectasis. Admitted to floor with pneumonia, no overt gib but noted + FOBT. During previous hospitalization earlier this year her hgb as low as 6.7. She does not recall getting scopes (she is poor historian- I have poor memory ) Review of Systems Constitutional: Constitutional: Reports lethargy Eyes: Eyes: Denies blurry vision ENT: Reports Normal hearing present Cardiovascular: Cardiovascular: Denies chest pain Respiratory: Respiratory: Reports dyspnea on exertion Gastrointestinal: Gastrointestinal: Denies nausea Musculoskeletal: Musculoskeletal: Denies neck pain Integumentary/Breasts: Skin/Breast: Denies rash Neurologic: Denies Abnormal speech present Psychiatric: Psychiatric: Denies behavioral changes [facility] Past Medical History Medical History Anxiety Arthritis Chronic anticoagulation Chronic obstructive pulmonary disease Gastroesophageal reflux disease Paroxysmal atrial fibrillation Surgical History Surgical History History of back surgery History of cardiac catheterization History of knee surgery His
[2024-01-07] MEDS: PANTOPRAZOLE SODIUM IV 40 MG VIAL IV PUSH (16:01)
[2024-01-07 17:39] LABS: Hemoglobin 8.2 g/dL (12.0-15.0)
[2024-01-07] MEDS: ATORVASTATIN 20 MG TABLET PO (20:26)
[2024-01-07] MEDS: ONDANSETRON INJ 4 MG/2 ML VIAL IV PUSH (20:26)
[2024-01-07] MEDS: METOPROLOL TARTRATE 50 MG TAB PO (20:26)
[2024-01-07] MEDS: ACETAMINOPHEN 325 MG TABLET 650 MG PO (20:33)
[2024-01-07] MEDS: BUDESONIDE RESPULE NEB 0.5 MG/2 ML AMP INHALATION (21:12)
[2024-01-08] VITALS (18 sets, daily range): BP systolic 116–150; BP diastolic 66–82; PULSE 71–111; RESP 16–20; TEMP 36.4–37.2; O2SAT 92–98; BMI 19.3
[2024-01-08] MEDS: IPRATROPIUM 0.5 MG/ALBUTEROL SULFATE 2.5 MG AMPUL.NEB 3 ML INHALATION ×4 (03:58→20:47)
--- NOTE | 2024-01-08 04:00 | PCRCNOTE ---
pt refused to wear Cpap tonight. Pt somewhat confused and stated it was blowing out ice cold air. Pt stated she would try it again later.
[2024-01-08] MEDS: ACETAMINOPHEN 325 MG TABLET 650 MG PO ×2 (04:06→17:07)
[2024-01-08 05:58] LABS: Basophils Percent Auto 0.1 % (0.2-1.2); Hemoglobin 7.5 g/dL (12.0-15.0); Immature Granulocyte Absolute 0.08 K/mm3 (0.00-0.031); Immature Granulocyte Percent A 0.6 % (0-0.5); Lymphocytes Absolute Auto 0.46 K/mm3 (0.9-3.2); Lymphocytes Percent Auto 3.3 % (18.3-44.2); Mean Corpuscular Hemoglobin 27.8 pg (26-34); Mean Corpuscular Volume 92.6 fl (80-100); Mean Platelet Volume 9.7 fl (7.4-10.4); Monocytes Absolute Auto 1.3 K/mm3 (0.1-0.6); Monocytes Percent Auto 9.1 % (2.6-8.5); Neutrophils Absolute Auto 12.1 K/mm3 (1.3-6.7); Neutrophils Percent Auto 86.9 % (45.5-73.1); Nucleated Red Blood Cells Perc 0.8 % (0.0-0.2); Platelet Count Result 427 k/mm3 (150-375); Red Cell Distribution Width 16.3 % (11.5-14.5); White Blood Count 13.9 K/mm3 (4.5-10.0)
[2024-01-08 06:16] LABS: INR 1.4; Prothrombin Time 17.4 Seconds (11.1-14.7)
[2024-01-08 06:17] LABS: Partial Thromboplastin Time 29.7 Seconds (22.3-36.8)
[2024-01-08 06:26] LABS: Platelet Estimate Slightly Increased (Adequate)
[2024-01-08 06:27] LABS: Alanine Aminotransferase 77 U/L (6-35); Albumin Level 2.9 g/dL (3.5-5.1); Alkaline Phosphatase 89 U/L (38-126); Aspartate Amino Transferase 38 U/L (14-36); Bilirubin,Total 0.8 mg/dL (0.2-1.3); Blood Urea Nitrogen 23 mg/dL (7-17); Calcium 8.4 mg/dL (8.4-10.2); Carbon Dioxide > 40 mmol/L (22-30); Chloride 90 mmol/L (98-107); Estimated CRCL calculation 42 ml/min; Estimated Glomerular Filt Rate > 60; Glucose 89 mg/dL (65-110); Hypochromasia 3+; Ovalocytes 1+; Potassium 3.7 mmol/L (3.4-5.0); Schistocytes None Seen; Sodium 135 mmol/L (137-145); Stomatocytes 1+
[2024-01-08 06:28] LABS: Polychromasia 1+
--- NOTE | 2024-01-08 06:58 | P.PNIM_ITS ---
Progress Note: A&P Assessment and Plan (1) Acute on chronic anemia: Code(s): D64.9 - Anemia, unspecified Status: Acute Assessment and Plan: Hemoglobin 5.2g/dl at outside hospital. She has a history of multiple antibodies. * Order for 2 units pRBC overnight * Repeating CBC this morning. Trend H/H * Holding Eliquis * NPO for possible scope * occult blood positive * history of iron deficiency * Blood pressures are stable at this time. SBP 120's * GI consulted and recommendations are appreciated 01/08/24: * GI saw her and no colonoscopy at this point unless overt GI bleeding noted due to her respiratory status. * Protonix b.i.d. IV * Hgb 5.0-->8.2 after 2 units--->7.5 this morning * Q 6 hour H/H * Monitor bowel movements * Transfuse if hemoglobin less than 7 (2) Pneumonia: Qualifiers: Laterality: right Lung location: lower lobe of lung Pneumonia type: due to unspecified organism Qualified Code(s): J18.9 - Pneumonia, unspecified organism Code(s): J18.9 - Pneumonia, unspecified organism Status: Inactive Assessment and Plan: Imaging concerning for mild interstitial edema and subsegmental right lower lung atelectasis versus consolidation. As well as small right pleural effusion. * Leukocytosis on admission was 16.3 with elevated neutrophils * She is on 3 L nasal cannula. Chronically on oxygen and per her reports 2 L at baseline * MRSA was positive. Placed on contact isolation. Started on Mupirocin ointment for 5 days * Antibiotics with cefepime and vancomycin * Blood cultures pending * Schedule DuoNebs * Guaifenesin 1200 mg b.i.d. * Incentive spirometry and pep therapy ordered * Pulmonology consulted and rec's appreciated 01/08/24: * Leukocytosis down to 11.3 after antibiotics and slightly increase to 13.9 today. * Suspect the increase could be from the 2 units of pRBC she received, she has antibodies. * Blood cultures still pending (3) Acute exacerbation of chronic obstructive pulmonary disease: Code(s): J44.1 - Chronic obstructive pulmonary disease with (acute) exacerbation Status: Inactive Assessment and Plan: Increased SOB, increased cough * chronically on 2 L NC. Currently on 3 L NC. * could be 2/2 profound anemia * chest XR shows mild interstitial edema, subsegmental right lower lung atelectasis vs consolidation and small right pleural effusion * started on duo nebs and Pulmicort * No wheezing * on Cefepime 2 gram for possible superimposed pneumonia 01/08/24: * Shortness of breath is improved today * No wheezing (4) Acute exacerbation of CHF (congestive heart failure): Qualifiers: Heart failure type: unspecified Qualified Code(s): I50.9 - Heart failure, unspecified Code(s): I50.9 - Heart failure, unspecified Status: Inactive Assessment and Plan: BNP 10,639 on admission, ECHO below, +3 BLE edema * On home agents Metoprolol tartrate 50 mg PO BID, diltiazem 240 mg PO daily, lasix 20 mg daily * Cardiology was consulted * Will give IV lasix 40 mg after first transfusion of blood 01/07: * Breathing has improved today * +2 swelling to her ankles but less so in her feet ECHO from 11/2023 ? 1. Complete two-dimensional, color flow and Doppler transthoracic echocardiogram is performed. ? 2. Left ventricular chamber dimension is normal. ? 3. Left ventricular systolic function is normal, estimated at 55-60%. ? 4. There is mild concentric increased left ventricular wall thickness. ? 5. The left ventricular diastolic function is
--- NOTE | 2024-01-08 06:58 | PM.IMPN ---
Progress Note: A&P Assessment and Plan (1) Acute on chronic anemia: Code(s): D64.9 - Anemia, unspecified Status: Acute Assessment and Plan: Hemoglobin 5.2g/dl at outside hospital. She has a history of multiple antibodies. Order for 2 units pRBC overnight Repeating CBC this morning. Trend H/H Holding Eliquis NPO for possible scope occult blood positive history of iron deficiency Blood pressures are stable at this time. SBP 120's GI consulted and recommendations are appreciated 01/08/24: GI saw her and no colonoscopy at this point unless overt GI bleeding noted due to her respiratory status. Protonix b.i.d. IV Hgb 5.0-->8.2 after 2 units--->7.5 this morning Q 6 hour H/H Monitor bowel movements Transfuse if hemoglobin less than 7 (2) Pneumonia: Qualifiers: Laterality: right Lung location: lower lobe of lung Pneumonia type: due to unspecified organism Qualified Code(s): J18.9 - Pneumonia, unspecified organism Code(s): J18.9 - Pneumonia, unspecified organism Status: Inactive Assessment and Plan: Imaging concerning for mild interstitial edema and subsegmental right lower lung atelectasis versus consolidation. As well as small right pleural effusion. Leukocytosis on admission was 16.3 with elevated neutrophils She is on 3 L nasal cannula. Chronically on oxygen and per her reports 2 L at baseline MRSA was positive. Placed on contact isolation. Started on Mupirocin ointment for 5 days Antibiotics with cefepime and vancomycin Blood cultures pending Schedule DuoNebs Guaifenesin 1200 mg b.i.d. Incentive spirometry and pep therapy ordered Pulmonology consulted and rec's appreciated 01/08/24: Leukocytosis down to 11.3 after antibiotics and slightly increase to 13.9 today. Suspect the increase could be from the 2 units of pRBC she received, she has antibodies. Blood cultures still pending (3) Acute exacerbation of chronic obstructive pulmonary disease: Code(s): J44.1 - Chronic obstructive pulmonary disease with (acute) exacerbation Status: Inactive Assessment and Plan: Increased SOB, increased cough chronically on 2 L NC. Currently on 3 L NC. could be 2/2 profound anemia chest XR shows mild interstitial edema, subsegmental right lower lung atelectasis vs consolidation and small right pleural effusion started on duo nebs and Pulmicort No wheezing on Cefepime 2 gram for possible superimposed pneumonia 01/08/24: Shortness of breath is improved today No wheezing (4) Acute exacerbation of CHF (congestive heart failure): Qualifiers: Heart failure type: unspecified Qualified Code(s): I50.9 - Heart failure, unspecified Code(s): I50.9 - Heart failure, unspecified Status: Inactive Assessment and Plan: BNP 10,639 on admission, ECHO below, +3 BLE edema On home agents Metoprolol tartrate 50 mg PO BID, diltiazem 240 mg PO daily, lasix 20 mg daily Cardiology was consulted Will give IV lasix 40 mg after first transfusion of blood 01/07: Breathing has improved today +2 swelling to her ankles but less so in her feet ECHO from 11/2023 ? 1. Complete two-dimensional, color flow and Doppler transthoracic echocardiogram is performed. ? 2. Left ventricular chamber dimension is normal. ? 3. Left ventricular systolic function is normal, estimated at 55-60%. ? 4. There is mild concentric increased left ventricular wall thickness. ? 5. The left ventricular diastolic function is abnormal. ? 6. E/e' 15 is elevated. ? 7. Atrial fibrillation. ? 8. Left atrial chamber dimension is mildly enlarged. ? 9. There is mild aortic valve sclerosis. ? 10. There is trace mitral valve regurgitation. ? 11. There is trace tricuspid valve regurgitation. ? 12. No pulmonary hypertension, estimated pulmonary arterial systolic pressure is 19 mmHg. (5) Paroxysmal atrial fibrillation: Code(s): I48.0 - Paroxysmal
[2024-01-08] MEDS: BUDESONIDE RESPULE NEB 0.5 MG/2 ML AMP INHALATION ×2 (08:35→20:47)
[2024-01-08] MEDS: ALPRAZolam (*CRX) 0.5 MG TABLET PO ×3 (08:43→22:29)
[2024-01-08] MEDS: FLUoxetine HCL 20 MG CAPSULE PO (08:43)
[2024-01-08] MEDS: guaiFENesin 12 HR 600 MG TABCR 1200 MG PO ×2 (08:43→22:29)
[2024-01-08] MEDS: METOPROLOL TARTRATE 50 MG TAB PO ×2 (08:44→22:29)
[2024-01-08] MEDS: DONEPEZIL HCL 5 MG TABLET PO (08:47)
[2024-01-08] MEDS: PANTOPRAZOLE SODIUM IV 40 MG VIAL IV PUSH ×2 (09:02→22:29)
[2024-01-08] MEDS: CEFEPIME 2 GM/NS 50 ML 2 GM/50 ML BAG IVPB ×2 (09:02→22:31)
[2024-01-08] MEDS: dilTIAZem HCL CD 240 MG CAP.24HR PO (09:03)
[2024-01-08] MEDS: MUPIROCIN 2% OINT 22 GM TUBE 1 APPLIC EACH NARE ×2 (09:08→22:31)
--- NOTE | 2024-01-08 10:23 | PCNFU ---
Addendum entered by Sylvia Mccoy RD, LDN 01/08/24 10:33: DELETE - entered in error. Charted on wrong patient. Original Note: Nutrition Follow-Up Complete: Inability to meet nutrition needs PO related to cardiac arrest as evidenced by PEG tube feedings, mechanical ventilation Goal: Meet estimated nutrition needs - goal is being met with tube feeds Pt current nutrition is Nepro @ 45 ml/h. Flush 30 ml water q 4 h. Nutrition recommendation: No new nutrition recommendations. Continue with current nutrition care plan and orders. Last recorded weight is 49.4 kg. Bowel Motility: +1 BM 12/10/23 Labs Reviewed: Hgb 10.0. Hct 32.9, Na 136, GFR 55, BUN 43, Cre 1.2 Meds Noted: No sedation. Leppra, lovenox, ondansetron Skin: WNL Additional Notes: Tolerating tube feeds. Nepro @ 45 ml/h: 1782 kcal (~90% EER), 80 g protein, 720 ml free water. Continue current nutrition care plan.
[2024-01-08] MEDS: polyethylene glycoL 3350 17 GM POWD.PACK PO (10:32)
[2024-01-08] MEDS: SENNA/DOCUSATE SODIUM TABLET 1 TAB PO (10:32)
[2024-01-08] MEDS: VANCOMYCIN 1,000 MG/NS 250 ML 1,000 MG/250 ML BAG 250 MG IVPB (12:37)
--- NOTE | 2024-01-08 14:48 | WPDGIPROGNO ---
Progress Note: A&P Assessment and Plan (1) Acute on chronic anemia: Code(s): D64.9 - Anemia, unspecified Status: Acute Assessment and Plan: responded to blood transfusion no overt gib given respiratory status and previous intubation due to worsening failure, I think she will be high risk to undergo anesthesia if we plan to do scopes. I talked to about it and he also understood of course if rather more acute gib then we can proceed in urgent basis for now I recommend protonix daily and monitor for signs of bleeding she is feeling better (2) Acute and chronic respiratory failure: Code(s): J96.20 - Acute and chronic respiratory failure, unspecified whether with hypoxia or hypercapnia Status: Acute Assessment and Plan: on treatment (3) Guaiac positive stools: Code(s): R19.5 - Other fecal abnormalities Status: Inactive Assessment and Plan: scopes if/when overall status improve (4) Paroxysmal atrial fibrillation: Code(s): I48.0 - Paroxysmal atrial fibrillation Status: Acute (5) Pneumonia: Qualifiers: Laterality: right Lung location: lower lobe of lung Pneumonia type: due to unspecified organism Qualified Code(s): J18.9 - Pneumonia, unspecified organism Code(s): J18.9 - Pneumonia, unspecified organism Status: Inactive Assessment and Plan: on iv antibiotics (6) Chronic obstructive pulmonary disease: Code(s): J44.9 - Chronic obstructive pulmonary disease, unspecified Status: Acute Subjective Date/time seen: 01/08/24 14:48 Interval history: no report of bleeding she is eating regular diet and feeling better is at bedside, he says that she got confused after she was started a new medication in the care home Review of Systems Review of Systems: All systems reviewed & are unremarkable except as noted in HPI and below Exam Const: Other: Thin, chronically ill and cachectic, conversational dyspnea using oxygen HENMT: Face/Nose/Sinus: Normal nares present Eyes: Sclera: sclerae normal Neck: Neck: supple Resp: Other: Patient is tachypneic and has a few scattered rhonchi and wheezes at this time Cardio: Rhythm: abnormal rhythm irregularly irregular GI: GI Palp: Yes Soft to palpation and No Tenderness to palpation present (GI) Auscultation: normal bowel sounds Skin: General skin exam: no rashes or lesions noted Neuro: Speech: normal speech Other: Alert and oriented Extrem: Other: no significant edema Psych: Affect: normal affect Objective Data Vital Signs Vital Signs: Vital Signs - 24 hr 01/07/24 15:10 01/07/24 17:10 01/07/24 19:49 Temperature 97.4 F L 97.7 F Pulse Rate 103 H 104 H 104 H Respiratory Rate 20 16 16 Blood Pressure 148/87 H 137/78 Pulse Oximetry 100 98 98 Oxygen Delivery Nasal Cannula Oxygen Flow Rate 3 Fraction of Inspired Oxygen 01/07/24 21:17 01/07/24 21:12 01/07/24 21:28 Temperature 99.7 F H Pulse Rate 97 100 102 H Respiratory Rate 17 20 20 Blood Pressure 137/91 H Pulse Oximetry 96 Oxygen Delivery Oxygen Flow Rate Fraction of Inspired Oxygen 01/07/24 22:26 01/08/24 03:58 01/08/24 04:05 Temperature Pulse Rate 98 99 Respiratory Rate 20 20 Blood Pressure Pulse Oximetry 97 Oxygen Delivery Nasal Cannula Oxygen Flow Rate 2 Fraction of Inspired Oxygen 01/08/24 05:17 01/08/24 07:34 01/08/24 08:35 Temperature 98.4 F 98.5 F Pulse Rate 111 H 90 Respiratory Rate 17 18 Blood Pressure 127/66 142/82 H Pulse Oximetry 94 97 95 Oxygen Delivery Nasal Cannula Oxygen Flow Rate 2 Fraction of Inspired Oxygen 01/08/24 08:35 01/08/24 08:44 01/08/24 08:52 Temperature Pulse Rate 96 90 94 Respiratory Rate 20 20 Blood Pressure Pulse Oximetry Oxygen Delivery Oxygen Flow Rate Fraction of Inspired Oxygen 01/08/24 11:58 01/08/24 13:11
[2024-01-08 15:03] LABS: Hematocrit 26.2 % (37.0-47.0); Hemoglobin 7.7 g/dL (12.0-15.0)
[2024-01-08] MEDS: FUROSEMIDE INJ 40 MG/4 ML VIAL IV PUSH (17:27)
[2024-01-08] MEDS: ATORVASTATIN 20 MG TABLET PO (22:28)
[2024-01-09] VITALS (15 sets, daily range): BP systolic 102–103; BP diastolic 54–60; PULSE 54–95; RESP 16–20; TEMP 36–36.8; O2SAT 95–100
[2024-01-09] MEDS: IPRATROPIUM 0.5 MG/ALBUTEROL SULFATE 2.5 MG AMPUL.NEB 3 ML INHALATION ×4 (02:13→20:57)
[2024-01-09] MEDS: BUDESONIDE RESPULE NEB 0.5 MG/2 ML AMP INHALATION ×2 (07:36→20:57)
[2024-01-09] MEDS: METOPROLOL TARTRATE 50 MG TAB PO ×2 (09:20→21:10)
[2024-01-09] MEDS: guaiFENesin 12 HR 600 MG TABCR 1200 MG PO ×2 (09:20→21:10)
[2024-01-09] MEDS: PANTOPRAZOLE SODIUM IV 40 MG VIAL IV PUSH ×2 (09:21→21:17)
[2024-01-09] MEDS: CEFEPIME 2 GM/NS 50 ML 2 GM/50 ML BAG IVPB ×2 (09:21→21:09)
[2024-01-09] MEDS: DONEPEZIL HCL 5 MG TABLET PO (09:21)
[2024-01-09] MEDS: FLUoxetine HCL 20 MG CAPSULE PO (09:21)
[2024-01-09] MEDS: dilTIAZem HCL CD 240 MG CAP.24HR PO (09:21)
[2024-01-09] MEDS: polyethylene glycoL 3350 17 GM POWD.PACK PO (09:21)
[2024-01-09] MEDS: MUPIROCIN 2% OINT 22 GM TUBE 1 APPLIC EACH NARE ×2 (09:22→21:18)
[2024-01-09] MEDS: ALPRAZolam (*CRX) 0.5 MG TABLET PO ×2 (09:32→21:13)
[2024-01-09 10:37] LABS: Basophils Percent Auto 0.1 % (0.2-1.2); Eosinophils Percent Auto 0.1 % (0-4.4); Hematocrit 30.3 % (37.0-47.0); Hemoglobin 8.7 g/dL (12.0-15.0); Immature Granulocyte Absolute 0.07 K/mm3 (0.00-0.031); Immature Granulocyte Percent A 0.5 % (0-0.5); Lymphocytes Absolute Auto 0.96 K/mm3 (0.9-3.2); Lymphocytes Percent Auto 6.8 % (18.3-44.2); Mean Corpuscular HGB Conc 28.7 g/dl (32-36); Mean Corpuscular Hemoglobin 27.4 pg (26-34); Mean Corpuscular Volume 95.3 fl (80-100); Mean Platelet Volume 9.6 fl (7.4-10.4); Monocytes Absolute Auto 0.9 K/mm3 (0.1-0.6); Monocytes Percent Auto 6.7 % (2.6-8.5); Neutrophils Absolute Auto 12.1 K/mm3 (1.3-6.7); Neutrophils Percent Auto 85.8 % (45.5-73.1); Nucleated Red Blood Cells Perc 0.4 % (0.0-0.2); Platelet Count Result 433 k/mm3 (150-375); Red Blood Count 3.18 M/mm3 (4.2-5.4); White Blood Count 14.1 K/mm3 (4.5-10.0)
--- NOTE | 2024-01-09 10:38 | PM.CNPUL ---
Assessment and Plan Assessment and plan (1) Acute and chronic respiratory failure: Code(s): J96.20 - Acute and chronic respiratory failure, unspecified whether with hypoxia or hypercapnia Status: Acute Assessment and Plan: When she arrived at [place] she had acute shortness of breath,; Venous blood gas showed pH 7.37, pCO2 83, normal venous blood gas pCO2 should not be over 48, PO2 56 which is low and HC03 47 which is high. she has these acute episodes with pCO2 significantly elevated. Last month she had 3 blood gases with pCO2 in the 60s. She tells me that home CPAP was recommended. She may be able to qualify for a noninvasive positive-pressure device without a sleep study. I will start the process to get this set up to keep her from having abrupt episodes of decompensation at home. No PFT in the system. Will need PFT, 6 min walk, will check alpha-1 levels. if she has pneumonia it is not a bacterial pneumonia with a negative procalcitonin. I will check an expanded respiratory pathogen panel. Consider HIV testing? She appears immunocompromised. (2) Chronic obstructive pulmonary disease: Code(s): J44.9 - Chronic obstructive pulmonary disease, unspecified Status: Acute Assessment and Plan: Longstanding COPD, on home oxygen for the last year, has episodes of hypercapnic hypoxemic respiratory failure often associated with rapid atrial fibrillation currently does not have decompensated heart failure. Her home COPD medications will be reviewed. She has a nebulizer at home using it twice a day. Some of the challenges in managing this patient include going to several different facilities, not having a unified medical record, and the patient's poor memory. (3) Atelectasis: Code(s): J98.11 - Atelectasis Status: Acute Assessment and Plan: CXR January 05 shows atelectasis and small effusion in the right base, will add vibratory valve to help clear secretions mikael in the right base Plan * non invasive positive pressure ventilator for home use; I notified Resp Therapy Dept to start process to acquire for home use. Multiple ABGs with pCO2 in the 60s and higher; this admission VBG with pCO2 83, upper limit normal is 48 mmHg * alpha 1 antitrypsin labs- check for A1AT deficiency, most common genetic defect in [place] Caucasians,; inherited emphysema * check extended respiratory pathogen panel * ALIZA cascade, she has bizarre blood loss, could she have vasculitis? * consider HIV testing; recurrent infections, weight loss, wasting syndrome, infiltrates without etiology * recent COVID; (+) Oct 31; her CXR was more clear Dec 21 than it was January 05. This is not a lingering COVID infiltrate. * Cornet valve to assist with clearing right base atelectasis * PFT on follow up 6 - 8 weeks after discharge; has never had pulmonary evaluation that I can see * request records from [place]; she was there for a few weeks per History of Present Illness History of Present Illness Consult date: 01/09/24 Requesting physician: Gia Padron APRN Chief complaint: Pneumonia Narrative: Patient was seen January 09, 2024 Room 248 at 10:40 am. I spoke with her Pankaj Neal by phone [phone]; pt is confused at times, has episodes of vivid dreaming, thinks her dreams are real, cannot recall dates, confusion worse at times. Don tells me that he primary doctor is Jake Ny at [facility], has seen him for years. Dr Anish Barnes is a new doctor for her since [place] admission. reason for consult: pneumonia, COPD, O2 NEW: Sahara Nael is a 68-year-old woman with chronic and acute medical conditions; COPD, has been on oxygen for a year, quit smoking about then; has chronic atrial fibrillation on diltiazem and metoprol
[2024-01-09 10:51] LABS: INR 1.1; Prothrombin Time 14.9 Seconds (11.1-14.7)
[2024-01-09 10:52] LABS: Partial Thromboplastin Time 25.8 Seconds (22.3-36.8)
[2024-01-09 11:17] LABS: Anisocytosis 1+; Hypochromasia 2+; Ovalocytes 1+; Platelet Estimate Increased (Adequate); Schistocytes None Seen
[2024-01-09 11:39] LABS: Alanine Aminotransferase 56 U/L (6-35); Albumin Level 2.9 g/dL (3.5-5.1); Alkaline Phosphatase 79 U/L (38-126); Aspartate Amino Transferase 27 U/L (14-36); Bilirubin,Total 0.7 mg/dL (0.2-1.3); Blood Urea Nitrogen 23 mg/dL (7-17); Calcium 8.5 mg/dL (8.4-10.2); Carbon Dioxide > 40 mmol/L (22-30); Chloride 93 mmol/L (98-107); Estimated CRCL calculation 42 ml/min; Estimated Glomerular Filt Rate > 60; Glucose 121 mg/dL (65-110); Potassium 3.8 mmol/L (3.4-5.0); Sodium 135 mmol/L (137-145)
[2024-01-09 12:41] LABS: Vancomycin Trough 10.9 ug/mL (10.0-20.0)
[2024-01-09] MEDS: HYDROcodone/acetaminophen (*CRX) 7.5-325 MG TABLET 1 TAB PO ×2 (13:27→21:12)
[2024-01-09] MEDS: VANCOMYCIN 1,500 MG/NS 500 ML 1,500 MG/500 ML BAG 250 MG IVPB (13:28)
--- NOTE | 2024-01-09 14:38 | WPDGIPROGNO ---
Progress Note: A&P Assessment and Plan (1) Acute on chronic anemia: Code(s): D64.9 - Anemia, unspecified Status: Acute Assessment and Plan: responded to blood transfusion and hgb stable ~ 8 normal brown stool per patient without overt gib given respiratory status and previous intubation due to worsening failure, I think she will be high risk to undergo anesthesia if we plan to do scopes. I prefer to give her more time to recover and probably we can do scopes as outpatient (right now also being treated for pneumonia) for now I recommend protonix daily and monitor for signs of bleeding (2) Acute and chronic respiratory failure: Code(s): J96.20 - Acute and chronic respiratory failure, unspecified whether with hypoxia or hypercapnia Status: Acute Assessment and Plan: on treatment (3) Guaiac positive stools: Code(s): R19.5 - Other fecal abnormalities Status: Inactive Assessment and Plan: scopes if/when overall status improve (4) Paroxysmal atrial fibrillation: Code(s): I48.0 - Paroxysmal atrial fibrillation Status: Acute (5) Pneumonia: Qualifiers: Laterality: right Lung location: lower lobe of lung Pneumonia type: due to unspecified organism Qualified Code(s): J18.9 - Pneumonia, unspecified organism Code(s): J18.9 - Pneumonia, unspecified organism Status: Inactive Assessment and Plan: on iv antibiotics (6) Chronic obstructive pulmonary disease: Code(s): J44.9 - Chronic obstructive pulmonary disease, unspecified Status: Acute Subjective Date/time seen: 01/09/24 14:38 Interval history: she is comfortable lying in bed wearing oxygen she says that normal brown stool Review of Systems Review of Systems: All systems reviewed & are unremarkable except as noted in HPI and below Exam Const: Other: Thin, chronically ill and cachectic using oxygen HENMT: Face/Nose/Sinus: Normal nares present Eyes: Sclera: sclerae normal Neck: Neck: supple Resp: Other: less tachypneic and has a few scattered rhonchi Cardio: Rhythm: abnormal rhythm irregularly irregular GI: GI Palp: Yes Soft to palpation and No Tenderness to palpation present (GI) Auscultation: normal bowel sounds Skin: General skin exam: no rashes or lesions noted Neuro: Speech: normal speech Other: Alert and oriented Extrem: Other: no significant edema Psych: Affect: normal affect Objective Data Vital Signs Vital Signs: Vital Signs - 24 hr 01/08/24 15:30 01/08/24 20:48 01/08/24 20:48 Temperature 99.0 F Pulse Rate 98 90 Respiratory Rate 18 18 Blood Pressure 116/75 Pulse Oximetry 98 93 Oxygen Delivery Nasal Cannula Oxygen Flow Rate 2 Fraction of Inspired Oxygen 28 01/08/24 20:56 01/08/24 21:27 01/08/24 22:29 Temperature 98.3 F Pulse Rate 92 92 92 Respiratory Rate 18 18 Blood Pressure 150/69 H Pulse Oximetry 95 Oxygen Delivery Oxygen Flow Rate Fraction of Inspired Oxygen 01/08/24 23:40 01/08/24 20:00 01/09/24 02:15 Temperature 97.5 F L Pulse Rate 90 83 Respiratory Rate 17 18 Blood Pressure 116/73 Pulse Oximetry 92 92 Oxygen Delivery Nasal Cannula Oxygen Flow Rate 2 Fraction of Inspired Oxygen 01/09/24 02:19 01/09/24 07:39 01/09/24 07:39 Temperature Pulse Rate 88 88 Respiratory Rate 18 18 Blood Pressure Pulse Oximetry 95 Oxygen Delivery Nasal Cannula Oxygen Flow Rate 2 Fraction of Inspired Oxygen 01/09/24 07:47 01/09/24 09:20 01/09/24 08:00 Temperature Pulse Rate 86 95 Respiratory Rate 18 Blood Pressure Pulse Oximetry 95 Oxygen Delivery Nasal Cannula Oxygen Flow Rate 2 Fraction of Inspired Oxygen 01/09/24 13:49 01/09/24 13:49 01/09/24 13:57 Temperature 96.8 F L Pulse Rate 89 54 L 81 Respiratory Rate 20 18 20 Blood Pressure 103/54 L Pulse Oximetry 99 Oxygen Delivery Oxygen
[2024-01-09 14:55] LABS: Hematocrit 25.8 % (37.0-47.0); Hemoglobin 7.6 g/dL (12.0-15.0)
--- NOTE | 2024-01-09 15:55 | P.PNIM_ITS ---
Progress Note: A&P Assessment and Plan (1) Acute on chronic anemia: Code(s): D64.9 - Anemia, unspecified Status: Chronic Assessment and Plan: Hemoglobin 5.2g/dl at outside hospital. She has a history of multiple antibodies. * s/p 2 units pRBC * Trend H/H * Holding Eliquis * occult blood positive * GI saw her and no colonoscopy at this point unless overt GI bleeding noted due to her respiratory status. * Protonix b.i.d. IV * Monitor bowel movements * Transfuse if hemoglobin less than 7 (2) Pneumonia: Qualifiers: Laterality: right Lung location: lower lobe of lung Pneumonia type: due to unspecified organism Qualified Code(s): J18.9 - Pneumonia, unspecified organism Code(s): J18.9 - Pneumonia, unspecified organism Status: Inactive Assessment and Plan: Imaging concerning for mild interstitial edema and subsegmental right lower lung atelectasis versus consolidation. As well as small right pleural effusion. * She is on 3 L nasal cannula. Chronically on oxygen and per her reports 2 L at baseline * MRSA was positive. Placed on contact isolation. Started on Mupirocin ointment for 5 days * Antibiotics with cefepime and vancomycin * Blood cultures still pending * Blood cultures pending * Schedule DuoNebs * Guaifenesin 1200 mg b.i.d. * Incentive spirometry and pep therapy ordered * Pulmonology consulted, rec following: * *alpha 1 antitrypsin labs- check for A1AT deficiency * *check extended respiratory pathogen panel * *ALIZA cascade * *PFT on follow up 6 - 8 weeks after discharge; has never had pulmonary evaluation that I can see * *request records from [place]; she was there for a few weeks per (3) Acute exacerbation of chronic obstructive pulmonary disease: Code(s): J44.1 - Chronic obstructive pulmonary disease with (acute) exacerbation Status: Inactive Assessment and Plan: Increased SOB, increased cough * chronically on 2 L NC. Currently on 3 L NC. * could be 2/2 profound anemia * chest XR shows mild interstitial edema, subsegmental right lower lung atelectasis vs consolidation and small right pleural effusion * started on duo nebs and Pulmicort * check HIV labs (4) Acute exacerbation of CHF (congestive heart failure): Qualifiers: Heart failure type: unspecified Qualified Code(s): I50.9 - Heart failure, unspecified Code(s): I50.9 - Heart failure, unspecified Status: Chronic Assessment and Plan: BNP 10,639 on admission, ECHO below, +3 BLE edema * On home agents Metoprolol tartrate 50 mg PO BID, diltiazem 240 mg PO daily, lasix 20 mg daily * Cardiology was consulted ECHO from 11/2023 ? 1. Complete two-dimensional, color flow and Doppler transthoracic echocardiogram is performed. ? 2. Left ventricular chamber dimension is normal. ? 3. Left ventricular systolic function is normal, estimated at 55-60%. ? 4. There is mild concentric increased left ventricular wall thickness. ? 5. The left ventricular diastolic function is abnormal. ? 6. E/e' 15 is elevated. ? 7. Atrial fibrillation. ? 8. Left atrial chamber dimension is mildly enlarged. ? 9. There is mild aortic valve sclerosis. ? 10. There is trace mitral valve regurgitation. ? 11. There is trace tricuspid valve regurgitation. ? 12. No pulmonary hypertension, estimated pulmonary arterial systolic pressure is 19 mmHg. (5) Paroxysmal atrial fibrillation: Code(s): I48.0 - Paroxysmal atrial fibrillation Status: Chronic Assessment and Plan: Rate controlled with metoprolol and amiodar
--- NOTE | 2024-01-09 15:55 | PM.IMPN ---
Progress Note: A&P Assessment and Plan (1) Acute on chronic anemia: Code(s): D64.9 - Anemia, unspecified Status: Chronic Assessment and Plan: Hemoglobin 5.2g/dl at outside hospital. She has a history of multiple antibodies. s/p 2 units pRBC Trend H/H Holding Eliquis occult blood positive GI saw her and no colonoscopy at this point unless overt GI bleeding noted due to her respiratory status. Protonix b.i.d. IV Monitor bowel movements Transfuse if hemoglobin less than 7 (2) Pneumonia: Qualifiers: Laterality: right Lung location: lower lobe of lung Pneumonia type: due to unspecified organism Qualified Code(s): J18.9 - Pneumonia, unspecified organism Code(s): J18.9 - Pneumonia, unspecified organism Status: Inactive Assessment and Plan: Imaging concerning for mild interstitial edema and subsegmental right lower lung atelectasis versus consolidation. As well as small right pleural effusion. She is on 3 L nasal cannula. Chronically on oxygen and per her reports 2 L at baseline MRSA was positive. Placed on contact isolation. Started on Mupirocin ointment for 5 days Antibiotics with cefepime and vancomycin Blood cultures still pending Blood cultures pending Schedule DuoNebs Guaifenesin 1200 mg b.i.d. Incentive spirometry and pep therapy ordered Pulmonology consulted, rec following: *alpha 1 antitrypsin labs- check for A1AT deficiency *check extended respiratory pathogen panel *ALIZA cascade *PFT on follow up 6 - 8 weeks after discharge; has never had pulmonary evaluation that I can see *request records from [place]; she was there for a few weeks per (3) Acute exacerbation of chronic obstructive pulmonary disease: Code(s): J44.1 - Chronic obstructive pulmonary disease with (acute) exacerbation Status: Inactive Assessment and Plan: Increased SOB, increased cough chronically on 2 L NC. Currently on 3 L NC. could be 2/2 profound anemia chest XR shows mild interstitial edema, subsegmental right lower lung atelectasis vs consolidation and small right pleural effusion started on duo nebs and Pulmicort check HIV labs (4) Acute exacerbation of CHF (congestive heart failure): Qualifiers: Heart failure type: unspecified Qualified Code(s): I50.9 - Heart failure, unspecified Code(s): I50.9 - Heart failure, unspecified Status: Chronic Assessment and Plan: BNP 10,639 on admission, ECHO below, +3 BLE edema On home agents Metoprolol tartrate 50 mg PO BID, diltiazem 240 mg PO daily, lasix 20 mg daily Cardiology was consulted ECHO from 11/2023 ? 1. Complete two-dimensional, color flow and Doppler transthoracic echocardiogram is performed. ? 2. Left ventricular chamber dimension is normal. ? 3. Left ventricular systolic function is normal, estimated at 55-60%. ? 4. There is mild concentric increased left ventricular wall thickness. ? 5. The left ventricular diastolic function is abnormal. ? 6. E/e' 15 is elevated. ? 7. Atrial fibrillation. ? 8. Left atrial chamber dimension is mildly enlarged. ? 9. There is mild aortic valve sclerosis. ? 10. There is trace mitral valve regurgitation. ? 11. There is trace tricuspid valve regurgitation. ? 12. No pulmonary hypertension, estimated pulmonary arterial systolic pressure is 19 mmHg. (5) Paroxysmal atrial fibrillation: Code(s): I48.0 - Paroxysmal atrial fibrillation Status: Chronic Assessment and Plan: Rate controlled with metoprolol and amiodarone and Eliquis at home Currently holding Eliquis given possible GI bleed continue home rate control agents (6) Acute UTI: Code(s): N39.0 - Urinary tract infection, site not specified Status: Ruled-out Assessment and Plan: Urine culture negative (7) Gastroesophageal reflux disease: Code(s): K21.9 - Gastro-esophageal reflux disease without esophagitis St
[2024-01-09] MEDS: ATORVASTATIN 20 MG TABLET PO (21:10)
[2024-01-09] MEDS: SENNA/DOCUSATE SODIUM TABLET 1 TAB PO (21:10)
[2024-01-10] VITALS (17 sets, daily range): BP systolic 96–109; BP diastolic 57–79; PULSE 70–92; RESP 16–22; TEMP 36.1–37.2; O2SAT 94–100
[2024-01-10] MEDS: IPRATROPIUM 0.5 MG/ALBUTEROL SULFATE 2.5 MG AMPUL.NEB 3 ML INHALATION ×4 (02:09→20:39)
[2024-01-10 06:33] LABS: Eosinophils Absolute Auto 0.1 K/mm3 (0-0.3); Eosinophils Percent Auto 1.2 % (0-4.4); Hematocrit 27.1 % (37.0-47.0); Hemoglobin 7.6 g/dL (12.0-15.0); Immature Granulocyte Absolute 0.04 K/mm3 (0.00-0.031); Immature Granulocyte Percent A 0.4 % (0-0.5); Lymphocytes Absolute Auto 1.31 K/mm3 (0.9-3.2); Lymphocytes Percent Auto 13.5 % (18.3-44.2); Mean Corpuscular Hemoglobin 26.8 pg (26-34); Mean Corpuscular Volume 95.4 fl (80-100); Mean Platelet Volume 9.8 fl (7.4-10.4); Monocytes Absolute Auto 0.9 K/mm3 (0.1-0.6); Monocytes Percent Auto 9.3 % (2.6-8.5); Neutrophils Absolute Auto 7.4 K/mm3 (1.3-6.7); Neutrophils Percent Auto 75.6 % (45.5-73.1); Nucleated Red Blood Cells Perc 0.3 % (0.0-0.2); Platelet Count Result 345 k/mm3 (150-375); Red Blood Count 2.84 M/mm3 (4.2-5.4); Red Cell Distribution Width 16.1 % (11.5-14.5); White Blood Count 9.7 K/mm3 (4.5-10.0)
[2024-01-10 06:46] LABS: INR 1.2; Partial Thromboplastin Time 27.6 Seconds (22.3-36.8); Prothrombin Time 15.4 Seconds (11.1-14.7)
[2024-01-10 06:53] LABS: Alanine Aminotransferase 42 U/L (6-35); Albumin Level 2.5 g/dL (3.5-5.1); Alkaline Phosphatase 77 U/L (38-126); Aspartate Amino Transferase 21 U/L (14-36); Bilirubin,Total 0.6 mg/dL (0.2-1.3); Blood Urea Nitrogen 22 mg/dL (7-17); Carbon Dioxide > 40 mmol/L (22-30); Chloride 95 mmol/L (98-107); Estimated CRCL calculation 47 ml/min; Estimated Glomerular Filt Rate > 60; Glucose 73 mg/dL (65-110); Potassium 4.1 mmol/L (3.4-5.0); Sodium 134 mmol/L (137-145)
[2024-01-10] MEDS: BUDESONIDE RESPULE NEB 0.5 MG/2 ML AMP INHALATION ×2 (07:17→20:37)
[2024-01-10 07:23] LABS: Platelet Estimate Adequate (Adequate); Poikilocytosis 1+; Schistocytes None Seen
[2024-01-10 07:24] LABS: Anisocytosis 2+; Hypochromasia 2+
[2024-01-10] MEDS: PANTOPRAZOLE SODIUM IV 40 MG VIAL IV PUSH ×2 (08:19→20:41)
[2024-01-10] MEDS: CEFEPIME 2 GM/NS 50 ML 2 GM/50 ML BAG IVPB (08:19)
[2024-01-10] MEDS: HYDROcodone/acetaminophen (*CRX) 7.5-325 MG TABLET 1 TAB PO ×3 (08:19→20:33)
[2024-01-10] MEDS: ALPRAZolam (*CRX) 0.5 MG TABLET PO ×3 (08:20→20:33)
[2024-01-10] MEDS: DONEPEZIL HCL 5 MG TABLET PO (08:20)
[2024-01-10] MEDS: FUROSEMIDE 20 MG TABLET PO (08:20)
[2024-01-10] MEDS: METOPROLOL TARTRATE 50 MG TAB PO ×2 (08:21→20:33)
[2024-01-10] MEDS: FLUoxetine HCL 20 MG CAPSULE PO (08:21)
[2024-01-10] MEDS: guaiFENesin 12 HR 600 MG TABCR 1200 MG PO ×2 (08:21→20:33)
[2024-01-10] MEDS: dilTIAZem HCL CD 240 MG CAP.24HR PO (08:21)
[2024-01-10] MEDS: MUPIROCIN 2% OINT 22 GM TUBE 1 APPLIC EACH NARE ×2 (08:21→20:35)
[2024-01-10] MEDS: polyethylene glycoL 3350 17 GM POWD.PACK PO (08:21)
[2024-01-10] MEDS: DOXYCYCLINE HYCLATE 100 MG TABLET PO ×2 (08:41→20:33)
--- NOTE | 2024-01-10 13:48 | PC.NURSE ---
On 01/10/24, the student, [Marie Lea], provided care and completed [facility] documentation on this patient. I have reviewed the student's documentation and agree with the findings.
[2024-01-10 15:38] LABS: Hematocrit 27.8 % (37.0-47.0); Hemoglobin 7.9 g/dL (12.0-15.0)
--- NOTE | 2024-01-10 16:30 | WPDGIPROGNO ---
Progress Note: A&P Assessment and Plan (1) Acute on chronic anemia: Code(s): D64.9 - Anemia, unspecified Status: Chronic Assessment and Plan: responded to blood transfusion and hgb stable ~ 8 normal brown stool per patient without overt gib respiratory status has improved, will schedule scopes in few more weeks after she is fully recovered from pneumonia, she also has COPD and using oxygen at home for now I recommend protonix daily and monitor for signs of bleeding [place] (2) Acute and chronic respiratory failure: Code(s): J96.20 - Acute and chronic respiratory failure, unspecified whether with hypoxia or hypercapnia Status: Acute Assessment and Plan: on treatment (3) Guaiac positive stools: Code(s): R19.5 - Other fecal abnormalities Status: Inactive Assessment and Plan: scopes if/when overall status improve (4) Paroxysmal atrial fibrillation: Code(s): I48.0 - Paroxysmal atrial fibrillation Status: Chronic (5) Pneumonia: Qualifiers: Laterality: right Lung location: lower lobe of lung Pneumonia type: due to unspecified organism Qualified Code(s): J18.9 - Pneumonia, unspecified organism Code(s): J18.9 - Pneumonia, unspecified organism Status: Inactive Assessment and Plan: on iv antibiotics, feeling better (6) Chronic obstructive pulmonary disease: Code(s): J44.9 - Chronic obstructive pulmonary disease, unspecified Status: Acute Subjective Date/time seen: 01/10/24 16:30 Interval history: she is feeling ok, good appetite, breathing better Review of Systems Review of Systems: All systems reviewed & are unremarkable except as noted in HPI and below Exam Const: Other: Thin, chronically ill and cachectic using oxygen good spirits and looks better HENMT: Face/Nose/Sinus: Normal nares present Eyes: Sclera: sclerae normal Neck: Neck: supple Resp: Other: less tachypneic and has a few scattered rhonchi Cardio: Rate: regular rate GI: GI Palp: Yes Soft to palpation and No Tenderness to palpation present (GI) Auscultation: normal bowel sounds Skin: General skin exam: no rashes or lesions noted Neuro: Speech: normal speech Other: Alert and oriented Extrem: Other: no significant edema Psych: Affect: normal affect Objective Data Vital Signs Vital Signs: Vital Signs - 24 hr 01/09/24 19:24 01/09/24 21:05 01/09/24 21:01 Temperature 98.3 F Pulse Rate 93 93 Respiratory Rate 18 20 Blood Pressure 102/60 Pulse Oximetry 100 95 Oxygen Delivery Nasal Cannula Oxygen Flow Rate 2 01/09/24 21:10 01/09/24 21:13 01/09/24 20:00 Temperature Pulse Rate 90 90 Respiratory Rate 20 Blood Pressure Pulse Oximetry 95 Oxygen Delivery Nasal Cannula Oxygen Flow Rate 2 01/09/24 23:34 01/10/24 02:12 01/10/24 02:19 Temperature Pulse Rate 80 79 Respiratory Rate 16 20 20 Blood Pressure Pulse Oximetry 97 Oxygen Delivery Autopap Oxygen Flow Rate 01/10/24 04:47 01/10/24 07:15 01/10/24 07:15 Temperature 98.9 F Pulse Rate 78 78 78 Respiratory Rate 17 18 18 Blood Pressure 109/79 Pulse Oximetry 100 98 Oxygen Delivery Nasal Cannula Oxygen Flow Rate 2 01/10/24 07:25 01/10/24 08:21 01/10/24 08:00 Temperature Pulse Rate 80 80 Respiratory Rate 20 Blood Pressure Pulse Oximetry 98 Oxygen Delivery Nasal Cannula Oxygen Flow Rate 2 01/10/24 10:07 01/10/24 12:56 01/10/24 13:03 Temperature 96.9 F L Pulse Rate 76 70 Respiratory Rate 18 18 Blood Pressure 96/57 L Pulse Oximetry 96 100 Oxygen Delivery Nasal Cannula Oxygen Flow Rate 2 01/10/24 13:13 Temperature Pulse Rate 72 Respiratory Rate 20 Blood Pressure Pulse Oximetry Oxygen Delivery Oxygen Flow Rate Intake/Output Intake/Output: Intake & Output 01/07/24 01/08/24 01/09/24 01/10/24 23:59 23:59 23:
--- NOTE | 2024-01-10 18:10 | PM.PNPUL ---
Progress Note: A&P Assessment and Plan (1) Acute and chronic respiratory failure: Code(s): J96.20 - Acute and chronic respiratory failure, unspecified whether with hypoxia or hypercapnia Status: Acute Assessment and Plan: She is a candidate for a non-invasive positive pressure ventilator based on her CO2 retention; insurance agreed to cover this when she goes to [place]; she used BiPAP last night for at least 4 hours, and it was better than she thought it would be, not loud and did not keep her awake. She says she did not use it all night, but most of the night. She is willing to try a nppv when she leaves to go to the [place]. When she arrived at [place] she had acute shortness of breath,; Venous blood gas showed pH 7.37, pCO2 83, normal venous blood gas pCO2 should not be over 48, PO2 56 which is low and HC03 47 which is high. she has these acute episodes with pCO2 significantly elevated. Last month she had 3 blood gases with pCO2 in the 60s. She tells me that home CPAP was recommended. She may be able to qualify for a noninvasive positive-pressure device without a sleep study. I will start the process to get this set up to keep her from having abrupt episodes of decompensation at home. No PFT in the system. Will need PFT, 6 min walk, will check alpha-1 levels. She has a negative procalcitonin. Expanded respiratory pathogen panel was sent, results pending, as well as HIV, sent for appearance of being immunocompromised. (2) COPD (chronic obstructive pulmonary disease): Code(s): J44.9 - Chronic obstructive pulmonary disease, unspecified Status: Chronic Assessment and Plan: Longstanding COPD, on home oxygen for the last year, has episodes of hypercapnic hypoxemic respiratory failure often associated with rapid atrial fibrillation, currently does not have decompensated heart failure. Her home COPD medications will be reviewed. She has a nebulizer at home using it twice a day. Some of the challenges in managing this patient include going to several different facilities, not having a unified medical record, and the patient's poor memory. (3) Atelectasis: Code(s): J98.11 - Atelectasis Status: Acute Assessment and Plan: CXR January 05 shows atelectasis and small effusion in the right base, will add vibratory valve to help clear secretions mikael in the right base. Plan Her insurance will cover a nppv; will order settings tomorrow; cannot implement the settings on her current machine while she is on BiPAP. I appreciate RT department for arranging this. She may respond, and this may help keep her out of the hospital. Multiple ABGs with pCO2 in the 60s and higher; this admission VBG with pCO2 83, upper limit normal is 48 mmHg plan * repeat CXR 01/10 * alpha 1 antitrypsin was sent * extended respiratory pathogen panel was sent * ALIZA cascade is pending; she has bizarre blood loss, could she have vasculitis? * HIV sent; she has recurrent infections, weight loss, wasting syndrome, infiltrates without etiology * recent COVID; (+) Oct 31; her CXR was more clear Dec 21 than it was January 05. This is not a lingering COVID infiltrate. * Cornet valve is not really helping her much with secretions * PFT on follow up 6 - 8 weeks after discharge; has never had pulmonary evaluation that I can see * request records from [facility]; she was there for a few weeks per Subjective Date/time seen: 01/10/24 18:10 Interval history: pulmonary hospital follow up : 01/10/2024 : She is wearing O2 at 2L/min, saturation is 96-100%, could be weaned. She is not getting any secretions up, does not feel like she has anything trapped in her lungs. She used BiPAP last night for at least 4 hours, not all night, but it was easier than she
[2024-01-10] MEDS: SENNA/DOCUSATE SODIUM TABLET 1 TAB PO (20:33)
[2024-01-10] MEDS: AMOXICILLIN/CLAVULANATE K 875-125 MG TAB 1 TABLET PO (20:34)
[2024-01-10] MEDS: ATORVASTATIN 20 MG TABLET PO (20:34)
[2024-01-11] VITALS (20 sets, daily range): BP systolic 105–136; BP diastolic 50–73; PULSE 54–81; RESP 16–24; TEMP 36.4–37.1; O2SAT 97–100
[2024-01-11] MEDS: IPRATROPIUM 0.5 MG/ALBUTEROL SULFATE 2.5 MG AMPUL.NEB 3 ML INHALATION ×4 (03:00→21:01)
[2024-01-11 05:39] LABS: Basophils Percent Auto 0.1 % (0.2-1.2); Eosinophils Absolute Auto 0.1 K/mm3 (0-0.3); Hematocrit 25.8 % (37.0-47.0); Hemoglobin 7.2 g/dL (12.0-15.0); Immature Granulocyte Absolute 0.04 K/mm3 (0.00-0.031); Immature Granulocyte Percent A 0.4 % (0-0.5); Lymphocytes Absolute Auto 1.53 K/mm3 (0.9-3.2); Lymphocytes Percent Auto 16.5 % (18.3-44.2); Mean Corpuscular HGB Conc 27.9 g/dl (32-36); Mean Corpuscular Hemoglobin 26.9 pg (26-34); Mean Corpuscular Volume 96.3 fl (80-100); Mean Platelet Volume 9.9 fl (7.4-10.4); Monocytes Absolute Auto 0.9 K/mm3 (0.1-0.6); Monocytes Percent Auto 9.8 % (2.6-8.5); Neutrophils Absolute Auto 6.7 K/mm3 (1.3-6.7); Neutrophils Percent Auto 72.2 % (45.5-73.1); Nucleated Red Blood Cells Perc 0.3 % (0.0-0.2); Platelet Count Result 316 k/mm3 (150-375); Red Blood Count 2.68 M/mm3 (4.2-5.4); Red Cell Distribution Width 16.1 % (11.5-14.5); White Blood Count 9.3 K/mm3 (4.5-10.0)
[2024-01-11] MEDS: HYDROcodone/acetaminophen (*CRX) 7.5-325 MG TABLET 1 TAB PO ×2 (05:40→12:11)
[2024-01-11] MEDS: ALPRAZolam (*CRX) 0.5 MG TABLET PO ×2 (05:40→08:36)
[2024-01-11 05:58] LABS: Alanine Aminotransferase 38 U/L (6-35); Albumin Level 2.6 g/dL (3.5-5.1); Alkaline Phosphatase 74 U/L (38-126); Aspartate Amino Transferase 20 U/L (14-36); Bilirubin,Total 0.4 mg/dL (0.2-1.3); Blood Urea Nitrogen 24 mg/dL (7-17); Calcium 8.1 mg/dL (8.4-10.2); Carbon Dioxide > 40 mmol/L (22-30); Chloride 96 mmol/L (98-107); Estimated CRCL calculation 42 ml/min; Estimated Glomerular Filt Rate > 60; Glucose 83 mg/dL (65-110); Potassium 4.5 mmol/L (3.4-5.0); Sodium 133 mmol/L (137-145)
[2024-01-11 06:21] LABS: Anisocytosis 1+; Hypochromasia 1+; Ovalocytes 1+; Platelet Estimate Adequate (Adequate)
[2024-01-11 06:22] LABS: Schistocytes None Seen
[2024-01-11] MEDS: BUDESONIDE RESPULE NEB 0.5 MG/2 ML AMP INHALATION ×2 (07:17→21:02)
[2024-01-11] MEDS: guaiFENesin 12 HR 600 MG TABCR 1200 MG PO ×2 (08:35→21:29)
[2024-01-11] MEDS: FLUoxetine HCL 20 MG CAPSULE PO (08:35)
[2024-01-11] MEDS: FUROSEMIDE 20 MG TABLET PO (08:35)
[2024-01-11] MEDS: METOPROLOL TARTRATE 50 MG TAB PO ×2 (08:35→21:29)
[2024-01-11] MEDS: DOXYCYCLINE HYCLATE 100 MG TABLET PO ×2 (08:35→21:28)
[2024-01-11] MEDS: AMOXICILLIN/CLAVULANATE K 875-125 MG TAB 1 TABLET PO ×2 (08:35→21:28)
[2024-01-11] MEDS: dilTIAZem HCL CD 240 MG CAP.24HR PO (08:35)
[2024-01-11] MEDS: DONEPEZIL HCL 5 MG TABLET PO (08:35)
[2024-01-11] MEDS: polyethylene glycoL 3350 17 GM POWD.PACK PO (08:36)
[2024-01-11] MEDS: MUPIROCIN 2% OINT 22 GM TUBE 1 APPLIC EACH NARE ×2 (08:37→21:08)
[2024-01-11] MEDS: PANTOPRAZOLE SODIUM IV 40 MG VIAL IV PUSH ×2 (08:37→21:09)
--- NOTE | 2024-01-11 12:40 | PC.NURSE ---
Patient unresponsive when RN entered room. Rapid response called.
[2024-01-11] MEDS: NALOXONE HCL 0.4 MG/ML VIAL IV PUSH (12:50)
[2024-01-11 12:53] LABS: Glucose Point of Care 146 mg/dl (65-105)
[2024-01-11 12:57] LABS: Alveolar/Arterial O2 Gradient 49.9 mmHg; Base Excess ABG 7.4 mEq/l (+/-2.0); Fractional Inspired Oxygen 28 %; HCO3 ABG 32.9 mEq/l (22.0-26.0); Oxygen Content ABG 11.8 %vol (16.0-22.0); Oxygen Saturation ABG 96.7 % (95.0-100.0); Oxyhemoglobin 95.5 % THb (90.0-100.0); PCO2 ABG 52.1 mmHg (35.0-45.0); PO2 ABG 88.3 mmHg (80.0-100.0); PO2 FiO2 Ratio Arterial Blood 3.15 %; Total Hemoglobin 8.7 g/dL (12.0-18.0); pH ABG 7.418 (7.350-7.450)
[2024-01-11 12:59] LABS: Device NASAL CANNULA; Modified Allen's Test Pass; Site Drawn LEFT RADIAL
--- NOTE | 2024-01-11 13:08 | P.PNIM_ITS ---
Progress Note: A&P Assessment and Plan (1) Acute on chronic anemia: Code(s): D64.9 - Anemia, unspecified Status: Chronic Assessment and Plan: Hemoglobin 5.2g/dl at outside hospital. She has a history of multiple antibodies. * s/p 2 units pRBC * Trend H/H * Holding Eliquis * occult blood positive * GI saw her and no colonoscopy at this point unless overt GI bleeding noted due to her respiratory status. * Protonix b.i.d. IV * Monitor bowel movements * Transfuse if hemoglobin less than 7 (2) Pneumonia: Qualifiers: Laterality: right Lung location: lower lobe of lung Pneumonia type: due to unspecified organism Qualified Code(s): J18.9 - Pneumonia, unspecified organism Code(s): J18.9 - Pneumonia, unspecified organism Status: Inactive Assessment and Plan: Imaging concerning for mild interstitial edema and subsegmental right lower lung atelectasis versus consolidation. As well as small right pleural effusion. * She is on 2 L nasal cannula. Chronically on oxygen and per her reports 2 L at baseline * MRSA was positive. Placed on contact isolation. Started on Mupirocin ointment for 5 days * AVAPS ordered by Pulm * PO AB Augmentin and doxycycline * Blood cultures still pending * Schedule DuoNebs * Guaifenesin 1200 mg b.i.d. * Incentive spirometry and pep therapy ordered * Pulmonology consulted, rec following: * *alpha 1 antitrypsin labs- check for A1AT deficiency * *check extended respiratory pathogen panel * *ALIZA cascade pending * *PFT on follow up 6 - 8 weeks after discharge; has never had pulmonary evaluation that I can see * *request records from [place]; she was there for a few weeks per (3) Acute exacerbation of chronic obstructive pulmonary disease: Code(s): J44.1 - Chronic obstructive pulmonary disease with (acute) exacerbation Status: Inactive Assessment and Plan: Increased SOB, increased cough * chronically on 2 L NC, now at baseline * could be 2/2 profound anemia * chest XR shows mild interstitial edema, subsegmental right lower lung atelectasis vs consolidation and small right pleural effusion * started on duo nebs and Pulmicort * AVAPS per pulmonology * HIV labs pending (4) Acute exacerbation of CHF (congestive heart failure): Qualifiers: Heart failure type: unspecified Qualified Code(s): I50.9 - Heart failure, unspecified Code(s): I50.9 - Heart failure, unspecified Status: Chronic Assessment and Plan: BNP 10,639 on admission, ECHO below, +3 BLE edema * On home agents Metoprolol tartrate 50 mg PO BID, diltiazem 240 mg PO daily, lasix 20 mg daily * Cardiology was consulted ECHO from 11/2023 ? 1. Complete two-dimensional, color flow and Doppler transthoracic echocardiogram is performed. ? 2. Left ventricular chamber dimension is normal. ? 3. Left ventricular systolic function is normal, estimated at 55-60%. ? 4. There is mild concentric increased left ventricular wall thickness. ? 5. The left ventricular diastolic function is abnormal. ? 6. E/e' 15 is elevated. ? 7. Atrial fibrillation. ? 8. Left atrial chamber dimension is mildly enlarged. ? 9. There is mild aortic valve sclerosis. ? 10. There is trace mitral valve regurgitation. ? 11. There is trace tricuspid valve regurgitation. ? 12. No pulmonary hypertension, estimated pulmonary arterial systolic pressure is 19 mmHg. (5) Paroxysmal atrial fibrillation: Code(s): I48.0 - Paroxysmal atrial fibrillation Status: Chronic Assessment and Plan: Rate controlled w
--- NOTE | 2024-01-11 13:08 | PM.IMPN ---
Progress Note: A&P Assessment and Plan (1) Acute on chronic anemia: Code(s): D64.9 - Anemia, unspecified Status: Chronic Assessment and Plan: Hemoglobin 5.2g/dl at outside hospital. She has a history of multiple antibodies. s/p 2 units pRBC Trend H/H Holding Eliquis occult blood positive GI saw her and no colonoscopy at this point unless overt GI bleeding noted due to her respiratory status. Protonix b.i.d. IV Monitor bowel movements Transfuse if hemoglobin less than 7 (2) Pneumonia: Qualifiers: Laterality: right Lung location: lower lobe of lung Pneumonia type: due to unspecified organism Qualified Code(s): J18.9 - Pneumonia, unspecified organism Code(s): J18.9 - Pneumonia, unspecified organism Status: Inactive Assessment and Plan: Imaging concerning for mild interstitial edema and subsegmental right lower lung atelectasis versus consolidation. As well as small right pleural effusion. She is on 2 L nasal cannula. Chronically on oxygen and per her reports 2 L at baseline MRSA was positive. Placed on contact isolation. Started on Mupirocin ointment for 5 days AVAPS ordered by Pulm PO AB Augmentin and doxycycline Blood cultures still pending Schedule DuoNebs Guaifenesin 1200 mg b.i.d. Incentive spirometry and pep therapy ordered Pulmonology consulted, rec following: *alpha 1 antitrypsin labs- check for A1AT deficiency *check extended respiratory pathogen panel *ALIZA cascade pending *PFT on follow up 6 - 8 weeks after discharge; has never had pulmonary evaluation that I can see *request records from [place]; she was there for a few weeks per (3) Acute exacerbation of chronic obstructive pulmonary disease: Code(s): J44.1 - Chronic obstructive pulmonary disease with (acute) exacerbation Status: Inactive Assessment and Plan: Increased SOB, increased cough chronically on 2 L NC, now at baseline could be 2/2 profound anemia chest XR shows mild interstitial edema, subsegmental right lower lung atelectasis vs consolidation and small right pleural effusion started on duo nebs and Pulmicort AVAPS per pulmonology HIV labs pending (4) Acute exacerbation of CHF (congestive heart failure): Qualifiers: Heart failure type: unspecified Qualified Code(s): I50.9 - Heart failure, unspecified Code(s): I50.9 - Heart failure, unspecified Status: Chronic Assessment and Plan: BNP 10,639 on admission, ECHO below, +3 BLE edema On home agents Metoprolol tartrate 50 mg PO BID, diltiazem 240 mg PO daily, lasix 20 mg daily Cardiology was consulted ECHO from 11/2023 ? 1. Complete two-dimensional, color flow and Doppler transthoracic echocardiogram is performed. ? 2. Left ventricular chamber dimension is normal. ? 3. Left ventricular systolic function is normal, estimated at 55-60%. ? 4. There is mild concentric increased left ventricular wall thickness. ? 5. The left ventricular diastolic function is abnormal. ? 6. E/e' 15 is elevated. ? 7. Atrial fibrillation. ? 8. Left atrial chamber dimension is mildly enlarged. ? 9. There is mild aortic valve sclerosis. ? 10. There is trace mitral valve regurgitation. ? 11. There is trace tricuspid valve regurgitation. ? 12. No pulmonary hypertension, estimated pulmonary arterial systolic pressure is 19 mmHg. (5) Paroxysmal atrial fibrillation: Code(s): I48.0 - Paroxysmal atrial fibrillation Status: Chronic Assessment and Plan: Rate controlled with metoprolol and amiodarone and Eliquis at home Currently holding Eliquis given possible GI bleed continue home rate control agents (6) Acute UTI: Code(s): N39.0 - Urinary tract infection, site not specified Status: Ruled-out Assessment and Plan: Urine culture negative (7) Gastroesophageal reflux disease: Code(s): K21.9 - Gastro-esophageal reflux disease without
--- NOTE | 2024-01-11 14:28 | PM.PNPUL ---
Progress Note: A&P Assessment and Plan (1) Altered mental state: Code(s): R41.82 - Altered mental status, unspecified Status: Acute Assessment and Plan: This is her main issue today; and the Rapid Response team did a complete work up, nothing surprising was found. Head CT ok glucose 147 She has had these episodes before, calls it 'zombified' when she is less responsive. (2) Acute and chronic respiratory failure: Code(s): J96.20 - Acute and chronic respiratory failure, unspecified whether with hypoxia or hypercapnia Status: Acute Assessment and Plan: She is a candidate for a non-invasive positive pressure ventilator based on her CO2 retention; insurance agreed to cover this when she goes to [place]; she used BiPAP last night for at least 4 hours, and it was better than she thought it would be, not loud and did not keep her awake. She says she did not use it all night, but most of the night. She is willing to try a nppv when she leaves to go to the [place]. When she arrived at [place] she had acute shortness of breath,; Venous blood gas showed pH 7.37, pCO2 83, normal venous blood gas pCO2 should not be over 48, PO2 56 which is low and HC03 47 which is high. she has these acute episodes with pCO2 significantly elevated. Last month she had 3 blood gases with pCO2 in the 60s. She tells me that home CPAP was recommended. She may be able to qualify for a noninvasive positive-pressure device without a sleep study. I will start the process to get this set up to keep her from having abrupt episodes of decompensation at home. No PFT in the system. Will need PFT, 6 min walk, will check alpha-1 levels. She has a negative procalcitonin. Expanded respiratory pathogen panel was sent, results pending, as well as HIV, sent for appearance of being immunocompromised. (3) COPD (chronic obstructive pulmonary disease): Code(s): J44.9 - Chronic obstructive pulmonary disease, unspecified Status: Chronic Assessment and Plan: Longstanding COPD, on home oxygen for the last year, has episodes of hypercapnic hypoxemic respiratory failure often associated with rapid atrial fibrillation, currently does not have decompensated heart failure. Her home COPD medications will be reviewed. She has a nebulizer at home using it twice a day. Some of the challenges in managing this patient include going to several different facilities, not having a unified medical record, and the patient's poor memory. (4) Atelectasis: Code(s): J98.11 - Atelectasis Status: Acute Assessment and Plan: CXR January 05 shows atelectasis and small effusion in the right base, will add vibratory valve to help clear secretions mikael in the right base. Plan Her insurance will cover a nppv; will order settings tomorrow; cannot implement the settings on her current machine while she is on BiPAP. I appreciate RT department for arranging this. She may respond, and this may help keep her out of the hospital. Multiple ABGs with pCO2 in the 60s and higher; this admission VBG with pCO2 83, upper limit normal is 48 mmHg plan * repeat CXR 01/10 * alpha 1 antitrypsin was sent * extended respiratory pathogen panel was sent * ALIZA cascade is pending; she has bizarre blood loss, could she have vasculitis? * HIV sent; she has recurrent infections, weight loss, wasting syndrome, infiltrates without etiology * recent COVID; (+) Oct 31; her CXR was more clear Dec 21 than it was January 05. This is not a lingering COVID infiltrate. * Cornet valve is not really helping her much with secretions * PFT on follow up 6 - 8 weeks after discharge; has never had pulmonary evaluation that I can see * requ
--- NOTE | 2024-01-11 14:38 | PCRCNOTE ---
RT placed patient patient on Auto pap due to increased WOB even after breathing tx. RT notified RN and Dr. Kellogg of situation. Dr. Kellogg assessed patient stating to place patient on AVAPS. RN aware.
[2024-01-11 15:17] LABS: Basophils Percent Auto 0.1 % (0.2-1.2); Eosinophils Absolute Auto 0.1 K/mm3 (0-0.3); Eosinophils Percent Auto 0.8 % (0-4.4); Hematocrit 25.7 % (37.0-47.0); Hemoglobin 7.2 g/dL (12.0-15.0); Immature Granulocyte Absolute 0.06 K/mm3 (0.00-0.031); Immature Granulocyte Percent A 0.6 % (0-0.5); Lymphocytes Absolute Auto 1.33 K/mm3 (0.9-3.2); Lymphocytes Percent Auto 12.7 % (18.3-44.2); Mean Corpuscular Hemoglobin 26.9 pg (26-34); Mean Corpuscular Volume 95.9 fl (80-100); Mean Platelet Volume 9.7 fl (7.4-10.4); Monocytes Absolute Auto 1.2 K/mm3 (0.1-0.6); Monocytes Percent Auto 11.8 % (2.6-8.5); Neutrophils Absolute Auto 7.8 K/mm3 (1.3-6.7); Nucleated Red Blood Cells Perc 0.2 % (0.0-0.2); Platelet Count Result 308 k/mm3 (150-375); Red Blood Count 2.68 M/mm3 (4.2-5.4); White Blood Count 10.5 K/mm3 (4.5-10.0)
[2024-01-11 15:30] LABS: Platelet Estimate Adequate (Adequate)
[2024-01-11 15:31] LABS: Hypochromasia 1+; Schistocytes None Seen
[2024-01-11 15:32] LABS: Anisocytosis 3+
[2024-01-11 15:40] LABS: Alanine Aminotransferase 39 U/L (6-35); Albumin Level 2.8 g/dL (3.5-5.1); Alkaline Phosphatase 83 U/L (38-126); Aspartate Amino Transferase 22 U/L (14-36); Bilirubin,Total 0.4 mg/dL (0.2-1.3); Blood Urea Nitrogen 23 mg/dL (7-17); Calcium 7.9 mg/dL (8.4-10.2); Carbon Dioxide > 40 mmol/L (22-30); Chloride 96 mmol/L (98-107); Estimated CRCL calculation 46 ml/min; Estimated Glomerular Filt Rate > 60; Glucose 63 mg/dL (65-110); Sodium 134 mmol/L (137-145)
[2024-01-11 15:45] LABS: Potassium 3.5 mmol/L (3.4-5.0)
[2024-01-11 16:12] LABS: Glucose Point of Care 131 mg/dl (65-105)
[2024-01-11] MEDS: DEXTROSE 50% 25 GM/50 ML SYRINGE IV PUSH (16:27)
--- NOTE | 2024-01-11 19:56 | PC.NURSE ---
Pt's , Pankaj, called nurse's station for updates on pt condition. Updates provided. said he would like to be contacted by phone if any changes were to happen.
[2024-01-11 20:51] LABS: Glucose Point of Care 84 mg/dl (65-105)
[2024-01-11] MEDS: ATORVASTATIN 20 MG TABLET PO (21:29)
[2024-01-11] MEDS: SENNA/DOCUSATE SODIUM TABLET 1 TAB PO (21:34)
[2024-01-11 23:57] LABS: Glucose Point of Care 93 mg/dl (65-105)
[2024-01-12] VITALS (14 sets, daily range): BP systolic 120–147; BP diastolic 62–83; PULSE 68–98; RESP 18–24; TEMP 36.7–37; O2SAT 90–100
[2024-01-12] MEDS: IPRATROPIUM 0.5 MG/ALBUTEROL SULFATE 2.5 MG AMPUL.NEB 3 ML INHALATION ×3 (02:55→13:50)
[2024-01-12 04:05] LABS: Glucose Point of Care 71 mg/dl (65-105)
[2024-01-12 04:56] LABS: Glucose Point of Care 140 mg/dl (65-105)
[2024-01-12 05:54] LABS: Basophils Percent Auto 0.2 % (0.2-1.2); Eosinophils Percent Auto 0.3 % (0-4.4); Hematocrit 27.2 % (37.0-47.0); Hemoglobin 7.7 g/dL (12.0-15.0); Immature Granulocyte Absolute 0.07 K/mm3 (0.00-0.031); Immature Granulocyte Percent A 0.7 % (0-0.5); Lymphocytes Percent Auto 17.2 % (18.3-44.2); Mean Corpuscular HGB Conc 28.3 g/dl (32-36); Mean Corpuscular Hemoglobin 26.7 pg (26-34); Mean Corpuscular Volume 94.4 fl (80-100); Monocytes Percent Auto 9.6 % (2.6-8.5); Neutrophils Absolute Auto 7.1 K/mm3 (1.3-6.7); Nucleated Red Blood Cells Perc 0.2 % (0.0-0.2); Platelet Count Result 319 k/mm3 (150-375); Red Blood Count 2.88 M/mm3 (4.2-5.4); Red Cell Distribution Width 16.3 % (11.5-14.5); White Blood Count 9.9 K/mm3 (4.5-10.0)
[2024-01-12 06:12] LABS: Alanine Aminotransferase 35 U/L (6-35); Albumin Level 2.8 g/dL (3.5-5.1); Alkaline Phosphatase 74 U/L (38-126); Anion Gap 1 mmol/L (4-12); Aspartate Amino Transferase 20 U/L (14-36); Bilirubin,Total 0.5 mg/dL (0.2-1.3); Blood Urea Nitrogen 17 mg/dL (7-17); Calcium 8.4 mg/dL (8.4-10.2); Carbon Dioxide 36 mmol/L (22-30); Chloride 98 mmol/L (98-107); Estimated CRCL calculation 52 ml/min; Estimated Glomerular Filt Rate > 60; Glucose 91 mg/dL (65-110); Potassium 3.8 mmol/L (3.4-5.0); Sodium 135 mmol/L (137-145)
[2024-01-12 06:36] LABS: Anisocytosis 2+; Hypochromasia 2+; Platelet Estimate Adequate (Adequate); Schistocytes None Seen
--- NOTE | 2024-01-12 07:05 | P.PNIM_ITS ---
Progress Note: A&P Assessment and Plan (1) Acute CVA (cerebrovascular accident): Code(s): I63.9 - Cerebral infarction, unspecified Status: Acute Assessment and Plan: 01/12/2024: * Was called by bedside nursing that patient had right-sided weakness, right- sided facial droop, and slurred speech this morning. * When I evaluated patient her eyes were deviated to the left with vision loss on the right, right-sided facial droop, slurred speech, she was slumped over to the right and unable to move her right upper arm and her right lower extremity, she was not able to her toes on the right when commanded to and not able to squeeze my hand on the right at all. Patient has history of AFib however she is rate controlled but her Eliquis has been put on hold this admission due to GI bleeding. GI is following. She did receive 2 units of blood this admission. * NIHSS score >25 * Stat CT of the brain showing large recent left middle cerebral artery CVA which is a big change from yesterday. * Stat MRI of the brain and brainstem ordered * Stat CTA of the brain and carotids ordered * Order placed for CBC and coags * Neurology consulted, spoke with Dr. Barnes in detail about patient's symptoms and she will see her today. (2) Acute on chronic anemia: Code(s): D64.9 - Anemia, unspecified Status: Chronic Assessment and Plan: 01/11/24: Hemoglobin 5.2g/dl at outside hospital. She has a history of multiple antibodies. * s/p 2 units pRBC * Trend H/H * Holding Eliquis * occult blood positive * GI saw her and no colonoscopy at this point unless overt GI bleeding noted due to her respiratory status. * Protonix b.i.d. IV * Monitor bowel movements * Transfuse if hemoglobin less than 7 01/12/24: * Hemoglobin 7.7 * Eliquis is on hold currently * Continue with Protonix (3) Pneumonia: Qualifiers: Laterality: right Lung location: lower lobe of lung Pneumonia type: due to unspecified organism Qualified Code(s): J18.9 - Pneumonia, unspecified organism Code(s): J18.9 - Pneumonia, unspecified organism Status: Inactive Assessment and Plan: 01/11/24: Imaging concerning for mild interstitial edema and subsegmental right lower lung atelectasis versus consolidation. As well as small right pleural effusion. * She is on 2 L nasal cannula. Chronically on oxygen and per her reports 2 L at baseline * MRSA was positive. Placed on contact isolation. Started on Mupirocin ointment for 5 days * AVAPS ordered by Pulm * PO AB Augmentin and doxycycline * Blood cultures still pending * Schedule DuoNebs * Guaifenesin 1200 mg b.i.d. * Incentive spirometry and pep therapy ordered * Pulmonology consulted, rec following: * *alpha 1 antitrypsin labs- check for A1AT deficiency * *check extended respiratory pathogen panel * *ALIZA cascade pending * *PFT on follow up 6 - 8 weeks after discharge; has never had pulmonary evaluation that I can see * *request records from [facility]; she was there for a few weeks per 01/12/24: * Currently on 2 L nasal cannula which is her baseline * Blood culture showing no growth on preliminary read * Continue incentive spirometer and pep therapy * Pulmonology following * Continue DuoNebs * Continue Augmentin and doxycycline * AVAPS ordered at bedtime (4) Acute exacerbation of chronic obstructive pulmonary disease: Code(s): J44.1 - Chronic obstructive pulmonary disease with (acute) exacerbation Status: Inactive Assessment and Plan: 01/11/24: Increased SOB, increased cough * chron
--- NOTE | 2024-01-12 07:05 | PM.IMPN ---
Progress Note: A&P Assessment and Plan (1) Acute CVA (cerebrovascular accident): Code(s): I63.9 - Cerebral infarction, unspecified Status: Acute Assessment and Plan: 01/12/2024: Was called by bedside nursing that patient had right-sided weakness, right-sided facial droop, and slurred speech this morning. When I evaluated patient her eyes were deviated to the left with vision loss on the right, right-sided facial droop, slurred speech, she was slumped over to the right and unable to move her right upper arm and her right lower extremity, she was not able to her toes on the right when commanded to and not able to squeeze my hand on the right at all. Patient has history of AFib however she is rate controlled but her Eliquis has been put on hold this admission due to GI bleeding. GI is following. She did receive 2 units of blood this admission. NIHSS score >[address] of the brain showing large recent left middle cerebral artery CVA which is a big change from yesterday. Stat MRI of the brain and brainstem ordered Stat CTA of the brain and carotids ordered Order placed for CBC and coags Neurology consulted, spoke with Dr. Barnes in detail about patient's symptoms and she will see her today. (2) Acute on chronic anemia: Code(s): D64.9 - Anemia, unspecified Status: Chronic Assessment and Plan: 01/11/24: Hemoglobin 5.2g/dl at outside hospital. She has a history of multiple antibodies. s/p 2 units pRBC Trend H/H Holding Eliquis occult blood positive GI saw her and no colonoscopy at this point unless overt GI bleeding noted due to her respiratory status. Protonix b.i.d. IV Monitor bowel movements Transfuse if hemoglobin less than 7 01/12/24: Hemoglobin 7.7 Eliquis is on hold currently Continue with Protonix (3) Pneumonia: Qualifiers: Laterality: right Lung location: lower lobe of lung Pneumonia type: due to unspecified organism Qualified Code(s): J18.9 - Pneumonia, unspecified organism Code(s): J18.9 - Pneumonia, unspecified organism Status: Inactive Assessment and Plan: 01/11/24: Imaging concerning for mild interstitial edema and subsegmental right lower lung atelectasis versus consolidation. As well as small right pleural effusion. She is on 2 L nasal cannula. Chronically on oxygen and per her reports 2 L at baseline MRSA was positive. Placed on contact isolation. Started on Mupirocin ointment for 5 days AVAPS ordered by Pulm PO AB Augmentin and doxycycline Blood cultures still pending Schedule DuoNebs Guaifenesin 1200 mg b.i.d. Incentive spirometry and pep therapy ordered Pulmonology consulted, rec following: *alpha 1 antitrypsin labs- check for A1AT deficiency *check extended respiratory pathogen panel *ALIZA cascade pending *PFT on follow up 6 - 8 weeks after discharge; has never had pulmonary evaluation that I can see *request records from [facility]; she was there for a few weeks per 01/12/24: Currently on 2 L nasal cannula which is her baseline Blood culture showing no growth on preliminary read Continue incentive spirometer and pep therapy Pulmonology following Continue DuoNebs Continue Augmentin and doxycycline AVAPS ordered at bedtime (4) Acute exacerbation of chronic obstructive pulmonary disease: Code(s): J44.1 - Chronic obstructive pulmonary disease with (acute) exacerbation Status: Inactive Assessment and Plan: 01/11/24: Increased SOB, increased cough chronically on 2 L NC, now at baseline could be 2/2 profound anemia chest XR shows mild interstitial edema, subsegmental right lower lung atelectasis vs consolidation and small right pleural effusion started on duo nebs and Pulmicort AVAPS per pulmonology HIV labs pending 01/12/24: HIV and ALIZA are pending See above plan of care (5) Acute exacerbation of CHF (congestive heart failure): Qualifiers: Heart f
[2024-01-12 08:09] LABS: Glucose Point of Care 69 mg/dl (65-105)
[2024-01-12] MEDS: BUDESONIDE RESPULE NEB 0.5 MG/2 ML AMP INHALATION (08:27)
[2024-01-12 10:44] LABS: Basophils Percent Auto 0.2 % (0.2-1.2); Eosinophils Percent Auto 0.3 % (0-4.4); Hematocrit 28.6 % (37.0-47.0); Hemoglobin 8.1 g/dL (12.0-15.0); Immature Granulocyte Absolute 0.04 K/mm3 (0.00-0.031); Immature Granulocyte Percent A 0.3 % (0-0.5); Lymphocytes Absolute Auto 1.17 K/mm3 (0.9-3.2); Lymphocytes Percent Auto 10.2 % (18.3-44.2); Mean Corpuscular HGB Conc 28.3 g/dl (32-36); Mean Corpuscular Hemoglobin 26.4 pg (26-34); Mean Corpuscular Volume 93.2 fl (80-100); Mean Platelet Volume 9.8 fl (7.4-10.4); Monocytes Absolute Auto 0.9 K/mm3 (0.1-0.6); Monocytes Percent Auto 7.6 % (2.6-8.5); Neutrophils Absolute Auto 9.4 K/mm3 (1.3-6.7); Neutrophils Percent Auto 81.4 % (45.5-73.1); Platelet Count Result 348 k/mm3 (150-375); Red Blood Count 3.07 M/mm3 (4.2-5.4); Red Cell Distribution Width 16.2 % (11.5-14.5); White Blood Count 11.5 K/mm3 (4.5-10.0)
--- NOTE | 2024-01-12 10:49 | WPDNEURCNPN ---
Assessment and Plan Assessment and plan (1) Acute CVA (cerebrovascular accident): Code(s): I63.9 - Cerebral infarction, unspecified Status: Acute (2) Paroxysmal atrial fibrillation: Code(s): I48.0 - Paroxysmal atrial fibrillation Status: Chronic Plan Sahara Neal is a 69 year old female with a history of CHF, atrial fibrillation, COPD, CAD, HTN, hyperthyroidism who is currently admitted for shortness of breath and GI bleeding. During admission, patient was found to have new R sided weakness. CT head done today shows large L MCA territory stroke. Her anticoagulation was held during the admission due to GI bleed. She is not a candidate for thrombolytic given LKW > 24 hours, evidence new large stroke already on CT, and GI bleed. CTA brain/carotid showed partial occlusion of the L MCA with distal flow. Case was discussed with [facility] stroke team and she is not a candidate for thrombectomy. However, given large size of stroke and risk for malignant MCA syndrome, she will need to be transferred to a higher level of care where neurosurgical intervention can performed in the event she were to deteriorate. She has been accepted for transfer to [facility]. Consult date: 01/12/24 Reason for consult: Concern for new stroke HPI: Sahara Neal is a 69 year old female with a history of CHF, atrial fibrillation, COPD, CAD, HTN, hyperthyroidism who is currently admitted for shortness of breath and GI bleeding. Patient was found to be anemic to 5.2 at [facility]. She was transferred to [facility] where her stools were occult positive. She was given pRBC. Her anticoagulation for atrial fibrillation has been on hold during this admission. Patient is also having respiratory failure. GI and pulmonology have been consulted. She was treated with antibiotics for possible pneumonia. Yesterday patient had an episode of altered mental status and new R sided weakness. She had a stat CT head which did not show any acute findings. Unclear if weakness persisted or had resolved, but no further testing was obtained in terms of neuroimaging. Neurology was not consulted at that time from what I can tell. This morning, beside nurse called the hospitalist due to notable R sided facial droop, R sided weakness. Stat CT head was obtained, which was read as large L MCA territory stroke. I was called by the hospitalist while patient was in CT and recommended CTA brain/carotid. CTA brain/carotid shows partial proximal L MCA occlusion with evidence of distal flow. Review of Systems Review of Systems: ROS unobtainable: Yes unobtainable due to medical condition [facility] Past Medical History Medical History Anxiety Arthritis Chronic anticoagulation Chronic obstructive pulmonary disease Gastroesophageal reflux disease Paroxysmal atrial fibrillation Surgical History Surgical History History of back surgery History of cardiac catheterization History of knee surgery History of nasal septoplasty History of shoulder surgery Family History Family History Grandparent Cancer Father Diabetes mellitus Heart disease Social History Social History Social History: Surrogate medical decision maker: Pankaj Neal, spouse. Code status: Full code. Smoking packs per day: 1 Smoking cigarettes per day: 20.0 Years smoked: 50 Smoking pack-years: 50.00 Smoking status: Former smoker Tobacco type: cigarettes Alcohol intake: never Substance use: never Substance use type: marijuana Other substance usage details: Gummies Do You Feel Safe in your Home?: Yes Lack of Transportation: No Lack of Food: Never True Current Housing: I Have Housing Concerned About Future Housing: YES Difficulty Paying Gas/Electric Bills: No Difficulty
[2024-01-12 11:04] LABS: Partial Thromboplastin Time 26.5 Seconds (22.3-36.8)
[2024-01-12 11:05] LABS: INR 1.1; Prothrombin Time 15.2 Seconds (11.1-14.7)
[2024-01-12 11:19] LABS: Anisocytosis 2+; Hypochromasia 2+; Platelet Estimate Adequate (Adequate); Schistocytes None Seen
[2024-01-12 11:54] LABS: Glucose Point of Care 96 mg/dl (65-105)
--- NOTE | 2024-01-12 13:40 | P.TS_ITS ---
Transfer Discharge Sum: Prov Provider Date of admission: 01/08/24 10:28 Primary care physician: Tor Barnes MD Admitting clinician: Mariajose Ardon MD Consults: 01/07/24 Consult to Physician Routine Comment: Spoke to Janelle Chandra @ 10:58am (-) Consulting Provider: Jake Liz scallop dredger/MD group to consult: cardiology Reason for consultation: current CHF exacerbation, needs established Has provider been notified: Yes Consult to Physician Routine Comment: Spoke to DR Odell @ 11:02am-/ Consulting Provider: Zo Kellogg scallop dredger/MD group to consult: pulmonology Reason for consultation: COPD, frequent admissions, PCP asking for assistance with BiPAP set up Has provider been notified: Yes 01/07/24 09:55 Consult to Physician Routine Comment: Spoke to Dr Bowers @ 10:11 am/- Consulting Provider: Ervin Blackburn scallop dredger/MD group to consult: GI Reason for consultation: anemia, hgb 5.0 Has provider been notified: Yes 01/12/24 Consult to Physician Routine Comment: Consulting Provider: Yari Barnes scallop dredger/MD group to consult: Neuro Reason for consultation: stroke like symptoms Has provider been notified: Yes Attending physician on discharge: Adri Cardenas Discharging clinician: Adri Cardenas Anticipated date of transfer: 01/12/24 Receiving physician/facility: Dr. Meyer (Neurologist) at [facility] DS: Admitting Diagnosis Discharge Date 01/12/24 Admitting Diagnosis Acute on chronic anemia Paroxysmal atrial fibrillation Chronic obstructive pulmonary disease GERD DS: Discharge Diagnosis Discharge Diagnosis (1) Acute CVA (cerebrovascular accident): Code(s): I63.9 - Cerebral infarction, unspecified Status: Acute Assessment and Plan: 01/12/2024: * Was called by bedside nursing that patient had right-sided weakness, right- sided facial droop, and slurred speech this morning. * When I evaluated patient her eyes were deviated to the left with vision loss on the right, right-sided facial droop, slurred speech, she was slumped over to the right and unable to move her right upper arm and her right lower extremity, she was not able to her toes on the right when commanded to and not able to squeeze my hand on the right at all. Patient has history of AFib however she is rate controlled but her Eliquis has been put on hold this admission due to GI bleeding. GI is following. She did receive 2 units of blood this admission. * NIHSS score >25 * Stat CT of the brain showing large recent left middle cerebral artery CVA which is a big change from yesterday. * Stat MRI of the brain and brainstem ordered * Stat CTA of the brain and carotids ordered * Order placed for CBC and coags * Neurology consulted, spoke with Dr. Barnes in detail about patient's symptoms and she will see her today. (2) Acute on chronic anemia: Code(s): D64.9 - Anemia, unspecified Status: Chronic Assessment and Plan: 01/11/24: Hemoglobin 5.2g/dl at outside hospital. She has a history of multiple antibodies. * s/p 2 units pRBC * Trend H/H * Holding Eliquis * occult blood positive * GI saw her and no colonoscopy at this point unless overt GI bleeding noted due to her respiratory status. * Protonix b.i.d. IV * Monitor bowel movements * Transfuse if hemoglobin less than 7 01/12/24: * Hemoglobin 7.7 * Eliquis is on hold currently * Continue with
--- NOTE | 2024-01-12 13:40 | PM.TDS ---
Transfer Discharge Sum: Prov Provider Date of admission: 01/08/24 10:28 Primary care physician: Tor Barnes MD Admitting clinician: Mariajose Ardon MD Consults: 01/07/24 Consult to Physician Routine Comment: Spoke to Janelle Chandra @ 10:58am (-) Consulting Provider: Jake Liz call center professional/MD group to consult: cardiology Reason for consultation: current CHF exacerbation, needs established Has provider been notified: Yes Consult to Physician Routine Comment: Spoke to DR Odell @ 11:02am-/ Consulting Provider: Zo Kellogg call center professional/MD group to consult: pulmonology Reason for consultation: COPD, frequent admissions, PCP asking for assistance with BiPAP set up Has provider been notified: Yes 01/07/24 09:55 Consult to Physician Routine Comment: Spoke to Dr Bowers @ 10:11 am/- Consulting Provider: Ervin Blackburn call center professional/MD group to consult: GI Reason for consultation: anemia, hgb 5.0 Has provider been notified: Yes 01/12/24 Consult to Physician Routine Comment: Consulting Provider: Yari Barnes call center professional/MD group to consult: Neuro Reason for consultation: stroke like symptoms Has provider been notified: Yes Attending physician on discharge: Adri Cardenas Discharging clinician: Adri Cardenas Anticipated date of transfer: 01/12/24 Receiving physician/facility: Dr. Meyer (Neurologist) at [facility] DS: Admitting Diagnosis Discharge Date 01/12/24 Admitting Diagnosis Acute on chronic anemia Paroxysmal atrial fibrillation Chronic obstructive pulmonary disease GERD DS: Discharge Diagnosis Discharge Diagnosis (1) Acute CVA (cerebrovascular accident): Code(s): I63.9 - Cerebral infarction, unspecified Status: Acute Assessment and Plan: 01/12/2024: Was called by bedside nursing that patient had right-sided weakness, right-sided facial droop, and slurred speech this morning. When I evaluated patient her eyes were deviated to the left with vision loss on the right, right-sided facial droop, slurred speech, she was slumped over to the right and unable to move her right upper arm and her right lower extremity, she was not able to her toes on the right when commanded to and not able to squeeze my hand on the right at all. Patient has history of AFib however she is rate controlled but her Eliquis has been put on hold this admission due to GI bleeding. GI is following. She did receive 2 units of blood this admission. NIHSS score >[address] of the brain showing large recent left middle cerebral artery CVA which is a big change from yesterday. Stat MRI of the brain and brainstem ordered Stat CTA of the brain and carotids ordered Order placed for CBC and coags Neurology consulted, spoke with Dr. Barnes in detail about patient's symptoms and she will see her today. (2) Acute on chronic anemia: Code(s): D64.9 - Anemia, unspecified Status: Chronic Assessment and Plan: 01/11/24: Hemoglobin 5.2g/dl at outside hospital. She has a history of multiple antibodies. s/p 2 units pRBC Trend H/H Holding Eliquis occult blood positive GI saw her and no colonoscopy at this point unless overt GI bleeding noted due to her respiratory status. Protonix b.i.d. IV Monitor bowel movements Transfuse if hemoglobin less than 7 01/12/24: Hemoglobin 7.7 Eliquis is on hold currently Continue with Protonix (3) Pneumonia: Qualifiers: Laterality: right Lung location: lower lobe of lung Pneumonia type: due to unspecified organism Qualified Code(s): J18.9 - Pneumonia, unspecified organism Code(s): J18.9 - Pneumonia, unspecified organism Status: Inactive Assessment and Plan: 01/11/24: Imaging concerning for mild interstitial edema and subsegmental right lower lung atelectasis versus consolidation. As well as small right pleural effusion. She is on 2 L nasal cannula. Chronically on oxygen a
[2024-01-12 16:47] LABS: Glucose Point of Care 92 mg/dl (65-105)
--- NOTE | 2024-01-12 19:34 | PC.NURSE ---
Pt transferred via EMS to [facility] bed Neuro Stepdown. Report called to DEEPA Jimenez @ [phone].
--- NOTE | 2024-01-12 19:46 | PCRCNOTE ---
RT arrived to patient room for her 1999 breathing tx to find patient not in the room. Pt has been discharged, therefore 2000 tx not given.
[2024-01-14 09:24] LABS: HIV 1 2 Ag Ab 4th Gen w Rflxs Nonreactive (Nonreactive)
== END 2024-01-12 19:00 | disposition short-term general hospital (02) | DRG 811 ==
PROVIDERS: Internal Medicine Critical Care Medicine; Nurse Practitioner; Nurse Practitioner Acute Care; Admitting Provider Internal Medicine; PCP Family Medicine; Visit Provider Nurse Practitioner Acute Care
DX: D62 Acute posthemorrhagic anemia (principal); I63.312 Cerebral infarction due to thrombosis of left middle cerebral artery; J15.212 Pneumonia due to Methicillin resistant Staphylococcus aureus; J96.20 Acute and chronic respiratory failure, unspecified whether with hypoxia or hypercapnia; J96.11 Chronic respiratory failure with hypoxia; J44.1 Chronic obstructive pulmonary disease with (acute) exacerbation; R64 Cachexia; Z68.1 Body mass index [BMI] 19.9 or less, adult; I48.20 Chronic atrial fibrillation, unspecified; K92.1 Melena; J98.11 Atelectasis; G81.91 Hemiplegia, unspecified affecting right dominant side; D50.9 Iron deficiency anemia, unspecified; R41.82 Altered mental status, unspecified; R29.810 Facial weakness; R47.81 Slurred speech; R29.725 NIHSS score 25; I25.10 Atherosclerotic heart disease of native coronary artery without angina pectoris; I11.0 Hypertensive heart disease with heart failure; I50.9 Heart failure, unspecified; K21.9 Gastro-esophageal reflux disease without esophagitis; M19.90 Unspecified osteoarthritis, unspecified site; F41.9 Anxiety disorder, unspecified; Z99.81 Dependence on supplemental oxygen; Z79.01 Long term (current) use of anticoagulants; Z79.82 Long term (current) use of aspirin; Z87.891 Personal history of nicotine dependence; Z86.16 Personal history of COVID-19; Z66 Do not resuscitate
CPT/HCPCS: 36415; 36430; 36600; 70450; 70496; 70498; 70553; 71045; 80053; 80202; 82805; 82948; 84145; 85014; 85018; 85025; 85027; 85610; 85730; 86038; 86850; 86880; 86900; 86901; 86922; 87389; 87641; 94002; 94003; 94640; 94667; 94668; 96365; 96366; 96375; 97110; 97161; 97166; 97530; A9270; A9577; C9113; G0378; G0379; J0692; J1940; J2310; J2405; J3370; J7050; P9016; Q9967

== ENCOUNTER 2024-02-26 08:30 | Observation (INO) | payer MEDICARE, MEDICAID, SELFPAY ==
[2024-02-26] VITALS (31 sets, daily range): BP systolic 115–149; BP diastolic 58–85; PULSE 65–98; RESP 16–26; TEMP 36.4–36.9; O2SAT 85–98; BMI 16.5
--- NOTE | ~2024-02-26 | XR_ITS ---
EXAMINATION: XR chest 1V portable DATE: 02/26/2024 09:08 INDICATION: Shortness of breath TECHNIQUE: frontal view of the chest was obtained. COMPARISON: Chest radiograph dated 01/11/2024 FINDINGS: Bilateral increased interstitial pattern with groundglass opacities in the right lower lung zone and more dense retrocardiac consolidation in the left lower lung zone. Likely small bilateral pleural eff usions. No pneumothorax. Cardiomegaly. Bilateral reverse total shoulder arthroplasties. IMPRESSION: 1. Interstitial and airspace opacities in bilateral lower lung zones, left greater than right which c ould represent pneumonia, atelectasis, mild pulmonary edema or some combination thereof. 2. Small bilateral pleural effusions. 3. Cardiomegaly. Reviewed, dictated and finalized at location B. IMPRESSION: 1. Interstitial and airspace opacities in bilateral lower lung zones, left grea ter than right which could represent pneumonia, atelectasis, mild pulmonary feliciano ma or some combination thereof. 2. Small bilateral pleural effusions. 3. Cardiomegaly.
--- NOTE | 2024-02-26 08:36 | ED.GENADULT ---
HPI - General Adult General Chief complaint: Shortness of Breath/Dyspnea Stated complaint: Shortness of breath Source: patient and EMS Mode of arrival: EMS History of Present Illness HPI narrative: 69 years old white female came from snf by ambulance with shortness of breath history of COPD on chronic 3 L oxygen by nasal cannula patient reported been coughing a little bit more over the last 48 hours History of COPD, anxiety, arthritis, chronic anticoagulation, GERD, paroxysmal AFib, hyperlipidemia Patient currently on Eliquis and aspirin Patient is DNR Related Data Home Medications Medication Instructions Recorded Confirmed megestrol 400 mg/10 mL (40 mg/mL) 400 mg PO DAILY 01/22/23 01/07/24 oral suspension albuterol sulfate 2.5 mg/3 mL 2.5 mg inhalation BID Wheezing 10/31/23 01/07/24 (0.083 %) solution for nebulization albuterol sulfate 90 mcg/actuation 2 puff inhalation PRN PRN Wheezing 10/31/23 01/07/24 aerosol inhaler donepezil 5 mg tablet 5 mg PO DAILY 10/31/23 01/07/24 furosemide 20 mg tablet 20 mg PO DAILY 10/31/23 01/07/24 hydrocodone 7.5 mg-acetaminophen 1 tablet PO Q6H PRN Pain (Scale 12/08/23 01/07/24 325 mg tablet Score 4-6) acetaminophen 325 mg tablet 650 mg PO Q6H PRN Pain (Scale 01/07/24 01/07/24 Score 1-3) diltiazem HCl 240 mg 240 mg PO DAILY 01/07/24 01/07/24 tablet,extended release 24 hr famotidine 20 mg tablet 20 mg PO DAILY 01/07/24 01/07/24 Allergies Allergy/AdvReac Type Severity Reaction Status Date / Time codeine AdvReac Nausea and Verified 01/07/24 02:19 Vomiting Review of Systems Review of Systems: ROS unobtainable: Yes unobtainable due to mental status PMFSH Past Medical History Medical History Anxiety Arthritis Chronic anticoagulation Chronic obstructive pulmonary disease Gastroesophageal reflux disease Paroxysmal atrial fibrillation Surgical History Surgical History History of back surgery History of cardiac catheterization History of knee surgery History of nasal septoplasty History of shoulder surgery Family History Family History Grandparent Cancer Father Diabetes mellitus Heart disease Social History Social History Social History: Surrogate medical decision maker: Pankaj Neal, spouse. Code status: Full code. Smoking packs per day: 1 Smoking cigarettes per day: 20.0 Years smoked: 50 Smoking pack-years: 50.00 Smoking status: Former smoker Tobacco type: cigarettes Alcohol intake: never Substance use: never Substance use type: marijuana Other substance usage details: Gummies Do You Feel Safe in your Home?: Yes Lack of Transportation: No Lack of Food: Never True Current Housing: I Have Housing Concerned About Future Housing: YES Difficulty Paying Gas/Electric Bills: No Difficulty Paying for Meds: No Currently Unemployed: No Education: Grade School Difficulty w/ Childcare or Family Care: No Spiritual care concerns: No Exam Narrative: General appearance: Well-developed, well-nourished Skin: Normal color Head: Normocephalic, nontraumatic Eyes: Clear conjunctiva ENT: Oropharynx normal, ears normal, nose normal Neck: Supple, nontender Chest and respiratory: Airway patent, slight respiratory distress, no accessory muscle use, diminution of air entry bilaterally, few scattered rhonchi and wheezing Heart: irregular heartbeat Abdomen: Soft, nontender, no organomegaly, quiet bowel sounds Vascular: Normal peripheral pulses, normal capillary refill. Musculoskeletal: Normal range of motion, nontender back Neurologic: Alert and oriented to her name only
--- NOTE | 2024-02-26 08:37 | ECG_ITS ---
SEE SCANNED COPY FOR CONFIRMED REPORT MTDD
[2024-02-26] MEDS: LEVALBUTEROL NEB 1.25 MG/3 ML (08:55)
[2024-02-26 09:05] LABS: Basophils Absolute Auto 0.04 K/mm3 (0.00-0.10); Basophils Percent Auto 0.3 % (0.0-1.0); Eosinophils Absolute Auto 0.16 K/mm3 (0.02-0.50); Eosinophils Percent Auto 1.4 % (1.0-6.0); Hemoglobin 10.5 g/dL (11.7-13.8); Immature Granulocyte Absolute 0.17 K/mm3 (0.00-0.00); Immature Granulocyte Percent A 1.5 % (0.0-0.0); Lymphocytes Absolute Auto 0.73 K/mm3 (1.10-4.50); Lymphocytes Percent Auto 6.4 % (18.0-42.0); Mean Corpuscular HGB Conc 29.2 g/dL (32-36); Mean Corpuscular Hemoglobin 27.1 pg (27.0-31.0); Mean Corpuscular Volume 92.8 fL (78.0-102.0); Mean Platelet Volume 9.9 fl (9.2-11.8); Monocytes Absolute Auto 0.76 K/mm3 (0.10-0.90); Monocytes Percent Auto 6.6 % (2.0-11.0); Neutrophils Absolute Auto 9.58 K/mm3 (1.70-7.20); Neutrophils Percent Auto 83.8 % (50.0-70.0); Platelet Count Result 335 K/mm3 (150-420); Red Blood Count 3.88 M/mm3 (4.20-5.40); Red Cell Distribution Width 15.6 % (11.6-14.4); White Blood Count 11.4 K/mm3 (4.8-10.8)
[2024-02-26 09:20] LABS: INR 1.2
[2024-02-26 09:23] LABS: Base Excess ABG 11.2 mmol/L (0-2); HCO3 ABG 37.4 mmol/L (23-29); Oxygen Content ABG 12.8 %vol (16.0-22.0); Oxygen Saturation ABG 81.3 % (95-97); Oxyhemoglobin 80.5 % (94-100); PCO2 ABG 57.7 mmHg (35-45); PO2 ABG 46.8 mmHg (75-85); Total Hemoglobin 11.3 g/dL (12.0-18.0); pH ABG 7.43 (7.35-7.45)
[2024-02-26 09:24] LABS: Lactic Acid Reflex 0.9 mmol/L (0.4-2.0)
[2024-02-26 09:25] LABS: Device NASAL CANNULA; Modified Allen's Test Pass; Site Drawn RIGHT RADIAL
[2024-02-26 09:28] LABS: Alanine Aminotransferase 35 U/L (14-59); Albumin Level 2.8 g/dL (3.4-5.0); Alkaline Phosphatase 85 U/L (46-116); Anion Gap 4 mmol/L (4-12); Aspartate Amino Transferase 24 U/L (15-37); Bilirubin,Total 0.4 mg/dL (0.00-1.00); Blood Urea Nitrogen 16 mg/dL (7-18); Calcium 10.2 mg/dL (8.5-10.1); Carbon Dioxide 41 mmol/L (21-32); Chloride 98 mmol/L (98-108); Estimated Glomerular Filt Rate > 60; Glucose 116 mg/dL (70-99); Magnesium 1.6 mg/dL (1.8-2.4); NT Pro B Type Natriuretic Pept 3818 pg/mL (0-125); Osmolality Calculated 298 mOsm/kg (285-295); Potassium 3.3 mmol/L (3.5-5.1); Sodium 143 mmol/L (136-145); Total Protein 6.9 g/dL (6.4-8.2)
[2024-02-26] MEDS: POTASSIUM CHLORIDE 20 MEQ PACKET (FOR LIQUID) 40 MEQ PO (10:14)
[2024-02-26] MEDS: methylPREDNISolone SOD SUCC 125 MG VIAL IV PUSH (10:14)
[2024-02-26] MEDS: levoFLOXacin 750 MG/D5W 150 ML 750 MG/150 ML BAG 100 MG IVPB (10:15)
--- NOTE | 2024-02-26 10:33 | PM.IMHP ---
H&P: HPI History of Present Illness Date/Time: 02/26/24 10:33 Chief Complaint: Dyspnea, cough Narrative: This is a 69-year-old female patient with past history COPD, CHF, atrial fibrillation and ischemic left MCA stroke less than 2 months ago who was brought to the emergency department by EMS from local snf with complaints dyspnea. Patient has been complaining of difficulty breathing for the last 3 days with nonproductive cough. No fever. Patient wears home oxygen 2-3 liters/minute was found to be hypoxic on home settings by ABG an oxygen increased to 5 liters/minute in the emergency department. Chest x-ray in the emergency department showed possible pneumonia versus atelectasis verses pulmonary edema she was started on IV antibiotics levofloxacin and vancomycin. Patient admitted to the floor. On review of medication reconciliation it appears that patient is no longer receiving scheduled furosemide like she used to receive on previous hospitalizations. Review of records shows echocardiogram with diastolic dysfunction normal systolic function and normal pulmonary artery pressures. Patient has mild tachypnea, crackles throughout, nonproductive cough. She has also right-sided hemiplegia with right face droop from recent stroke. Review of Systems Review of Systems: All systems reviewed & are unremarkable except as noted in HPI and below PMFSH Past Medical History Medical History Anxiety Arthritis Chronic anticoagulation Chronic obstructive pulmonary disease Gastroesophageal reflux disease Paroxysmal atrial fibrillation Surgical History Surgical History History of back surgery History of cardiac catheterization History of knee surgery History of nasal septoplasty History of shoulder surgery Family History Family History Grandparent Cancer Father Diabetes mellitus Heart disease Social History Social History Social History: Surrogate medical decision maker: Pankaj Neal, spouse. Code status: Full code. Smoking packs per day: 1 Smoking cigarettes per day: 20.0 Years smoked: 50 Smoking pack-years: 50.00 Smoking status: Former smoker Tobacco type: cigarettes Alcohol intake: never Substance use: never Substance use type: marijuana Other substance usage details: Gummies Do You Feel Safe in your Home?: Yes Lack of Transportation: No Lack of Food: Never True Current Housing: I Have Housing Concerned About Future Housing: YES Difficulty Paying Gas/Electric Bills: No Difficulty Paying for Meds: No Currently Unemployed: No Education: Grade School Difficulty w/ Childcare or Family Care: No Spiritual care concerns: No Meds Home Medications and Allergies Home Medications Medication Instructions Recorded Confirmed Type atorvastatin 20 mg tablet 20 mg PO HS #30 tabs 06/29/22 02/26/24 Rx fluoxetine 20 mg tablet 20 mg PO DAILY 1 month #30 tabs 11/25/22 02/26/24 Rx albuterol sulfate 2.5 mg/3 mL 2.5 mg inhalation Q4-6H PRN 10/31/23 02/26/24 History (0.083 %) solution for nebulization Wheezing metoprolol tartrate 50 mg tablet 50 mg PO Q12HR #60 tabs 12/03/23 02/26/24 Rx hydrocodone 7.5 mg-acetaminophen 1 tablet PO Q6H PRN Pain (Scale 12/08/23 02/26/24 History 325 mg tablet Score 4-6) acetaminophen 325 mg tablet 650 mg PO Q6H PRN Pain (Scale 01/07/24 02/26/24 History Score 1-3) diltiazem HCl 240 mg 240 mg PO DAILY 01/07/24 02/26/24 History tablet,extended release 24 hr alprazolam 1 mg tablet 1 mg PO QID PRN Anxiety 02/26/24 02/26/24 History apixaban 5 mg tablet 5 mg PO BID 02/26/24 02/26/24 History budesonide 0.5 mg/2 mL suspension 0.5 mg inhalation BID 02/26/24 02/26/24 History for nebulization ferrous sulfate 325 mg (65 mg 325 m
--- NOTE | 2024-02-26 11:00 | PC.NURSE ---
call for bed assignment, pt to go 210. updates to DEEPA Gamboa.
--- NOTE | 2024-02-26 11:07 | PC.NURSE ---
pt breakfast tray given. pt unable to feed self, assisted per staff with meal. 75% intake of meal.
--- NOTE | 2024-02-26 11:24 | PC.NURSE ---
pt to floor via stretcher with steve Bean. departs with all personal belongings. pt alert and stable. oriented x4.
--- NOTE | 2024-02-26 11:35 | ADMGEN ---
This patient, Sahara Neal, was admitted to 2nd Floor Room 210-2. Patient/family oriented to hospital policies and general routines including ID bracelet, bed and alarms, visiting hours, pain management, procedures, bathroom and other care routines, personal items, smoking policy, room service/diet, and visiting hours. Information on how to activate the Rapid Response Team has been discussed. Patient/Family are encouraged to report perceived risks to care and to ask questions if they do not understand what they are told or what they should do.
[2024-02-26 12:11] LABS: MRSA (PCR) DETECTED (NOT DETECTE)
[2024-02-26] MEDS: VANCOMYCIN 1,000 MG/NS 250 ML 1,000 MG/250 ML BAG 250 MG IVPB (13:04)
[2024-02-26] MEDS: FUROSEMIDE INJ 40 MG/4 ML VIAL IV PUSH (15:01)
[2024-02-26] MEDS: MAGNESIUM SULF 2 GM/WATER 50ML 2 GM/50 ML BAG IVPB (15:01)
[2024-02-26] MEDS: HYDROcodone/acetaminophen (*CRX) 7.5-325 MG TABLET 1 TAB PO (15:07)
[2024-02-26] MEDS: IPRATROPIUM 0.5 MG/ALBUTEROL SULFATE 2.5 MG AMPUL.NEB 3 ML INHALATION (16:59)
[2024-02-26] MEDS: BUDESONIDE RESPULE NEB 0.5 MG/2 ML AMP INHALATION (17:00)
[2024-02-26] MEDS: ALPRAZolam (*CRX) 0.5 MG TABLET 1 MG PO ×2 (17:13→20:43)
[2024-02-26] MEDS: APIXABAN 2.5 MG TABLET 5 MG BY MOUTH (20:44)
[2024-02-26] MEDS: PANTOPRAZOLE 40 MG TABLET PO (20:44)
[2024-02-26] MEDS: ATORVASTATIN 10 MG TABLET 20 MG PO (20:44)
[2024-02-26] MEDS: METOPROLOL TARTRATE 50 MG TAB PO (20:51)
[2024-02-27] VITALS (18 sets, daily range): BP systolic 101–158; BP diastolic 52–72; PULSE 56–94; RESP 14–69; TEMP 36.1–36.6; O2SAT 91–99
[2024-02-27] MEDS: IPRATROPIUM 0.5 MG/ALBUTEROL SULFATE 2.5 MG AMPUL.NEB 3 ML INHALATION ×4 (00:26→17:58)
[2024-02-27 05:17] LABS: Basophils Absolute Auto 0.02 K/mm3 (0.00-0.10); Basophils Percent Auto 0.3 % (0.0-1.0); Eosinophils Absolute Auto 0.02 K/mm3 (0.02-0.50); Eosinophils Percent Auto 0.3 % (1.0-6.0); Hematocrit 36.7 % (35.0-42.0); Hemoglobin 10.5 g/dL (11.7-13.8); Immature Granulocyte Absolute 0.05 K/mm3 (0.00-0.00); Immature Granulocyte Percent A 0.7 % (0.0-0.0); Lymphocytes Absolute Auto 0.41 K/mm3 (1.10-4.50); Mean Corpuscular HGB Conc 28.6 g/dL (32-36); Mean Corpuscular Hemoglobin 26.9 pg (27.0-31.0); Mean Corpuscular Volume 93.9 fL (78.0-102.0); Mean Platelet Volume 10.3 fl (9.2-11.8); Monocytes Absolute Auto 0.12 K/mm3 (0.10-0.90); Monocytes Percent Auto 1.8 % (2.0-11.0); Neutrophils Absolute Auto 6.21 K/mm3 (1.70-7.20); Neutrophils Percent Auto 90.9 % (50.0-70.0); Platelet Count Result 298 K/mm3 (150-420); Red Blood Count 3.91 M/mm3 (4.20-5.40); Red Cell Distribution Width 15.7 % (11.6-14.4); White Blood Count 6.8 K/mm3 (4.8-10.8)
[2024-02-27 05:33] LABS: Alanine Aminotransferase 26 U/L (14-59); Albumin Level 2.6 g/dL (3.4-5.0); Alkaline Phosphatase 81 U/L (46-116); Anion Gap 4 mmol/L (4-12); Aspartate Amino Transferase 18 U/L (15-37); Bilirubin,Total 0.3 mg/dL (0.00-1.00); Blood Urea Nitrogen 27 mg/dL (7-18); Carbon Dioxide 37 mmol/L (21-32); Chloride 96 mmol/L (98-108); Estimated CRCL calculation 38 ml/min; Estimated Glomerular Filt Rate > 60; Glucose 198 mg/dL (70-99); Osmolality Calculated 295 mOsm/kg (285-295); Potassium 4.5 mmol/L (3.5-5.1); Sodium 137 mmol/L (136-145); Total Protein 6.6 g/dL (6.4-8.2)
[2024-02-27] MEDS: BUDESONIDE RESPULE NEB 0.5 MG/2 ML AMP INHALATION ×2 (05:33→17:58)
--- NOTE | 2024-02-27 08:12 | PC.NURSE ---
Up in chair, feeding self with left hand, flaccid right extremities from previous stroke noted, call light in reach of left hand and instructed to call for assistance, will round regularly to prevent injury
--- NOTE | 2024-02-27 08:26 | PM.IMPN ---
Progress Note: A&P Assessment and Plan (1) Acute and chronic respiratory failure with hypoxia: Code(s): J96.21 - Acute and chronic respiratory failure with hypoxia Status: Acute Assessment and Plan: 02/26/24: -Wears 2-3 LPM NC at all times, requiring 4-5 LPM to maintain saturations today -CXR findings pneumonia, atelectasis, mild pulmonary edema with bilateral small pleural effusions -ABG with hypoxemia on 3 LPM -started on Levaquin and Vancomycin -MRSA Nares positive, on isolation for such -IV Lasix x1 then oral Lasix 20 mg BID ordered -suspect pulmonary edema as more likely cause of acute hypoxemia but will treat for concurrent pneumonia 02/27/24: -Currently at baseline oxygen requirements -Continue Levaquin and Vancomycin -hold p.o. Lasix - lungs coarse to auscultation - at patient already received her p.o. dose of Lasix this morning we will add 20 mg IV Lasix now with another dose of 20 mg IV Lasix around 1800 (2) Hx of ischemic left MCA stroke: Code(s): Z86.73 - Personal history of transient ischemic attack (TIA), and cerebral infarction without residual deficits Status: Acute Assessment and Plan: 02/26/24: -Large L MCA Stroke December 2023 with resultant Right upper and lower hemiplegia and right facial droop -Diet is heart healthy (low fat, low salt) Level 5 minced/moist with thin fluids per alf paperwork 02/27/24: - right-sided weakness -no change to current treatment plan (3) Chronic obstructive pulmonary disease: Code(s): J44.9 - Chronic obstructive pulmonary disease, unspecified Status: Acute Assessment and Plan: See 1 (4) Paroxysmal atrial fibrillation: Code(s): I48.0 - Paroxysmal atrial fibrillation Status: Chronic Assessment and Plan: 02/26/24: -Afib controlled rate on telemetry -continue telemetry but consider DC tomorrow if no major rate changes -continue diltiazem and metoprolol, continue Eliquis 02/27/24: -no change to current treatment plan (5) Chronic anticoagulation: Code(s): Z79.01 - [facility] (current) use of anticoagulants Status: Acute Assessment and Plan: 02/26/24: -Resume home medications, on Eliquis 02/27/24: -no change to current treatment plan (6) Chronic diastolic (congestive) heart failure: Code(s): I50.32 - Chronic diastolic (congestive) heart failure Status: Chronic Assessment and Plan: 02/26/24: -possible acute exacerbation of known diastolic dysfunction -IV Lasix 40 mg x 1 on admit to floor -oral Lasix 20 mg BID starting tomorrow (very small patient, 41kg) 02/27/24: -no change to current treatment plan (7) Severe protein-calorie malnutrition: Code(s): E43 - Unspecified severe protein-calorie malnutrition Status: Acute Assessment and Plan: 02/26/24: -Consult dietary -order supplements with meals -needs low sodium for CHF, probably needs regular/extended diet for weight maintenance 02/27/24: -no change to current treatment plan Time Spent With Patient Time with patient: 25 - 35 minutes Subjective Date/time seen: 02/27/24 08:26 Interval history: This is a 69-year-old female with a significant past medical history of COPD on 2-3 L at baseline, CHF, AFib, ischemic left MCA stroke less than 2 months ago who presented to the hospital on 02/26/2024 with complaints of shortness of breath, cough, and dyspnea. Workup in hospital included a chest x-ray which shown interstitial and airspace opacities in bilateral lower lung zones left greater than right which could represent pneumonia, atelectasis, mild pulmonary edema or combination thereof, small bilateral pleural effusions, cardiomegaly. Initial labs showed a white blood cell count of 11.4, hemoglobin 10.5, INR 1.2, potassium 3.3, magnesium 1.6, serum osmolarity 298, calcium 10.2, liver enzymes are normal, proBNP 3818. MRSA was obtained and was positive. Blood cultures were obtained and are pending. Ines
[2024-02-27] MEDS: APIXABAN 2.5 MG TABLET 5 MG BY MOUTH ×2 (08:49→20:44)
[2024-02-27] MEDS: FERROUS SULFATE 325 MG TABLET DR BY MOUTH (08:51)
[2024-02-27] MEDS: dilTIAZem HCL CD 240 MG CAP.24HR PO (08:51)
[2024-02-27] MEDS: FLUoxetine HCL 20 MG CAPSULE PO (08:52)
[2024-02-27] MEDS: FUROSEMIDE 20 MG TABLET PO (08:52)
[2024-02-27] MEDS: PANTOPRAZOLE 40 MG TABLET PO ×2 (08:53→20:45)
[2024-02-27] MEDS: METOPROLOL TARTRATE 50 MG TAB PO ×2 (08:53→20:45)
[2024-02-27] MEDS: TAMSULOSIN HCL 0.4 MG CAPSULE PO (08:53)
[2024-02-27] MEDS: HYDROcodone/acetaminophen (*CRX) 7.5-325 MG TABLET 1 TAB PO ×2 (08:57→18:40)
[2024-02-27] MEDS: ALPRAZolam (*CRX) 0.5 MG TABLET 1 MG PO ×2 (08:58→18:42)
[2024-02-27] MEDS: levoFLOXacin 750 MG/D5W 150 ML 750 MG/150 ML BAG 100 MG IVPB (09:00)
--- NOTE | 2024-02-27 10:23 | PC.NURSE ---
Resting in bed, denies needs, family at bedside
[2024-02-27] MEDS: FUROSEMIDE INJ 20 MG/2 ML VIAL IV PUSH (10:36)
[2024-02-27] MEDS: VANCOMYCIN 750 MG/NS 250 ML 750 MG/250 ML BAG 250 MG IVPB (10:38)
--- NOTE | 2024-02-27 16:10 | PC.NURSE ---
Patient in bed with TV on and looking out the window. Alert and oriented. Voices needs, voice soft and difficult to hear at times. T/P to left side. Telemetry intact showing AFib. Call light and belonings within reach of patient's left side. SR up x2.
[2024-02-27] MEDS: FUROSEMIDE INJ 20 MG/2 ML VIAL (18:01)
--- NOTE | 2024-02-27 19:33 | PC.NURSE ---
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 Patient urinates between 125 to 300ml. Pt. turned and positioned pillows applied for positioning and comfort.Patient remains on contact isolation for MRSA of nares. IV patient and flushes without difficulty. Dressing on IV is clean, dry, intact. Able to reach fluids and personal items. Side rails up x2.
[2024-02-27] MEDS: ATORVASTATIN 10 MG TABLET 20 MG PO (20:45)
--- NOTE | 2024-02-27 21:20 | PC.NURSE ---
Patient in bed. T/P Q2H. Pillows used for comfort and maintaining new position. Right side flaccid. Able to feed self. IV intact, flushes well. Remains on contact isolation. No resp distress observed. Continues on telemetry, patient in A Fib. Denies pain at this time. Patient c/o not wanting to go back to [facility].
--- NOTE | 2024-02-27 23:30 | PC.NURSE ---
Pt called to use the bedpan but was unable to void. Pt assisted with repositioning to her side.
[2024-02-28] VITALS (12 sets, daily range): BP systolic 138–139; BP diastolic 70–72; PULSE 65–74; RESP 16–20; TEMP 36.2–36.7; O2SAT 91–98
[2024-02-28] MEDS: IPRATROPIUM 0.5 MG/ALBUTEROL SULFATE 2.5 MG AMPUL.NEB 3 ML INHALATION ×3 (00:26→13:17)
--- NOTE | 2024-02-28 00:30 | PC.NURSE ---
Pt given a duoneb treatment which she tolerated well.
--- NOTE | 2024-02-28 02:13 | PC.NURSE ---
Pt asleep and no signs of discomfort noted.
--- NOTE | 2024-02-28 04:04 | PC.NURSE ---
Pt asleep and no signs of discomfort noted. Pt remains in A-fib at this time.
--- NOTE | 2024-02-28 05:04 | PC.NURSE ---
Pt called to use the bedpan; Pt voided 300 ml of clear, yellow urine.
[2024-02-28 05:19] LABS: Basophils Absolute Auto 0.01 K/mm3 (0.00-0.10); Basophils Percent Auto 0.1 % (0.0-1.0); Eosinophils Absolute Auto 0.02 K/mm3 (0.02-0.50); Eosinophils Percent Auto 0.1 % (1.0-6.0); Hematocrit 31.7 % (35.0-42.0); Hemoglobin 9.2 g/dL (11.7-13.8); Immature Granulocyte Percent A 0.6 % (0.0-0.0); Lymphocytes Absolute Auto 1.28 K/mm3 (1.10-4.50); Lymphocytes Percent Auto 7.7 % (18.0-42.0); Mean Corpuscular Hemoglobin 26.8 pg (27.0-31.0); Mean Corpuscular Volume 92.4 fL (78.0-102.0); Mean Platelet Volume 10.2 fl (9.2-11.8); Monocytes Absolute Auto 0.85 K/mm3 (0.10-0.90); Monocytes Percent Auto 5.1 % (2.0-11.0); Neutrophils Absolute Auto 14.32 K/mm3 (1.70-7.20); Neutrophils Percent Auto 86.4 % (50.0-70.0); Platelet Count Result 297 K/mm3 (150-420); Red Blood Count 3.43 M/mm3 (4.20-5.40); Red Cell Distribution Width 15.8 % (11.6-14.4); White Blood Count 16.6 K/mm3 (4.8-10.8)
[2024-02-28 05:33] LABS: Alanine Aminotransferase 13 U/L (14-59); Albumin Level 2.4 g/dL (3.4-5.0); Alkaline Phosphatase 65 U/L (46-116); Anion Gap 2 mmol/L (4-12); Aspartate Amino Transferase 20 U/L (15-37); Bilirubin,Total 0.3 mg/dL (0.00-1.00); Blood Urea Nitrogen 27 mg/dL (7-18); Calcium 9.4 mg/dL (8.5-10.1); Carbon Dioxide 38 mmol/L (21-32); Chloride 96 mmol/L (98-108); Estimated CRCL calculation 43 ml/min; Estimated Glomerular Filt Rate > 60; Glucose 84 mg/dL (70-99); Magnesium 1.6 mg/dL (1.8-2.4); Osmolality Calculated 286 mOsm/kg (285-295); Potassium 3.9 mmol/L (3.5-5.1); Sodium 136 mmol/L (136-145); Total Protein 5.9 g/dL (6.4-8.2)
--- NOTE | 2024-02-28 05:35 | PC.NURSE ---
Pt given a nebulizer treatment which she tolerated well.
[2024-02-28] MEDS: BUDESONIDE RESPULE NEB 0.5 MG/2 ML AMP INHALATION (05:36)
[2024-02-28] MEDS: APIXABAN 2.5 MG TABLET 5 MG BY MOUTH (08:09)
[2024-02-28] MEDS: dilTIAZem HCL CD 240 MG CAP.24HR PO (08:09)
[2024-02-28] MEDS: polyethylene glycoL 3350 17 GM POWD.PACK PO (08:09)
[2024-02-28] MEDS: FERROUS SULFATE 325 MG TABLET DR BY MOUTH (08:09)
[2024-02-28] MEDS: TAMSULOSIN HCL 0.4 MG CAPSULE PO (08:09)
[2024-02-28] MEDS: METOPROLOL TARTRATE 50 MG TAB PO (08:09)
[2024-02-28] MEDS: FLUoxetine HCL 20 MG CAPSULE PO (08:09)
[2024-02-28] MEDS: HYDROcodone/acetaminophen (*CRX) 7.5-325 MG TABLET 1 TAB PO (08:09)
[2024-02-28] MEDS: PANTOPRAZOLE 40 MG TABLET PO (08:09)
[2024-02-28] MEDS: ALPRAZolam (*CRX) 0.5 MG TABLET 1 MG PO (08:10)
--- NOTE | 2024-02-28 08:29 | PM.DS ---
DS: Admitting Diagnosis Discharge Date 02/28/24 Admitting Diagnosis Acute and Chronic respiratory failure with hypoxia Hx of ischemic left MCA stroke COPD Paroxysmal atrial fibrillation Chronic anticoagulation Chronic diastolic heart failure severe protein-calorie malnutrition DS: Discharge Diagnosis Discharge Diagnosis (1) Acute and chronic respiratory failure with hypoxia: Code(s): J96.21 - Acute and chronic respiratory failure with hypoxia Status: Acute (2) Hx of ischemic left MCA stroke: Code(s): Z86.73 - Personal history of transient ischemic attack (TIA), and cerebral infarction without residual deficits Status: Acute (3) Chronic obstructive pulmonary disease: Code(s): J44.9 - Chronic obstructive pulmonary disease, unspecified Status: Acute (4) Paroxysmal atrial fibrillation: Code(s): I48.0 - Paroxysmal atrial fibrillation Status: Chronic (5) Chronic anticoagulation: Code(s): Z79.01 - terminal operator (current) use of anticoagulants Status: Acute (6) Chronic diastolic (congestive) heart failure: Code(s): I50.32 - Chronic diastolic (congestive) heart failure Status: Chronic (7) Severe protein-calorie malnutrition: Code(s): E43 - Unspecified severe protein-calorie malnutrition Status: Acute DS: Summary Hospital Course Reason for hospitalization: Acute and Chronic respiratory failure with hypoxia Hx of ischemic left MCA stroke COPD Paroxysmal atrial fibrillation Chronic anticoagulation Chronic diastolic heart failure severe protein-calorie malnutrition Hospital Course: 02/27/24: This is a 69-year-old female with a significant past medical history of COPD on 2-3 L at baseline, CHF, AFib, ischemic left MCA stroke less than 2 months ago who presented to the hospital on 02/26/2024 with complaints of shortness of breath, cough, and dyspnea.? Workup in? hospital included a chest x-ray which shown interstitial and airspace opacities in bilateral lower lung zones left greater than right which could represent pneumonia, atelectasis, mild pulmonary edema or combination thereof, small bilateral pleural effusions, cardiomegaly.? Initial labs showed a white blood cell count of 11.4, hemoglobin 10.5, INR 1.2, potassium 3.3, magnesium 1.6, serum osmolarity 298, calcium 10.2, liver enzymes are normal, proBNP 3818.? MRSA was obtained and was positive.? Blood cultures were obtained and are pending.? Patient was started on Levaquin and vancomycin. On examination today patient is alert and oriented x3, sitting in the chair.? patient denies any fever, chills, nausea, vomiting, diarrhea, abdominal pain, chest pain, shortness a breath. Labs today revealed white blood cell count down to 6.8, hemoglobin 10.5, chloride 96, blood sugars ranging 116-198. lungs coarse to auscultation today we will go ahead and give another 20 mg IV push Lasix now and do another IV push Lasix around 1800 tonight for added diuresis. 02/28/24: Patient is reporting a sore scratchy throat today. Throat lozenges were ordered. Labs today show a white blood cell count of 16.6, hemoglobin 9.2, magnesium 1.6. She was transition to Levaquin oral and doxycycline oral today. Patient has remained afebrile, vital signs are stable, she is currently on 3 L nasal cannula which is her baseline. She is stable for discharge at this time. She will need to follow up with her primary care physician in 1 week. Final diagnosis: acute on chronic respiratory failure with hypoxia, community-acquired pneumonia, acute exacerbation of CHF, severe protein calorie mild nutrition Status at Discharge Cognitive/behavioral status at discharge: Alert and oriented x3 Functional status at discharge: wheelchair bound Overall status at discharge: patient is progressing back to baseline Time Spent with Patient Time attestation: Total time spent providing and/or coordinating discharge services: Time spent: Greater than 30 minutes
[2024-02-28] MEDS: MAGNESIUM SULF 2 GM/WATER 50ML 2 GM/50 ML BAG IVPB (09:13)
[2024-02-28] MEDS: DOXYCYCLINE HYCLATE 100 MG TABLET PO (09:57)
[2024-02-28] MEDS: levoFLOXacin TAB 500 MG, levoFLOXacin TAB 250 MG 750 MG PO (09:57)
--- NOTE | 2024-02-28 13:40 | PC.NURSE ---
Report called to Jessica at [facility]. Patient taken per [facility] back to SNF. notified patient discharging back to [facility].
--- NOTE | 2024-02-29 10:11 | PC.NURSE ---
DC back to [facility], dc instructions received and no questions
== END 2024-02-28 13:40 ==
LOC: CHSED 09:57 → CHS2ND 11:22
PROVIDERS: Nurse Practitioner; Admitting Provider Internal Medicine; Emergency Provider Emergency Medicine; PCP Family Medicine; Visit Provider Internal Medicine
DX: I11.0 Hypertensive heart disease with heart failure (principal); I50.33 Acute on chronic diastolic (congestive) heart failure; J96.21 Acute and chronic respiratory failure with hypoxia; J44.9 Chronic obstructive pulmonary disease, unspecified; I48.0 Paroxysmal atrial fibrillation; I69.351 Hemiplegia and hemiparesis following cerebral infarction affecting right dominant side; I69.392 Facial weakness following cerebral infarction; K21.9 Gastro-esophageal reflux disease without esophagitis; M19.90 Unspecified osteoarthritis, unspecified site; F41.9 Anxiety disorder, unspecified; Z87.891 Personal history of nicotine dependence; Z79.01 Long term (current) use of anticoagulants; Z99.81 Dependence on supplemental oxygen; E43 Unspecified severe protein-calorie malnutrition; J18.9 Pneumonia, unspecified organism
CPT/HCPCS: 36415; 36600; 71045; 80053; 82805; 83605; 83735; 83880; 84484; 85025; 85610; 85730; 87040; 87641; 93005; 94640; 96365; 96366; 96367; 96375; 96376; 97161; 97166; 99285; A9270; G0378; J1940; J1956; J2919; J3370; J3475

== ENCOUNTER 2024-08-04 15:55 | Emergency (ER) | payer MEDICARE, MEDICAID, SELFPAY ==
[2024-08-04] VITALS (8 sets, daily range): BP systolic 140–165; BP diastolic 74–82; PULSE 64–72; RESP 16–20; TEMP 36.4–36.6; O2SAT 94–97
--- NOTE | ~2024-08-04 | XR_ITS ---
EXAMINATION: XR chest 1V portable DATE: 08/04/2024 16:58 INDICATION: Shortness of breath TECHNIQUE: frontal view of the chest was obtained. COMPARISON: Chest radiograph dated 02/27/2024 FINDINGS: Mild increased interstitial pattern at the left lower lung zone which could represent mild asymmetric pulmonary edema or pneumonia. No airspace opacities, pleural effusion or pneumothorax. The cardiomed iastinal silhouette is normal. Bilateral reverse total shoulder arthroplasties. IMPRESSION: 1. Mild increased initial pattern left lower lung zone which could represent asymmetric mild pulmonar y edema or pneumonia. Reviewed, dictated and finalized at location A. IMPRESSION: 1. Mild increased initial pattern left lower lung zone which could represent as ymmetric mild pulmonary edema or pneumonia.
--- NOTE | 2024-08-04 16:07 | ED.SOB ---
HPI - SOB/Dyspnea General Chief Complaint: Upper Respiratory Infection Stated Complaint: SOB Time Seen by Provider: 08/04/24 16:03 Source: patient Mode of arrival: EMS Limitations: no limitations History of Present Illness HPI Narrative: 69-year-old female with a history hypertension, diabetes mellitus, dyslipidemia anxiety/depression, CVA with right-sided weakness, GERD, CAD/CHF/ AFib on anticoagulation, recurrent falls,COPD, CULLEN, on home oxygen 3 liters/minute [facility] -- cough -- shortness of breath with hypoxia. The [facility] noted oxygen saturation in the 70s on 3 L of O2. -- Complains of chills MD elicited complaint: shortness of breath and cough Pertinent past history: COPD, congestive heart failure and other ( CULLEN) Onset (ago): day(s) ( 1 day) Severity: mild Exacerbating factors: nothing Relieving factors: nothing Known history of: COPD and congestive heart failure Associated symptoms: denies other symptoms Treatment prior to arrival: oxygen Related Data Home oxygen amount: 3 liters Home Medications Medication Instructions Recorded Confirmed albuterol sulfate 2.5 mg/3 mL 2.5 mg inhalation Q4-6H PRN 10/31/23 08/04/24 (0.083 %) solution for nebulization Wheezing hydrocodone 7.5 mg-acetaminophen 1 tablet PO Q6H PRN Pain (Scale 12/08/23 08/04/24 325 mg tablet Score 4-6) acetaminophen 325 mg tablet 650 mg PO Q6H PRN Pain (Scale 01/07/24 08/04/24 Score 1-3) diltiazem HCl 240 mg 240 mg PO DAILY 01/07/24 08/04/24 tablet,extended release 24 hr alprazolam 1 mg tablet 1 mg PO QID PRN Anxiety 02/26/24 08/04/24 apixaban 5 mg tablet 5 mg PO BID 02/26/24 08/04/24 budesonide 0.5 mg/2 mL suspension 0.5 mg inhalation BID 02/26/24 08/04/24 for nebulization ferrous sulfate 325 mg (65 mg 325 mg PO DAILY 02/26/24 08/04/24 iron) tablet ipratropium 0.5 mg-albuterol 3 mg 3 ml inhalation QID 02/26/24 08/04/24 (2.5 mg base)/3 mL nebulization soln pantoprazole 40 mg tablet,delayed 40 mg PO BID 02/26/24 08/04/24 release polyethylene glycol 3350 17 gram 17 g PO DAILY 02/26/24 08/04/24 oral powder packet alprazolam 0.5 mg tablet 0.5 mg PO DAILY 08/04/24 08/04/24 Allergies Allergy/AdvReac Type Severity Reaction Status Date / Time codeine AdvReac Nausea and Verified 08/04/24 16:18 Vomiting Review of Systems Review of Systems: All systems reviewed & are unremarkable except as noted in HPI and below Constitutional: Constitutional: Reports as per HPI and Reports no additional constitutional complaints Eyes: Eyes: Reports as per HPI and Reports no additional eye complaints ENT: Reports system reviewed and no additional complaints, except as documented and Reports as per HPI Cardiovascular: Cardiovascular: Reports as per HPI and Reports no additional cardiovascular complaints Respiratory: Respiratory: Reports as per HPI, Reports no additional respiratory complaints, Reports chest congestion, Reports cough and Reports dyspnea Gastrointestinal: Gastrointestinal: Reports as per HPI and Reports no additional gastrointestinal complaints Genitourinary: Genitourinary: Reports no additional female genitourinary complaints and Reports as per HPI Musculoskeletal: Musculoskeletal: Reports no additional musculoskeletal complaints and Reports as per HPI Integumentary/Breasts: Skin/Breast: Reports system reviewed and no additional complaints, except as docu and Reports as per HPI Neurologic: Reports system reviewed and no additional complaints, except as documented and Reports as per HPI Comments: right hemiplegia Psychiatric: Psychiatric: Reports no additional psychiatric complaints and Reports as per HPI Endocrine: Endocrine: Reports no additional endocrine complaints and Reports as per HPI Hematologic/Lymphatic: Hematologic/Lymphatic: Reports no additional hematologic/lymphatic complaints and Reports as per HPI Allergic/Immunologic: Allergic/Immunologic: Reports no addition
--- NOTE | 2024-08-04 16:41 | ECG_ITS ---
Test Date: 2024-08-04 17:01:55 Measurements Intervals Vernon Rate: 70 P: 75 MS: 146 QRS: 94 QRSD: 125 T: 22 QT: 450 QTc: 488 Interpretive Statements SINUS RHYTHM RIGHT BUNDLE BRANCH BLOCK [120+ ms QRS DURATION, UPRIGHT V1, 40+ ms S IN I/aVL/V4/V5/V6] No previous ECG available for comparison Electronically Signed On 08-05-2024 09:35:59 CDT by Luanne Preciado M.D.
[2024-08-04 16:57] LABS: Basophils Absolute Auto 0.05 K/mm3 (0.00-0.10); Basophils Percent Auto 0.5 % (0.0-1.0); Eosinophils Absolute Auto 0.27 K/mm3 (0.02-0.50); Eosinophils Percent Auto 2.9 % (1.0-6.0); Hematocrit 36.1 % (35.0-42.0); Hemoglobin 11.5 g/dL (11.7-13.8); Immature Granulocyte Absolute 0.04 K/mm3 (0.00-0.00); Immature Granulocyte Percent A 0.4 % (0.0-0.0); Lymphocytes Absolute Auto 0.85 K/mm3 (1.10-4.50); Lymphocytes Percent Auto 9.2 % (18.0-42.0); Mean Corpuscular HGB Conc 31.9 g/dL (32-36); Mean Corpuscular Hemoglobin 29.6 pg (27.0-31.0); Mean Corpuscular Volume 92.8 fL (78.0-102.0); Mean Platelet Volume 9.5 fl (9.2-11.8); Monocytes Absolute Auto 0.96 K/mm3 (0.10-0.90); Monocytes Percent Auto 10.4 % (2.0-11.0); Neutrophils Percent Auto 76.6 % (50.0-70.0); Platelet Count Result 277 K/mm3 (150-420); Red Blood Count 3.89 M/mm3 (4.20-5.40); Red Cell Distribution Width 14.1 % (11.6-14.4); White Blood Count 9.3 K/mm3 (4.8-10.8)
[2024-08-04 17:17] LABS: Lactic Acid Reflex 0.8 mmol/L (0.4-2.0)
[2024-08-04 17:19] LABS: Alanine Aminotransferase 6 U/L (14-59); Albumin Level 2.7 g/dL (3.4-5.0); Alkaline Phosphatase 92 U/L (46-116); Anion Gap 7 mmol/L (4-12); Aspartate Amino Transferase 13 U/L (15-37); Bilirubin,Total 0.4 mg/dL (0.00-1.00); Blood Urea Nitrogen 18 mg/dL (7-18); Calcium 9.4 mg/dL (8.5-10.1); Carbon Dioxide 35 mmol/L (21-32); Chloride 96 mmol/L (98-108); Estimated CRCL calculation 38 ml/min; Estimated Glomerular Filt Rate > 60; Glucose 81 mg/dL (70-99); NT Pro B Type Natriuretic Pept 7912 pg/mL (0-125); Osmolality Calculated 286 mOsm/kg (285-295); Sodium 138 mmol/L (136-145); Total Protein 6.8 g/dL (6.4-8.2); Troponin I 10.4 ng/L (0.00-60.4)
[2024-08-04 17:33] LABS: SARS-CoV-2 RNA PCR Negative (Negative)
[2024-08-04 17:35] LABS: Influenza A QL RT-PCR Negative (Negative); Influenza B QL RT-PCR Negative (Negative); RSV RNA, RT-PCR Negative (Negative)
--- NOTE | 2024-08-04 17:42 | PC.NURSE ---
patient on bedpan
[2024-08-04] MEDS: FUROSEMIDE 40 MG TABLET 20 MG PO (17:55)
[2024-08-04] MEDS: AZITHROMYCIN 250 MG TABLET 500 MG PO (17:55)
--- NOTE | 2024-08-04 18:19 | PC.NURSE ---
RN given report to Naty ARENAS at [facility]. Rn made facility aware of patient's skin breakdown on buttock.
== END 2024-08-04 18:42 | disposition home or self-care (01) ==
PROVIDERS: Emergency Provider Internal Medicine Critical Care Medicine; PCP Family Medicine
DX: J44.9 Chronic obstructive pulmonary disease, unspecified (principal); I11.0 Hypertensive heart disease with heart failure; I50.9 Heart failure, unspecified; E11.9 Type 2 diabetes mellitus without complications; E78.5 Hyperlipidemia, unspecified; I25.10 Atherosclerotic heart disease of native coronary artery without angina pectoris; I48.91 Unspecified atrial fibrillation; Z79.01 Long term (current) use of anticoagulants; Z86.73 Personal history of transient ischemic attack (TIA), and cerebral infarction without residual deficits; Z99.81 Dependence on supplemental oxygen; Z20.822 Contact with and (suspected) exposure to COVID-19; Z79.899 Other long term (current) drug therapy; Z87.891 Personal history of nicotine dependence
CPT/HCPCS: 36415; 71045; 80053; 83605; 83880; 84484; 85025; 87637; 93005; 99284; A9270

== ENCOUNTER 2024-08-11 16:28 | Emergency (ER) | payer MEDICARE, MEDICAID, SELFPAY ==
--- NOTE | ~2024-08-11 | XR_ITS ---
XR hip RT min 3V w AP pelvis Ordering provider: Chantal Kaye MD History: . FALL . Comparison: None. FINDINGS: BONES: No acute fracture or dislocation. HIP JOINT SPACES: Normal. SACROILIAC JOINT SPACES/LUMBAR SPINE: The sacroiliac joint spaces are normal. Mild degenerative perez es of the visualized lower lumbar spine. PUBIC SYMPHYSIS: Normal. SOFT TISSUES: Vascular calcifications. IMPRESSION: No acute osseous abnormality pelvis and right hip. Reviewed, dictated and finalized at location A.
[2024-08-11 16:29] VITALS: BP 115/66; PULSE 101; RESP 18; TEMP 36.4; O2SAT 92
--- NOTE | 2024-08-11 16:40 | PC.NURSE ---
patient denies any pain to bilateral hips. patient was assisted up to bedside commode.
--- NOTE | 2024-08-11 16:53 | PC.NURSE ---
this [facility]. Nurse not answering phone at this time.
--- NOTE | 2024-08-11 16:57 | ED.EXTPRO ---
HPI - Extremity Problem General Chief complaint: Extremity Problem,Nontraumatic Stated complaint: fall Time Seen by Provider: 08/11/24 16:34 History of Present Illness HPI Narrative: PATIENT SLID DOWN TO THE FLOOR FROM HER BED WAS TRYING TO GO TO THE BATHROOM . HER NECESSITY NOTICED THAT THE PATIENT HAVE SEVERE PAIN AT THE RIGHT HIP AREA. ON ARRIVAL TO THE ED BY AMBULANCE PATIENT DENIES ANY TRAUMA OR ANY PAIN. Related Data Home Medications Medication Instructions Recorded Confirmed albuterol sulfate 2.5 mg/3 mL 2.5 mg inhalation Q4-6H PRN 10/31/23 08/04/24 (0.083 %) solution for nebulization Wheezing hydrocodone 7.5 mg-acetaminophen 1 tablet PO Q6H PRN Pain (Scale 12/08/23 08/04/24 325 mg tablet Score 4-6) acetaminophen 325 mg tablet 650 mg PO Q6H PRN Pain (Scale 01/07/24 08/04/24 Score 1-3) diltiazem HCl 240 mg 240 mg PO DAILY 01/07/24 08/04/24 tablet,extended release 24 hr alprazolam 1 mg tablet 1 mg PO QID PRN Anxiety 02/26/24 08/04/24 apixaban 5 mg tablet 5 mg PO BID 02/26/24 08/04/24 budesonide 0.5 mg/2 mL suspension 0.5 mg inhalation BID 02/26/24 08/04/24 for nebulization ferrous sulfate 325 mg (65 mg 325 mg PO DAILY 02/26/24 08/04/24 iron) tablet ipratropium 0.5 mg-albuterol 3 mg 3 ml inhalation QID 02/26/24 08/04/24 (2.5 mg base)/3 mL nebulization soln pantoprazole 40 mg tablet,delayed 40 mg PO BID 02/26/24 08/04/24 release polyethylene glycol 3350 17 gram 17 g PO DAILY 02/26/24 08/04/24 oral powder packet alprazolam 0.5 mg tablet 0.5 mg PO DAILY 08/04/24 08/04/24 Allergies Allergy/AdvReac Type Severity Reaction Status Date / Time codeine AdvReac Nausea and Verified 08/04/24 16:18 Vomiting Review of Systems Review of Systems: All systems reviewed & are unremarkable except as noted in HPI and below PMFSH Past Medical History Medical History Anxiety Arthritis Chronic anticoagulation Chronic obstructive pulmonary disease Gastroesophageal reflux disease Paroxysmal atrial fibrillation Surgical History Surgical History History of back surgery History of cardiac catheterization History of knee surgery History of nasal septoplasty History of shoulder surgery Family History Family History Grandparent Cancer Father Diabetes mellitus Heart disease Social History Social History Social History: Surrogate medical decision maker: Pankaj Neal, spouse. Code status: Full code. Smoking packs per day: 1 Smoking cigarettes per day: 20.0 Years smoked: 50 Smoking pack-years: 50.00 Smoking status: Former smoker Tobacco type: cigarettes Alcohol intake: never Substance use: never Substance use type: does not use Other substance usage details: Gummies Do You Feel Safe in your Home?: Yes Lack of Transportation: No Lack of Food: Never True Current Housing: I Have Housing Concerned About Future Housing: No Difficulty Paying Gas/Electric Bills: No Difficulty Paying for Meds: No Currently Unemployed: No Education: High School Diploma/GED Difficulty w/ Childcare or Family Care: No Spiritual care concerns: No Exam Narrative: GENERAL APPEARANCE: WELL-DEVELOPED, MALNOURISHED SKIN: NORMAL COLOR HEAD: NORMOCEPHALIC, NONTRAUMATIC EYES: CLEAR CONJUNCTIVA ENT: OROPHARYNX NORMAL, EARS NORMAL, NOSE NORMAL NECK: SUPPLE, NONTENDER CHEST AND RESPIRATORY: AIRWAY PATENT, NO RESPIRATORY DISTRESS, NO ACCESSORY MUSCLE USE HEART: REGULAR RATE/RHYTHM ABDOMEN: SOFT, NONTENDER, NO ORGANOMEGALY, QUIET BOWEL SOUNDS VASCULAR: NORMAL PERIPHERAL PULSES, NORMAL CAPILLARY REFILL. MUSCULOSKELETAL: NORMAL RANGE OF MOTION, NONTENDER BACK NEUROLOGIC: ALERT AND ORIENTED ?3, RIGHT HEMIPLEGIA Course Vital Signs Vital signs: Vital Signs Temperature 36.4 C 08/11/24 16:29 Pulse Rate 101 H 08/11/24 16:29 Respiratory Rate 18 08/11/24 16:29 Blood Pressure 115/66 08/11/24 16:29 Pulse Oximetry 92 08/11/24 16:29 Oxygen Delivery Nasal Cannula 08/11/24 16:29 Oxygen Flow Rate 2 08/11/24 16:29 Temperature 36.4 C 08/11/24 16:29 Pulse Rate 101 H 08/11/24 16:29 Respiratory Rate 18 08/11/24 16:29 Blood Pressure 115/66 08/11/24 16:29 Pulse Oximetry 92 08/11/24 16:29 Oxygen Delivery Nasal Cannula 08/11/24 16:29 Oxygen Flow Rate 2 08/11/24 16:29 MDM - Extremity (Nontraumatic) MDM Narrative Medical decision making narrative: DIFFERENTIAL DIAGNOSIS INCLUDE CONTUSION RIGHT HIP, STRAIN, SPRAIN, LESS LIKELY FRACTURE THE HIP OR THE PELVIS X-RAY OF THE RIGHT HIP AND PELVIS SHOWED NO ACUTE ABNORMALITY Critical Care Time Critical Care Time Critical Care Time: No Discharge Plan Discharge Clinical Impression: Deficient knowledge of fall prevention Patient Disposition: NH Senior Care/Asst Living Condition: Stable Instructions: Fall Prevention for Older Adults (ED) Additional Instructions: RETURN IF SYMPTOMS ARE WORSENING , CALL YOUR FAMILY PHYSICIAN FOR APPOINTMENT, TAKE TYLENOL NEEDED FOR ACHES AND PAIN, CONTINUE HOME MEDICATIONS. Prescriptions: No Action albuterol sulfate 2.5 mg /3 mL (0.083 %) solution for nebulization 2.5 mg inhalation Q4-6H PRN (Reason: Wheezing) ipratropium-albuterol 0.5 mg-3 mg(2.5 mg base)/3 mL solution for nebulization 3 ml INHALATION QID polyethylene glycol 3350 17 gram Powder In Packet 17 g PO DAILY ferrous sulfate 325 mg (65 mg iron) Tablet 325 mg PO DAILY budesonide 0.5 mg/2 mL suspension for nebulization 0.5 mg inhalation BID apixaban 5 mg Tablet 5 mg PO BID alprazolam 1 mg tablet 1 mg PO QID PRN (Reason: Anxiety) pantoprazole 40 mg tablet,delayed release (DR/EC) 40 mg PO BID alprazolam 0.5 mg Tablet 0.5 mg PO DAILY Rx Instructions: in the morning furosemide [Lasix] 20 mg tablet 20 mg PO DAILY Qty: 30 0RF spironolactone [Aldactone] 25 mg tablet 25 mg PO DAILY Qty: 30 0RF diltiazem HCl 240 mg tablet extended release 24 hr 240 mg PO DAILY acetaminophen 325 mg tablet 650 mg PO Q6H PRN (Reason: Pain (Scale Score 1-3)) fluoxetine 20 mg Tablet 20 mg PO DAILY 30 Days Qty: 30 0RF metoprolol tartrate 50 mg Tablet 50 mg PO Q12HR Qty: 60 0RF hydrocodone-acetaminophen 7.5-325 mg tablet 1 tablet PO Q6H PRN (Reason: Pain (Scale Score 4-6)) atorvastatin 20 mg Tablet 20 mg PO HS Qty: 30 0RF Follow-up/Referrals: Tor Barnes MD [Primary Care Provider] -
--- NOTE | 2024-08-11 16:58 | PC.NURSE ---
Flora, nurse at [facility] called back to speak with dr hsu
--- NOTE | 2024-08-11 17:02 | PC.NURSE ---
dr hsu spoke with [facility].
--- NOTE | 2024-08-11 17:13 | PC.NURSE ---
called to check on patient.
--- NOTE | 2024-08-11 17:51 | PC.NURSE ---
[facility] and patient would be returning via EMS
[2024-08-11 18:21] VITALS: BP 112/68; PULSE 88; RESP 20; O2SAT 92
== END 2024-08-11 18:21 ==
PROVIDERS: Emergency Provider Emergency Medicine; PCP Family Medicine
DX: M25.551 Pain in right hip (principal); I48.0 Paroxysmal atrial fibrillation; Z87.891 Personal history of nicotine dependence; W06.XXXA Fall from bed, initial encounter; Y92.122 Bedroom in nursing home as the place of occurrence of the external cause
CPT/HCPCS: 73502; 99283

== ENCOUNTER 2024-09-01 15:55 | Emergency (ER) | payer MEDICARE, MEDICAID, SELFPAY ==
[2024-09-01] VITALS (25 sets, daily range): BP systolic 116–145; BP diastolic 53–72; PULSE 65–79; RESP 16–29; TEMP 36.4; O2SAT 90–100
--- NOTE | ~2024-09-01 | CT_ITS ---
CLINICAL INDICATION: Abdominal pain COMPARISON: 11/24/2023. TECHNIQUE: Multiple contiguous axial images of the abdomen and pelvis were performed following the ad ministration of with 100 mL Omnipaque-350 intravenous contrast The dose-length product (DLP) was 162.20 mGy-cm. Automated exposure control and iterative reconstruction technique were employed. FINDINGS/OBSERVATIONS: Visualized lower thorax: The bilateral lung bases demonstrate severe panlobular emphysematous disease but are otherwise clear The heart is of normal size, without pericardial effusion. Liver: The liver enhances homogeneously and is not enlarged measuring 16 cm in longitudinal dimension Gallbladder and biliary system: The gallbladder is hydropic measuring 10 cm in longitudinal dimension, but otherwise unremarkable. Pancreas: The pancreas enhances homogeneously without ductal dilatation. Spleen: The spleen enhances homogeneously and is not enlarged measuring 7 cm in longitudinal dimension. Kidneys: The left kidney is atrophic and densely calcified. The right kidney enhances homogeneously and is without hydronephrosis or renal calculi. Adrenal glands: Unremarkable. Gastrointestinal tract: Fecal stasis distending the rectum and extending to the level of the sigmoid colon suggesting fecal impaction. Appendix: The appendix is not definitively visualized. However, no pericecal inflammatory change is identified suggest the presence of acute appendicitis. Vasculature: Unremarkable. Lymph nodes: No pathologically enlarged or morphologically suspicious lymph nodes within the retroperitoneum or at the root of the mesentery. Pelvic structures: The bladder is distended, and otherwise unremarkable. The uterus is anteverted and anteflexed Body wall and musculoskeletal: Degenerative disease is identified within the lower lumbar spine, with osteophyte formation and disc space narrowing, endplate changes and vacuum phenomena most prominent the levels of L4/L5 and L3/L4 IMPRESSION: Gallbladder hydrops without calcified stones appreciated. Fecal stasis distending the rectum suggesting fecal impaction Reviewed, dictated and finalized at location A. ICAL TRIAL MANAGER
--- NOTE | ~2024-09-01 | XR_ITS ---
XR chest 1V portable Ordering provider: Chantal Kaye MD History: 69 years Female with . SHORTNESS OF BREATH . Comparison: August 04, 2024 FINDINGS: MEDIASTINUM: The cardiac silhouette is not enlarged. LUNGS: No effusions or pneumothorax. Bilateral interstitial changes are seen which may indicate fibro tic changes. Superimposed pneumonitis is not excluded. Pulmonary edema is less likely. OTHER: No free air under the diaphragm. Bilateral shoulder arthroplasty. Degenerative changes of the spine. IMPRESSION: Bilateral interstitial changes suggestive of pneumonitis. Underlying fibrotic changes is noted. Reviewed, dictated and finalized at location A. PREVENTION INVESTIGATOR IMPRESSION: Bilateral interstitial changes suggestive of pneumonitis. Underlying fibrotic c hanges is noted.
--- NOTE | 2024-09-01 16:06 | ED_ITS ---
HPI - General Adult General Chief complaint: Shortness of Breath/Dyspnea Stated complaint: sob Time Seen by Provider: 09/01/24 16:02 Source: patient and EMS Mode of arrival: EMS Limitations: physical limitation and clinical condition History of Present Illness HPI narrative: 69 YEARS OLD WHITE FEMALE CAME FROM LONG TERM BY AMBULANCE WITH SHORTNESS OF BREATH AND NAUSEA FOR UNKNOWN DURATION. HISTORY OF CVA, DIFFICULT TO UNDERSTAND PATIENT'S SPEECH, HISTORY OF CHRONIC RESPIRATORY FAILURE WITH HYPOXIA, CURRENTLY ON 3 L OF OXYGEN BY NASAL CANNULA, HISTORY OF ISCHEMIC LEFT MCA STROKE, COPD, PAROXYSMAL ATRIAL FIBRILLATION ON ELIQUIS, CHRONIC ANTICOAGULATION, CHRONIC DIASTOLIC HEART FAILURE, SEVERE PROTEIN CALORIE IS MY NUTRITION, Related Data Home Medications Medication Instructions Recorded Confirmed albuterol sulfate 2.5 mg/3 mL 2.5 mg inhalation Q4-6H PRN 10/31/23 09/01/24 (0.083 %) solution for nebulization Wheezing hydrocodone 7.5 mg-acetaminophen 1 tablet PO Q6H PRN Pain (Scale 12/08/23 09/01/24 325 mg tablet Score 4-6) acetaminophen 325 mg tablet 650 mg PO Q6H PRN Pain (Scale 01/07/24 09/01/24 Score 1-3) diltiazem HCl 240 mg 240 mg PO DAILY 01/07/24 09/01/24 tablet,extended release 24 hr alprazolam 1 mg tablet 1 mg PO TID PRN Anxiety 02/26/24 09/01/24 apixaban 5 mg tablet 5 mg PO BID 02/26/24 09/01/24 budesonide 0.5 mg/2 mL suspension 0.5 mg inhalation BID 02/26/24 09/01/24 for nebulization ferrous sulfate 325 mg (65 mg 325 mg PO DAILY 02/26/24 09/01/24 iron) tablet ipratropium 0.5 mg-albuterol 3 mg 3 ml inhalation QID 02/26/24 09/01/24 (2.5 mg base)/3 mL nebulization soln pantoprazole 40 mg tablet,delayed 40 mg PO BID 02/26/24 09/01/24 release polyethylene glycol 3350 17 gram 17 g PO DAILY 02/26/24 09/01/24 oral powder packet alprazolam 0.5 mg tablet 0.5 mg PO DAILY 08/04/24 09/01/24 furosemide 20 mg tablet (Lasix) 10 mg PO DAILY 09/01/24 09/01/24 Allergies Allergy/AdvReac Type Severity Reaction Status Date / Time codeine AdvReac Nausea and Verified 09/01/24 17:51 Vomiting Review of Systems Review of Systems: ROS unobtainable: Yes unobtainable due to medical condition and unobtainable due to mental status PMFSH Past Medical History Medical History Anxiety Arthritis Chronic anticoagulation Chronic obstructive pulmonary disease Gastroesophageal reflux disease Paroxysmal atrial fibrillation Surgical History Surgical History History of back surgery History of cardiac catheterization History of knee surgery History of nasal septoplasty History of shoulder surgery Family History Family History Grandparent Cancer Father Diabetes mellitus Heart disease Social History Social History Social History: Surrogate medical decision maker: Pankaj Neal, spouse. Code status: Full code. Smoking packs per day: 1 Smoking cigarettes per day: 20.0 Years smoked: 50 Smoking pack-years: 50.00 Smoking status: Former smoker Tobacco type: cigarettes Alcohol intake: never Substance use: never Substance use type: does not use Other substance usage details: Gummies Do You Feel Safe in your Home?: Yes Lack of Transportation: No Lack of Food: Never True Current Housing: I Have Housing Concerned About Future Housing: No Difficulty Paying Gas/Electric Bills: No Difficulty Paying for Meds: No Currently Unemployed: No Education: High School Diploma/GED Difficulty w/ Childcare or Family Care: No Spiritual care concerns: No Exam Narrative: GENERAL APPEARANCE: MALNOURISHED SKIN: NORMAL COLOR HEAD: NORMOCEPHALIC, NONTRAUMATIC EYES: CLEAR CONJUNCTIVA ENT: OROPHARYNX NORMAL, EARS NORMAL, NOSE NORMAL NECK: SUPPLE, NONTENDER CHEST AND RESPIRATORY: DIMINUTION OF AIR ENTRY BILATERALLY, SCATTERED RHONCHI AND RALES BILATERALLY, PATIENT UNABLE TO FOLLOW COMMANDS TO TAKE DEEP BREATH. HEART: REGULAR RATE/RHYTHM ABDOMEN: SOFT, SLIGHT DIFFUSE TENDERNESS, NO ORGANOMEGALY, QUIET BOWEL SOUNDS MUSCULOSKELETAL: NORMAL RANGE OF MOTION, NONTENDER BACK NEUROLOGIC: ALERT AND ORIENTED TO HER NAME ONLY,, RIGHT HEMIPLEGIA Course Consultations Consultation #1: [place], NURSE [facility] AT [facility] ACCEPTED PATIENT TRANSFER Date: 09/01/24 Time: 18:54 Vital Signs Vital signs: Vital Signs Temperature 36.4 C 09/01/24 15:59 Pulse Rate 65 09/01/24 15:59 Respiratory Rate 20 09/01/24 15:59 Blood Pressure 136/63 09/01/24 15:59 Pulse Oximetry 97 09/01/24 15:59 Oxygen Delivery Nasal Cannula 09/01/24 15:59 Oxygen Flow Rate 3 09/01/24 15:59 Temperature 36.4 C 09/01/24 15:59 Pulse Rate 75 09/01/24 17:46 Respiratory Rate 21 H 09/01/24 17:46 Blood Pressure 127/54 L 09/01/24 17:46 Pulse Oximetry 94 09/01/24 17:45 Oxygen Delivery Nasal Cannula 09/01/24 17:46 Oxygen Flow Rate 3 09/01/24 17:46 Medical Decision Making MDM Narrative Medical decision making narrative: PATIENT CAME FROM LONG TERM BY AMBULANCE WITH SHORTNESS OF BREATH, COUGHING AND NAUSEA, UNKNOWN DURATION. VITAL SIGNS STABLE PHYSICAL EXAMINATION SHOWING DEBILITATED PATIENT, DIFFICULT TO UNDERSTAND, MALNOURISHED, WITH RIGHT HEMIPLEGIA, SCATTERED RHONCHI AND RALES BILATERALLY, OXYGEN SATURATION ON 3 L 97% BY PULSE OXIMETRY DIFFERENTIAL DIAGNOSIS INCLUDE COPD EXACERBATION, PNEUMONIA, ELECTROLYTE IMBALANCE, DEHYDRATION, CHF, SEPSIS, URINARY TRACT INFECTION, FAILURE TO THRIVE BLOOD WORKUP TODAY INCLUDE CBC, CMP, BLOOD CULTURE, LACTIC ACID, TROPONIN SHOWED WBC OF 26.2 CREATININE OF 1.1, BUN OF 40, CALCIUM OF 10.6, MAGNESIUM 1.7 C- REACTIVE PROTEIN MORE THAN 25 EKG SHOWING NORMAL SINUS RHYTHM URINALYSIS SHOWED NO SIGNIFICANT FINDING OF INFECTION ABG ON 3 L SHOWING PH OF 7.39, PCO2 45 PO2 61 OXYGEN SATURATION ON 3 L 91.4. CHEST X-RAY SHOWED NO PNEUMONIA PATIENT TESTED NEGATIVE FOR COVID, FLU AND RSV. CT ABDOMEN AND PELVIS WITH IV CONTRAST SHOWED GALLBLADDER HYDROPS AND CONSTIPATION DIAGNOSIS AT THE TIME OF TRANSFER: ACUTE ON CHRONIC HYPOXIC RESPIRATORY FAILURE, LEUKOCYTOSIS, GALLBLADDER HYDROPS, CONSTIPATION, HYPERCALCEMIA, FAILURE TO THRIVE, LISA Differential Diagnosis Differential Diagnosis: ABOVE Vital Signs Vital Signs: Vital Signs Temperature 36.4 C 09/01/24 15:59 Pulse Rate 65 09/01/24 15:59 Respiratory Rate 20 09/01/24 15:59 Blood Pressure 136/63 09/01/24 15:59 Pulse Oximetry 97 09/01/24 15:59 Oxygen Delivery Nasal Cannula 09/01/24 15:59 Oxygen Flow Rate 3 09/01/24 15:59 Temperature 36.4 C 09/01/24 15:59 Pulse Rate 75 09/01/24 17:46 Respiratory Rate 21 H 09/01/24 17:46 Blood Pressure 127/54 L 09/01/24 17:46 Pulse Oximetry 94 09/01/24 17:45 Oxygen Delivery Nasal Cannula 09/01/24 17:46 Oxygen Flow Rate 3 09/01/24 17:46 Lab Data 09/01/24 16:31 09/01/24 16:31 Labs: Lab Results 09/01/24 09/01/24 09/01/24 Range/Units 16:06 16:31 16:56 WBC 26.2 H* (4.8-10.8) K/mm3 RBC 4.37 (4.20-5.40) M/mm3 Hgb 12.9 (11.7-13.8) g/dL Hct 41.7 (35.0-42.0) % MCV 95.4 (78.0-102.0) fL MCH 29.5 (27.0-31.0) pg MCHC 30.9 L (32-36) g/dL RDW 14.4 (11.6-14.4) % Plt Count 258 (150-420) K/mm3 MPV 10.1 (9.2-11.8) fl Immature Gran % (Auto) Not Reportable Neut % (Auto) Not Reportable Lymph % (Auto) Not Reportable Phillips % (Auto) Not Reportable Eos % (Auto) Not Reportable Baso % (Auto) Not Reportable Lymph # (Auto) Not Reportable Phillips # (Auto) Not Reportable Eos # (Auto) Not Reportable Baso # (Auto) Not Reportable Abs Immat Gran (auto) Not Reportable Absolute Neuts (auto) Not Reportable Absolute Nucleated RBC Not Reportable Total Counted 100 Neutrophils % (Manual) 89 H (46-73) % Band Neutrophils % 5 (0-6) % Lymphocytes % (Manual) 4 L (18-44) % Monocytes % (Manual) 2 L (3-9) % Nucleated RBC % Not Reportable Abs Neuts (Manual) 24.62 H (1.7-7.2) K/mm3 Abs Lymphs (Manual) 1.04 L (1.1-4.5) K/mm3 Abs Monocytes (Manual) 0.52 (0.1-0.90) K/mm3 Platelet Estimate Adequate (Adequate) Schistocytes Not Reportable PT 13.7 H (9.50-12.1) Seconds INR 1.3 APTT 45.8 H (23.9-30.70) Sec Sodium 140 (136-145) mmol/L Potassium 4.4 (3.5-5.1) mmol/L Chloride 98 (98-108) mmol/L Carbon Dioxide 32 (21-32) mmol/L Anion Gap 10 (4-12) mmol/L BUN 40 H (7-18) mg/dL Creatinine 1.12 H (0.55-1.02) mg/dL Estim Creat Clear Calc 29 ml/min Estimated GFR 49 L (59 - ) Glucose 129 H (70-99) mg/dL Calculated Osmolality 301 H (285-295) mOsm/kg Lactic Acid 1.2 (0.4-2.0) mmol/L Calcium 10.6 H (8.5-10.1) mg/dL Magnesium 1.7 L (1.8-2.4) mg/dL Total Bilirubin 0.7 (0.00-1.00) mg/dL AST 16 (15-37) U/L ALT 15 (14-59) U/L Alkaline Phosphatase 113 (46-116) U/L Troponin I 7.4 (0.00-60.4) ng/L C-Reactive Protein > 25.0 H (0.0-0.9) mg/dL Total Protein 8.0 (6.4-8.2) g/dL Albumin 3.4 (3.4-5.0) g/dL Urine Color Light yellow (Yellow) Urine Appearance Clear (Clear) Urine pH 6.0 (5.0-8.0) Ur Specific Harmon 1.020 (1.010-1.020) Urine Protein Trace H (Negative) Urine Glucose (UA) Negative (Negative) Urine Ketones Trace H (Negative) Ur Blood (Man) 1+ H (Negative) Urine Nitrate Negative (Negative) Urine Bilirubin Negative (Negative) Urine Urobilinogen 0.2 (0.2-1.0) mg/dL Leukocyte Esterase Rfl Negative (Negative) SAUL/UL Urine RBC 3-5 H (0-2) /hpf Urine WBC None seen (0-3) /hpf Ur Squamous Epith Cells Occasional (Few) /hpf Urine Bacteria Trace (None) /hpf Influenza A (RT-PCR) Negative (Negative) Influenza B (RT-PCR) Negative (Negative) RSV (RT-PCR) Negative (Negative) SARS-CoV-2 RNA (RT-PCR) Negative (Negative) ABG Data ABG results: 09/01/24 16:56 Puncture Site Right radial ABG pH 7.39 ABG pCO2 45.4 H ABG pO2 61.5 L ABG PO2/FiO2 Ratio Not Reportable ABG HCO3 27.1 ABG O2 Saturation 91.4 L ABG O2 Content 16.3 ABG Base Excess 1.7 A-a Gradient Not Reportable Oxyhemoglobin 91.0 L O2 Delivery Device Nasal cannula O2 Liters/Min 3.0 Imaging Data Radiologist's impression: Impressions Chest X-Ray 09/01/24 16:23 IMPRESSION: Bilateral interstitial changes suggestive of pneumonitis. Underlying fibrotic changes is noted. Abdomen/Pelvis CT 09/01/24 17:42 IMPRESSION: Gallbladder hydrops without calcified stones appreciated. Fecal stasis distending the rectum suggesting fecal impaction ECG Data EKG #1: Attestation: I personally reviewed and interpreted this ECG as follows: ECG completion date: 09/01/24 Interpretation: NORMAL SINUS RHYTHM AT 67 BEATS PER MINUTE, RIGHT BUNDLE-BRANCH BLOCK, NONSPECIFIC ST T-WAVE ABNORMALITIES, ABNORMAL EKG Critical Care Time Critical Care Time Critical Care Time: Yes Total Critical Care Time: 30 Discharge Plan Discharge Clinical Impression: Leukocytosis, Hydrops of gallbladder, LISA (acute kidney injury), Hypercalcemia, Adult failure to thrive, Acute and chronic respiratory failure with hypoxia Patient Disposition: Acute Care Hospital Condition: Guarded Prognosis Additional Instructions: TRANSFERRED TO [facility] Prescriptions: No Action albuterol sulfate 2.5 mg /3 mL (0.083 %) solution for nebulization 2.5 mg inhalation Q4-6H PRN (Reason: Wheezing) ipratropium-albuterol 0.5 mg-3 mg(2.5 mg base)/3 mL solution for nebulization 3 ml INHALATION QID polyethylene glycol 3350 17 gram Powder In Packet 17 g PO DAILY ferrous sulfate 325 mg (65 mg iron) Tablet 325 mg PO DAILY budesonide 0.5 mg/2 mL suspension for nebulization 0.5 mg inhalation BID apixaban 5 mg Tablet 5 mg PO BID alprazolam 1 mg tablet 1 mg PO TID PRN (Reason: Anxiety) pantoprazole 40 mg tablet,delayed release (DR/EC) 40 mg PO BID alprazolam 0.5 mg Tablet 0.5 mg PO DAILY Rx Instructions: in the morning spironolactone [Aldactone] 25 mg tablet 25 mg PO DAILY Qty: 30 0RF furosemide [Lasix] 20 mg tablet 10 mg PO DAILY diltiazem HCl 240 mg tablet extended release 24 hr 240 mg PO DAILY acetaminophen 325 mg tablet 650 mg PO Q6H PRN (Reason: Pain (Scale Score 1-3)) fluoxetine 20 mg Tablet 20 mg PO DAILY 30 Days Qty: 30 0RF metoprolol tartrate 50 mg Tablet 50 mg PO Q12HR Qty: 60 0RF hydrocodone-acetaminophen 7.5-325 mg tablet 1 tablet PO Q6H PRN (Reason: Pain (Scale Score 4-6)) atorvastatin 20 mg Tablet 20 mg PO HS Qty: 30 0RF Follow-up/Referrals: Tor Barnes MD [Primary Care Provider] -
--- NOTE | 2024-09-01 16:06 | ECG_ITS ---
Test Date: 2024-09-01 16:51:21 Measurements Intervals [place] Rate: 67 P: 76 W[place]: 147 QRS: 91 QRSD: 135 T: 40 QT: 434 QTc: 461 Interpretive Statements SINUS RHYTHM RIGHT BUNDLE BRANCH BLOCK BASELINE ARTIFACT- I, II, III, AVR, AVL, AVF, V5-V6 ABNORMAL ECG Compared to ECG 08/04/2024 17:01:55 T-wave abnormality now present Electronically Signed On 09-01-2024 18:59:06 TRACK GRINDER OPERATOR by Tavo Jj D.O.
[2024-09-01] MEDS: IPRATROPIUM 0.5 MG/ALBUTEROL SULFATE 2.5 MG AMPUL.NEB 3 ML INHALATION (16:28)
[2024-09-01 16:38] LABS: Hematocrit 41.7 % (35.0-42.0); Hemoglobin 12.9 g/dL (11.7-13.8); Mean Corpuscular HGB Conc 30.9 g/dL (32-36); Mean Corpuscular Hemoglobin 29.5 pg (27.0-31.0); Mean Corpuscular Volume 95.4 fL (78.0-102.0); Mean Platelet Volume 10.1 fl (9.2-11.8); Platelet Count Result 258 K/mm3 (150-420); Red Blood Count 4.37 M/mm3 (4.20-5.40); Red Cell Distribution Width 14.4 % (11.6-14.4)
[2024-09-01 16:46] LABS: White Blood Count 26.2 K/mm3 (4.8-10.8)
[2024-09-01 16:55] LABS: Alanine Aminotransferase 15 U/L (14-59); Albumin Level 3.4 g/dL (3.4-5.0); Alkaline Phosphatase 113 U/L (46-116); Anion Gap 10 mmol/L (4-12); Aspartate Amino Transferase 16 U/L (15-37); Bilirubin,Total 0.7 mg/dL (0.00-1.00); Blood Urea Nitrogen 40 mg/dL (7-18); Calcium 10.6 mg/dL (8.5-10.1); Carbon Dioxide 32 mmol/L (21-32); Chloride 98 mmol/L (98-108); Estimated CRCL calculation 29 ml/min; Estimated Glomerular Filt Rate 49; Glucose 129 mg/dL (70-99); Lactic Acid Reflex 1.2 mmol/L (0.4-2.0); Osmolality Calculated 301 mOsm/kg (285-295); Potassium 4.4 mmol/L (3.5-5.1); Sodium 140 mmol/L (136-145); Troponin I 7.4 ng/L (0.00-60.4)
[2024-09-01 16:59] LABS: INR 1.3; Partial Thromboplastin Time 45.8 Sec (23.9-30.70); Prothrombin Time 13.7 Seconds (9.50-12.1)
[2024-09-01 17:00] LABS: Base Excess ABG 1.7 mmol/L (0-2); HCO3 ABG 27.1 mmol/L (23-29); Oxygen Content ABG 16.3 %vol (16.0-22.0); Oxygen Saturation ABG 91.4 % (95-97); PCO2 ABG 45.4 mmHg (35-45); PO2 ABG 61.5 mmHg (75-85); pH ABG 7.39 (7.35-7.45)
[2024-09-01] MEDS: PIPERACILLN/TAZ 3.375GM/NS50ML 3.375 GM/50 ML BAG IVPB (17:00)
[2024-09-01 17:01] LABS: CRP > 25.0 mg/dL (0.0-0.9)
[2024-09-01 17:02] LABS: Magnesium 1.7 mg/dL (1.8-2.4)
[2024-09-01 17:03] LABS: Device NASAL CANNULA; Modified Allen's Test Pass; Site Drawn RIGHT RADIAL
[2024-09-01 17:13] LABS: Band Neutrophils Percent 5 % (0-6); Lymphocytes Absolute Manual 1.04 K/mm3 (1.1-4.5); Lymphocytes Percent Manual 4 % (18-44); Monocytes Absolute Manual 0.52 K/mm3 (0.1-0.90); Monocytes Percent Manual 2 % (3-9); Neutrophils Absolute Manual 24.62 K/mm3 (1.7-7.2); Neutrophils Percent Manual 89 % (46-73); Platelet Estimate Adequate (Adequate); Total Cells Counted 100
[2024-09-01] MEDS: levoFLOXacin 750 MG/D5W 150 ML 750 MG/150 ML BAG 100 MG IVPB (17:16)
[2024-09-01 17:21] LABS: Add Urine Microscopic? YES; Appearance Urine Clear (Clear); Bilirubin Urine Negative (Negative); Blood Urine 1+ (Negative); Color Urine Light Yellow (Yellow); Glucose Urine UA Negative (Negative); Ketones Urine Trace (Negative); Leukocyte Esterase Ur Negative LEU/UL (Negative); Nitrate Urine Negative (Negative); Protein Urine Trace (Negative); Urobilinogen Urine 0.2 mg/dL (0.2-1.0)
[2024-09-01 17:28] LABS: WBC Urine None seen /hpf (0-3)
[2024-09-01 17:29] LABS: Bacteria Urine Trace /hpf; Squamous Epithelial Cell Urine Occasional /hpf (Few)
[2024-09-01 17:44] LABS: SARS-CoV-2 RNA PCR Negative (Negative)
[2024-09-01 17:45] LABS: Influenza A QL RT-PCR Negative (Negative); Influenza B QL RT-PCR Negative (Negative); RSV RNA, RT-PCR Negative (Negative)
[2024-09-01 18:38] LABS: NT Pro B Type Natriuretic Pept 3063 pg/mL (0-125)
--- NOTE | 2024-09-01 18:44 | PC.NURSE ---
1830 updated on pt and informed pt was being admitted at [facility]
--- NOTE | 2024-09-01 19:06 | PC.NURSE ---
1815 update given to [facility] about pt being transfered to [facility]
--- NOTE | 2024-09-01 19:08 | PC.NURSE ---
Report received, pt awakens when entering room, pt clothes removed and placed in gown. She is repositioned in bed w/ assist x2, pt has diaper on as she is incontinent. VSS, pt is confused at this time. She is alert x1 to self only. Continuing to monitor until bed is received at [place].
--- NOTE | 2024-09-01 19:43 | PC.NURSE ---
Pt is very confused, continues to yell out from her room. Attempted several times to reoritent pt but she is unable to comprehend. Pt report has been given to Fadumo at [place]. Pt will go to Rm [id number]. MALINI paged for transfer.
--- NOTE | 2024-09-03 12:50 | PC.NURSE ---
PRELIMINARY BLOOD CULTURES X2: NO GROWTH TO DATE
== END 2024-09-01 20:04 | disposition short-term general hospital (02) ==
PROVIDERS: Emergency Provider Emergency Medicine; PCP Family Medicine
DX: J96.91 Respiratory failure, unspecified with hypoxia (principal); D72.829 Elevated white blood cell count, unspecified; K82.1 Hydrops of gallbladder; N17.9 Acute kidney failure, unspecified; E83.52 Hypercalcemia; I48.0 Paroxysmal atrial fibrillation; I50.32 Chronic diastolic (congestive) heart failure; Z86.73 Personal history of transient ischemic attack (TIA), and cerebral infarction without residual deficits; Z99.81 Dependence on supplemental oxygen; Z79.01 Long term (current) use of anticoagulants; Z87.891 Personal history of nicotine dependence; Z79.899 Other long term (current) drug therapy; Z20.822 Contact with and (suspected) exposure to COVID-19
CPT/HCPCS: 36415; 36600; 71045; 74177; 80053; 81001; 82805; 83605; 83735; 83880; 84484; 85018; 85025; 85610; 85730; 86140; 87040; 87637; 93005; 94640; 96365; 96375; 99291; J1956; J2543; Q9967

== ENCOUNTER 2024-09-01 21:57 | Observation (INO) | payer MEDICARE, MEDICAID, SELFPAY ==
--- NOTE | ~2024-09-01 | US_ITS ---
EXAM: ABDOMEN ULTRASOUND HISTORY: Possible acute cholecystitis COMPARISON: Reference is made to CT examination of the abdomen and pelvis dated 09/01/2024 FINDINGS: LIVER: The liver is unremarkable in echogenicity and size. The main portal vein is patent demonstrating hepatopedal flow GALLBLADDER: A single stone is identified within the gallbladder, which is otherwise unremarkable. No gallbladder wall thickening or pericholecystic fluid. BILE DUCTS: Common bile duct measures 3.4 mm. PANCREAS: Limited evaluation of the pancreas secondary to overlying bowel gas RIGHT KIDNEY: 12.5 cm in length. No hydronephrosis or bulky renal calculi. VASCULATURE : The abdominal aorta is nonaneurysmal. The IVC is patent. IMPRESSION: Cholelithiasis, without ultrasound evidence of cholecystitis. Reviewed, dictated and finalized at location A. DEFENSE INSTRUCTOR
--- NOTE | 2024-09-01 20:54 | ADMGEN ---
This patient, Sahara Neal, was admitted to Medical Room 347-01. Patient/family oriented to hospital policies and general routines including ID bracelet, bed and alarms, visiting hours, pain management, procedures, bathroom and other care routines, personal items, smoking policy, room service/diet, and visiting hours. Information on how to activate the Rapid Response Team has been discussed. Patient/Family are encouraged to report perceived risks to care and to ask questions if they do not understand what they are told or what they should do.
[2024-09-01 21:26] VITALS: BP 142/80; PULSE 72; RESP 14; TEMP 36.4; O2SAT 94; O2SAT 95
--- NOTE | 2024-09-01 21:41 | P.HP_ITS ---
H&P: HPI History of Present Illness Date/Time: 09/01/24 21:41 Chief Complaint: shortness of breath Narrative: This is a 69-year-old female group home resident with past medical history significant for chronic hypoxic respiratory failure, COPD/emphysema, severe protein calorie malnutrition, atrial fibrillation rate controlled anticoagulated, chronic kidney disease, chronic diastolic heart failure. Patient comes as said transfer from [place] [facility] emergency room initially was taking to outside facility due to hypoxia patient placed on 3 L by nasal cannula, patient is unable to contribute in a meaningful way in history taking has had some nausea and vomiting. Preliminary workup was significant for CT of abdomen and pelvis with hydrops gallbladder fecal stasis a chest x-ray showed pneumonitis, CBC with a leukocyte count of 26,000, basic metabolic profile showed BUN 40 creatinine 1.1, brain natriuretic peptide of 3000, patient tested negative for COVID, influenza type A, influenza type B and RSV. Patient has been admitted for further evaluation management and treatment. XR chest 1V portable Ordering provider: Chantal Kaye MD History: 69 years Female with . SHORTNESS OF BREATH . Comparison: August 04, 2024 FINDINGS: MEDIASTINUM: The cardiac silhouette is not enlarged. LUNGS: No effusions or pneumothorax. Bilateral interstitial changes are seen which may indicate fibrotic changes. Superimposed pneumonitis is not excluded. Pulmonary edema is less likely. OTHER: No free air under the diaphragm. Bilateral shoulder arthroplasty. Degenerative changes of the spine. IMPRESSION: Bilateral interstitial changes suggestive of pneumonitis. Underlying fibrotic changes is noted. CLINICAL INDICATION: Abdominal pain COMPARISON: 11/24/2023. TECHNIQUE: Multiple contiguous axial images of the abdomen and pelvis were performed following the administration of with 100 mL Omnipaque-350 intravenous contrast The dose-length product (DLP) was 162.20 mGy-cm. Automated exposure control and iterative reconstruction technique were employed. FINDINGS/OBSERVATIONS: Visualized lower thorax: The bilateral lung bases demonstrate severe panlobular emphysematous disease but are otherwise clear The heart is of normal size, without pericardial effusion. Liver: The liver enhances homogeneously and is not enlarged measuring 16 cm in longitudinal dimension Gallbladder and biliary system: The gallbladder is hydropic measuring 10 cm in longitudinal dimension, but otherwise unremarkable. Pancreas: The pancreas enhances homogeneously without ductal dilatation. Spleen: The spleen enhances homogeneously and is not enlarged measuring 7 cm in longitudinal dimension. Kidneys: The left kidney is atrophic and densely calcified. The right kidney enhances homogeneously and is without hydronephrosis or renal calculi. Adrenal glands: Unremarkable. Gastrointestinal tract: Fecal stasis distending the rectum and extending to the level of the sigmoid colon suggesting fecal impaction. Appendix: The appendix is not definitively visualized. However, no pericecal inflammatory change is identified suggest the presence of acute appendicitis. Vasculature: Unremarkable. Lymph nodes: No pathologically enlarged or morphologically suspicious lymph nodes within the retroperitoneum or at the root of the mesentery. Pelvic structures: The bladder is distended, and otherwise unremarkable. The uterus is anteverted and anteflexed Body wall and musculoskeletal: Degenerative disease is identified within the lower lumbar spine, with osteophyte formation and disc space narrowing, endplate changes and vacuum phenomena most prominent the levels of L4/L5 and L3/L4 IMPRESSION: Gallbladder hydrops without calcified stones appreciated. Fecal stasis distending the rectum suggesting fecal impaction PMFSH Past Medical History Medical History Anxiety Arthritis Chronic anticoagulation Chronic obstructive pulmonary disease Gastroesophageal reflux disease Paroxysmal atrial fibrillation Surgical History Surgical History History of back surgery History of cardiac catheterization History of knee surgery History of nasal septoplasty History of shoulder surgery Family History Family History Grandparent Cancer Father Diabetes mellitus Heart disease Social History Social History Social History: Surrogate medical decision maker: Pankaj Neal, spouse. Code status: Full code. Smoking packs per day: 1 Smoking cigarettes per day: 20.0 Years smoked: 50 Smoking pack-years: 50.00 Smoking status: Former smoker Tobacco type: cigarettes Alcohol intake: never Substance use: never Substance use type: does not use Other substance usage details: Gummies Do You Feel Safe in your Home?: Yes Lack of Transportation: No Lack of Food: Never True Current Housing: I Have Housing Concerned About Future Housing: No Difficulty Paying Gas/Electric Bills: No Difficulty Paying for Meds: No Currently Unemployed: No Education: Grade School Difficulty w/ Childcare or Family Care: No Spiritual care concerns: No Meds Home Medications and Allergies Home Medications Medication Instructions Recorded Confirmed Type atorvastatin 20 mg tablet 20 mg PO HS #30 tabs 06/29/22 09/01/24 Rx fluoxetine 20 mg tablet 20 mg PO DAILY 1 month #30 tabs 11/25/22 09/01/24 Rx albuterol sulfate 2.5 mg/3 mL 2.5 mg inhalation Q4-6H PRN 10/31/23 09/01/24 History (0.083 %) solution for nebulization Wheezing metoprolol tartrate 50 mg tablet 50 mg PO Q12HR #60 tabs 12/03/23 09/01/24 Rx hydrocodone 7.5 mg-acetaminophen 1 tablet PO Q6H PRN Pain (Scale 12/08/23 09/01/24 History 325 mg tablet Score 4-6) acetaminophen 325 mg tablet 650 mg PO Q6H PRN Pain (Scale 01/07/24 09/01/24 History Score 1-3) diltiazem HCl 240 mg 240 mg PO DAILY 01/07/24 09/01/24 History tablet,extended release 24 hr alprazolam 1 mg tablet 1 mg PO TID PRN Anxiety 02/26/24 09/01/24 History apixaban 5 mg tablet 5 mg PO BID 02/26/24 09/01/24 History budesonide 0.5 mg/2 mL suspension 0.5 mg inhalation BID 02/26/24 09/01/24 History for nebulization ferrous sulfate 325 mg (65 mg 325 mg PO DAILY 02/26/24 09/01/24 History iron) tablet ipratropium 0.5 mg-albuterol 3 mg 3 ml inhalation QID 02/26/24 09/01/24 History (2.5 mg base)/3 mL nebulization soln pantoprazole 40 mg tablet,delayed 40 mg PO BID 02/26/24 09/01/24 History release polyethylene glycol 3350 17 gram 17 g PO DAILY 02/26/24 09/01/24 History oral powder packet alprazolam 0.5 mg tablet 0.5 mg PO DAILY 08/04/24 09/01/24 History spironolactone 25 mg tablet 25 mg PO DAILY #30 tabs 08/04/24 09/01/24 Rx (Aldactone) arformoterol 15 mcg/2 mL solution 15 mcg inhalation BID 09/01/24 09/01/24 History for nebulization furosemide 20 mg tablet (Lasix) 10 mg PO DAILY 09/01/24 09/01/24 History Allergies Allergy/AdvReac Type Severity Reaction Status Date / Time codeine AdvReac Nausea and Verified 09/01/24 17:51 Vomiting Vital Signs Vital Signs - 24 hr 09/01/24 21:26 09/01/24 21:26 Temperature 97.5 F L Pulse Rate 72 Respiratory Rate 14 Blood Pressure 142/80 H Pulse Oximetry 95 94 Oxygen Delivery Nasal Cannula Oxygen Flow Rate 3 Exam Narrative: patient is laying in bed Const: General: comfortable, no acute distress, well developed, alert, awake, ill appearing chronically and cachectic Nutritional Appearance: cachectic Orientation/consciousness: oriented to person and oriented to place HENMT: Head: normal to inspection, normocephalic and atraumatic Ears: hearing grossly normal bilaterally Face/Nose/Sinus: normal facial exam Face and sinus: normal facial exam Other: bilateral temporal muscle wasting Eyes: General: appearance normal, both eyes and all related structures Pupils: Equal, round and reactive pupils present EOM: EOMs intact bilaterally Neck: Neck: full ROM, no lymphadenopathy and no JVD Thyroid: thyroid normal Lymphatic: no lymphadenopathy noted Resp: Effort & Inspection: normal respiratory effort and able to speak in complete sentences Auscultation: clear to auscultation bilaterally Cardio: Jugular venous distension: no JVD Rate: regular rate Rhythm: regular rhythm Heart sounds: S1 normal heart sound present and S2 normal heart sound present GI: GI Palp: Yes Soft to palpation and Yes No hepatosplenomegaly present : General: Yes deferred Skin: Rashes: no rashes Wounds: no wounds Neuro: General: patient oriented x3 and CN's II-XI intact bilaterally Cranial nerves: Yes CN's II-XII intact bilaterally and Yes Equal, round and reactive pupils present Cognition (Neuro): normal cognition Speech: normal speech Gait exam (Neuro): Normal gait present Motor exam (neuro): 5/5 motor strength present throughout Extrem: General: normal to inspection, full ROM, no joint enlargement and no pedal edema Assessment and Plan Assessment and plan (1) Acute and chronic respiratory failure with hypoxia: Code(s): J96.21 - Acute and chronic respiratory failure with hypoxia Status: Acute Assessment and Plan: On supplemental oxygen by nasal cannula 3 L ABG reviewed continue pulse ox supportive care (2) Severe protein-calorie malnutrition: Code(s): E43 - Unspecified severe protein-calorie malnutrition Status: Acute Assessment and Plan: liberalize diet once patient able to tolerate p.o. patient with high burden of stool (3) Chronic diastolic (congestive) heart failure: Code(s): I50.32 - Chronic diastolic (congestive) heart failure Status: Chronic Assessment and Plan: brain natriuretic peptide is 3000 from 7000 appears dry on physical exam (4) Paroxysmal atrial fibrillation: Code(s): I48.0 - Paroxysmal atrial fibrillation Status: Chronic Assessment and Plan: rate controlled and anticoagulated (5) Chronic obstructive pulmonary disease: Code(s): J44.9 - Chronic obstructive pulmonary disease, unspecified Status: Acute Assessment and Plan: breathing treatments (6) Gastroesophageal reflux disease: Code(s): K21.9 - Gastro-esophageal reflux disease without esophagitis Status: Chronic Assessment and Plan: PPI (7) Atrial fibrillation: Qualifiers: Atrial fibrillation type: unspecified Qualified Code(s): I48.91 - Unspecified atrial fibrillation Code(s): I48.91 - Unspecified atrial fibrillation Status: Chronic Assessment and Plan: continue metoprolol patient is also on diltiazem continue apixaban (8) Hx of ischemic left MCA stroke: Code(s): Z86.73 - Personal history of transient ischemic attack (TIA), and cerebral infarction without residual deficits Status: Acute Assessment and Plan: patient is on a statin (9) Hypomagnesemia: Code(s): E83.42 - Hypomagnesemia Status: Acute Assessment and Plan: replace as needed (10) Adult failure to thrive: Code(s): R62.7 - Adult failure to thrive Status: Acute Assessment and Plan: supportive care PT OT Hospitalist [facility] Advance Care Plan I have confirmed that the patient's Advanced Care Plan is present, code status is documented, or surrogate decision maker is listed in patient medical record.: Yes Medication Reconciliation I have utilized all available resources to obtain, update and review the patients current medications (includes all prescriptions, OTC, herbals, cannabis, and nutritional supplements).: Yes
[2024-09-01] MEDS: DEXTROSE 5%/0.45% SOD CHL 1,000 ML 65 ML IV CONT (22:23)
[2024-09-01 22:39] LABS: Hematocrit 40.4 % (37.0-47.0); Hemoglobin 12.6 g/dL (12.0-15.0); Mean Corpuscular HGB Conc 31.2 g/dl (32-36); Mean Corpuscular Hemoglobin 30.1 pg (26-34); Mean Corpuscular Volume 96.7 fl (80-100); Mean Platelet Volume 10.5 fl (7.4-10.4); Platelet Count Result 242 k/mm3 (150-375); Red Blood Count 4.18 M/mm3 (4.2-5.4); Red Cell Distribution Width 14.6 % (11.5-14.5); White Blood Count 22.3 K/mm3 (4.5-10.0)
[2024-09-01 23:09] LABS: Band Neutrophils Percent 7 % (0-6); Monocytes Absolute Manual 0.22 K/mm3 (0.1-0.90); Monocytes Percent Manual 1 % (3-9); Neutrophils Absolute Manual 22.07 K/mm3 (1.7-7.2); Neutrophils Percent Manual 92 % (46-73); Platelet Estimate Adequate (Adequate); Schistocytes None Seen; Total Cells Counted 100
[2024-09-01 23:13] LABS: Anion Gap 10 mmol/L (4-12); Blood Urea Nitrogen 39 mg/dL (7-17); Calcium 10.4 mg/dL (8.4-10.2); Carbon Dioxide 34 mmol/L (22-30); Chloride 94 mmol/L (98-107); Estimated Glomerular Filt Rate > 60; Glucose 199 mg/dL (65-110); Magnesium 1.9 mg/dL (1.6-2.3); Phosphorus 2.6 mg/dL (2.5-4.5); Potassium 3.9 mmol/L (3.4-5.0); Sodium 138 mmol/L (137-145)
[2024-09-01 23:14] LABS: Lactic Acid Reflex 2.3 mmol/L (0.7-2.0)
[2024-09-02] VITALS (13 sets, daily range): BP systolic 128–139; BP diastolic 62–82; PULSE 77–81; RESP 16–20; TEMP 36.7–36.9; O2SAT 96–100; BMI 15.9
[2024-09-02 00:13] LABS: INR 2.4; Prothrombin Time 26.9 Seconds (11.1-14.7)
[2024-09-02 00:14] LABS: Partial Thromboplastin Time 46.5 Seconds (22.3-36.8)
[2024-09-02] MEDS: PIPERACILLIN/TAZ 2.25G/NS 50ML 2.25 GM/50 ML BAG IVPB ×5 (00:45→23:00)
[2024-09-02] MEDS: MORPHINE SULFATE (*CRX) 2 MG/ML INJ IV PUSH (00:50)
[2024-09-02] MEDS: MAGNESIUM SULF 2 GM/WATER 50ML 2 GM/50 ML BAG IVPB (00:50)
[2024-09-02] MEDS: ONDANSETRON INJ 4 MG/2 ML VIAL IV PUSH (00:50)
[2024-09-02 01:37] LABS: Reflex Lactic Acid Yes or No Add Lactic
[2024-09-02] MEDS: IPRATROPIUM 0.5 MG/ALBUTEROL SULFATE 2.5 MG AMPUL.NEB 3 ML INHALATION ×4 (02:27→19:51)
--- NOTE | 2024-09-02 12:15 | PM.CNGS ---
Assessment and Plan Assessment and plan (1) Abnormal findings on diagnostic imaging of gallbladder: Code(s): R93.2 - Abnormal findings on diagnostic imaging of liver and biliary tract Status: Acute Assessment and Plan: Patient brought into the ED at [facility] with shortness of breath and nausea. Imaging showed gallbladder distention but no cholelithiasis or other evidence of cholecystitis on CT. She did present with a WBC count of 26,000 as well, but LFTs were normal. She is denying any abdominal pain, but does have some mild RUQ tenderness on exam. Will get a RUQ abdominal ultrasound to evaluate the gallbladder. Continue IV antibiotics for now to cover for possible acute cholecystitis. She is a very poor surgical candidate given her hx of stroke, anticoagulation, malnutrition, and chronic respiratory failure. Even with evidence of cholecystitis on ultrasound, we would recommend to try treating her conservatively with antibiotics. If she were to require intervention, it would likely be percutaneous cholecystostomy tube placement. We will continue to follow along. (2) Leukocytosis: Code(s): D72.829 - Elevated white blood cell count, unspecified Status: Inactive Assessment and Plan: Could be related to her gallbladder versus pulmonary. Urine negative for UTI. Trend labs. Continue IV antibiotics. (3) Chronic respiratory failure with hypoxia, on home oxygen therapy: Code(s): J96.11 - Chronic respiratory failure with hypoxia; Z99.81 - Dependence on supplemental oxygen Status: Acute Assessment and Plan: Increases risk for surgery (4) Chronic obstructive pulmonary disease: Code(s): J44.9 - Chronic obstructive pulmonary disease, unspecified Status: Acute (5) Severe protein-calorie malnutrition: Code(s): E43 - Unspecified severe protein-calorie malnutrition Status: Acute Assessment and Plan: BMI is only 15.9 with about 30 lb weight loss since December of 2023. Recommended dietitian consult and supplements if she is able to tolerate a diet. (6) Chronic diastolic (congestive) heart failure: Code(s): I50.32 - Chronic diastolic (congestive) heart failure Status: Chronic (7) Hx of ischemic left MCA stroke: Code(s): Z86.73 - Personal history of transient ischemic attack (TIA), and cerebral infarction without residual deficits Status: Acute Assessment and Plan: December of 2023 with residual right-sided weakness (8) Chronic anticoagulation: Code(s): Z79.01 - intermediate designer (current) use of anticoagulants Status: Acute Assessment and Plan: Apixaban on hold. INR 2.4. Will repeat coags tomorrow (9) Paroxysmal atrial fibrillation: Code(s): I48.0 - Paroxysmal atrial fibrillation Status: Chronic (10) HTN (hypertension): Code(s): I10 - Essential (primary) hypertension Status: Chronic Plan I have discussed the patient's case and plan of care with Dr. Russell. Thank you for allowing us to see the patient in consultation and we will continue to follow along with you. History of Present Illness Consult details Consult date: 09/02/24 Reason for consult: other (Gallbladder hydrops) Requesting physician: Mariajose Ardon MD Narrative: This is a 69-year-old woman who resides in a shelter following CVA in December of 2023 with multiple other medical problems, who we have been asked to see in surgical consultation for gallbladder hydrops. She was brought into [facility] ED yesterday due to nausea and shortness of breath. Her is at the bedside and helps provide history as the patient is a poor historian. He reports she was lethargic yesterday and difficult to arouse, but she did not complain of any abdominal pain or nausea while he was there. He was called after leaving the shelter and told that they transferred her to the ED but did not give any other details. [place] [address], lactic acid 2.3. LFTs were normal. She also takes Eliquis for a history of atrial fibrillation. Her INR last night was 2.4. CT scan of the abdomen and pelvis shows gallbladder hydrops without call so if I would stones appreciated, also fecal stasis distending the rectum suggesting fecal impaction. Since admission, she has had a soapsuds enema and 2 good bowel movements per nursing. The patient was transferred to [facility] in our service was consulted. She has been started on IV antibiotics and is currently tolerating a clear liquid diet. White blood cell count is down to 22,000 and repeat lactic acid was 2.0. The patient denies any abdominal pain at this time. She denies any nausea. Her states that she has had a poor appetite since her stroke and does not eat well. He estimates nearly a 30 lb weight loss since December and her BMI is currently 15.9. She has complained of intermittent periumbilical pain at times, but they do not associate this pain with eating. She also has a history of COPD and was a previous smoker with chronic respiratory failure on 2-3 L of O2 at the shelter. She has residual right-sided weakness following her CVA and is bed ridden. Review of Systems Review of Systems: ROS unobtainable: Yes unobtainable due to mental status PMFSH Past Medical History Medical History Anxiety Arthritis Chronic anticoagulation Chronic obstructive pulmonary disease Chronic respiratory failure with hypoxia, on home oxygen therapy Gastroesophageal reflux disease Paroxysmal atrial fibrillation Surgical History Surgical History History of back surgery History of cardiac catheterization History of knee surgery History of nasal septoplasty History of partial hysterectomy History of shoulder surgery Family History Family History Grandparent Cancer Father Diabetes mellitus Heart disease Social History Social History Social History: Surrogate medical decision maker: Pankaj Neal, spouse. Code status: Full code. Smoking packs per day: 1 Smoking cigarettes per day: 20.0 Years smoked: 50 Smoking pack-years: 50.00 Smoking status: Former smoker Tobacco type: cigarettes Alcohol intake: never Substance use: never Substance use type: does not use Other substance usage details: Gummies Do You Feel Safe in your Home?: Yes Lack of Transportation: No Lack of Food: Never True Current Housing: I Have Housing Concerned About Future Housing: No Difficulty Paying Gas/Electric Bills: No Difficulty Paying for Meds: No Currently Unemployed: No Education: Grade School Difficulty w/ Childcare or Family Care: No Spiritual care concerns: No Meds Home Medications and Allergies Home Medications Medication Instructions Recorded Confirmed Type atorvastatin 20 mg tablet 20 mg PO HS #30 tabs 06/29/22 09/01/24 Rx fluoxetine 20 mg tablet 20 mg PO DAILY 1 month #30 tabs 11/25/22 09/01/24 Rx albuterol sulfate 2.5 mg/3 mL 2.5 mg inhalation Q4-6H PRN 10/31/23 09/01/24 History (0.083 %) solution for nebulization Wheezing metoprolol tartrate 50 mg tablet 50 mg PO Q12HR #60 tabs 12/03/23 09/01/24 Rx hydrocodone 7.5 mg-acetaminophen 1 tablet PO Q6H PRN Pain (Scale 12/08/23 09/01/24 History 325 mg tablet Score 4-6) acetaminophen 325 mg tablet 650 mg PO Q6H PRN Pain (Scale 01/07/24 09/01/24 History Score 1-3) diltiazem HCl 240 mg 240 mg PO DAILY 01/07/24 09/01/24 History tablet,extended release 24 hr alprazolam 1 mg tablet 1 mg PO TID PRN Anxiety 02/26/24 09/01/24 History apixaban 5 mg tablet 5 mg PO BID 02/26/24 09/01/24 History budesonide 0.5 mg/2 mL suspension 0.5 mg inhalation BID 02/26/24 09/01/24 History for nebulization ferrous sulfate 325 mg (65 mg 325 mg PO DAILY 02/26/24 09/01/24 History iron) tablet ipratropium 0.5 mg-albuterol 3 mg 3 ml inhalation QID 02/26/24 09/01/24 History (2.5 mg base)/3 mL nebulization soln pantoprazole 40 mg tablet,delayed 40 mg PO BID 02/26/24 09/01/24 History release polyethylene glycol 3350 17 gram 17 g PO DAILY 02/26/24 09/01/24 History oral powder packet alprazolam 0.5 mg tablet 0.5 mg PO DAILY 08/04/24 09/01/24 History spironolactone 25 mg tablet 25 mg PO DAILY #30 tabs 08/04/24 09/01/24 Rx (Aldactone) arformoterol 15 mcg/2 mL solution 15 mcg inhalation BID 09/01/24 09/01/24 History for nebulization furosemide 20 mg tablet (Lasix) 10 mg PO DAILY 09/01/24 09/01/24 History Allergies Allergy/AdvReac Type Severity Reaction Status Date / Time codeine AdvReac Nausea and Verified 09/01/24 17:51 Vomiting Vital Signs Vital Signs - 24 hr 09/01/24 21:26 09/01/24 21:26 09/02/24 06:00 Temperature 97.5 F L 98.1 F Pulse Rate 72 80 Respiratory Rate 14 16 Blood Pressure 142/80 H 139/82 Pulse Oximetry 95 94 98 Oxygen Delivery Nasal Cannula Oxygen Flow Rate 3 09/02/24 07:40 09/02/24 07:50 Temperature Pulse Rate 78 77 Respiratory Rate 20 20 Blood Pressure Pulse Oximetry Oxygen Delivery Oxygen Flow Rate Exam Const: General: comfortable and no acute distress Nutritional Appearance: cachectic and malnourished Orientation/consciousness: oriented to person, No oriented to place, No oriented to time and confusion HENMT: Head: normocephalic and atraumatic Ears: hearing grossly normal bilaterally Mouth: Yes moist mucous membranes Eyes: General: appearance normal, both eyes and all related structures Pupils: Equal, round and reactive pupils present Neck: Neck: normal visual inspection and full ROM Resp: Effort & Inspection: no respiratory distress Auscultation: clear to auscultation bilaterally Cardio: Rate: regular rate Rhythm: regular rhythm Heart sounds: S1 normal heart sound present and S2 normal heart sound present GI: Inspection: non-distended, scaphoid, no scars (No large obvious scars) and no visible herniation GI Palp: Yes Soft to palpation, Yes Tenderness to palpation present (GI) (Mild right upper quadrant tender), No Guarding due to palpation present (GI), Yes No hepatosplenomegaly present and No Rebound tenderness present Auscultation: normal bowel sounds Skin: General skin exam: pallor Neuro: General: other (Right-sided weakness with history of CVA) Cranial nerves: Yes Equal, round and reactive pupils present Speech: Other speech findings present (Neuro) (Speech is slightly slurred, but understandable) Gait exam (Neuro): Unable to assess gait Extrem: General: no edema Psych: Attitude: cooperative Insight: Limited insight present (Psych) Judgement: Limited judgement present (Psych) Results Labs 09/01/24 22:33 09/01/24 22:33 Labs: Abnormal lab results 09/01/24 09/01/24 Range/Units 22:33 23:32 WBC 22.3 H (4.5-10.0) K/mm3 RBC 4.18 L (4.2-5.4) M/mm3 MCHC 31.2 L (32-36) g/dl RDW 14.6 H (11.5-14.5) % MPV 10.5 H (7.4-10.4) fl Neutrophils % (Manual) 92 H (46-73) % Band Neutrophils % 7 H (0-6) % Monocytes % (Manual) 1 L (3-9) % Abs Neuts (Manual) 22.07 H (1.7-7.2) K/mm3 PT 26.9 H (11.1-14.7) Seconds APTT 46.5 H (22.3-36.8) Seconds Chloride 94 L (98-107) mmol/L Carbon Dioxide 34 H (22-30) mmol/L BUN 39 H D (7-17) mg/dL Glucose 199 H (65-110) mg/dL Lactic Acid 2.3 H (0.7-2.0) mmol/L Calcium 10.4 H (8.4-10.2) mg/dL Diabetes panel 09/01/24 Range/Units 22:33 Sodium 138 (137-145) mmol/L Potassium 3.9 (3.4-5.0) mmol/L Chloride 94 L (98-107) mmol/L Carbon Dioxide 34 H (22-30) mmol/L BUN 39 H D (7-17) mg/dL Creatinine 0.80 (0.7-1.0) mg/dL Glucose 199 H (65-110) mg/dL Calcium 10.4 H (8.4-10.2) mg/dL Calcium panel 09/01/24 Range/Units 22:33 Calcium 10.4 H (8.4-10.2) mg/dL Phosphorus 2.6 (2.5-4.5) mg/dL Pituitary panel 09/01/24 Range/Units 22:33 Sodium 138 (137-145) mmol/L Potassium 3.9 (3.4-5.0) mmol/L Chloride 94 L (98-107) mmol/L Carbon Dioxide 34 H (22-30) mmol/L BUN 39 H D (7-17) mg/dL Creatinine 0.80 (0.7-1.0) mg/dL Glucose 199 H (65-110) mg/dL Calcium 10.4 H (8.4-10.2) mg/dL Adrenal panel 09/01/24 Range/Units 22:33 Sodium 138 (137-145) mmol/L Potassium 3.9 (3.4-5.0) mmol/L Chloride 94 L (98-107) mmol/L Carbon Dioxide 34 H (22-30) mmol/L BUN 39 H D (7-17) mg/dL Creatinine 0.80 (0.7-1.0) mg/dL Glucose 199 H (65-110) mg/dL Calcium 10.4 H (8.4-10.2) mg/dL All other labs normal.
[2024-09-02 13:01] LABS: Hematocrit 37.2 % (37.0-47.0); Hemoglobin 11.6 g/dL (12.0-15.0); Mean Corpuscular HGB Conc 31.2 g/dl (32-36); Mean Corpuscular Hemoglobin 29.9 pg (26-34); Mean Corpuscular Volume 95.9 fl (80-100); Mean Platelet Volume 10.5 fl (7.4-10.4); Platelet Count Result 220 k/mm3 (150-375); Red Blood Count 3.88 M/mm3 (4.2-5.4); Red Cell Distribution Width 14.7 % (11.5-14.5); White Blood Count 19.9 K/mm3 (4.5-10.0)
[2024-09-02 13:12] LABS: Albumin Level 3.9 g/dL (3.5-5.1); Alkaline Phosphatase 83 U/L (38-126); Anion Gap 11 mmol/L (4-12); Aspartate Amino Transferase 21 U/L (14-36); Bilirubin,Total 0.3 mg/dL (0.2-1.3); Blood Urea Nitrogen 35 mg/dL (7-17); Calcium 9.7 mg/dL (8.4-10.2); Carbon Dioxide 30 mmol/L (22-30); Chloride 94 mmol/L (98-107); Estimated CRCL calculation 31 ml/min; Estimated Glomerular Filt Rate 55; Glucose 324 mg/dL (65-110); Potassium 3.2 mmol/L (3.4-5.0); Sodium 135 mmol/L (137-145)
[2024-09-02 13:18] LABS: Alanine Aminotransferase 23 U/L (6-35)
[2024-09-02] MEDS: DEXTROSE 5%/0.45% SOD CHL 1,000 ML 65 ML IV CONT (14:53)
[2024-09-02] MEDS: ALPRAZolam (*CRX) 0.5 MG TABLET 1 MG PO ×2 (15:38→23:00)
--- NOTE | 2024-09-02 16:42 | P.PN_ITS ---
Progress Note: A&P Assessment and Plan (1) Acute and chronic respiratory failure with hypoxia: Code(s): J96.21 - Acute and chronic respiratory failure with hypoxia Status: Acute Assessment and Plan: On supplemental oxygen by nasal cannula 3 L ABG reviewed continue pulse ox supportive care (2) Severe protein-calorie malnutrition: Code(s): E43 - Unspecified severe protein-calorie malnutrition Status: Acute Assessment and Plan: liberalize diet once patient able to tolerate p.o. patient with high burden of stool (3) Chronic diastolic (congestive) heart failure: Code(s): I50.32 - Chronic diastolic (congestive) heart failure Status: Chronic Assessment and Plan: brain natriuretic peptide is 3000 from 7000 appears dry on physical exam (4) Paroxysmal atrial fibrillation: Code(s): I48.0 - Paroxysmal atrial fibrillation Status: Chronic Assessment and Plan: rate controlled and anticoagulated (5) Chronic obstructive pulmonary disease: Code(s): J44.9 - Chronic obstructive pulmonary disease, unspecified Status: Acute Assessment and Plan: breathing treatments (6) Gastroesophageal reflux disease: Code(s): K21.9 - Gastro-esophageal reflux disease without esophagitis Status: Chronic Assessment and Plan: PPI (7) Atrial fibrillation: Qualifiers: Atrial fibrillation type: unspecified Qualified Code(s): I48.91 - Unspecified atrial fibrillation Code(s): I48.91 - Unspecified atrial fibrillation Status: Chronic Assessment and Plan: continue metoprolol patient is also on diltiazem continue apixaban (8) Hx of ischemic left MCA stroke: Code(s): Z86.73 - Personal history of transient ischemic attack (TIA), and cerebral infarction without residual deficits Status: Acute Assessment and Plan: patient is on a statin (9) Hypomagnesemia: Code(s): E83.42 - Hypomagnesemia Status: Acute Assessment and Plan: replace as needed (10) Adult failure to thrive: Code(s): R62.7 - Adult failure to thrive Status: Acute Assessment and Plan: supportive care PT OT Plan Suspect patient may have cholecystitis to further evaluate abdominal ultrasound is ordered however patient is seen by surgery service suggesting patient is not a candidate for surgery secondary to several comorbidities and patient anticoagulation recommending conservative management with antibiotic, pain manag ement and if needed percutaneous drainage of the gallbladder. Will continue to monitor. Subjective Date/time seen: 09/02/24 16:42 Interval history: shortness of breath Narrative: H&P-HPI- This is a 69-year-old female retirement resident with past medical history significant for chronic hypoxic respiratory failure, COPD/emphysema, severe protein calorie malnutrition, atrial fibrillation rate controlled anticoagulated, chronic kidney disease, chronic diastolic heart failure. Patient comes as said transfer from [facility] emergency room initially was taking to outside facility due to hypoxia patient placed on 3 L by nasal cannula, patient is unable to contribute in a meaningful way in history taking has had some nausea and vomiting. Preliminary workup was significant for CT of abdomen and pelvis with hydrops gallbladder fecal stasis a chest x-ray showed pneumonitis, CBC with a leukocyte count of 26,000, basic metabolic profile showed BUN 40 creatinine 1.1, brain natriuretic peptide of 3000, patient tested negative for COVID, influenza type A, influenza type B and RSV. Patient has been admitted for further evaluation management and treatment. Suspect patient may have cholecystitis to further evaluate abdominal ultrasound is ordered however patient is seen by surgery service suggesting patient is not a candidate for surgery secondary to several comorbidities and patient anticoagulation recommending conservative management with antibiotic, pain management and if needed percutaneous drainage of the gallbladder. Will continue to monitor. Review of Systems Review of Systems: ROS unobtainable: Yes unobtainable due to mental status Exam Narrative: Appears chronically ill and frail. Patient is comfortable, NAD HEENT: eyes are clear and none icteric LUNGS:CTA HEART: RR S1S2 ABD: BS+, Soft and nontender Lower extremities: no edema SKIN: nonjaundiced Neuro: grossly intact. Objective Data Vital Signs Vital Signs: Vital Signs - 24 hr 09/01/24 21:26 09/01/24 21:26 09/02/24 06:00 Temperature 36.4 C L 36.7 C Pulse Rate 72 80 Respiratory Rate 14 16 Blood Pressure 142/80 H 139/82 Pulse Oximetry 95 94 98 Oxygen Delivery Nasal Cannula Oxygen Flow Rate 3 09/02/24 07:40 09/02/24 07:50 09/02/24 12:09 Temperature Pulse Rate 78 77 Respiratory Rate 20 20 Blood Pressure Pulse Oximetry 98 Oxygen Delivery Nasal Cannula Oxygen Flow Rate 3 09/02/24 13:10 09/02/24 13:17 09/02/24 14:00 Temperature 36.9 C Pulse Rate 80 78 81 Respiratory Rate 20 20 19 Blood Pressure 132/62 Pulse Oximetry 100 Oxygen Delivery Oxygen Flow Rate Intake/Output Intake/Output: Intake & Output 08/30/24 08/31/24 09/01/24 09/02/24 23:59 23:59 23:59 23:59 Intake Total 1957 Balance 1957 Meds/Results Medications: Active Medications Generic Name Dose Route Start Last Admin Trade Name Freq PRN Reason Stop Dose Admin Acetaminophen 650 mg 09/01/24 22:02 Acetaminophen 325 Mg Tablet PO Q4H PRN Mild Pain (1-3) or Fever Acetaminophen 650 mg 09/02/24 13:01 Acetaminophen 325 Mg Tablet PO Q6H PRN Pain (Scale Score 1-3) Hydrocodone Bitart/Acetaminophen 1 tab 09/02/24 13:01 Hydrocodone/Acetaminophen (*Crx) 7.5-325 Mg Tablet PO Q6H PRN Pain (Scale Score 4-6) Al Hydrox/Mg Hydrox/Simethicone 30 ml 09/01/24 22:02 Mag Hydrox/Al Hydrox/Simeth 30 Ml Udc PO QID PRN Dyspepsia Albuterol 2.5 mg 09/02/24 13:01 Albuterol Sulfate Neb 2.5 Mg/3 Ml Inh INHALATION Q4-6H PRN Wheezing Albuterol/Ipratropium 3 ml 09/02/24 02:00 09/02/24 13:10 Ipratropium 0.5 Mg/Albuterol Sulfate 2.5 Mg Ampul.Neb 3 Ml INHALATION 3 ml Q6HRT KATIE Administration Alprazolam 1 mg 09/02/24 13:01 09/02/24 15:38 Alprazolam (*Crx) 0.5 Mg Tablet PO 1 mg TID PRN Administration Anxiety Atorvastatin Calcium 20 mg 09/02/24 21:00 Atorvastatin 20 Mg Tablet PO HS KATIE Budesonide 0.5 mg 09/02/24 20:00 Budesonide Respule Neb 0.5 Mg/2 Ml Amp INHALATION Q12HRT KATIE Diltiazem HCl 240 mg 09/03/24 09:00 Diltiazem Hcl Cd 240 Mg Cap.24hr PO DAILY [facility] Ferrous Sulfate 325 mg 09/03/24 09:00 Ferrous Sulfate [address] BY MOUTH DAILY [facility] Fluoxetine HCl 20 mg 09/03/24 09:00 Fluoxetine Hcl 20 Mg Capsule PO DAILY [facility] Furosemide 10 mg 09/03/24 09:00 Furosemide 10 Mg Tablet PO DAILY [facility] Dextrose/Sodium Chloride 1,000 mls @ 65 mls/hr 09/01/24 22:05 09/02/24 14:53 Dextrose 5% Sodium Chloride 0.45% IV CONT 65 mls/hr .[id number] KATIE Administration Piperacillin Sod/Tazobactam Sod 2.25 gm in 50 mls @ 100 mls/hr 09/02/24 00:35 09/02/24 12:39 Zosyn 2.25 Gm/Ns 50 Ml IVPB Infused Q6HR [facility] Infusion Magnesium Hydroxide 30 ml 09/01/24 22:02 Magnesium Hydroxide Susp 30 Ml Udc PO DAILY PRN Constipation Metoprolol Tartrate 50 mg 09/02/24 21:00 Metoprolol Tartrate 50 Mg Tab PO Q12HR [facility] Morphine Sulfate 2 mg 09/01/24 22:02 09/02/24 00:50 Morphine Sulfate (*Crx) 2 Mg/Ml Inj IV PUSH 2 mg Q4H PRN Administration Pain Rated 7-10 Ondansetron HCl 4 mg 09/01/24 22:02 09/02/24 00:50 Ondansetron Inj 4 Mg/2 Ml Vial IV PUSH 4 mg Q6H PRN Administration Nausea And Vomiting Pantoprazole Sodium 40 mg 09/02/24 17:00 Pantoprazole 40 Mg Tablet PO BID [facility] Polyethylene Glycol 17 gm 09/03/24 09:00 Polyethylene Glycol 3350 17 Gm Powd.Pack PO DAILY [facility] Spironolactone 25 mg 09/03/24 09:00 Spironolactone 25 Mg Tablet PO DAILY [facility] Labs Labs: Laboratory Results - last 24 hr 09/01/24 09/01/24 09/02/24 22:33 23:32 02:48 WBC 22.3 H RBC 4.18 L Hgb 12.6 D Hct 40.4 MCV 96.7 MCH 30.1 MCHC 31.2 L RDW 14.6 H Plt Count 242 MPV 10.5 H Immature Gran % (Auto) Not Reportable Neut % (Auto) Not Reportable Lymph % (Auto) Not Reportable [place] % (Auto) Not Reportable Eos % (Auto) Not Reportable Baso % (Auto) Not Reportable Lymph # (Auto) Not Reportable [place] # (Auto) Not Reportable Eos # (Auto) Not Reportable Baso # (Auto) Not Reportable Abs Immat Gran (auto) Not Reportable Absolute Neuts (auto) Not Reportable Absolute Nucleated RBC Not Reportable Total Counted 100 Neutrophils % (Manual) 92 H Band Neutrophils % 7 H Monocytes % (Manual) 1 L Nucleated RBC % Not Reportable Abs Neuts (Manual) 22.07 H Abs Monocytes (Manual) 0.22 Platelet Estimate Adequate Schistocytes None seen PT 26.9 H INR 2.4 APTT 46.5 H Sodium 138 Potassium 3.9 Chloride 94 L Carbon Dioxide 34 H Anion Gap 10 BUN 39 H D Creatinine 0.80 Estim Creat Clear Calc Not Reportable Estimated GFR > 60 Glucose 199 H Lactic Acid 2.3 H 2.0 Calcium 10.4 H Phosphorus 2.6 Magnesium 1.9 Total Bilirubin AST ALT Alkaline Phosphatase Total Protein Albumin 09/02/24 12:55 WBC 19.9 H RBC 3.88 L Hgb 11.6 L Hct 37.2 MCV 95.9 MCH 29.9 MCHC 31.2 L RDW 14.7 H Plt Count 220 MPV 10.5 H Immature Gran % (Auto) Neut % (Auto) Lymph % (Auto) [place] % (Auto) Eos % (Auto) Baso % (Auto) Lymph # (Auto) [place] # (Auto) Eos # (Auto) Baso # (Auto) Abs Immat Gran (auto) Absolute Neuts (auto) Absolute Nucleated RBC Total Counted Neutrophils % (Manual) Band Neutrophils % Monocytes % (Manual) Nucleated RBC % Abs Neuts (Manual) Abs Monocytes (Manual) Platelet Estimate Schistocytes PT INR APTT Sodium 135 L Potassium 3.2 L Chloride 94 L Carbon Dioxide 30 Anion Gap 11 BUN 35 H Creatinine 1.00 Estim Creat Clear Calc 31 Estimated GFR 55 L Glucose 324 H Lactic Acid Calcium 9.7 Phosphorus Magnesium Total Bilirubin 0.3 AST 21 ALT 23 Alkaline Phosphatase 83 Total Protein 7.0 Albumin 3.9
[2024-09-02] MEDS: PANTOPRAZOLE 40 MG TABLET PO (18:30)
[2024-09-02] MEDS: BUDESONIDE RESPULE NEB 0.5 MG/2 ML AMP INHALATION (19:51)
[2024-09-02] MEDS: METOPROLOL TARTRATE 50 MG TAB PO (20:15)
[2024-09-02] MEDS: ATORVASTATIN 20 MG TABLET PO (20:15)
[2024-09-02] MEDS: HYDROcodone/acetaminophen (*CRX) 7.5-325 MG TABLET 1 TAB PO (20:16)
[2024-09-02] MEDS: ACETAMINOPHEN 325 MG TABLET 650 MG PO (23:00)
[2024-09-03] VITALS (16 sets, daily range): BP systolic 146–161; BP diastolic 52–85; PULSE 54–79; RESP 19–20; TEMP 36.1–36.4; O2SAT 96–100
[2024-09-03] MEDS: IPRATROPIUM 0.5 MG/ALBUTEROL SULFATE 2.5 MG AMPUL.NEB 3 ML INHALATION ×4 (02:02→19:46)
[2024-09-03] MEDS: PIPERACILLIN/TAZ 2.25G/NS 50ML 2.25 GM/50 ML BAG IVPB ×4 (05:07→23:27)
[2024-09-03 05:57] LABS: INR 1.5; Prothrombin Time 18.3 Seconds (11.1-14.7)
[2024-09-03] MEDS: BUDESONIDE RESPULE NEB 0.5 MG/2 ML AMP INHALATION ×2 (07:02→19:46)
--- NOTE | 2024-09-03 10:53 | PM.PNGS ---
Progress Note: A&P Assessment and Plan (1) Cholecystitis: Code(s): K81.9 - Cholecystitis, unspecified Status: Acute Assessment and Plan: exam cont to be largely benign, WBC sl improved, cont abx, await U/S, low fat diet Subjective Subjective Date/Time Seen: 09/03/24 10:53 Interval history: feels ok, no abd pain, shahbaz diet Review of Systems Review of Systems: All systems reviewed & are unremarkable except as noted in HPI and below Exam Const: General: cooperative, comfortable, no acute distress and ill appearing Resp: Auscultation: diminished lung sounds Cardio: Rate: regular rate Rhythm: regular rhythm GI: Inspection: normal to inspection and non-distended GI Palp: No abdominal tenderness and Yes Soft to palpation Objective Data Vital Signs Vital Signs: Vital Signs - 24 hr 09/02/24 12:09 09/02/24 13:10 09/02/24 13:17 Temperature Pulse Rate 80 78 Respiratory Rate 20 20 Blood Pressure Pulse Oximetry 98 Oxygen Delivery Nasal Cannula Oxygen Flow Rate 3 Fraction of Inspired Oxygen 09/02/24 14:00 09/02/24 19:51 09/02/24 20:03 Temperature 36.9 C Pulse Rate 81 78 79 Respiratory Rate 19 20 20 Blood Pressure 132/62 Pulse Oximetry 100 Oxygen Delivery Oxygen Flow Rate Fraction of Inspired Oxygen 09/02/24 20:15 09/02/24 20:00 09/02/24 20:42 Temperature 36.8 C Pulse Rate 79 79 Respiratory Rate 18 Blood Pressure 128/74 Pulse Oximetry 96 96 Oxygen Delivery Nasal Cannula Oxygen Flow Rate 3 Fraction of Inspired Oxygen 09/03/24 02:02 09/02/24 19:50 09/03/24 02:08 Temperature Pulse Rate 75 78 77 Respiratory Rate 20 20 Blood Pressure Pulse Oximetry 99 Oxygen Delivery Nasal Cannula Oxygen Flow Rate 3 Fraction of Inspired Oxygen 09/03/24 07:02 09/03/24 07:02 09/03/24 07:15 Temperature Pulse Rate 63 70 Respiratory Rate 20 20 Blood Pressure Pulse Oximetry 100 Oxygen Delivery Nasal Cannula Oxygen Flow Rate 2.5 Fraction of Inspired Oxygen 30 09/03/24 06:00 Temperature 36.4 C L Pulse Rate 64 Respiratory Rate 20 Blood Pressure 161/85 H Pulse Oximetry 100 Oxygen Delivery Oxygen Flow Rate Fraction of Inspired Oxygen Intake/Output Intake/Output: Intake & Output 08/31/24 09/01/24 09/02/24 09/03/24 23:59 23:59 23:59 23:59 Intake Total 2538 50 Balance 2538 50 Meds/Results Medications: Active Medications Generic Name Dose Route Start Last Admin Trade Name Freq PRN Reason Stop Dose Admin Acetaminophen 650 mg 09/01/24 22:02 09/02/24 23:00 Acetaminophen 325 Mg Tablet PO 650 mg Q4H PRN Administration Mild Pain (1-3) or Fever Acetaminophen 650 mg 09/02/24 13:01 Acetaminophen 325 Mg Tablet PO Q6H PRN Pain (Scale Score 1-3) Hydrocodone Bitart/Acetaminophen 1 tab 09/02/24 13:01 09/02/24 20:16 Hydrocodone/Acetaminophen (*Crx) 7.5-325 Mg Tablet PO 1 tab Q6H PRN Administration Pain (Scale Score 4-6) Al Hydrox/Mg Hydrox/Simethicone 30 ml 09/01/24 22:02 Mag Hydrox/Al Hydrox/Simeth 30 Ml Udc PO QID PRN Dyspepsia Albuterol 2.5 mg 09/02/24 13:01 Albuterol Sulfate Neb 2.5 Mg/3 Ml Inh INHALATION Q4-6H PRN Wheezing Albuterol/Ipratropium 3 ml 09/02/24 02:00 09/03/24 07:02 Ipratropium 0.5 Mg/Albuterol Sulfate 2.5 Mg Ampul.Neb 3 Ml INHALATION 3 ml Q6HRT KATIE Administration Alprazolam 1 mg 09/02/24 13:01 09/02/24 23:00 Alprazolam (*Crx) 0.5 Mg Tablet PO 1 mg TID PRN Administration Anxiety Atorvastatin Calcium 20 mg 09/02/24 21:00 09/02/24 20:15 Atorvastatin 20 Mg Tablet PO 20 mg HS KATIE Administration Budesonide 0.5 mg 09/02/24 20:00 09/03/24 07:02 Budesonide Respule Neb 0.5 Mg/2 Ml Amp INHALATION 0.5 mg Q12HRT KATIE Administration Diltiazem HCl 240 mg 09/03/24 09:00 Diltiazem Hcl Cd 240 Mg Cap.24hr PO DAILY KATIE Ferrous Sulfate 325 mg 09/03/24 09:00 Ferrous Sulfate [address] BY MOUTH DAILY [facility] Fluoxetine HCl 20 mg 09/03/24 09:00 Fluoxetine Hcl 20 Mg Capsule PO DAILY [facility] Furosemide 10 mg 09/03/24 09:00 Furosemide 10 Mg Tablet PO DAILY KATIE Dextrose/Sodium Chloride 1,000 mls @ 65 mls/hr 09/01/24 22:05 09/02/24 14:53 Dextrose 5% Sodium Chloride 0.45% IV CONT 65 mls/hr .[id number] KATIE Administration Piperacillin Sod/Tazobactam Sod 2.25 gm in 50 mls @ 100 mls/hr 09/02/24 00:35 09/03/24 05:37 Zosyn 2.25 Gm/Ns 50 Ml IVPB Infused Q6HR KATIE Infusion Magnesium Hydroxide 30 ml 09/01/24 22:02 Magnesium Hydroxide Susp 30 Ml Udc PO DAILY PRN Constipation Metoprolol Tartrate 50 mg 09/02/24 21:00 09/02/24 20:15 Metoprolol Tartrate 50 Mg Tab PO 50 mg Q12HR KATIE Administration Morphine Sulfate 2 mg 09/01/24 22:02 09/02/24 00:50 Morphine Sulfate (*Crx) 2 Mg/Ml Inj IV PUSH 2 mg Q4H PRN Administration Pain Rated 7-10 Ondansetron HCl 4 mg 09/01/24 22:02 09/02/24 00:50 Ondansetron Inj 4 Mg/2 Ml Vial IV PUSH 4 mg Q6H PRN Administration Nausea And Vomiting Pantoprazole Sodium 40 mg 09/02/24 17:00 09/02/24 18:30 Pantoprazole 40 Mg Tablet PO 40 mg BID KATIE Administration Polyethylene Glycol 17 gm 09/03/24 09:00 Polyethylene Glycol 3350 17 Gm Powd.Pack PO DAILY [facility] Spironolactone 25 mg 09/03/24 09:00 Spironolactone 25 Mg Tablet PO DAILY [facility] Labs Labs: Laboratory Results - last 24 hr 09/02/24 09/03/24 12:55 05:30 WBC 19.9 H RBC 3.88 L Hgb 11.6 L Hct 37.2 MCV 95.9 MCH 29.9 MCHC 31.2 L RDW 14.7 H Plt Count 220 MPV 10.5 H PT 18.3 H D INR 1.5 Sodium 135 L Potassium 3.2 L Chloride 94 L Carbon Dioxide 30 Anion Gap 11 BUN 35 H Creatinine 1.00 Estim Creat Clear Calc 31 Estimated GFR 55 L Glucose 324 H Calcium 9.7 Total Bilirubin 0.3 AST 21 ALT 23 Alkaline Phosphatase 83 Total Protein 7.0 Albumin 3.9
[2024-09-03] MEDS: DEXTROSE 5%/0.45% SOD CHL 1,000 ML 65 ML IV CONT (12:37)
[2024-09-03] MEDS: FLUoxetine HCL 20 MG CAPSULE PO (12:38)
[2024-09-03] MEDS: SPIRONOLACTONE 25 MG TABLET PO (12:38)
[2024-09-03] MEDS: PANTOPRAZOLE 40 MG TABLET PO ×2 (12:38→17:15)
[2024-09-03] MEDS: polyethylene glycoL 3350 17 GM POWD.PACK PO (12:38)
[2024-09-03] MEDS: dilTIAZem HCL CD 240 MG CAP.24HR PO (12:38)
[2024-09-03] MEDS: FERROUS SULFATE 325 MG TABLET DR BY MOUTH (12:39)
[2024-09-03] MEDS: FUROSEMIDE 10 MG TABLET PO (12:40)
[2024-09-03] MEDS: METOPROLOL TARTRATE 50 MG TAB PO ×2 (12:45→21:49)
[2024-09-03] MEDS: ALPRAZolam (*CRX) 0.5 MG TABLET 1 MG PO ×2 (17:19→21:49)
--- NOTE | 2024-09-03 18:44 | P.PN_ITS ---
Progress Note: A&P Assessment and Plan (1) Anxiety: Code(s): F41.9 - Anxiety disorder, unspecified Status: Acute Plan Suspect patient may have cholecystitis to further evaluate abdominal ultrasound is ordered however patient is seen by surgery service suggesting patient is not a candidate for surgery secondary to several comorbidities and patient anticoagulation recommending conservative management with antibiotic, pain manag ement and if needed percutaneous drainage of the gallbladder. Abdominal US did show cholelithiasis, without ultrasound evidence of cholecystitis. patient remains stable, will start PO intake. Subjective Date/time seen: 09/03/24 18:44 Interval history: shortness of breath Narrative: H&P-HPI- This is a 69-year-old female residential resident with past medical history significant for chronic hypoxic respiratory failure, COPD/emphysema, severe protein calorie malnutrition, atrial fibrillation rate controlled anticoagulated, chronic kidney disease, chronic diastolic heart failure. Patient comes as said transfer from [facility] emergency room initially was taking to outside facility due to hypoxia patient placed on 3 L by nasal cannula, patient is unable to contribute in a meaningful way in history taking has had some nausea and vomiting. Preliminary workup was significant for CT of abdomen and pelvis with hydrops gallbladder fecal stasis a chest x-ray showed pneumonitis, CBC with a leukocyte count of 26,000, basic metabolic profile showed BUN 40 creatinine 1.1, brain natriuretic peptide of 3000, patient tested negative for COVID, influenza type A, influenza type B and RSV. Patient has been admitted for further evaluation management and treatment. Suspect patient may have cholecystitis to further evaluate abdominal ultrasound is ordered however patient is seen by surgery service suggesting patient is not a candidate for surgery secondary to several comorbidities and patient anticoagulation recommending conservative management with antibiotic, pain management and if needed percutaneous drainage of the gallbladder. Will continue to monitor. Review of Systems Review of Systems: ROS unobtainable: Yes unobtainable due to mental status Exam Narrative: Patient is comfortable, NAD HEENT: eyes are clear and none icteric LUNGS:CTA HEART: RR S1S2 ABD: BS+, Soft and nontender Lower extremities: no edema SKIN: nonjaundiced Neuro: grossly intact. Objective Data Vital Signs Vital Signs: Vital Signs - 24 hr 09/02/24 19:51 09/02/24 20:03 09/02/24 20:15 Temperature Pulse Rate 78 79 79 Respiratory Rate 20 20 Blood Pressure Pulse Oximetry Oxygen Delivery Oxygen Flow Rate Fraction of Inspired Oxygen 09/02/24 20:00 09/02/24 20:42 09/03/24 02:02 Temperature 36.8 C Pulse Rate 79 75 Respiratory Rate 18 20 Blood Pressure 128/74 Pulse Oximetry 96 96 Oxygen Delivery Nasal Cannula Oxygen Flow Rate 3 Fraction of Inspired Oxygen 09/02/24 19:50 09/03/24 02:08 09/03/24 07:02 Temperature Pulse Rate 78 77 Respiratory Rate 20 Blood Pressure Pulse Oximetry 99 100 Oxygen Delivery Nasal Cannula Nasal Cannula Oxygen Flow Rate 3 2.5 Fraction of Inspired Oxygen 30 09/03/24 07:02 09/03/24 07:15 09/03/24 06:00 Temperature 36.4 C L Pulse Rate 63 70 64 Respiratory Rate 20 20 20 Blood Pressure 161/85 H Pulse Oximetry 100 Oxygen Delivery Oxygen Flow Rate Fraction of Inspired Oxygen 09/03/24 12:45 09/03/24 08:00 09/03/24 13:24 Temperature Pulse Rate 76 76 74 Respiratory Rate 20 20 Blood Pressure Pulse Oximetry 96 Oxygen Delivery Nasal Cannula Oxygen Flow Rate 2 Fraction of Inspired Oxygen 30 09/03/24 13:32 09/03/24 14:00 Temperature 36.3 C L Pulse Rate 73 79 Respiratory Rate 20 19 Blood Pressure 150/52 H Pulse Oximetry 98 Oxygen Delivery Oxygen Flow Rate Fraction of Inspired Oxygen Intake/Output Intake/Output: Intake & Output 08/31/24 09/01/24 09/02/24 09/03/24 23:59 23:59 23:59 23:59 Intake Total 2538 1570 Balance 2538 1570 Meds/Results Medications: Active Medications Generic Name Dose Route Start Last Admin Trade Name Freq PRN Reason Stop Dose Admin Acetaminophen 650 mg 09/01/24 22:02 09/02/24 23:00 Acetaminophen 325 Mg Tablet PO 650 mg Q4H PRN Administration Mild Pain (1-3) or Fever Acetaminophen 650 mg 09/02/24 13:01 Acetaminophen 325 Mg Tablet PO Q6H PRN Pain (Scale Score 1-3) Hydrocodone Bitart/Acetaminophen 1 tab 09/02/24 13:01 09/02/24 20:16 Hydrocodone/Acetaminophen (*Crx) 7.5-325 Mg Tablet PO 1 tab Q6H PRN Administration Pain (Scale Score 4-6) Al Hydrox/Mg Hydrox/Simethicone 30 ml 09/01/24 22:02 Mag Hydrox/Al Hydrox/Simeth 30 Ml Udc PO QID PRN Dyspepsia Albuterol 2.5 mg 09/02/24 13:01 Albuterol Sulfate Neb 2.5 Mg/3 Ml Inh INHALATION Q4-6H PRN Wheezing Albuterol/Ipratropium 3 ml 09/02/24 02:00 09/03/24 13:24 Ipratropium 0.5 Mg/Albuterol Sulfate 2.5 Mg Ampul.Neb 3 Ml INHALATION 3 ml Q6HRT KATIE Administration Alprazolam 1 mg 09/02/24 13:01 09/03/24 17:19 Alprazolam (*Crx) 0.5 Mg Tablet PO 1 mg TID PRN Administration Anxiety Atorvastatin Calcium 20 mg 09/02/24 21:00 09/02/24 20:15 Atorvastatin 20 Mg Tablet PO 20 mg HS KATIE Administration Budesonide 0.5 mg 09/02/24 20:00 09/03/24 07:02 Budesonide Respule Neb 0.5 Mg/2 Ml Amp INHALATION 0.5 mg Q12HRT KATIE Administration Diltiazem HCl 240 mg 09/03/24 09:00 09/03/24 12:38 Diltiazem Hcl Cd 240 Mg Cap.24hr PO 240 mg DAILY KATIE Administration Ferrous Sulfate 325 mg 09/03/24 09:00 09/03/24 12:39 Ferrous Sulfate [address] BY MOUTH 325 mg DAILY KATIE Administration Fluoxetine HCl 20 mg 09/03/24 09:00 09/03/24 12:38 Fluoxetine Hcl 20 Mg Capsule PO 20 mg DAILY KATIE Administration Furosemide 10 mg 09/03/24 09:00 09/03/24 12:40 Furosemide 10 Mg Tablet PO 10 mg DAILY KATIE Administration Dextrose/Sodium Chloride 1,000 mls @ 65 mls/hr 09/01/24 22:05 09/03/24 12:37 Dextrose 5% Sodium Chloride 0.45% IV CONT 65 mls/hr .[id number] KATIE Administration Piperacillin Sod/Tazobactam Sod 2.25 gm in 50 mls @ 100 mls/hr 09/02/24 00:35 09/03/24 17:45 Zosyn 2.25 Gm/Ns 50 Ml IVPB Infused Q6HR KATIE Infusion Magnesium Hydroxide 30 ml 09/01/24 22:02 Magnesium Hydroxide Susp 30 Ml Udc PO DAILY PRN Constipation Metoprolol Tartrate 50 mg 09/02/24 21:00 09/03/24 12:45 Metoprolol Tartrate 50 Mg Tab PO 50 mg Q12HR KATIE Administration Morphine Sulfate 2 mg 09/01/24 22:02 09/02/24 00:50 Morphine Sulfate (*Crx) 2 Mg/Ml Inj IV PUSH 2 mg Q4H PRN Administration Pain Rated 7-10 Ondansetron HCl 4 mg 09/01/24 22:02 09/02/24 00:50 Ondansetron Inj 4 Mg/2 Ml Vial IV PUSH 4 mg Q6H PRN Administration Nausea And Vomiting Pantoprazole Sodium 40 mg 09/02/24 17:00 09/03/24 17:15 Pantoprazole 40 Mg Tablet PO 40 mg BID KATIE Administration Polyethylene Glycol 17 gm 09/03/24 09:00 09/03/24 12:38 Polyethylene Glycol 3350 17 Gm Powd.Pack PO 17 gm DAILY KATIE Administration Spironolactone 25 mg 09/03/24 09:00 09/03/24 12:38 Spironolactone 25 Mg Tablet PO 25 mg DAILY KATIE Administration Radiology Results: ITS Impressions Abdomen Ultrasound 09/03/24 11:48 IMPRESSION: Cholelithiasis, without ultrasound evidence of cholecystitis. Labs Labs: Laboratory Results - last 24 hr 09/03/24 05:30 PT 18.3 H D INR 1.5
[2024-09-03] MEDS: ATORVASTATIN 20 MG TABLET PO (21:49)
[2024-09-03] MEDS: MORPHINE SULFATE (*CRX) 2 MG/ML INJ IV PUSH (21:50)
[2024-09-04] VITALS (15 sets, daily range): BP systolic 137–165; BP diastolic 72–78; PULSE 51–77; RESP 16–20; TEMP 36.1–36.6; O2SAT 96–100
[2024-09-04] MEDS: IPRATROPIUM 0.5 MG/ALBUTEROL SULFATE 2.5 MG AMPUL.NEB 3 ML INHALATION ×4 (02:36→19:59)
[2024-09-04] MEDS: DEXTROSE 5%/0.45% SOD CHL 1,000 ML 65 ML IV CONT (04:37)
[2024-09-04] MEDS: PIPERACILLIN/TAZ 2.25G/NS 50ML 2.25 GM/50 ML BAG IVPB (05:40)
[2024-09-04 06:56] LABS: Hematocrit 37.8 % (37.0-47.0); Hemoglobin 11.6 g/dL (12.0-15.0); Mean Corpuscular HGB Conc 30.7 g/dl (32-36); Mean Corpuscular Hemoglobin 29.4 pg (26-34); Mean Corpuscular Volume 95.7 fl (80-100); Mean Platelet Volume 10.4 fl (7.4-10.4); Platelet Count Result 224 k/mm3 (150-375); Red Blood Count 3.95 M/mm3 (4.2-5.4); Red Cell Distribution Width 14.5 % (11.5-14.5); White Blood Count 11.9 K/mm3 (4.5-10.0)
[2024-09-04 07:30] LABS: Alanine Aminotransferase 17 U/L (6-35); Albumin Level 3.7 g/dL (3.5-5.1); Alkaline Phosphatase 93 U/L (38-126); Anion Gap 4 mmol/L (4-12); Aspartate Amino Transferase 23 U/L (14-36); Bilirubin,Total 0.5 mg/dL (0.2-1.3); Blood Urea Nitrogen 12 mg/dL (7-17); Calcium 9.4 mg/dL (8.4-10.2); Carbon Dioxide 35 mmol/L (22-30); Chloride 97 mmol/L (98-107); Estimated CRCL calculation 43 ml/min; Estimated Glomerular Filt Rate > 60; Glucose 81 mg/dL (65-110); Magnesium 1.7 mg/dL (1.6-2.3); Potassium 3.1 mmol/L (3.4-5.0); Sodium 136 mmol/L (137-145)
[2024-09-04] MEDS: BUDESONIDE RESPULE NEB 0.5 MG/2 ML AMP INHALATION ×2 (07:34→19:58)
[2024-09-04] MEDS: dilTIAZem HCL CD 240 MG CAP.24HR PO (08:47)
[2024-09-04] MEDS: polyethylene glycoL 3350 17 GM POWD.PACK PO (08:47)
[2024-09-04] MEDS: FERROUS SULFATE 325 MG TABLET DR BY MOUTH (08:47)
[2024-09-04] MEDS: FLUoxetine HCL 20 MG CAPSULE PO (08:47)
[2024-09-04] MEDS: FUROSEMIDE 10 MG TABLET PO (08:47)
[2024-09-04] MEDS: PANTOPRAZOLE 40 MG TABLET PO ×2 (08:47→17:54)
[2024-09-04] MEDS: SPIRONOLACTONE 25 MG TABLET PO (08:47)
[2024-09-04] MEDS: METOPROLOL TARTRATE 50 MG TAB PO ×2 (08:52→21:01)
--- NOTE | 2024-09-04 11:47 | PCNFU ---
Nutrition Follow-Up Complete: Severe Protein Calorie Malnutrition as related to inadequate protein energy intake with increased protein-energy needs in setting of chronic disease as evidenced by minimal oral intake for > 1-2 months: severe subcutaneous fat loss(orbital fat pads) and muscle wasting (temporalis, clavicle). goal: Meet estimated nutritional needs Patient has limited progress towards goal. We will continue current goal. Pt current nutrition is Full Liquids with Ensure compact BID. Last recorded weight is 40.8 kg. Bowel Motility: +BM reported 09/02 Labs Reviewed: Na 163, K 3.1 Meds Noted: Lasix, Miralax, Protonix, Lopressor. Skin: WNL Additional Notes: Patient currently on a full liquid diet. Intake's have been poor, patient sleeping did not eat breakfast. Diet supplements remain of Ensure Compact BID for additional 220 kcal and 10 gm protein. Spoke with nursing today regarding plan of care. If diet order advances recommend regular diet order. Will monitor weight, labs, skin, diet orders, meds every 3 days.
[2024-09-04] MEDS: PIPERACILLN/TAZ 3.375GM/NS50ML 3.375 GM/50 ML BAG IVPB ×2 (12:35→17:54)
[2024-09-04] MEDS: ALPRAZolam (*CRX) 0.5 MG TABLET 1 MG PO (12:37)
--- NOTE | 2024-09-04 13:15 | PM.PNGS ---
Progress Note: A&P Assessment and Plan (1) Cholecystitis: Code(s): K81.9 - Cholecystitis, unspecified Status: Acute Assessment and Plan: Exam continues to be benign. WBC trending down. RUQ US showed cholelithiasis with no evidence of cholecystitis. No indication for any further intervention at this time. Continue conservative treatment and low fat diet. Plan I have discussed the patient's case and plan of care with Dr. Russell. Subjective Subjective Date/Time Seen: 09/04/24 13:15 Patient reports: no new complaints, tolerating a regular diet and afebrile Interval history: patient denies any abdominal pain, nausea, or vomiting. She is tolerating a diet. White blood cell count trending down to 11,000 today. Exam Const: General: comfortable and no acute distress GI: Inspection: non-distended GI Palp: Yes Soft to palpation, Yes Tenderness to palpation present (GI) ( Mild right upper quadrant tenderness), No Guarding due to palpation present (GI) and No Rebound tenderness present Auscultation: normal bowel sounds Objective Data Vital Signs Vital Signs: Vital Signs - 24 hr 09/03/24 13:24 09/03/24 13:32 09/03/24 14:00 Temperature 97.3 F L Pulse Rate 74 73 79 Respiratory Rate 20 20 19 Blood Pressure 150/52 H Pulse Oximetry 98 Oxygen Delivery Oxygen Flow Rate Fraction of Inspired Oxygen 09/03/24 19:44 09/03/24 19:45 09/03/24 20:02 Temperature Pulse Rate 54 L 62 Respiratory Rate 20 20 Blood Pressure Pulse Oximetry 100 Oxygen Delivery Nasal Cannula Oxygen Flow Rate 2.5 Fraction of Inspired Oxygen 30 09/03/24 21:49 09/03/24 20:00 09/03/24 22:05 Temperature 97.0 F L Pulse Rate 57 L 57 L Respiratory Rate 20 Blood Pressure 146/76 H Pulse Oximetry 100 100 Oxygen Delivery Nasal Cannula Oxygen Flow Rate 3 Fraction of Inspired Oxygen 09/04/24 02:37 09/04/24 02:46 09/04/24 06:00 Temperature 97.0 F L Pulse Rate 52 L 51 L 76 Respiratory Rate 20 20 18 Blood Pressure 165/76 H Pulse Oximetry 96 Oxygen Delivery Oxygen Flow Rate Fraction of Inspired Oxygen 09/04/24 07:34 09/04/24 07:34 09/04/24 07:45 Temperature Pulse Rate 58 L 60 Respiratory Rate 16 16 Blood Pressure Pulse Oximetry 96 Oxygen Delivery Nasal Cannula Oxygen Flow Rate 2.5 Fraction of Inspired Oxygen 30 09/04/24 08:52 09/04/24 08:00 Temperature Pulse Rate 65 65 Respiratory Rate 16 Blood Pressure Pulse Oximetry 96 Oxygen Delivery Nasal Cannula Oxygen Flow Rate 3 Fraction of Inspired Oxygen Intake/Output Intake/Output: Intake & Output 09/01/24 09/02/24 09/03/24 09/04/24 23:59 23:59 23:59 23:59 Intake Total 2538 1570 1200 Output Total 1600 Balance 2538 1570 -400 Meds/Results Medications: Active Medications Generic Name Dose Route Start Last Admin Trade Name Freq PRN Reason Stop Dose Admin Acetaminophen 650 mg 09/01/24 22:02 09/02/24 23:00 Acetaminophen 325 Mg Tablet PO 650 mg Q4H PRN Administration Mild Pain (1-3) or Fever Acetaminophen 650 mg 09/02/24 13:01 Acetaminophen 325 Mg Tablet PO Q6H PRN Pain (Scale Score 1-3) Hydrocodone Bitart/Acetaminophen 1 tab 09/02/24 13:01 09/02/24 20:16 Hydrocodone/Acetaminophen (*Crx) 7.5-325 Mg Tablet PO 1 tab Q6H PRN Administration Pain (Scale Score 4-6) Al Hydrox/Mg Hydrox/Simethicone 30 ml 09/01/24 22:02 Mag Hydrox/Al Hydrox/Simeth 30 Ml Udc PO QID PRN Dyspepsia Albuterol 2.5 mg 09/02/24 13:01 Albuterol Sulfate Neb 2.5 Mg/3 Ml Inh INHALATION Q4-6H PRN Wheezing Albuterol/Ipratropium 3 ml 09/02/24 02:00 09/04/24 07:34 Ipratropium 0.5 Mg/Albuterol Sulfate 2.5 Mg Ampul.Neb 3 Ml INHALATION 3 ml Q6HRT KATIE Administration Alprazolam 1 mg 09/02/24 13:01 09/04/24 12:37 Alprazolam (*Crx) 0.5 Mg Tablet PO 1 mg TID PRN Administration Anxiety Atorvastatin Calcium 20 mg 09/02/24 21:00 09/03/24 21:49 Atorvastatin 20 Mg Tablet PO 20 mg HS KATIE Administration Budesonide 0.5 mg 09/02/24 20:00 09/04/24 07:34 Budesonide Respule Neb 0.5 Mg/2 Ml Amp INHALATION 0.5 mg Q12HRT KATIE Administration Diltiazem HCl 240 mg 09/03/24 09:00 09/04/24 08:47 Diltiazem Hcl Cd 240 Mg Cap.24hr PO 240 mg DAILY KATIE Administration Ferrous Sulfate 325 mg 09/03/24 09:00 09/04/24 08:47 Ferrous Sulfate [address] BY MOUTH 325 mg DAILY KATIE Administration Fluoxetine HCl 20 mg 09/03/24 09:00 09/04/24 08:47 Fluoxetine Hcl 20 Mg Capsule PO 20 mg DAILY KATIE Administration Furosemide 10 mg 09/03/24 09:00 09/04/24 08:47 Furosemide 10 Mg Tablet PO 10 mg DAILY KATIE Administration Dextrose/Sodium Chloride 1,000 mls @ 65 mls/hr 09/01/24 22:05 09/04/24 04:37 Dextrose 5% Sodium Chloride 0.45% IV CONT 65 mls/hr .[id number] KATIE Administration Piperacillin/Tazobactam/Dextrose 3.375 gm in 50 mls @ 100 mls/hr 09/04/24 12:00 09/04/24 12:35 Zosyn 3.375 Gm/Ns 50 Ml IVPB 100 mls/hr Q6HR KATIE Administration Magnesium Hydroxide 30 ml 09/01/24 22:02 Magnesium Hydroxide Susp 30 Ml Udc PO DAILY PRN Constipation Metoprolol Tartrate 50 mg 09/02/24 21:00 09/04/24 08:52 Metoprolol Tartrate 50 Mg Tab PO 50 mg Q12HR KATIE Administration Morphine Sulfate 2 mg 09/01/24 22:02 09/03/24 21:50 Morphine Sulfate (*Crx) 2 Mg/Ml Inj IV PUSH 2 mg Q4H PRN Administration Pain Rated 7-10 Ondansetron HCl 4 mg 09/01/24 22:02 09/02/24 00:50 Ondansetron Inj 4 Mg/2 Ml Vial IV PUSH 4 mg Q6H PRN Administration Nausea And Vomiting Pantoprazole Sodium 40 mg 09/02/24 17:00 09/04/24 08:47 Pantoprazole 40 Mg Tablet PO 40 mg BID KATIE Administration Polyethylene Glycol 17 gm 09/03/24 09:00 09/04/24 08:47 Polyethylene Glycol 3350 17 Gm Powd.Pack PO 17 gm DAILY KATIE Administration Spironolactone 25 mg 09/03/24 09:00 09/04/24 08:47 Spironolactone 25 Mg Tablet PO 25 mg DAILY KATIE Administration Radiology Results: ITS Impressions Abdomen Ultrasound 09/03/24 11:48 IMPRESSION: Cholelithiasis, without ultrasound evidence of cholecystitis. Labs Labs: Laboratory Results - last 24 hr 09/04/24 06:37 WBC 11.9 H RBC 3.95 L Hgb 11.6 L Hct 37.8 MCV 95.7 MCH 29.4 MCHC 30.7 L RDW 14.5 Plt Count 224 MPV 10.4 Sodium 136 L Potassium 3.1 L Chloride 97 L Carbon Dioxide 35 H Anion Gap 4 BUN 12 D Creatinine 0.70 Estim Creat Clear Calc 43 Estimated GFR > 60 Glucose 81 Calcium 9.4 Magnesium 1.7 Total Bilirubin 0.5 AST 23 ALT 17 Alkaline Phosphatase 93 Total Protein 7.0 Albumin 3.7
--- NOTE | 2024-09-04 14:49 | PM.DS ---
DS: Admitting Diagnosis Discharge Date 09/04/24 Admitting Diagnosis Shortness of breath DS: Discharge Diagnosis Discharge Diagnosis (1) Acute and chronic respiratory failure with hypoxia: Code(s): J96.21 - Acute and chronic respiratory failure with hypoxia Status: Acute (2) Chronic diastolic (congestive) heart failure: Code(s): I50.32 - Chronic diastolic (congestive) heart failure Status: Chronic (3) Severe protein-calorie malnutrition: Code(s): E43 - Unspecified severe protein-calorie malnutrition Status: Acute (4) Chronic respiratory failure with hypoxia, on home oxygen therapy: Code(s): J96.11 - Chronic respiratory failure with hypoxia; Z99.81 - Dependence on supplemental oxygen Status: Acute (5) Acute exacerbation of CHF (congestive heart failure): Code(s): I50.9 - Heart failure, unspecified Status: Chronic (6) Paroxysmal atrial fibrillation: Code(s): I48.0 - Paroxysmal atrial fibrillation Status: Chronic (7) Chronic obstructive pulmonary disease: Code(s): J44.9 - Chronic obstructive pulmonary disease, unspecified Status: Acute DS: Summary Hospital Course Hospital Course: Suspect patient may have cholecystitis to further evaluate abdominal ultrasound is ordered however patient is seen by surgery service suggesting patient is not a candidate for surgery secondary to several comorbidities and patient anticoagulation recommending conservative management with antibiotic, pain management and if needed percutaneous drainage of the gallbladder. Abdominal US did show cholelithiasis, without ultrasound evidence of cholecystitis. patient remains stable, started PO intake.patient tolerated, will discharge patient to [facility]. Time Spent with Patient Time attestation: Total time spent providing and/or coordinating discharge services: Exam Narrative: Patient is comfortable, NAD HEENT: eyes are clear and none icteric LUNGS:CTA HEART: RR S1S2 ABD: BS+, Soft and nontender Lower extremities: no edema SKIN: nonjaundiced Neuro: grossly intact. DS: Data Data Completed and Pending Labs on day of discharge: Labs from last 24 hours 09/04/24 06:37 WBC 11.9 H RBC 3.95 L Hgb 11.6 L Hct 37.8 MCV 95.7 MCH 29.4 MCHC 30.7 L RDW 14.5 Plt Count 224 MPV 10.4 Sodium 136 L Potassium 3.1 L Chloride 97 L Carbon Dioxide 35 H Anion Gap 4 BUN 12 D Creatinine 0.70 Estim Creat Clear Calc 43 Estimated GFR > 60 Glucose 81 Calcium 9.4 Magnesium 1.7 Total Bilirubin 0.5 AST 23 ALT 17 Alkaline Phosphatase 93 Total Protein 7.0 Albumin 3.7 Discharge Plan Discharge Attending physician on discharge: Mariajose Ardon V. Consulting providers: Connie Russell; Florencia Mendez; Jinny Rob Discharging Clinician: Wendy Ocampo Patient Disposition: SNF Activity: as tolerated Diet: low fat Discharge Instructions: patient to follow up with her primary care provider as soon as possible. Patient Instructions: Apixaban (By mouth), Heart Failure (DC), Safe Use of Anticoagulants (DC) Stand Alone Forms: General Discharge Information Follow-up/Referrals: Tor Barnes MD [Primary Care Provider] - Discharge Medications: New magnesium hydroxide [Milk of Magnesia] 400 mg/5 mL Suspension 30 ml PO DAILY PRN (Reason: Constipation) Qty: 100 0RF ondansetron 4 mg tablet,disintegrating 4 mg PO Q8H PRN (Reason: nausea and vomiting) Qty: 20 0RF amoxicillin-pot clavulanate [Augmentin] 500-125 mg tablet 1 tablet PO Q8H Qty: 21 0RF Continued albuterol sulfate 2.5 mg /3 mL (0.083 %) solution for nebulization 2.5 mg inhalation Q4-6H PRN (Reason: Wheezing) ipratropium-albuterol 0.5 mg-3 mg(2.5 mg base)/3 mL solution for nebulization 3 ml INHALATION QID polyethylene glycol 3350 17 gram Powder In Packet 17 g PO DAILY ferrous sulfate 325 mg (65 mg iron) Tablet 325 mg PO DAILY budesonide 0.5 mg/2 mL suspension for nebulization 0.5 mg inhalation BID apixaban 5 mg Tablet 5 mg PO BID alprazolam 1 mg tablet 1 mg PO TID PRN (Reason: Anxiety) pantoprazole 40 mg tablet,delayed release (DR/EC) 40 mg PO BID spironolactone [Aldactone] 25 mg tablet 25 mg PO DAILY Qty: 30 0RF furosemide [Lasix] 20 mg tablet 10 mg PO DAILY diltiazem HCl 240 mg tablet extended release 24 hr 240 mg PO DAILY acetaminophen 325 mg tablet 650 mg PO Q6H PRN (Reason: Pain (Scale Score 1-3)) arformoterol 15 mcg/2 mL solution for nebulization 15 mcg INHALATION BID alprazolam 0.5 mg Tablet 0.5 mg PO DAILY Qty: 10 0RF Rx Instructions: in the morning fluoxetine 20 mg Tablet 20 mg PO DAILY 30 Days Qty: 30 0RF metoprolol tartrate 50 mg Tablet 50 mg PO Q12HR Qty: 60 0RF hydrocodone-acetaminophen 7.5-325 mg tablet 1 tablet PO Q6H PRN (Reason: Pain (Scale Score 4-6)) atorvastatin 20 mg Tablet 20 mg PO HS Qty: 30 0RF Date of admission: 09/01/24 21:57 Primary Care Provider: Tor Barnes Admitting Provider: Mariajose Ardon V. Attending physician on admission: Wendy Ocampo Condition: Stable
[2024-09-04] MEDS: ATORVASTATIN 20 MG TABLET PO (21:01)
== END 2024-09-04 21:25 ==
PROVIDERS: Nurse Practitioner Family; Admitting Provider Internal Medicine; PCP Family Medicine; Visit Provider Family Medicine
DX: J96.21 Acute and chronic respiratory failure with hypoxia (principal); Z99.81 Dependence on supplemental oxygen; E43 Unspecified severe protein-calorie malnutrition; Z68.1 Body mass index [BMI] 19.9 or less, adult; R62.7 Adult failure to thrive; K80.20 Calculus of gallbladder without cholecystitis without obstruction; I13.0 Hypertensive heart and chronic kidney disease with heart failure and stage 1 through stage 4 chronic kidney disease, or unspecified chronic kidney disease; I50.33 Acute on chronic diastolic (congestive) heart failure; N18.9 Chronic kidney disease, unspecified; J43.9 Emphysema, unspecified; I48.0 Paroxysmal atrial fibrillation; F41.9 Anxiety disorder, unspecified; M19.90 Unspecified osteoarthritis, unspecified site; K21.9 Gastro-esophageal reflux disease without esophagitis; D72.829 Elevated white blood cell count, unspecified; E83.42 Hypomagnesemia; Z79.01 Long term (current) use of anticoagulants; Z79.51 Long term (current) use of inhaled steroids; Z79.899 Other long term (current) drug therapy; Z86.73 Personal history of transient ischemic attack (TIA), and cerebral infarction without residual deficits; Z87.891 Personal history of nicotine dependence
CPT/HCPCS: 36415; 76705; 80048; 80053; 83605; 83735; 84100; 85025; 85027; 85610; 85730; 94640; A9270; G0378; G0379; J2270; J2405; J2543; J3475

== ENCOUNTER 2024-09-22 18:56 | Emergency (ER) | payer MEDICARE, MEDICAID, SELFPAY ==
[2024-09-22 19:00] VITALS: BP 108/62; PULSE 60; RESP 20; TEMP 36.6; O2SAT 97
--- NOTE | 2024-09-22 19:02 | ED.FALL ---
HPI - Fall General Chief Complaint: Fall Stated Complaint: fall injury Time Seen by Provider: 09/22/24 19:02 Source: patient and EMS Mode of arrival: EMS Limitations: no limitations History of Present Illness HPI Narrative: PATIENT PROBABLY THROW HERSELF OUT OF THE BED ON THE FLOOR, INTERMEDIATE REPORTS PAIN ON THE LEFT HIP, PATIENT DENIES HEAD INJURY OR NECK INJURY OR ANY OTHER INJURIES. Related Data Home Medications Medication Instructions Recorded Confirmed albuterol sulfate 2.5 mg/3 mL 2.5 mg inhalation Q4-6H PRN 10/31/23 09/01/24 (0.083 %) solution for nebulization Wheezing hydrocodone 7.5 mg-acetaminophen 1 tablet PO Q6H PRN Pain (Scale 12/08/23 09/01/24 325 mg tablet Score 4-6) acetaminophen 325 mg tablet 650 mg PO Q6H PRN Pain (Scale 01/07/24 09/01/24 Score 1-3) diltiazem HCl 240 mg 240 mg PO DAILY 01/07/24 09/01/24 tablet,extended release 24 hr alprazolam 1 mg tablet 1 mg PO TID PRN Anxiety 02/26/24 09/01/24 apixaban 5 mg tablet 5 mg PO BID 02/26/24 09/01/24 budesonide 0.5 mg/2 mL suspension 0.5 mg inhalation BID 02/26/24 09/01/24 for nebulization ferrous sulfate 325 mg (65 mg 325 mg PO DAILY 02/26/24 09/01/24 iron) tablet ipratropium 0.5 mg-albuterol 3 mg 3 ml inhalation QID 02/26/24 09/01/24 (2.5 mg base)/3 mL nebulization soln pantoprazole 40 mg tablet,delayed 40 mg PO BID 02/26/24 09/01/24 release polyethylene glycol 3350 17 gram 17 g PO DAILY 02/26/24 09/01/24 oral powder packet arformoterol 15 mcg/2 mL solution 15 mcg inhalation BID 09/01/24 09/01/24 for nebulization furosemide 20 mg tablet (Lasix) 10 mg PO DAILY 09/01/24 09/01/24 Allergies Allergy/AdvReac Type Severity Reaction Status Date / Time codeine AdvReac Nausea and Verified 09/01/24 17:51 Vomiting Review of Systems Review of Systems: All systems reviewed & are unremarkable except as noted in HPI and below PMFSH Past Medical History Medical History Anxiety Arthritis Chronic anticoagulation Chronic obstructive pulmonary disease Chronic respiratory failure with hypoxia, on home oxygen therapy Gastroesophageal reflux disease Paroxysmal atrial fibrillation Surgical History Surgical History History of back surgery History of cardiac catheterization History of knee surgery History of nasal septoplasty History of partial hysterectomy History of shoulder surgery Family History Family History Grandparent Cancer Father Diabetes mellitus Heart disease Social History Social History Social History: Surrogate medical decision maker: Pankaj Neal, spouse. Code status: Full code. Smoking packs per day: 1 Smoking cigarettes per day: 20.0 Years smoked: 50 Smoking pack-years: 50.00 Smoking status: Former smoker Tobacco type: cigarettes Alcohol intake: never Substance use: never Substance use type: does not use Other substance usage details: Gummies Do You Feel Safe in your Home?: Yes Lack of Transportation: No Lack of Food: Never True Current Housing: I Have Housing Concerned About Future Housing: No Difficulty Paying Gas/Electric Bills: No Difficulty Paying for Meds: No Currently Unemployed: No Education: Grade School Difficulty w/ Childcare or Family Care: No Spiritual care concerns: No Exam Narrative: GENERAL APPEARANCE: WELL-DEVELOPED, WELL-NOURISHED SKIN: NORMAL COLOR HEAD: NORMOCEPHALIC, NONTRAUMATIC EYES: CLEAR CONJUNCTIVA ENT: OROPHARYNX NORMAL, EARS NORMAL, NOSE NORMAL NECK: SUPPLE, NONTENDER CHEST AND RESPIRATORY: AIRWAY PATENT, NO RESPIRATORY DISTRESS, NO ACCESSORY MUSCLE USE HEART: REGULAR RATE/RHYTHM ABDOMEN: SOFT, NONTENDER, NO ORGANOMEGALY, QUIET BOWEL SOUNDS MUSCULOSKELETAL: RIGHT HEMIPLEGIA, NO BRUISES, NO SWELLING, NO DEFORMITY NEUROLOGIC: ALERT AND ORIENTED ?3, Course Vital Signs Vital signs: Vital Signs Temperature 36.6 C 09/22/24 19:00 Pulse Rate 60 09/22/24 19:00 Respiratory Rate 20 09/22/24 19:00 Blood Pressure 108/62 09/22/24 19:00 Pulse Oximetry 97 09/22/24 19:00 Oxygen Delivery Nasal Cannula 12/09/24 19:00 Oxygen Flow Rate 2 09/22/24 19:00 Temperature 36.6 C 09/22/24 19:00 Pulse Rate 60 09/22/24 19:00 Respiratory Rate 20 09/22/24 19:00 Blood Pressure 108/62 09/22/24 19:00 Pulse Oximetry 97 09/22/24 19:00 Oxygen Delivery Nasal Cannula 09/22/24 19:00 Oxygen Flow Rate 2 09/22/24 19:00 Discharge Plan Discharge Clinical Impression: Fall Patient Disposition: Left Against Medical Advice Condition: Guarded Prognosis Additional Instructions: RETURN IF SYMPTOMS ARE WORSENING , CALL YOUR FAMILY PHYSICIAN FOR APPOINTMENT, TAKE TYLENOL NEEDED FOR ACHES AND PAIN, CONTINUE HOME MEDICATIONS. Prescriptions: No Action albuterol sulfate 2.5 mg /3 mL (0.083 %) solution for nebulization 2.5 mg inhalation Q4-6H PRN (Reason: Wheezing) ipratropium-albuterol 0.5 mg-3 mg(2.5 mg base)/3 mL solution for nebulization 3 ml INHALATION QID polyethylene glycol 3350 17 gram Powder In Packet 17 g PO DAILY ferrous sulfate 325 mg (65 mg iron) Tablet 325 mg PO DAILY budesonide 0.5 mg/2 mL suspension for nebulization 0.5 mg inhalation BID apixaban 5 mg Tablet 5 mg PO BID alprazolam 1 mg tablet 1 mg PO TID PRN (Reason: Anxiety) pantoprazole 40 mg tablet,delayed release (DR/EC) 40 mg PO BID spironolactone [Aldactone] 25 mg tablet 25 mg PO DAILY Qty: 30 0RF furosemide [Lasix] 20 mg tablet 10 mg PO DAILY diltiazem HCl 240 mg tablet extended release 24 hr 240 mg PO DAILY acetaminophen 325 mg tablet 650 mg PO Q6H PRN (Reason: Pain (Scale Score 1-3)) arformoterol 15 mcg/2 mL solution for nebulization 15 mcg INHALATION BID magnesium hydroxide [Milk of Magnesia] 400 mg/5 mL Suspension 30 ml PO DAILY PRN (Reason: Constipation) Qty: 100 0RF ondansetron 4 mg tablet,disintegrating 4 mg PO Q8H PRN (Reason: nausea and vomiting) Qty: 20 0RF amoxicillin-pot clavulanate [Augmentin] 500-125 mg tablet 1 tablet PO Q8H Qty: 21 0RF alprazolam 0.5 mg Tablet 0.5 mg PO DAILY Qty: 10 0RF Rx Instructions: in the morning fluoxetine 20 mg Tablet 20 mg PO DAILY 30 Days Qty: 30 0RF metoprolol tartrate 50 mg Tablet 50 mg PO Q12HR Qty: 60 0RF hydrocodone-acetaminophen 7.5-325 mg tablet 1 tablet PO Q6H PRN (Reason: Pain (Scale Score 4-6)) atorvastatin 20 mg Tablet 20 mg PO HS Qty: 30 0RF Follow-up/Referrals: Tor Barnes MD [Primary Care Provider] -
--- NOTE | 2024-09-22 19:21 | PC.NURSE ---
Pt is refusing all CT at this time. She states she has no headache pain and no pain in her LT hip and states the NH is full of crap . She has no problem moving herself in bed and is able to assist w/ movement on and off bedpan. ERP DR [facility]su aware and states exam is negative and pt will go back to [place]. Call placed to [facility]Note 3] and Rehab for pt retrun.
--- NOTE | 2024-09-22 19:30 | PC.NURSE ---
Pt gives verbal consent for AMA and refusal of all CT scans and tests, she wants to return to [place] and states she has nothing wrong with her. Paperwork signed by Dr Kaye for pt refusal of tests.
--- NOTE | 2024-09-22 19:35 | PC.NURSE ---
Pt cleaned of BM and new diaper placed, noted sore to coccyx and mepilex applied to area of broken sore. Call placed to [facility] and Rehab of pt return.
--- NOTE | 2024-09-22 19:45 | PC.NURSE ---
Pt yelling continuously for help, reoriented to surroundings and pt reassured she has diaper in place in case she needs to use BR. Order received by ERP for pt to have Ativan before return to [place]. EMS [facility] paged for transfer and pt return to [facility] [place].
--- NOTE | 2024-09-22 19:47 | PC.NURSE ---
Pt is stating that she needs to use the bathroom approximately every 30 seconds; Reiterating to pt that she did not want to use bedpan, so we placed her in depends -> pt failing to understand even with constant reiteration
[2024-09-22] MEDS: LORazepam (*CRX) 0.5 MG TABLET 1 MG PO (19:48)
[2024-09-22 20:10] VITALS: BP 122/74; PULSE 65; RESP 20; TEMP 36.6; O2SAT 97
== END 2024-09-22 20:10 | disposition left against medical advice (07) ==
PROVIDERS: Emergency Provider Emergency Medicine; PCP Family Medicine
DX: M25.552 Pain in left hip (principal); I48.0 Paroxysmal atrial fibrillation; J44.9 Chronic obstructive pulmonary disease, unspecified; Z87.891 Personal history of nicotine dependence; W06.XXXA Fall from bed, initial encounter; Y92.122 Bedroom in nursing home as the place of occurrence of the external cause
CPT/HCPCS: 99283; A9270